=== PATIENT | female | born 1955 | race American Indian/Alaskan Native ===

== ENCOUNTER 2016-12-30 20:28 | Inpatient (IN) | payer MEDICARE ==
[2016-12-30 21:06] LABS: Urine Drugs of Abuse Note Disclamer
[2016-12-30 21:20] LABS: Bacteria,Urine 1+ /HPF (Negative); Bilirubin,Urine NEG (Negative); Blood,Urine NEG (Negative); Ketones,Urine TR mg/dL (Negative); Leukocyte Esterase,Urine NEG (Negative); Nitrite,Urine NEG (Negative); WBC,Urine < 1.0 /HPF (0.0-6.0)
--- NOTE | 2016-12-30 21:26 | Cat Scan Report ---
FINAL REPORT PROCEDURE: CT head without contrast. TECHNIQUE: Computerized tomography of the head was performed without contrast material. HISTORY: Altered mental status. COMPARISON: No prior studies are available for comparison. FINDINGS: There is mild cerebral atrophy. There is some diminished attenuation within the periventricular deep white matter of both frontal lobes. This likely represents chronic microvascular ischemic change. The bone matter and white matter otherwise appear normal. There are no mass lesions. There is no intracranial hemorrhage. There are no signs of acute infarction. The calvarium appears intact. The mastoid air cells and visualized paranasal sinuses are clear. There are subcutaneous contusions in the right frontal scalp and the right posterior scalp. IMPRESSION: Normal study of the brain for age. Probable head trauma with scalp contusions evident.
--- NOTE | 2016-12-30 21:28 | Emergency Department Report ---
ED General Adult HPI - General Chief complaint: Altered Mental Status Stated complaint: ALTERED MENTAL Time Seen by Provider: 12/30/16 21:23 Source: family, EMS (ems notes not available at time of chart dictation), RN notes reviewed Mode of arrival: Stretcher Limitations: Altered Mental Status, Physical Limitation - History of Present Illness Initial comments: This is a 61-year-old female. She is previously unknown to me. She is brought to the hospital by EMS for altered mental status. As per verbal report from family/friends, patient is typically alert, oriented, converses, and able to complete her activities of daily living. The patient was found down at home, for uncertain duration of time, via uncertain mechanism. The patient is altered , and cannot offer any additional information. -: unknown Consistency: constant Improves with: none Worsens with: none Associated Symptoms: confusion - Related Data Home Medications Medication Instructions Recorded Confirmed Last Taken Warfarin Sodium [Coumadin] 7.5 mg PO DAILY 04/27/14 04/27/14 Unknown Previous Rx's Medication Instructions Recorded Last Taken Type Gabapentin [Neurontin] 600 mg PO Q8H #90 tablet 04/27/14 Unknown Rx HYDROcodone/APAP 5-325 [[place] 1 each PO Q6HR PRN #20 tablet 04/27/14 Unknown Rx 5-325 mg TAB] Hydrochlorothiazide [HCTZ] 25 mg PO QDAY #30 tablet 04/27/14 Unknown Rx Losartan [Cozaar] 50 mg PO QDAY #30 tablet 04/27/14 Unknown Rx Rosuvastatin Calcium [Crestor] 40 mg PO QHS #30 tablet 04/27/14 Unknown Rx Warfarin [Coumadin] 5 mg PO QDAY #30 tablet 04/27/14 Unknown Rx glyBURIDE [Diabeta] 5 mg PO DAILY #30 tablet 04/27/14 Unknown Rx Allergies Allergy/AdvReac Type Severity Reaction Status Date / Time No Known Allergies Allergy Unverified 04/27/14 08:15 ED Review of Systems ROS: Stated complaint: ALTERED MENTAL Other details as noted in HPI Comment: Unobtainable due to pts medical conditions ED Past Medical Hx - Past Medical History Hx Diabetes: Yes Hx Headaches / Migraines: Yes Additional medical history: high cholestrol - Surgical History Additional Surgical History: hysterectomy, left toe amputations - Social History Smoking Status: Never Smoker Substance Use Type: None - Medications Home Medications: Home Medications Medication Instructions Recorded Confirmed Last Taken Type Gabapentin [Neurontin] 600 mg PO Q8H #90 tablet 04/27/14 Unknown Rx HYDROcodone/APAP 5-325 [[place] 1 each PO Q6HR PRN #20 tablet 04/27/14 Unknown Rx 5-325 mg TAB] Hydrochlorothiazide [HCTZ] 25 mg PO QDAY #30 tablet 04/27/14 Unknown Rx Losartan [Cozaar] 50 mg PO QDAY #30 tablet 04/27/14 Unknown Rx Rosuvastatin Calcium [Crestor] 40 mg PO QHS #30 tablet 04/27/14 Unknown Rx Warfarin Sodium [Coumadin] 7.5 mg PO DAILY 04/27/14 04/27/14 Unknown History Warfarin [Coumadin] 5 mg PO QDAY #30 tablet 04/27/14 Unknown Rx glyBURIDE [Diabeta] 5 mg PO DAILY #30 tablet 04/27/14 Unknown Rx ED Physical Exam - General Limitations: Altered Mental Status, Physical Limitation General appearance: in no apparent distress - Head Head exam: Present: normocephalic, other (superficial scalp contusions noted. No lacerations are noted) - Eye Eye exam: Present: normal appearance, PERRL - ENT ENT exam: Present: mucous membranes dry - Neck Neck exam: Present: normal inspection, full ROM. Absent: tenderness, meningismus - Respiratory Respiratory exam: Present: normal lung sounds bilaterally. Absent: respiratory distress, wheezes, rales, rhonchi, stridor, chest wall tenderness, accessory muscle use, decreased breath sounds, prolonged expiratory - Cardiovascular Cardiovascular Exam: Present: normal rhythm, tachycardia, normal heart sounds. Absent: systolic murmur, diastolic murmur, rubs, gallop - GI/Abdominal GI/Abdominal exam: Present: soft, normal bowel sounds. Absent: distended, tenderness, guarding, rebound, rigid, pulsatile mass - Rectal Rectal exam: Present: normal inspection - External exam: Present: normal external exam - Extremities Exam Extremities exam: Present: normal inspection, normal capillary refill, other ( nonspecific myoclonic jerks and shaking are noted) - Back Exam Back exam: Present: normal inspection - Neurological Exam Neurological exam: Present: altered, other (patient is awake, and protecting her airway. She does not speak. She does not follow commands.) - Psychiatric Psychiatric exam: Present: other (patient is nonverbal) - Skin Skin exam: Present: warm, dry, intact, normal color. Absent: rash ED Course Vital Signs 12/30/16 12/30/16 12/30/16 20:28 20:30 20:48 Temperature 95.0 F L Pulse Rate 105 H Respiratory 26 H 26 H 28 H Rate Blood Pressure 255/135 255/135 Blood Pressure 255/135 [Left] O2 Sat by Pulse 86 97 Oximetry 12/30/16 12/30/16 12/30/16 21:06 21:12 21:15 Temperature Pulse Rate 103 H 98 H Respiratory 25 H 26 H Rate Blood Pressure 221/118 Blood Pressure 248/137 [Left] O2 Sat by Pulse 99 97 Oximetry 12/30/16 12/30/16 12/30/16 21:30 21:42 21:45 Temperature Pulse Rate 101 H 103 H 106 H Respiratory 24 25 H Rate Blood Pressure 245/119 245/119 194/88 Blood Pressure [Left] O2 Sat by Pulse 100 100 Oximetry 12/30/16 12/30/16 12/30/16 22:00 22:15 22:30 Temperature Pulse Rate 106 H 107 H 107 H Respiratory 31 H 33 H 32 H Rate Blood Pressure 218/99 219/97 227/101 Blood Pressure [Left] O2 Sat by Pulse 99 100 100 Oximetry 12/30/16 12/30/16 12/30/16 22:45 23:00 23:15 Temperature Pulse Rate 116 H 118 H 113 H Respiratory 30 H 33 H 33 H Rate Blood Pressure 193/82 205/93 173/77 Blood Pressure [Left] O2 Sat by Pulse 100 100 99 Oximetry 12/30/16 12/30/16 12/30/16 23:16 23:30 23:45 Temperature Pulse Rate 113 H 110 H 110 H Respiratory 36 H 36 H 40 H Rate Blood Pressure 173/77 170/73 158/70 Blood Pressure [Left] O2 Sat by Pulse 99 100 100 Oximetry 12/30/16 12/30/16 12/31/16 23:47 23:57 00:00 Temperature 98.5 F Pulse Rate 110 H 106 H Respiratory 39 H 37 H Rate Blood Pressure 158/70 165/67 Blood Pressure [Left] O2 Sat by Pulse 99 100 Oximetry 12/31/16 00:15 Temperature Pulse Rate 108 H Respiratory 36 H Rate Blood Pressure 166/69 Blood Pressure [Left] O2 Sat by Pulse 100 Oximetry - Reevaluation(s) Reevaluation #1: 12/31/16 00:36 Vital signs improved. Elevated troponin appreciated, this is most likely secondary to renal insufficiency. I will defer to the inpatient team to further manage and evaluate this. ED Medical Decision Making - Lab Data Result diagrams: 12/30/16 21:29 12/30/16 21:29 Vital Signs 12/30/16 12/30/16 12/30/16 20:28 20:30 20:48 Temperature 95.0 F L Pulse Rate 105 H Respiratory 26 H 26 H 28 H Rate Blood Pressure 255/135 255/135 Blood Pressure 255/135 [Left] O2 Sat by Pulse 86 97 Oximetry 12/30/16 12/30/16 12/30/16 21:06 21:12 21:15 Temperature Pulse Rate 103 H 98 H Respiratory 25 H 26 H Rate Blood Pressure 221/118 Blood Pressure 248/137 [Left] O2 Sat by Pulse 99 97 Oximetry 12/30/16 12/30/16 12/30/16 21:30 21:42 21:45 Temperature Pulse Rate 101 H 103 H 106 H Respiratory 24 25 H Rate Blood Pressure 245/119 245/119 194/88 Blood Pressure [Left] O2 Sat by Pulse 100 100 Oximetry 12/30/16 22:00 Temperature Pulse Rate 106 H Respiratory 31 H Rate Blood Pressure 218/99 Blood Pressure [Left] O2 Sat by Pulse 99 Oximetry Lab Results 12/30/16 12/30/16 12/30/16 Range/Units 20:47 20:47 21:29 WBC 10.5 (4.5-11.0) K/mm3 RBC 4.36 (3.65-5.03) M/mm3 Hgb 12.8 (10.1-14.3) gm/dl Hct 38.7 (30.3-42.9) % MCV 89 (79-97) fl MCH 30 (28-32) pg MCHC 33 (30-34) % RDW 15.8 H (13.2-15.2) % Plt Count 306 (140-440) K/mm3 Lymph % (Auto) 15.5 (13.4-35.0) % Hardy % (Auto) 2.6 (0.0-7.3) % Eos % (Auto) 0.0 (0.0-4.3) % Baso % (Auto) 0.3 (0.0-1.8) % Lymph # 1.6 (1.2-5.4) K/mm3 Hardy # 0.3 (0.0-0.8) K/mm3 Eos # 0.0 (0.0-0.4) K/mm3 Baso # 0.0 (0.0-0.1) K/mm3 Seg Neutrophils % 81.6 H (40.0-70.0) % Seg Neutrophils # 8.5 H (1.8-7.7) K/mm3 Sodium (137-145) mmol/L Potassium (3.6-5.0) mmol/L Chloride (98-107) mmol/L Carbon Dioxide (22-30) mmol/L Anion Gap mmol/L BUN (7-17) mg/dL Creatinine (0.7-1.2) mg/dL Estimated GFR ml/min BUN/Creatinine Ratio % Glucose (65-100) mg/dL Calcium (8.4-10.2) mg/dL Magnesium (1.7-2.3) mg/dL Total Bilirubin (0.1-1.2) mg/dL AST (5-40) units/L ALT (7-56) units/L Alkaline Phosphatase (35-129) units/L Total Creatine Kinase (30-135) units/L Total Protein (6.3-8.2) g/dL Albumin (3.9-5) g/dL Albumin/Globulin Ratio % TSH (0.270-4.200) mlU/mL Urine Color Yellow (Yellow) Urine Turbidity Clear (Clear) Urine pH 5.0 (5.0-7.0) Ur Specific [place] 1.023 (1.003-1.030) Urine Protein 100 mg/dl (Negative) mg/dL Urine Glucose (UA) Neg (Negative) mg/dL Urine Ketones Tr (Negative) mg/dL Urine Blood Neg (Negative) Urine Nitrite Neg (Negative) Urine Bilirubin Neg (Negative) Urine Urobilinogen 2.0 (<2.0) mg/dL Ur Leukocyte Esterase Neg (Negative) Urine WBC (Auto) < 1.0 (0.0-6.0) /HPF Urine RBC (Auto) 1.0 (0.0-6.0) /HPF U Epithel Cells (Auto) 1.0 (0-13.0) /HPF Urine Bacteria (Auto) 1+ (Negative) /HPF Salicylates (2.8-20.0) mg/dL Urine Opiates Screen Presumptive negative Urine Methadone Screen Presumptive negative Acetaminophen (10.0-30.0) ug/mL Ur Barbiturates Screen Presumptive negative Ur Phencyclidine Scrn Presumptive negative Ur Amphetamines Screen Presumptive negative U Benzodiazepines Scrn Presumptive negative Urine Cocaine Screen Presumptive negative U Marijuana (THC) Screen Presumptive positive Drugs of Abuse Note Disclamer Plasma/Serum Alcohol (0-0.07) gm% 12/30/16 12/30/16 12/30/16 Range/Units 21:29 21:29 21:29 WBC (4.5-11.0) K/mm3 RBC (3.65-5.03) M/mm3 Hgb (10.1-14.3) gm/dl Hct (30.3-42.9) % MCV (79-97) fl MCH (28-32) pg MCHC (30-34) % RDW (13.2-15.2) % Plt Count (140-440) K/mm3 Lymph % (Auto) (13.4-35.0) % Hardy % (Auto) (0.0-7.3) % Eos % (Auto) (0.0-4.3) % Baso % (Auto) (0.0-1.8) % Lymph # (1.2-5.4) K/mm3 Hardy # (0.0-0.8) K/mm3 Eos # (0.0-0.4) K/mm3 Baso # (0.0-0.1) K/mm3 Seg Neutrophils % (40.0-70.0) % Seg Neutrophils # (1.8-7.7) K/mm3 Sodium 143 (137-145) mmol/L Potassium 6.9 H* (3.6-5.0) mmol/L Chloride 101.8 (98-107) mmol/L Carbon Dioxide 14 L (22-30) mmol/L Anion Gap 34 mmol/L BUN 73 H (7-17) mg/dL Creatinine 3.6 H (0.7-1.2) mg/dL Estimated GFR 16 ml/min BUN/Creatinine Ratio 20.27 % Glucose 152 H (65-100) mg/dL Calcium 10.1 (8.4-10.2) mg/dL Magnesium 2.70 H (1.7-2.3) mg/dL Total Bilirubin 0.40 (0.1-1.2) mg/dL AST 19 (5-40) units/L ALT 7 (7-56) units/L Alkaline Phosphatase 109 (35-129) units/L Total Creatine Kinase 854 H (30-135) units/L Total Protein 8.1 (6.3-8.2) g/dL Albumin 4.1 (3.9-5) g/dL Albumin/Globulin Ratio 1.0 % TSH 1.320 (0.270-4.200) mlU/mL Urine Color (Yellow) Urine Turbidity (Clear) Urine pH (5.0-7.0) Ur Specific [place] (1.003-1.030) Urine Protein (Negative) mg/dL Urine Glucose (UA) (Negative) mg/dL Urine Ketones (Negative) mg/dL Urine Blood (Negative) Urine Nitrite (Negative) Urine Bilirubin (Negative) Urine Urobilinogen (<2.0) mg/dL Ur Leukocyte Esterase (Negative) Urine WBC (Auto) (0.0-6.0) /HPF Urine RBC (Auto) (0.0-6.0) /HPF U Epithel Cells (Auto) (0-13.0) /HPF Urine Bacteria (Auto) (Negative) /HPF Salicylates < 0.3 L (2.8-20.0) mg/dL Urine Opiates Screen Urine Methadone Screen Acetaminophen (10.0-30.0) ug/mL Ur Barbiturates Screen Ur Phencyclidine Scrn Ur Amphetamines Screen U Benzodiazepines Scrn Urine Cocaine Screen U Marijuana (THC) Screen Drugs of Abuse Note Plasma/Serum Alcohol (0-0.07) gm% 12/30/16 12/30/16 Range/Units 21:29 21:29 WBC (4.5-11.0) K/mm3 RBC (3.65-5.03) M/mm3 Hgb (10.1-14.3) gm/dl Hct (30.3-42.9) % MCV (79-97) fl MCH (28-32) pg MCHC (30-34) % RDW (13.2-15.2) % Plt Count (140-440) K/mm3 Lymph % (Auto) (13.4-35.0) % Hardy % (Auto) (0.0-7.3) % Eos % (Auto) (0.0-4.3) % Baso % (Auto) (0.0-1.8) % Lymph # (1.2-5.4) K/mm3 Hardy # (0.0-0.8) K/mm3 Eos # (0.0-0.4) K/mm3 Baso # (0.0-0.1) K/mm3 Seg Neutrophils % (40.0-70.0) % Seg Neutrophils # (1.8-7.7) K/mm3 Sodium (137-145) mmol/L Potassium (3.6-5.0) mmol/L Chloride (98-107) mmol/L Carbon Dioxide (22-30) mmol/L Anion Gap mmol/L BUN (7-17) mg/dL Creatinine (0.7-1.2) mg/dL Estimated GFR ml/min BUN/Creatinine Ratio % Glucose (65-100) mg/dL Calcium (8.4-10.2) mg/dL Magnesium (1.7-2.3) mg/dL Total Bilirubin (0.1-1.2) mg/dL AST (5-40) units/L ALT (7-56) units/L Alkaline Phosphatase (35-129) units/L Total Creatine Kinase (30-135) units/L Total Protein (6.3-8.2) g/dL Albumin (3.9-5) g/dL Albumin/Globulin Ratio % TSH (0.270-4.200) mlU/mL Urine Color (Yellow) Urine Turbidity (Clear) Urine pH (5.0-7.0) Ur Specific [place] (1.003-1.030) Urine Protein (Negative) mg/dL Urine Glucose (UA) (Negative) mg/dL Urine Ketones (Negative) mg/dL Urine Blood (Negative) Urine Nitrite (Negative) Urine Bilirubin (Negative) Urine Urobilinogen (<2.0) mg/dL Ur Leukocyte Esterase (Negative) Urine WBC (Auto) (0.0-6.0) /HPF Urine RBC (Auto) (0.0-6.0) /HPF U Epithel Cells (Auto) (0-13.0) /HPF Urine Bacteria (Auto) (Negative) /HPF Salicylates (2.8-20.0) mg/dL Urine Opiates Screen Urine Methadone Screen Acetaminophen < 15.0 (10.0-30.0) ug/mL Ur Barbiturates Screen Ur Phencyclidine Scrn Ur Amphetamines Screen U Benzodiazepines Scrn Urine Cocaine Screen U Marijuana (THC) Screen Drugs of Abuse Note Plasma/Serum Alcohol < 0.01 (0-0.07) gm% - EKG Data -: EKG Interpreted by Me - EKG Data 12/30/16 22:46 Sinus tachycardia, 104 bpm, normal axis, QTC 476 ms, abnormal EKG, not morphologically consistent with STEMI - Radiology Data Radiology results: report reviewed, image reviewed X-ray the chest is negative. Noncontrast CT scan of the brain is negative. Noncontrast CT scan of the cervical spine is negative. - Medical Decision Making Differential diagnosis: Environmental hypothermia, pneumonia, urinary tract infection, bacteremia, dehydration, acute coronary syndrome, arrhythmia, structural cardiac disease, dehydration, renal insufficiency, hyperkalemia, electrolyte derangement, hypertensive encephalopathy Assessment and plan: 61-year-old female with altered mental status, awake, eyes open spontaneously, does not speak, does not follow commands, with multiple derangement, including hypothermia, refractory hypertension, hyperkalemia, and renal insufficiency. Patient will be treated empirically with broad-spectrum antibiotics, urine cultures, blood cultures, lactic acid has been drawn. I appreciate that the patient meets systemic inflammatory response syndrome criteria, however given her hypertension, and renal insufficiency, the patient will receive judicious hydration rather than the typical 30 mL/kg of IV fluid bolus. Her hyperkalemia was treated medically with the potassium cocktail, and the EKG , physical exam findings, and case are presented to both nephrology on-call, and critical care correctional program officer, doctors Anju and Saravanan, respectively. Nephrology is okay with medical management at this time, based on the patient's EKG findings, and chest x-ray, they do not believe she requires emergent dialysis at this time. Critical care physician on-call authorizes placement to the intensive care unit. Patient will be started on a nicardipine drip. Case is presented to the Hospital physician, Dr. Ragland, she accepts the patient to her service. Critical Care Time: Yes Critical care time in (mins) excluding proc time.: 45 Critical care attestation.: If time is entered above; I have spent that time in minutes in the direct care of this critically ill patient, excluding procedure time. Critical Care Time: Critical care time includes multiple bedside reevaluation's, interpretation of laboratory studies, radiology studies, time spent managing critically ill patient with hypertensive encephalopathy, hyperkalemia, and renal insufficiency , requiring multiple medical interventions, consultation with critical care medicine, nephrology, hospital medicine. This does not include procedure time. ED Disposition Clinical Impression: Hyperkalemia, ARF (acute renal failure), Hypertensive encephalopathy Disposition: 09 OP ADMIT IP TO THIS HOSP Is pt being admited?: Yes Condition: Fair Referrals: PRIMARY CARE, [Primary Care Provider] - 3-5 Days
[2016-12-30] MEDS ORDERED: APRESOLINE IV ONE (21:36)
[2016-12-30] MEDS ORDERED: NACL 0.9% 500 ML 500 ML IV ONE (21:37)
--- NOTE | 2016-12-30 21:48 | Cat Scan Report ---
FINAL REPORT PROCEDURE: CT cervical spine without contrast. TECHNIQUE: Computerized tomography of the cervical spine was performed from the skull base to T1 without contrast material. HISTORY: Altered mental status, possible neck injury. COMPARISON: No prior studies are available for comparison. FINDINGS: The cervical vertebrae have normal height and satisfactory alignment. There are no fractures. There is no subluxation. There is mild disc space narrowing at C5-6. There are small vertebral body osteophytes at this level. The spinal canal is widely patent. There is osteoarthritis involving several of the facet joints. The neural foramina appear adequately patent. IMPRESSION: No evidence of acute cervical spine injury.
[2016-12-30 21:57] LABS: Basophils % (Auto) 0.3 % (0.0-1.8); Hematocrit 38.7 % (30.3-42.9); Hemoglobin 12.8 gm/dl (10.1-14.3); Mean Corpuscular HGB Conc 33 % (30-34); Mean Corpuscular Hemoglobin 30 pg (28-32); Mean Corpuscular Volume 89 fl (79-97); Platelet Count 306 K/mm3 (140-440); Red Blood Count 4.36 M/mm3 (3.65-5.03); Red Cell Distribution Width 15.8 % (13.2-15.2); White Blood Count 10.5 K/mm3 (4.5-11.0)
[2016-12-30 22:21] LABS: Albumin 4.1 g/dL (3.9-5); BUN/Creatinine Ratio 20.27; Bilirubin,Total 0.4 mg/dL (0.1-1.2); Calcium 10.1 mg/dL (8.4-10.2); Chloride 101.8 mmol/L (98-107); Magnesium 2.7 mg/dL (1.7-2.3); Total Protein 8.1 g/dL (6.3-8.2)
[2016-12-30] MEDS ORDERED: ROCEPHIN/NS 1 GM/50 ML 1 GM/50 ML BAG IV ONE (22:25)
[2016-12-30 22:26] LABS: Potassium 6.9 mmol/L (3.6-5.0)
[2016-12-30] MEDS ORDERED: D50W (25GM) Syringe IV ONE (22:26)
[2016-12-30] MEDS ORDERED: SODIUM BICARBONATE IV ONE ×2 (22:26)
[2016-12-30] MEDS ORDERED: NACL 0.9% 1000 ML 1,000 ML IV ONE (22:26)
[2016-12-30] MEDS ORDERED: KIONEX PR ONE (22:26)
[2016-12-30] MEDS ORDERED: CALCIUM GLUCONATE 1,000 MG in NACL 0.9% 100 ML IV ONE (22:26)
[2016-12-30] MEDS ORDERED: LASIX 100 MG in NACL 0.9% 50 ML IV ONE (22:47)
[2016-12-30] MEDS: CARDENE 50 MG in NACL 0.9% 250ML 230 ML IV SCH (23:04)
--- NOTE | 2016-12-30 23:56 | History and Physical Report ---
History of Present Illness Date of examination: 12/30/16 History of present illness: History per sisters at bedside. This is a 61-year-old woman with a history of hypertension, diabetes, chronic kidney disease was brought to the emergency room because she was found unresponsive at home. It's unclear how long the patient had been on the floor, patient's blood pressure has been very elevated upon admission, she was started on a Cardene drip. She status post cocktail for hyperkalemia. Review of system is unobtainable PAST MEDICAL HISTORY:hypertension, diabetes, chronic kidney disease PAST SURGICAL HISTORY: Bypass on legs, left foot amputation FAMILY HISTORY: Hypertension SOCIAL HISTORY: Smoke marijuana, cigarettes, unknown alcohol Medications and Allergies Allergies Allergy/AdvReac Type Severity Reaction Status Date / Time No Known Allergies Allergy Unverified 04/27/14 08:15 Home Medications Medication Instructions Recorded Confirmed Last Taken Type Metoprolol Xl [Metoprolol 50 mg PO QDAY 12/31/16 12/31/16 Unknown History SUCCINATE ER TAB] amLODIPine [Norvasc] 10 mg PO DAILY 12/31/16 12/31/16 Unknown History AtorvaSTATin 40 mg PO QPM 01/01/17 01/01/17 Unknown History Active Meds: Active Medications Nicardipine HCl 50 mg/ Sodium (Chloride) 250 mls @ 25 mls/hr IV TITR RAGHAV; 5 MG/ HR PRN Reason: Protocol Last Admin: 12/30/16 23:04 Dose: 5 mg/hr, 25 mls/hr Exam - Physical Exam Narrative exam: Gen. appearance: Patient lying in bed, no apparent distress HEENT: Normocephalic, atraumatic, pupils equally round and reactive to light, extraocular movement intact, and no sclericterus,. No JVD or thyromegaly or nodule,neck supple, no carotid bruit ,mucous membranes moist, no exudate or erythema Heart: S1, S2, regular rate and rhythm Lungs: Clear to auscultation bilaterally anteriorly, breathing comfortable Abdomen: Positive bowel sounds, soft, nondistended, no organomegaly Extremity: No edema, cyanosis, clubbing Skin: No rash, nodules, warm, dry Neuro: Lethargic, non verbal, not following commands - Constitutional Vitals: Temp Pulse Resp BP Pulse Ox 95.0 F L 110 H 40 H 158/70 100 12/30/16 20:48 12/30/16 23:45 12/30/16 23:45 12/30/16 23:45 12/30/16 23:45 Results - Labs CBC & Chem 7: 01/03/17 03:44 01/03/17 03:44 Labs: Abnormal lab results 12/30/16 12/30/16 12/30/16 Range/Units 21:29 21:29 21:29 RDW 15.8 H (13.2-15.2) % Seg Neutrophils % 81.6 H (40.0-70.0) % Seg Neutrophils # 8.5 H (1.8-7.7) K/mm3 Potassium 6.9 H* (3.6-5.0) mmol/L Carbon Dioxide 14 L (22-30) mmol/L BUN 73 H (7-17) mg/dL Creatinine 3.6 H (0.7-1.2) mg/dL Glucose 152 H (65-100) mg/dL Magnesium 2.70 H (1.7-2.3) mg/dL Total Creatine Kinase 854 H (30-135) units/L Salicylates < 0.3 L (2.8-20.0) mg/dL - Imaging and Cardiology EKG: image reviewed Chest x-ray: image reviewed CT Scan - head: report reviewed Assessment and Plan CT cervical spine reviewed Assessment Acute encephalopathy, probably hypertensive versus stroke Acute on chronic renal failure Hypertension malignant Hyperkalemia Elevated troponin Rhabdomyolysis Diabetes type 2 Plan Admit to medicine Continue Cardene drip, IV fluids, do neurochecks Follow potassium and treat as needed Check cardiac enzymes, echo Consult renal, critical care Check fingersticks initiate insulin sliding scale Start DVT prophylaxis If mental status does not improve, consider MRI of the head
[2016-12-31] MEDS ORDERED: ZOFRAN IV PRN (00:24)
[2016-12-31] MEDS ORDERED: TYLENOL PO PRN (00:24)
[2016-12-31] MEDS ORDERED: NACL 0.9% 1000 ML 1,000 ML IV SCH (01:00)
[2016-12-31 02:08] LABS: Creatine Kinase MB 10.5 ng/mL (0.0-4.0)
[2016-12-31 05:12] LABS: BUN/Creatinine Ratio 19.25; Calcium 8.8 mg/dL (8.4-10.2); Chloride 106.1 mmol/L (98-107); Potassium 5.6 mmol/L (3.6-5.0)
--- NOTE | 2016-12-31 07:03 | Admit Criteria Form ---
Admission Criteria Documentation: RENAL FAILURE, ACUTE Clinical Indications for Admission to Inpatient Care ( Place 'X' for any and all applicable criteria): Admission is indicated for ALL (I and II) of the following[A](1)(2)(3)(4)(8)(9)( 10)(11)(12): [ ]I. Acute renal failure as indicated by 1 or more of the following: a) A 3-fold rise in serum creatinine from baseline b) Serum creatinine > 4 mg/dL (354 mol/L) with an acute rise > 0.5 mg/dL (44.2 mol/L) c) Reduction of > 75% in estimated glomerular filtration rate from baseline d) Estimated glomerular filtration rate < 35 mL/min/1.73m2(0.59 mL/sec/1.73m2 ) in a child up to 18 years of age e) Anuria indicated by ALL the following: i) Adequate volume status ii) Cessation of urine output indicated by 1 or more of the followin) Urine output < 0.3 mL/kg/hr for 24 hours) 2) Anuria (urine output < 0.1 mL/kg/hr) for 12hours [X] II. Renal failure cannot be managed in an outpatient or observational care setting as indicating by 1 or more of the following: [X] a) Altered mental status that is severe or persistent [ ] b) Cardiac arrhythmias of immediate concern [ ] c) Hemodynamic instability [ ] d) Significant respiratory findings (eg, pulmonary edema) that are severe (eg, Hypoxemia) or persist despite observation care treatment (eg, Tachypnea) [X] e) Clinically significant electrolyte abnormality that requires inpatient care (eg, hyperkalemia with severe ECG findings)[B] [ ] f) Clinically significant metabolic abnormality (eg, acidosis) that is severe or persistent [ ] g) Acute treatment of renal failure (eg, renal replacement therapy) not feasible or appropriate in observational care setting [ ] h) Clinical situation too unstable or uncertain (eg, inadequate urine output, ongoing decline in renal function, etiology unclear) [ ] i) Necessary support and caregiver ability to comply with outpatient treatment cannot be arranged in observation care timeframe (eg, within 24 hours) [ ] j) Other significant finding or clinical condition judged not to be within scope of observation care [X]III. General contraindications and/or Inappropriate clinical situations for Observational Care in patients with acute renal failure, when ANY ONE of the following is required: [ ] a) Prediction of prolongation of LOS based on ANY ONE of the following may be considered as a contraindication for observational care2, 3, 4, 5, 6, 7, 8, 9, 10, 11 i) Age > 65 yrs. ii) Patient arriving by ambulance iii) Patient with high acuity iv) Patient requiring vital sign monitoring v) Patient on IV medication [X] b) Systolic blood pressures = [id number] [ ] c) Patient with altered mental status including delirium and other alteration of consciousness3 [ ] d) Patient whose discharge disposition will be to a assisted home or rehabilitation home should not be managed in Emergency Department Observation Unit. CMS rule requires 3 days hospital stay before such placement3,13 [ ] e) Patient with failure to thrive due to broad array of etiologies3,16,17 [ ] f) Inability to ambulate3,14 Extended stay beyond goal length of stay may be needed for [ ]a) Continuing uremic complications(25) [ ]b) Care for comorbidities(26)(27)(28)(29) [ ]c) acute renal failure [ ]d) New need for dialysis (eg, not previously arranged and prepared)(21)( 30) The original [facility] content created by [facility] has been revised. The portions of the content which have been revised are identified through the use of italic text or in bold, and [facility] has neither reviewed nor approved the modified material. All other unmodified content is copyright [facility] [employer]. Please see references footnoted in the original [facility] edition 2017 Admission Criteria Met: Yes
--- NOTE | 2016-12-31 07:16 | Consultation ---
History of Present Illness - Reason for Consult Consult date: 12/31/16 acute renal failure, chronic renal failure, hyperkalemia, metabolic acidosis - History of Present Illness The patient is a 61-year-old AAF with history significant for Hypertension, Type 2 diabetes, Hyperlipidemia and CKD stage 3 who was brought to the emergency room because she was found unresponsive at home. Unable to obtain any history from patient at this time. Information obtained from her sister at the bedside. It is unclear how long the patient had been on the floor. Her blood pressure was very high in the ER and she was started on a Cardene drip. Her potassium was 6.9 on arrival, decreased to 6 today with creatinine of 4.6. Patient did receive treatment for hyperkalemia. Per sister patient is non- compliant with meds and appts. Past History Past Medical History: diabetes, hypertension, hyperlipidemia, renal failure Medications and Allergies Allergies Allergy/AdvReac Type Severity Reaction Status Date / Time No Known Allergies Allergy Unverified 04/27/14 08:15 Home Medications Medication Instructions Recorded Confirmed Last Taken Type Metoprolol Xl [Metoprolol 50 mg PO QDAY 12/31/16 12/31/16 Unknown History SUCCINATE ER TAB] amLODIPine [Norvasc] 10 mg PO DAILY 12/31/16 12/31/16 Unknown History Active Meds: Active Medications Acetaminophen (Tylenol) 650 mg PO Q4H PRN PRN Reason: Pain MILD(1-3)/Fever >100.5/CELIS Enoxaparin Sodium (Lovenox) 30 mg SUB-Q QDAY RAGHAV Nicardipine HCl 50 mg/ Sodium (Chloride) 250 mls @ 25 mls/hr IV TITR RAGHAV; 5 MG/ HR PRN Reason: Protocol Last Titration: 12/31/16 01:19 Dose: 6 mg/hr, 30 mls/hr Sodium Chloride (Nacl 0.9% 1000 Ml) 1,000 mls @ 125 mls/hr IV DIRECT RAGHAV Ondansetron HCl (Zofran) 4 mg IV Q4H PRN PRN Reason: N/V unrelieved by Reglan Review of Systems ROS unobtainable: due to mental status Exam - Vital Signs Vital signs: Vital Signs Resp 26 H 12/30/16 20:28 - General Appearance General appearance: well-developed, well-nourished, appears stated age, other ( no responding) EENT: ATNC, PERRL Neck: Present: neck supple, trachea midline Respiratory: Clear to Ascultation Heart: regular, S1S2, no murmurs Gastrointestinal: Present: normoactive bowel sounds. Absent: tenderness, distended Integumentary: no rash Neurologic: obtunded, other (preferential gaze to right side) Musculoskeletal: Present: other (no edema) Results - Lab Results 12/30/16 21:29 01/01/17 06:35 Most recent lab results Calcium 8.8 mg/dL (8.4-10.2) 12/31/16 01:31 Magnesium 2.70 mg/dL (1.7-2.3) H 12/30/16 21:29 - Image Kidney/bladder ultrasound: pending Assessment and Plan - Patient Problems (1) Hyperkalemia Current Visit: Yes Status: Acute Plan to address problem: Hyperkalemia in the setting of Acute kidney injury. Due to persistent hyperkalemia and metabolic acidosis patient require hemodialysis. Discussed with her sister at the bedside regarding the treatment options. Agreed to proceed with hemodialysis. Risks and benefits explained. Vascular consulted. Hemodialysis orders placed. (2) ARF (acute renal failure) Current Visit: Yes Status: Acute Qualifiers: Acute renal failure type: A Plan to address problem: Acute kidney injury superimposed on CKD stage 3 in the setting of uncontrolled HTN. Hemodialysis today. Renal prognosis is guarded. (3) Metabolic acidosis Current Visit: Yes Status: Acute Plan to address problem: On Bicarbonate drip. (4) Hypertensive encephalopathy Current Visit: Yes Status: Acute Plan to address problem: On Cardene drip.
[2016-12-31] MEDS ORDERED: CALCIUM GLUCONATE 1,000 MG in NACL 0.9% 100 ML IV ONE (07:30)
[2016-12-31] MEDS ORDERED: D50W (25GM) Syringe IV ONE ×2 (07:30→08:26)
[2016-12-31 07:40] LABS: Creatine Kinase MB 10.8 ng/mL (0.0-4.0)
[2016-12-31 07:58] LABS: BUN/Creatinine Ratio 17.6; Chloride 107.5 mmol/L (98-107)
--- NOTE | 2016-12-31 08:35 | Progress Note ---
Assessment and Plan Assessment and plan: 61 yo AAF with multiple chronic conditions (hypertension, diabetes, hyperlipidemia, peripheral vascular disease status post bypass) noncompliant, not taking her medications for months, found down by family and brought to ER unresponsive with blood pressure 255/135 1. Malignant hypertension/hypertensive emergency CT head showing chronic ischemic microvascular changes, with no acute infarct or hemorrhage Started on Cardene drip; this morning BP better controlled with systolic in 160s Unable to switched to by mouth antihypertensives as she remains unresponsive 2. Acute toxic metabolic encephalopathy Likely due to combination of hypertensive encephalopathy/renal failure with uremia/acidosis/electrolytes abnormalities/ drug use Obtain brain MRI to exclude stroke and better assess Treatment underlying conditions 3. Acute renal failure likely superimposed on chronic kidney disease BUN 77, creatinine 4 with marked hyperkalemia and metabolic acidosis Give bicarbonate Obtain renal ultrasound Nephrology consulted 4. Hyperkalemia On admission K+ 6.9; received Kayexalate, insulin/D50 This morning, K+ still elevated at 5.6; give additional Kayexalate, insulin/D50 , bicarbonate Monitor closely 5. Rhabdomyolysis Give IV fluids, but with caution given malignant hypertension Monitor CPK and renal function 6. Elevated troponin Most likely secondary to hypertensive emergency/renal failure Continue to trend cardiac enzymes Obtain echocardiogram 7. Hyperlipidemia - mixed Toprol Crestor 355, LDL 251, TG 298 Will hold statin for now given rhabdomyolysis 8. Peripheral vascular disease Status post bypass Discontinued anticoagulant therapy on her own months ago 9. Drug abuse UDS positive for marijuana If recovers, will need counseling 10. DVT prophylaxis As CT head negative for hemorrhage, will change Lovenox to heparin subcutaneous due to renal failure CC 40 min History Interval history: BP better controlled now on Cardene drip with SBP in 160s, but remains unresponsive Hospitalist Physical - Constitutional Vitals: Temp Pulse Resp BP Pulse Ox 98.5 F 109 H 30 H 164/67 100 12/30/16 23:57 12/31/16 07:30 12/31/16 07:30 12/31/16 07:30 12/31/16 07:30 General appearance: Present: mild distress - Neck Neck: Absent: enlarged thyroid, masses or JVD, carotid bruits - Respiratory Respiratory effort: normal Respiratory: bilateral: CTA (coarse breath sounds), negative: rhonchi, wheezing - Cardiovascular Rhythm: other (tachycardic) Heart Sounds: Present: S1 & S2. Absent: systolic murmur - Extremities Extremities: no ischemia - Abdominal General gastrointestinal: soft, non-distended, normal bowel sounds, no hepatomegaly - Psychiatric Psychiatric: other (unresponsive) Results - Labs CBC & Chem 7: 12/30/16 21:12/31/16 06:58 Labs: Laboratory Last Values WBC 10.5 K/mm3 (4.5-11.0) 12/30/16 21: RBC 4.36 M/mm3 (3.65-5.03) 12/30/16 21: Hgb 12.8 gm/dl (10.1-14.3) 12/30/16 21: Hct 38.7 % (30.3-42.9) 12/30/16 21: MCV 89 fl (79-97) 12/30/16 21: MCH 30 pg (28-32) 12/30/16: MCHC 33 % (30-34) 12/30/16: RDW 15.8 % (13.2-15.2) H 12/30/16 21: Plt Count 306 K/mm3 (140-440) 12/30/16 21: Lymph % (Auto) 15.5 % (13.4-35.0) 12/30/16 21: Stephenson % (Auto) 2.6 % (0.0-7.3) 12/30/16 21: Eos % (Auto) 0.0 % (0.0-4.3) 12/30/16: Baso % (Auto) 0.3 % (0.0-1.8) 12/30/16 21: Lymph # 1.6 K/mm3 (1.2-5.4) 12/30/16 21: Stephenson # 0.3 K/mm3 (0.0-0.8) 12/30/16 21: Eos # 0.0 K/mm3 (0.0-0.4) 12/30/16 21: Baso # 0.0 K/mm3 (0.0-0.1) 12/30/16 21: Seg Neutrophils % 81.6 % (40.0-70.0) H 12/30/16 21: Seg Neutrophils # 8.5 K/mm3 (1.8-7.7) H 12/30/16 21:29 Sodium 147 mmol/L (137-145) H 12/31/16 06:58 Potassium 6.0 mmol/L (3.6-5.0) H 12/31/16 06:58 Chloride 107.5 mmol/L (98-107) H 12/31/16 06:58 Carbon Dioxide 12 mmol/L (22-30) L 12/31/16 06:58 Anion Gap 34 mmol/L 12/31/16 06:58 BUN 81 mg/dL (7-17) H 12/31/16 06:58 Creatinine 4.6 mg/dL (0.7-1.2) H 12/31/16 06:58 Estimated GFR 12 ml/min 12/31/16 06:58 BUN/Creatinine Ratio 17.60 % 12/31/16 06:58 Glucose 183 mg/dL (65-100) H 12/31/16 06:58 Lactic Acid 2.40 mmol/L (0.7-2.0) H* 12/30/16 23:34 Calcium 9.0 mg/dL (8.4-10.2) 12/31/16 06:58 Magnesium 2.70 mg/dL (1.7-2.3) H 12/30/16 21:29 Total Bilirubin 0.40 mg/dL (0.1-1.2) 12/30/16 21:29 AST 19 units/L (5-40) 12/30/16 21:29 ALT 7 units/L (7-56) 12/30/16 21:29 Alkaline Phosphatase 109 units/L (35-129) 12/30/16 21:29 Total Creatine Kinase 711 units/L (30-135) H 12/31/16 03:42 CK-MB (CK-2) 10.8 ng/mL (0.0-4.0) H 12/31/16 06:58 CK-MB (CK-2) Rel Index 1.5 (0-4) 12/31/16 01:31 Troponin T 0.179 ng/mL (0.00-0.029) H* D 12/31/16 06:58 Total Protein 8.1 g/dL (6.3-8.2) 12/30/16 21:29 Albumin 4.1 g/dL (3.9-5) 12/30/16 21:29 Albumin/Globulin Ratio 1.0 % 12/30/16 21:29 Triglycerides 298 mg/dL (2-149) H 12/30/16 23:34 Cholesterol 355 mg/dL (50-199) H 12/30/16 23:34 LDL Cholesterol Direct 251 mg/dL (50-130) H 12/30/16 23:34 HDL Cholesterol 45 mg/dL (40-59) 12/30/16 23:34 Cholesterol/HDL Ratio 7.88 % 12/30/16 23:34 TSH 1.320 mlU/mL (0.270-4.200) 12/30/16 21:29 PTH Intact 124.4 pg/mL (15-65) H 12/31/16 03:42 Urine Color Yellow (Yellow) 12/30/16 20:47 Urine Turbidity Clear (Clear) 12/30/16 20:47 Urine pH 5.0 (5.0-7.0) 12/30/16 20:47 Ur Specific [place] 1.023 (1.003-1.030) 12/30/16 20:47 Urine Protein 100 mg/dl mg/dL (Negative) 12/30/16 20:47 Urine Glucose (UA) Neg mg/dL (Negative) 12/30/16 20:47 Urine Ketones Tr mg/dL (Negative) 12/30/16 20:47 Urine Blood Neg (Negative) 12/30/16 20:47 Urine Nitrite Neg (Negative) 12/30/16 20:47 Urine Bilirubin Neg (Negative) 12/30/16 20:47 Urine Urobilinogen 2.0 mg/dL (<2.0) 12/30/16 20:47 Ur Leukocyte Esterase Neg (Negative) 12/30/16 20:47 Urine WBC (Auto) < 1.0 /HPF (0.0-6.0) 12/30/16 20:47 Urine RBC (Auto) 1.0 /HPF (0.0-6.0) 12/30/16 20:47 U Epithel Cells (Auto) 1.0 /HPF (0-13.0) 12/30/16 20:47 Urine Bacteria (Auto) 1+ /HPF (Negative) 12/30/16 20:47 Salicylates < 0.3 mg/dL (2.8-20.0) L 12/30/16 21:29 Urine Opiates Screen Presumptive negative 12/30/16 20:47 Urine Methadone Screen Presumptive negative 12/30/16 20:47 Acetaminophen < 15.0 ug/mL (10.0-30.0) 12/30/16 21:29 Ur Barbiturates Screen Presumptive negative 12/30/16 20:47 Ur Phencyclidine Scrn Presumptive negative 12/30/16 20:47 Ur Amphetamines Screen Presumptive negative 12/30/16 20:47 U Benzodiazepines Scrn Presumptive negative 12/30/16 20:47 Urine Cocaine Screen Presumptive negative 12/30/16 20:47 U Marijuana (THC) Screen Presumptive positive 12/30/16 20:47 Drugs of Abuse Note Disclamer 12/30/16 20:47 Plasma/Serum Alcohol < 0.01 gm% (0-0.07) 12/30/16 21:29
[2016-12-31] MEDS ORDERED: KIONEX PR ONE (09:00)
[2016-12-31] MEDS: ATIVAN IV PRN (09:02)
[2016-12-31] MEDS ORDERED: ATIVAN ONE (09:04)
--- NOTE | 2016-12-31 09:18 | XRay Report ---
AP CHEST: HISTORY: Altered mental status AP view of the chest demonstrates a normal mediastinal and cardiac contour with clear lungs and normal bony and soft tissue structures. IMPRESSION: Unremarkable AP chest.
[2016-12-31] MEDS: PROVENTIL IH STA ×2 (09:52→10:24)
[2016-12-31] MEDS ORDERED: KIONEX PO ONE ×2 (10:00→21:00)
[2016-12-31] MEDS ORDERED: LOVENOX SUB-Q SCH (10:00)
[2016-12-31] MEDS ORDERED: KIONEX ONE (10:23)
[2016-12-31] MEDS ORDERED: NACL 0.9% 100 ML IV PRN ×2 (10:30→17:56)
[2016-12-31] MEDS: SODIUM BICARBONATE 150 MEQ in D5W 1,000 ML IV SCH (10:45)
[2016-12-31] MEDS ORDERED: SUBLIMAZE IV ONE (10:45)
[2016-12-31] MEDS ORDERED: ATIVAN IV ONE (10:45)
[2016-12-31] MEDS ORDERED: ZEMURON IV ONE ×2 (10:45→11:20)
[2016-12-31] MEDS ORDERED: SUBLIMAZE ONE (10:51)
[2016-12-31] MEDS ORDERED: NACL 0.9% 1000 ML 1,000 ML ONE (10:56)
[2016-12-31] MEDS ORDERED: D5/0.45NS 1,000 ML IV SCH (11:00)
[2016-12-31] MEDS: HEPARIN SUB-Q SCH ×2 (11:09→23:15)
--- NOTE | 2016-12-31 11:17 | XRay Report ---
AP CHEST: HISTORY: Endotracheal tube placement. The endotracheal tube terminates 6.2 cm superior to the maria eugenia. AP view of the chest demonstrates a normal mediastinal and cardiac contour with clear lungs and normal bony and soft tissue structures. IMPRESSION: Unremarkable AP chest.
--- NOTE | 2016-12-31 11:41 | Event Note ---
Date: 12/31/16 Urgent dialysis recommended by nephrology. Will place vascath at bedside as patient is intubated. consent obtained from sister.
--- NOTE | 2016-12-31 11:53 | Consultation ---
History of Present Illness Consult date: 12/31/16 Reason for consult: other (hypertensive encephalopathy, metabolic acidosid with need for mechanical ventilation) History of present illness: The patient is a 61-year-old AAF with history significant for Hypertension, Type 2 diabetes, Hyperlipidemia and CKD stage 3 who was brought to the emergency room because she was found unresponsive at home. Unable to obtain any history from patient at this time. Information obtained from her sister at the bedside. It is unclear how long the patient had been on the floor. Her blood pressure was very high in the ER and she was started on a Cardene drip. Her potassium was 6.9 on arrival, decreased to 6 today with creatinine of 4.6. Patient did receive treatment for hyperkalemia. Per sister patient is non- compliant with meds and appointments.The sister does state that the patient has had multiple TIAs. PAST MEDICAL HISTORY:hypertension, diabetes, chronic kidney disease PAST SURGICAL HISTORY: Bypass on legs, left foot amputation FAMILY HISTORY: Hypertension SOCIAL HISTORY: Smoke marijuana, cigarettes, unknown alcohol Medications and Allergies Allergies Allergy/AdvReac Type Severity Reaction Status Date / Time No Known Allergies Allergy Unverified 04/27/14 08:15 Home Medications Medication Instructions Recorded Confirmed Last Taken Type Metoprolol Xl [Metoprolol 50 mg PO QDAY 12/31/16 12/31/16 Unknown History SUCCINATE ER TAB] amLODIPine [Norvasc] 10 mg PO DAILY 12/31/16 12/31/16 Unknown History AtorvaSTATin 40 mg PO QPM 01/01/17 01/01/17 Unknown History Active Meds: Active Medications Acetaminophen (Tylenol) 650 mg PO Q4H PRN PRN Reason: Pain MILD(1-3)/Fever >100.5/CELIS Heparin Sodium (Porcine) (Heparin) 5,000 unit SUB-Q Q12HR RAGHAV Last Admin: 12/31/16 11:09 Dose: 5,000 unit Nicardipine HCl 50 mg/ Sodium (Chloride) 250 mls @ 25 mls/hr IV TITR RAGHAV; 5 MG/ HR PRN Reason: Protocol Last Titration: 12/31/16 01:19 Dose: 6 mg/hr, 30 mls/hr Sodium Bicarbonate 150 meq/ (Dextrose) 1,150 mls @ 75 mls/hr IV DIRECT RAGHAV Last Admin: 12/31/16 10:45 Dose: 75 mls/hr Dextrose/Sodium Chloride (D5/0.45ns) 1,000 mls @ 125 mls/hr IV DIRECT RAGHAV Sodium Chloride (Nacl 0.9%) 100 mls @ 999 mls/hr IV SANTI PRN PRN Reason: Hypotension Lorazepam (Ativan) 1 mg IV PRN PRN PRN Reason: Seizures Last Admin: 12/31/16 09:02 Dose: 1 mg Ondansetron HCl (Zofran) 4 mg IV Q4H PRN PRN Reason: N/V unrelieved by Reglan Review of Systems ROS unobtainable: due to mental status Physical Examination Vital signs: Vital Signs Resp 26 H 12/30/16 20:28 General appearance: other (obtunded,unresponisve) Eyes: non-icteric Neck: supple, no lymphadenopathy, no JVD Effort: very labored Ascultation: Bilateral: diminished breath sounds, rhonchi Cardiovascular: regular rate and rhythm Gastrointestinal: normoactive bowel sounds, soft, non-tender, non-distended Integumentary: normal Extremities: no cyanosis, other (foot amputation) unable to assess Results - Laboratory Findings CBC and BMP: 01/02/17 04:01 01/02/17 04:01 Abnormal lab findings: Abnormal Labs 12/31/16 12/31/16 12/31/16 01:31 01:31 03:42 Sodium 146 H Potassium 5.6 H Chloride Carbon Dioxide 14 L BUN 77 H Creatinine 4.0 H Glucose 107 H POC Glucose Total Creatine Kinase 678 H 711 H CK-MB (CK-2) 10.5 H Troponin T 0.136 H* D PTH Intact 12/31/16 12/31/16 12/31/16 03:42 06:58 06:58 Sodium 147 H Potassium 6.0 H Chloride 107.5 H Carbon Dioxide 12 L BUN 81 H Creatinine 4.6 H Glucose 183 H POC Glucose Total Creatine Kinase 787 H CK-MB (CK-2) 10.8 H Troponin T 0.179 H* D PTH Intact 124.4 H 12/31/16 09:34 Sodium Potassium Chloride Carbon Dioxide BUN Creatinine Glucose POC Glucose 294 H Total Creatine Kinase CK-MB (CK-2) Troponin T PTH Intact Assessment and Plan 61 yo AAF with multiple chronic conditions (hypertension, diabetes, hyperlipidemia, peripheral vascular disease status post bypass) noncompliant, not taking her medications for months, found down by family and brought to ER unresponsive with blood pressure 255/135. At the time of my evaluation, patient was obtunded, tachynpneic and so I intubated her in the ER. Her sister was present and I explained the indication for the incubation, she verbalized understanding. 1. Malignant hypertension/hypertensive emergency CT head showing chronic ischemic microvascular changes, with no acute infarct or hemorrhage Started on Cardene drip; this morning BP better controlled with systolic in 160s Unable to switched to by mouth antihypertensives as she remains unresponsive Secondary stroke prophylaxis Place OGT/NGT for nutritional support and administration of medications 2. Acute toxic metabolic encephalopathy Likely due to combination of hypertensive encephalopathy/renal failure with uremia/acidosis/electrolytes abnormalities/ drug use Obtain brain MRI to exclude stroke and better assess Treatment underlying conditions 3. Acute renal failure likely superimposed on chronic kidney disease BUN 77, creatinine 4 with marked hyperkalemia and metabolic acidosis Adjust ventilator settings for better acid-base while awaiting renal recommendations. Will need hemodialysis 4. Hyperkalemia On admission K+ 6.9; received Kayexalate, insulin/D50 This morning, K+ still elevated at 5.6; additional Kayexalate has been ordered insulin/D50, bicarbonate Monitor closely 5. Rhabdomyolysis Give IV fluids, but with caution given malignant hypertension Monitor CPK and renal function 6. Elevated troponin Most likely secondary to hypertensive emergency/renal failure Continue to trend cardiac enzymes Obtain echocardiogram 7. Hyperlipidemia - mixed 8. Peripheral vascular disease Status post bypass Not on any anticoagulation or anti-platelet therapy 9. Drug abuse UDS positive for marijuana If recovers, will need counseling 10. DVT prophylaxis Critical care time in (mins) excluding proc time.: 60 Critical care attestation.: If time is entered above; I have spent that time in minutes in the direct care of this critically ill patient, excluding procedure time.
--- NOTE | 2016-12-31 11:56 | Procedure Note ---
Date of procedure: 12/31/16 (Discussed meed for mechanical ventilatory support with patient's sister) Pre-op diagnosis: Encephalopathy, respiratory distress, seizures Post-op diagnosis: same Procedure: Endotracheal intubation, Rapid sequence intubation. Lorazepam, fentanyl, Rocuronium Mac 3, SIzze 7.5 ETT Direct laryngoscopy, one attempt. No complications Surgeon: CLAUDINE EATON Estimated blood loss: none Condition: critical Disposition: ICU (Get CXR post intubation for tube placement/validation.)
[2016-12-31] MEDS ORDERED: FLUSH HEPARIN IV ONE (12:16)
--- NOTE | 2016-12-31 13:21 | Post Operative Note ---
Pre-op diagnosis: ARF Post-op diagnosis: same Findings: 30cm Trialysis catheter placement via right CFV Procedure: Rt CFV vascath placement Anesthesia: local Surgeon: MATT MARTINEZ Estimated blood loss: none Pathology: none Condition: critical Disposition: ICU
[2016-12-31 14:12] LABS: ISTAT Base Excess -8; ISTAT PH 7.344 (7.35-7.45); ISTAT PO2 340 (80-105); ISTAT SO2 100; ISTAT TCO2 19
[2016-12-31 16:10] LABS: Alanine Aminotransferase 8 units/L (7-56); Albumin 3.6 g/dL (3.9-5); Albumin/Globulin Ratio 1.4 %; Alkaline Phosphatase 80 units/L (35-129); Total Protein 6.1 g/dL (6.3-8.2)
[2016-12-31 16:25] LABS: Bilirubin,Direct < 0.2 mg/dL (0-0.2); Bilirubin,Indirect 0.1 mg/dL
[2016-12-31] MEDS ORDERED: NACL 0.9% 1000 ML 2,000 ML ONE (17:57)
[2016-12-31] MEDS ORDERED: HEPARIN ONE (17:57)
[2016-12-31] MEDS: HEPARIN IV PRN (18:20)
[2016-12-31 18:28] LABS: ISTAT Base Excess 5; ISTAT HCO3 25.7; ISTAT PCO2 23.2 (35-45); ISTAT PH 7.651 (7.35-7.45); ISTAT PO2 64 (80-105); ISTAT SO2 96; ISTAT TCO2 26
[2016-12-31] MEDS: CARDENE 50 MG in NACL 0.9% 250ML 230 ML IV SCH (19:35)
--- NOTE | 2016-12-31 22:06 | XRay Report ---
FINAL REPORT PROCEDURE: Abdomen. TECHNIQUE: Portable AP supine view. HISTORY: Confirm orogastric tube placement. COMPARISON: No prior studies are available for comparison. FINDINGS: The bowel gas pattern is normal. There is an orogastric tube that terminates near the 1st portion of the duodenum. There is a double-lumen catheter in the right side of the pelvis. This probably represents a femoral venous catheter. The tip of the catheter is approximately in the inferior vena cava. The soft tissues are unremarkable. The regional skeleton appears intact. IMPRESSION: Orogastric tube placement terminating near duodenum.
[2017-01-01] MEDS: SODIUM BICARBONATE 150 MEQ in D5W 1,000 ML IV SCH (02:59)
[2017-01-01 05:47] LABS: Anion Gap TNR mmol/L; Calcium TNR mg/dL (8.4-10.2); Carbon Dioxide TNR mmol/L (22-30); Glucose TNR mg/dL (65-100)
[2017-01-01 05:49] LABS: BUN/Creatinine Ratio TNR; Blood Urea Nitrogen TNR mg/dL (7-17); Chloride TNR mmol/L (98-107); Creatine Kinase TNR units/L (30-135); Potassium TNR mmol/L (3.6-5.0); Sodium TNR mmol/L (137-145)
[2017-01-01] MEDS: CARDENE 50 MG in NACL 0.9% 250ML 230 ML IV SCH ×2 (06:16→22:15)
[2017-01-01 07:23] LABS: Calcium 7.6 mg/dL (8.4-10.2); Chloride 96.6 mmol/L (98-107); Potassium 4.2 mmol/L (3.6-5.0)
--- NOTE | 2017-01-01 09:12 | Progress Note ---
Assessment and Plan - Patient Problems (1) Hyperkalemia Current Visit: Yes Status: Acute Plan to address problem: Hyperkalemia in the setting of Acute kidney injury. Improved with hemodialysis. (2) ARF (acute renal failure) Current Visit: Yes Status: Acute Qualifiers: Acute renal failure type: A Plan to address problem: Acute kidney injury superimposed on CKD stage 3 in the setting of uncontrolled HTN. S/p hemodialysis yesterday. Renal prognosis is guarded. D/w sister at the bedside. (3) Metabolic acidosis Current Visit: Yes Status: Acute Plan to address problem: On Bicarbonate drip. (4) Hypertensive encephalopathy Current Visit: Yes Status: Acute Plan to address problem: On Cardene drip. Start on Amlodipine. (5) Respiratory failure Current Visit: Yes Status: Acute Qualifiers: Chronicity: C Respiratory failure complication: R Plan to address problem: On Vent. Subjective Date of service: 01/01/17 Interval history: Patient is on the vent. Objective - Vital Signs Vital signs: Vital Signs - 12hr 12/31/16 12/31/16 12/31/16 21:20 21:30 21:40 Temperature Pulse Rate 104 H 101 H 101 H Pulse Rate [ Left Radial] Pulse Rate [ Right Radial] Respiratory 21 21 21 Rate Blood Pressure 128/74 141/72 141/72 O2 Sat by Pulse 100 100 100 Oximetry 12/31/16 12/31/16 12/31/16 21:50 22:00 22:10 Temperature Pulse Rate 102 H 99 H 97 H Pulse Rate [ Left Radial] Pulse Rate [ Right Radial] Respiratory 21 21 21 Rate Blood Pressure 131/78 135/71 135/71 O2 Sat by Pulse 100 100 100 Oximetry 12/31/16 12/31/16 12/31/16 22:20 22:30 22:40 Temperature Pulse Rate 95 H 100 H 100 H Pulse Rate [ Left Radial] Pulse Rate [ Right Radial] Respiratory 24 21 20 Rate Blood Pressure 127/73 116/71 116/71 O2 Sat by Pulse 100 100 100 Oximetry 12/31/16 12/31/16 12/31/16 22:50 23:00 23:10 Temperature Pulse Rate 97 H 95 H 97 H Pulse Rate [ Left Radial] Pulse Rate [ Right Radial] Respiratory 20 21 22 Rate Blood Pressure 125/74 122/67 122/67 O2 Sat by Pulse 100 100 100 Oximetry 12/31/16 12/31/16 12/31/16 23:15 23:20 23:30 Temperature 99.9 F H Pulse Rate 96 H 93 H Pulse Rate [ Left Radial] Pulse Rate [ Right Radial] Respiratory 20 20 Rate Blood Pressure 124/68 129/69 O2 Sat by Pulse 100 100 Oximetry 12/31/16 12/31/16 12/31/16 23:40 23:50 23:53 Temperature Pulse Rate 97 H 96 H Pulse Rate [ Left Radial] Pulse Rate [ 95 H Right Radial] Respiratory 21 21 Rate Blood Pressure 129/69 136/70 O2 Sat by Pulse 100 100 Oximetry 01/01/17 01/01/17 01/01/17 00:00 00:06 00:10 Temperature Pulse Rate 93 H 95 H 94 H Pulse Rate [ Left Radial] Pulse Rate [ Right Radial] Respiratory 20 20 20 Rate Blood Pressure 133/70 133/70 133/70 O2 Sat by Pulse 100 100 100 Oximetry 01/01/17 01/01/17 01/01/17 00:20 00:30 00:40 Temperature Pulse Rate 93 H 93 H 93 H Pulse Rate [ Left Radial] Pulse Rate [ Right Radial] Respiratory 20 19 19 Rate Blood Pressure 135/70 132/68 132/68 O2 Sat by Pulse 100 100 100 Oximetry 01/01/17 01/01/17 01/01/17 00:50 01:00 01:10 Temperature Pulse Rate 94 H 95 H 95 H Pulse Rate [ Left Radial] Pulse Rate [ Right Radial] Respiratory 18 18 19 Rate Blood Pressure 137/79 139/74 139/74 O2 Sat by Pulse 100 100 100 Oximetry 01/01/17 01/01/17 01/01/17 01:20 01:30 01:40 Temperature Pulse Rate 96 H 94 H 91 H Pulse Rate [ Left Radial] Pulse Rate [ Right Radial] Respiratory 18 18 18 Rate Blood Pressure 139/74 137/70 137/70 O2 Sat by Pulse 100 100 100 Oximetry 01/01/17 01/01/17 01/01/17 01:50 02:00 02:10 Temperature Pulse Rate 89 94 H 93 H Pulse Rate [ Left Radial] Pulse Rate [ Right Radial] Respiratory 18 19 18 Rate Blood Pressure 137/70 145/72 145/72 O2 Sat by Pulse 100 100 100 Oximetry 01/01/17 01/01/17 01/01/17 02:20 02:30 02:40 Temperature Pulse Rate 97 H 91 H 92 H Pulse Rate [ Left Radial] Pulse Rate [ Right Radial] Respiratory 14 18 17 Rate Blood Pressure 135/70 137/69 137/69 O2 Sat by Pulse 100 100 100 Oximetry 01/01/17 01/01/17 01/01/17 02:50 03:00 03:03 Temperature 99.7 F H Pulse Rate 92 H 93 H Pulse Rate [ Left Radial] Pulse Rate [ Right Radial] Respiratory 19 18 Rate Blood Pressure 140/75 144/72 O2 Sat by Pulse 100 100 Oximetry 01/01/17 01/01/17 01/01/17 03:10 03:20 03:30 Temperature Pulse Rate 92 H 95 H 96 H Pulse Rate [ Left Radial] Pulse Rate [ Right Radial] Respiratory 17 17 Rate Blood Pressure 144/72 146/74 141/76 O2 Sat by Pulse 100 100 100 Oximetry 01/01/17 01/01/17 01/01/17 03:40 03:50 04:00 Temperature Pulse Rate 91 H 95 H 97 H Pulse Rate [ 94 H Left Radial] Pulse Rate [ 94 H Right Radial] Respiratory 17 17 13 Rate Blood Pressure 141/76 151/81 147/77 O2 Sat by Pulse 100 100 100 Oximetry 01/01/17 01/01/17 01/01/17 04:10 04:20 04:30 Temperature Pulse Rate 95 H 95 H 91 H Pulse Rate [ Left Radial] Pulse Rate [ Right Radial] Respiratory 19 19 18 Rate Blood Pressure 147/77 147/77 150/73 O2 Sat by Pulse 100 100 100 Oximetry 01/01/17 01/01/17 01/01/17 04:40 04:50 05:00 Temperature Pulse Rate 92 H 90 92 H Pulse Rate [ Left Radial] Pulse Rate [ Right Radial] Respiratory 19 18 19 Rate Blood Pressure 150/73 150/75 158/78 O2 Sat by Pulse 100 100 100 Oximetry 01/01/17 01/01/17 01/01/17 05:10 05:20 05:30 Temperature Pulse Rate 92 H 95 H 100 H Pulse Rate [ Left Radial] Pulse Rate [ Right Radial] Respiratory 18 17 23 Rate Blood Pressure 158/78 156/78 169/79 O2 Sat by Pulse 100 100 100 Oximetry 01/01/17 01/01/17 01/01/17 05:40 05:50 06:00 Temperature Pulse Rate 95 H 91 H 92 H Pulse Rate [ Left Radial] Pulse Rate [ Right Radial] Respiratory 18 18 19 Rate Blood Pressure 169/79 153/76 152/76 O2 Sat by Pulse 100 100 100 Oximetry 01/01/17 01/01/17 01/01/17 06:10 06:20 06:30 Temperature Pulse Rate 93 H 94 H 93 H Pulse Rate [ Left Radial] Pulse Rate [ Right Radial] Respiratory 17 18 18 Rate Blood Pressure 152/76 158/74 154/77 O2 Sat by Pulse 100 100 100 Oximetry 01/01/17 01/01/17 01/01/17 06:40 06:50 07:00 Temperature Pulse Rate 96 H 94 H 89 Pulse Rate [ Left Radial] Pulse Rate [ Right Radial] Respiratory 13 18 17 Rate Blood Pressure 154/77 158/77 145/70 O2 Sat by Pulse 100 100 100 Oximetry 01/01/17 08:30 Temperature Pulse Rate 97 H Pulse Rate [ Left Radial] Pulse Rate [ Right Radial] Respiratory Rate Blood Pressure 158/76 O2 Sat by Pulse 100 Oximetry - General Appearance General appearance: well-developed, well-nourished, appears stated age, intubated (FiO2 40%), other (right groin dialysis catheter) EENT: ATNC, PERRL Neck: supple Respiratory: Present: Clear to Ascultation Cardiology: regular, S1S2, no murmurs Gastrointestinal: normoactive bowel sounds, no tenderness Integumentary: no rash Neurologic: obtunded Musculoskeletal: other (no edema) - Lab 12/30/16 21:29 01/01/17 06:35 Most recent lab results Calcium 7.6 mg/dL (8.4-10.2) L D 01/01/17 06:35 Magnesium 2.70 mg/dL (1.7-2.3) H 12/30/16 21:29
--- NOTE | 2017-01-01 09:14 | Progress Note ---
Assessment and Plan Assessment and plan: 61 yo AAF with multiple chronic conditions (hypertension, diabetes, hyperlipidemia, peripheral vascular disease status post bypass) noncompliant, not taking her medications for months, found down by family and brought to ER unresponsive with blood pressure 255/135 1. Malignant hypertension/hypertensive emergency CT head showing chronic ischemic microvascular changes, with no acute infarct or hemorrhage Remains on Cardene drip 2. Acute toxic metabolic encephalopathy Likely due to combination of hypertensive encephalopathy/renal failure with uremia/acidosis/electrolytes abnormalities/ drug use Brain MRI to exclude stroke and better assess ordered Treatment underlying conditions 3. Acute renal failure likely superimposed on chronic kidney disease BUN 77, creatinine 4 with marked hyperkalemia and metabolic acidosis on admission Nephrology consulted and acute HD initiated 4. Hyperkalemia On admission K+ 6.9; received Kayexalate, insulin/D50, bicarbonate Now HD started Continue to closely monitor 5. Rhabdomyolysis Give IV fluids, but with caution given malignant hypertension Monitor CPK and renal function 6. Elevated troponin Most likely secondary to hypertensive emergency/renal failure Continue to trend cardiac enzymes Echocardiogram ordered 7. Hyperlipidemia - mixed Total cholesterol 355, LDL 251, TG 298 Will hold statin for now given rhabdomyolysis 8. Peripheral vascular disease Status post bypass Discontinued anticoagulant therapy on her own months ago 9. Drug abuse UDS positive for marijuana If recovers, will need counseling 10. DVT prophylaxis As CT head negative for hemorrhage, Lovenox changed to heparin subcutaneous due to renal failure 11. Poor prognosis. Discussed with nieces at [facility] 40 min History Interval history: s/p intubation and vasc cath placement remains unresponsive Hospitalist Physical - Constitutional Vitals: Temp Pulse Resp BP Pulse Ox 99.7 F H 97 H 17 158/76 100 01/01/17 03:03 01/01/17 08:30 01/01/17 07:00 01/01/17 08:30 01/01/17 08:30 General appearance: Present: mild distress - Neck Neck: Absent: enlarged thyroid, masses or JVD, carotid bruits - Respiratory Respiratory effort: other (intubated) Respiratory: bilateral: diminished, negative: rhonchi, wheezing - Cardiovascular Rhythm: other (tachycardic) Heart Sounds: Present: S1 & S2. Absent: systolic murmur - Extremities Extremities: no ischemia - Abdominal General gastrointestinal: soft, non-tender, normal bowel sounds, other (NGT in place) - Psychiatric Psychiatric: other (unresponsive) - Neurologic Neurologic: other (cough/gag reflexes present) Results - Labs CBC & Chem 7: 12/30/16 21:29 01/01/17 06:35 Labs: Laboratory Last Values WBC 10.5 K/mm3 (4.5-11.0) 12/30/16 21: RBC 4.36 M/mm3 (3.65-5.03) 12/30/16 21: Hgb 12.8 gm/dl (10.1-14.3) 12/30/16 21: Hct 38.7 % (30.3-42.9) 12/30/16 21: MCV 89 fl (79-97) 12/30/16 21: MCH 30 pg (28-32) 12/30/16 21: MCHC 33 % (30-34) 12/30/16 21: RDW 15.8 % (13.2-15.2) H 12/30/16 21: Plt Count 306 K/mm3 (140-440) 12/30/16 21: Lymph % (Auto) 15.5 % (13.4-35.0) 12/30/16 21: [place] % (Auto) 2.6 % (0.0-7.3) 12/30/16 21: Eos % (Auto) 0.0 % (0.0-4.3) 12/30/16 21: Baso % (Auto) 0.3 % (0.0-1.8) 12/30/16 21: Lymph # 1.6 K/mm3 (1.2-5.4) 12/30/16 21: [place] # 0.3 K/mm3 (0.0-0.8) 12/30/16 21: Eos # 0.0 K/mm3 (0.0-0.4) 12/30/16 21: Baso # 0.0 K/mm3 (0.0-0.1) 12/30/16 21: Seg Neutrophils % 81.6 % (40.0-70.0) H 12/30/16 21: Seg Neutrophils # 8.5 K/mm3 (1.8-7.7) H 12/30/16 21: POC ABG pH 7.651 (7.35-7.45) H 12/31/16 18:23 POC ABG pCO2 23.2 (35-45) L 12/31/16 18:23 POC ABG pO2 64 (80-105) L 12/31/16 18:23 POC ABG HCO3 25.7 12/31/16 18:23 POC ABG Total CO2 26 12/31/16 18:23 POC ABG O2 Sat 96 12/31/16 18:23 POC ABG Base Excess 5 12/31/16 18:23 FiO2 40 % 12/31/16 18:23 Sodium 142 mmol/L (137-145) 01/01/17 06:35 Potassium 4.2 mmol/L (3.6-5.0) D 01/01/17 06:35 Chloride 96.6 mmol/L (98-107) L 01/01/17 06:35 Carbon Dioxide 30 mmol/L (22-30) D 01/01/17 06:35 Anion Gap 20 mmol/L 01/01/17 06:35 BUN 34 mg/dL (7-17) H 01/01/17 06:35 Creatinine 3.4 mg/dL (0.7-1.2) H 01/01/17 06:35 Estimated GFR 17 ml/min 01/01/17 06:35 BUN/Creatinine Ratio 10.00 % 01/01/17 06:35 Glucose 142 mg/dL (65-100) H 01/01/17 06:35 POC Glucose 168 (70-105) H 01/01/17 05:40 Lactic Acid 1.30 mmol/L (0.7-2.0) 01/01/17 06:35 Calcium 7.6 mg/dL (8.4-10.2) L D 01/01/17 06:35 Magnesium 2.70 mg/dL (1.7-2.3) H 12/30/16 21:29 Total Bilirubin 0.30 mg/dL (0.1-1.2) 12/31/16 15:40 Direct Bilirubin < 0.2 mg/dL (0-0.2) 12/31/16 15:40 Indirect Bilirubin 0.1 mg/dL 12/31/16 15:40 AST 17 units/L (5-40) 12/31/16 15:40 ALT 8 units/L (7-56) 12/31/16 15:40 Alkaline Phosphatase 80 units/L (35-129) 12/31/16 15:40 Total Creatine Kinase TNR 01/01/17 04:09 CK-MB (CK-2) 10.8 ng/mL (0.0-4.0) H 12/31/16 06:58 CK-MB (CK-2) Rel Index 1.3 (0-4) 12/31/16 06:58 Troponin T 0.179 ng/mL (0.00-0.029) H* D 12/31/16 06:58 Total Protein 6.1 g/dL (6.3-8.2) L D 12/31/16 15:40 Albumin 3.6 g/dL (3.9-5) L 12/31/16 15:40 Albumin/Globulin Ratio 1.4 % 12/31/16 15:40 Triglycerides 298 mg/dL (2-149) H 12/30/16 23:34 Cholesterol 355 mg/dL (50-199) H 12/30/16 23:34 LDL Cholesterol Direct 251 mg/dL (50-130) H 12/30/16 23:34 HDL Cholesterol 45 mg/dL (40-59) 12/30/16 23:34 Cholesterol/HDL Ratio 7.88 % 12/30/16 23:34 TSH 1.320 mlU/mL (0.270-4.200) 12/30/16 21:29 PTH Intact 124.4 pg/mL (15-65) H 12/31/16 03:42 Urine Color Yellow (Yellow) 12/30/16 20:47 Urine Turbidity Clear (Clear) 12/30/16 20:47 Urine pH 5.0 (5.0-7.0) 12/30/16 20:47 Ur Specific [place] 1.023 (1.003-1.030) 12/30/16 20:47 Urine Protein 100 mg/dl mg/dL (Negative) 12/30/16 20:47 Urine Glucose (UA) Neg mg/dL (Negative) 12/30/16 20:47 Urine Ketones Tr mg/dL (Negative) 12/30/16 20:47 Urine Blood Neg (Negative) 12/30/16 20:47 Urine Nitrite Neg (Negative) 12/30/16 20:47 Urine Bilirubin Neg (Negative) 12/30/16 20:47 Urine Urobilinogen 2.0 mg/dL (<2.0) 12/30/16 20:47 Ur Leukocyte Esterase Neg (Negative) 12/30/16 20:47 Urine WBC (Auto) < 1.0 /HPF (0.0-6.0) 12/30/16 20:47 Urine RBC (Auto) 1.0 /HPF (0.0-6.0) 12/30/16 20:47 U Epithel Cells (Auto) 1.0 /HPF (0-13.0) 12/30/16 20:47 Urine Bacteria (Auto) 1+ /HPF (Negative) 12/30/16 20:47 Salicylates < 0.3 mg/dL (2.8-20.0) L 12/30/16 21:29 Urine Opiates Screen Presumptive negative 12/30/16 20:47 Urine Methadone Screen Presumptive negative 12/30/16 20:47 Acetaminophen < 15.0 ug/mL (10.0-30.0) 12/30/16 21:29 Ur Barbiturates Screen Presumptive negative 12/30/16 20:47 Ur Phencyclidine Scrn Presumptive negative 12/30/16 20:47 Ur Amphetamines Screen Presumptive negative 12/30/16 20:47 U Benzodiazepines Scrn Presumptive negative 12/30/16 20:47 Urine Cocaine Screen Presumptive negative 12/30/16 20:47 U Marijuana (THC) Screen Presumptive positive 12/30/16 20:47 Drugs of Abuse Note Disclamer 12/30/16 20:47 Plasma/Serum Alcohol < 0.01 gm% (0-0.07) 12/30/16 21:29
[2017-01-01] MEDS: PEPCID IV SCH (10:41)
[2017-01-01] MEDS: HEPARIN SUB-Q SCH ×2 (10:41→22:11)
[2017-01-01] MEDS ORDERED: SODIUM BICARBONATE FEEDTUBE PRN (12:44)
[2017-01-01] MEDS ORDERED: SIMPLE SYRUP FEEDTUBE PRN ×2 (12:44)
[2017-01-01] MEDS ORDERED: PANCREAZE DR 10,500 UNIT FEEDTUBE PRN (12:44)
[2017-01-01] MEDS: NOVOLOG SUB-Q SCH ×2 (13:00→18:43)
[2017-01-01 13:03] LABS: ISTAT Base Excess 9; ISTAT HCO3 31.6; ISTAT PCO2 37.3 (35-45); ISTAT PH 7.536 (7.35-7.45); ISTAT PO2 149 (80-105); ISTAT SO2 100; ISTAT TCO2 33
--- NOTE | 2017-01-01 13:44 | Progress Note ---
Assessment and Plan 61 yo AAF with multiple chronic conditions (hypertension, diabetes, hyperlipidemia, peripheral vascular disease status post bypass) noncompliant, not taking her medications for months, found down by family and brought to ER unresponsive with blood pressure 255/135. At the time of my initial evaluation in the ED, patient was obtunded, tachynpneic and so I intubated her. 1. Acute hypoxic respiratory failure on mechanical ventilatory support - Has alkalosis on ABG, which can precipitate arrhythmias and seizures. Adjust minute ventilation for better gas-exchange. VAP bundle addressed HOB>40 Aspiration precautions OGT in place- initiate enteric feeding Accucheck with glycemic control, blood glucose goal<180mg/dl Muir catheter in this critically ill patient with acute on chronic renal failure VTE prophylaxis Stress ulcer prophylaxis Start daily spontaneous breathing trials in the morning 2. Malignant hypertension/hypertensive emergency CT head showing chronic ischemic microvascular changes, with no acute infarct or hemorrhage Started on Cardene drip; this morning BP better controlled with systolic in 140s Oral antihypertensives via OGT MRI result pending Secondary stroke prophylaxis 3. Acute toxic metabolic encephalopathy Likely due to combination of hypertensive encephalopathy/renal failure with uremia/acidosis/electrolytes abnormalities/ drug use Brain MRI result pending 4. Acute renal failure likely superimposed on chronic kidney disease Had HD renal following 5. Hyperkalemia Monitor closely 6. Rhabdomyolysis Give IV fluids, but with caution given malignant hypertension Monitor CPK and renal function trends 7. Elevated troponin- type NSTEMI Most likely secondary to hypertensive emergency/renal failure Echocardiogram pending 8. Hyperlipidemia - mixed 9. Peripheral vascular disease Status post bypass Not on any anticoagulation or anti-platelet therapy 10. Drug abuse UDS positive for marijuana If recovers, will need counseling Subjective Date of service: 01/01/17 Interval history: Patient seen and examined. Remains intubated, No ventilator- patient dys-synchrony noted. MRI brain pending Blood pressure control better on Nicardipine infusion-permissive hypertension No acute overnight events reported. Vitals,labs, medication, chart reviewed. Discussed on multi-disciplinary rounds Objective - Exam Narrative Exam: Gen. appearance: Patient lying in bed,s/pETT to vent HEENT: Normocephalic, atraumatic, pupils equally round and reactive to light, no sclericterus,. No JVD or thyromegaly or nodule,neck supple, no carotid bruit , Heart: S1, S2, regular rate and rhythm, no murmurs Lungs: Clear to auscultation bilaterally anteriorly, breathing comfortable Abdomen: Positive bowel sounds, soft, non-distended, no organomegaly Extremity: No edema, cyanosis, clubbing Skin: No rash, nodules, warm, dry Neuro: Intubated Vital Signs - 12hr 01/01/17 01/01/17 01/01/17 01:50 02:00 02:10 Temperature Pulse Rate 89 94 H 93 H Pulse Rate [ Left Radial] Pulse Rate [ Right Radial] Respiratory 18 19 18 Rate Blood Pressure 137/70 145/72 145/72 O2 Sat by Pulse 100 100 100 Oximetry 01/01/17 01/01/17 01/01/17 02:20 02:30 02:40 Temperature Pulse Rate 97 H 91 H 92 H Pulse Rate [ Left Radial] Pulse Rate [ Right Radial] Respiratory 14 18 17 Rate Blood Pressure 135/70 137/69 137/69 O2 Sat by Pulse 100 100 100 Oximetry 01/01/17 01/01/17 01/01/17 02:50 03:00 03:03 Temperature 99.7 F H Pulse Rate 92 H 93 H Pulse Rate [ Left Radial] Pulse Rate [ Right Radial] Respiratory 19 18 Rate Blood Pressure 140/75 144/72 O2 Sat by Pulse 100 100 Oximetry 01/01/17 01/01/17 01/01/17 03:10 03:20 03:30 Temperature Pulse Rate 92 H 95 H 96 H Pulse Rate [ Left Radial] Pulse Rate [ Right Radial] Respiratory 17 17 Rate Blood Pressure 144/72 146/74 141/76 O2 Sat by Pulse 100 100 100 Oximetry 01/01/17 01/01/17 01/01/17 03:40 03:50 04:00 Temperature Pulse Rate 91 H 95 H 97 H Pulse Rate [ 94 H Left Radial] Pulse Rate [ 94 H Right Radial] Respiratory 17 17 13 Rate Blood Pressure 141/76 151/81 147/77 O2 Sat by Pulse 100 100 100 Oximetry 01/01/17 01/01/17 01/01/17 04:10 04:20 04:30 Temperature Pulse Rate 95 H 95 H 91 H Pulse Rate [ Left Radial] Pulse Rate [ Right Radial] Respiratory 19 19 18 Rate Blood Pressure 147/77 147/77 150/73 O2 Sat by Pulse 100 100 100 Oximetry 01/01/17 01/01/17 01/01/17 04:40 04:50 05:00 Temperature Pulse Rate 92 H 90 92 H Pulse Rate [ Left Radial] Pulse Rate [ Right Radial] Respiratory 19 18 19 Rate Blood Pressure 150/73 150/75 158/78 O2 Sat by Pulse 100 100 100 Oximetry 01/01/17 01/01/17 01/01/17 05:10 05:20 05:30 Temperature Pulse Rate 92 H 95 H 100 H Pulse Rate [ Left Radial] Pulse Rate [ Right Radial] Respiratory 18 17 23 Rate Blood Pressure 158/78 156/78 169/79 O2 Sat by Pulse 100 100 100 Oximetry 01/01/17 01/01/17 01/01/17 05:40 05:50 06:00 Temperature Pulse Rate 95 H 91 H 92 H Pulse Rate [ Left Radial] Pulse Rate [ Right Radial] Respiratory 18 18 19 Rate Blood Pressure 169/79 153/76 152/76 O2 Sat by Pulse 100 100 100 Oximetry 01/01/17 01/01/17 01/01/17 06:10 06:20 06:30 Temperature Pulse Rate 93 H 94 H 93 H Pulse Rate [ Left Radial] Pulse Rate [ Right Radial] Respiratory 17 18 18 Rate Blood Pressure 152/76 158/74 154/77 O2 Sat by Pulse 100 100 100 Oximetry 01/01/17 01/01/17 01/01/17 06:40 06:50 07:00 Temperature Pulse Rate 96 H 94 H 89 Pulse Rate [ Left Radial] Pulse Rate [ Right Radial] Respiratory 13 18 17 Rate Blood Pressure 154/77 158/77 145/70 O2 Sat by Pulse 100 100 100 Oximetry 01/01/17 01/01/17 01/01/17 07:15 07:30 07:45 Temperature Pulse Rate 94 H 97 H 95 H Pulse Rate [ Left Radial] Pulse Rate [ Right Radial] Respiratory 17 14 18 Rate Blood Pressure 160/77 151/73 159/78 O2 Sat by Pulse 100 100 100 Oximetry 01/01/17 01/01/17 01/01/17 08:00 08:15 08:30 Temperature 98 F Pulse Rate 94 H 99 H 97 H Pulse Rate [ Left Radial] Pulse Rate [ Right Radial] Respiratory 17 18 18 Rate Blood Pressure 155/75 158/84 158/76 O2 Sat by Pulse 100 100 100 Oximetry 01/01/17 01/01/17 01/01/17 08:45 09:00 09:15 Temperature Pulse Rate 96 H 97 H 97 H Pulse Rate [ Left Radial] Pulse Rate [ Right Radial] Respiratory 19 18 19 Rate Blood Pressure 160/76 155/73 154/67 O2 Sat by Pulse 100 100 100 Oximetry 01/01/17 01/01/17 01/01/17 09:30 09:45 10:00 Temperature Pulse Rate 97 H 98 H 97 H Pulse Rate [ Left Radial] Pulse Rate [ Right Radial] Respiratory 15 21 19 Rate Blood Pressure 155/70 148/66 152/69 O2 Sat by Pulse 100 99 97 Oximetry 01/01/17 01/01/17 01/01/17 10:15 10:30 10:45 Temperature Pulse Rate 99 H 103 H 100 H Pulse Rate [ Left Radial] Pulse Rate [ Right Radial] Respiratory 20 21 20 Rate Blood Pressure 152/67 149/69 156/68 O2 Sat by Pulse 97 96 100 Oximetry 01/01/17 01/01/17 01/01/17 10:51 11:00 11:15 Temperature Pulse Rate 97 H 103 H 102 H Pulse Rate [ Left Radial] Pulse Rate [ Right Radial] Respiratory 171 H 18 18 Rate Blood Pressure 156/68 168/75 167/73 O2 Sat by Pulse 100 98 100 Oximetry 01/01/17 01/01/17 01/01/17 11:30 11:45 12:00 Temperature 99.3 F Pulse Rate 99 H 104 H 100 H Pulse Rate [ Left Radial] Pulse Rate [ Right Radial] Respiratory 18 24 16 Rate Blood Pressure 160/80 166/71 162/71 O2 Sat by Pulse 100 100 100 Oximetry 01/01/17 01/01/17 01/01/17 12:06 12:16 12:28 Temperature Pulse Rate 106 H 105 H 106 H Pulse Rate [ Left Radial] Pulse Rate [ Right Radial] Respiratory 14 18 20 Rate Blood Pressure 162/71 162/71 159/69 O2 Sat by Pulse 100 100 100 Oximetry CBC and BMP: 01/02/17 04:01 01/02/17 04:01 ABG, PT/INR, D-dimer: ABG POC ABG pH 7.536 (7.35-7.45) H 01/01/17 12:24 POC ABG pCO2 37.3 (35-45) 01/01/17 12:24 POC ABG pO2 149 (80-105) H 01/01/17 12:24 POC ABG HCO3 31.6 01/01/17 12:24 POC ABG Total CO2 33 01/01/17 12:24 POC ABG O2 Sat 100 01/01/17 12:24 Abnormal lab findings: Abnormal Labs 12/31/16 12/31/16 12/31/16 01:31 01:31 03:42 POC ABG pH POC ABG pCO2 POC ABG pO2 Sodium 146 H Potassium 5.6 H Chloride Carbon Dioxide 14 L BUN 77 H Creatinine 4.0 H Glucose 107 H POC Glucose Calcium Total Creatine Kinase 678 H 711 H CK-MB (CK-2) 10.5 H Troponin T 0.136 H* D Total Protein Albumin PTH Intact 12/31/16 12/31/16 12/31/16 03:42 06:58 06:58 POC ABG pH POC ABG pCO2 POC ABG pO2 Sodium 147 H Potassium 6.0 H Chloride 107.5 H Carbon Dioxide 12 L BUN 81 H Creatinine 4.6 H Glucose 183 H POC Glucose Calcium Total Creatine Kinase 787 H CK-MB (CK-2) 10.8 H Troponin T 0.179 H* D Total Protein Albumin PTH Intact 124.4 H 12/31/16 12/31/16 12/31/16 09:34 13:47 15:40 POC ABG pH 7.344 L POC ABG pCO2 33.0 L POC ABG pO2 340 H Sodium Potassium Chloride Carbon Dioxide BUN Creatinine Glucose POC Glucose 294 H Calcium Total Creatine Kinase CK-MB (CK-2) Troponin T Total Protein 6.1 L D Albumin 3.6 L PTH Intact 12/31/16 12/31/16 12/31/16 16:49 18:05 18:23 POC ABG pH 7.651 H POC ABG pCO2 23.2 L POC ABG pO2 64 L Sodium Potassium Chloride Carbon Dioxide BUN Creatinine Glucose POC Glucose 287 H 259 H Calcium Total Creatine Kinase CK-MB (CK-2) Troponin T Total Protein Albumin PTH Intact 12/31/16 01/01/17 01/01/17 23:52 05:40 06:35 POC ABG pH POC ABG pCO2 POC ABG pO2 Sodium Potassium Chloride 96.6 L Carbon Dioxide BUN 34 H Creatinine 3.4 H Glucose 142 H POC Glucose 182 H 168 H Calcium 7.6 L D Total Creatine Kinase CK-MB (CK-2) Troponin T Total Protein Albumin PTH Intact 01/01/17 12:24 POC ABG pH 7.536 H POC ABG pCO2 POC ABG pO2 149 H Sodium Potassium Chloride Carbon Dioxide BUN Creatinine Glucose POC Glucose Calcium Total Creatine Kinase CK-MB (CK-2) Troponin T Total Protein Albumin PTH Intact Chest x-ray: image reviewed ED Critical Care Note - Critical Care Note Total Time (mins): 31 Critical care time in (mins) excluding proc time.: 31 Critical care attestation.: If time is entered above; I have spent that time in minutes in the direct care of this critically ill patient, excluding procedure time.
--- NOTE | 2017-01-01 15:44 | Magnetic Resonance Report ---
MRI scan of brain: History: Unresponsive. Technique: Multiplanar, multisequence images were obtained without contrast injection. Findings: Multiple areas of restricted diffusion in basal ganglia and in the cerebral cortex bilaterally being more pronounced on the left side. Focal areas of restricted diffusion also noted at the right and left cerebellum and brainstem. This corresponds to areas of hyperintensity on T2 weighted images and flair imaging. No evidence of hemorrhage. No extra-axial fluid collection. Impression: Findings of multiple acute ischemic areas secondary to probably multiple emboli. No evidence of hemorrhage.
[2017-01-02 04:38] LABS: Basophils % (Auto) 0.6 % (0.0-1.8); Hematocrit 25.4 % (30.3-42.9); Hemoglobin 8.4 gm/dl (10.1-14.3); Mean Corpuscular HGB Conc 33 % (30-34); Mean Corpuscular Hemoglobin 29 pg (28-32); Mean Corpuscular Volume 88 fl (79-97); Platelet Count 179 K/mm3 (140-440); Red Blood Count 2.88 M/mm3 (3.65-5.03); Red Cell Distribution Width 15.9 % (13.2-15.2)
[2017-01-02 04:39] LABS: ISTAT Base Excess 7; ISTAT HCO3 29.5; ISTAT PCO2 33.7 (35-45); ISTAT PH 7.551 (7.35-7.45); ISTAT PO2 99 (80-105); ISTAT SO2 99; ISTAT TCO2 31
[2017-01-02 04:56] LABS: Albumin 3.1 g/dL (3.9-5); BUN/Creatinine Ratio 8.62; Bilirubin,Total 0.5 mg/dL (0.1-1.2); Calcium 7.7 mg/dL (8.4-10.2); Chloride 93.3 mmol/L (98-107); Magnesium 1.9 mg/dL (1.7-2.3); Potassium 3.8 mmol/L (3.6-5.0); Total Protein 6.1 g/dL (6.3-8.2)
[2017-01-02] MEDS: NOVOLOG SUB-Q SCH ×4 (05:08→18:04)
--- NOTE | 2017-01-02 10:09 | Ultrasound Report ---
ULTRASOUND RENAL BILATERAL HISTORY: Acute renal failure. TECHNIQUE: transabdominal ultrasound with color Doppler interrogation. FINDINGS: The right kidney measures 9.5 x 3.8 x 4.7cm. Right renal cortex: 1.0cm. The left kidney measures 12.3 x 5.2 x 4.1cm. Left renal cortex: 1.2cm. The renal parenchymal echotexture is slightly increased consistent with nonspecific renal parenchymal disease. There are 2 cysts at the superior pole of the left kidney measuring 2.5 cm and 1.5 cm. There are scattered echogenic foci in both kidneys consistent with nonobstructing renal calyceal stones. There is no evidence for mass or hydronephrosis. The bladder is empty. IMPRESSION: Slightly echogenic kidneys consistent with nonspecific renal parenchymal disease. No obstructive uropathy. Left renal cysts. Bilateral punctate renal stones are suspected.
[2017-01-02] MEDS: HEPARIN SUB-Q SCH ×2 (12:07→21:35)
[2017-01-02] MEDS: ASPIRIN PO SCH (13:01)
[2017-01-02] MEDS: PEPCID IV SCH (13:01)
[2017-01-02] MEDS: HEPARIN IV PRN (13:04)
--- NOTE | 2017-01-02 13:26 | Progress Note ---
Assessment and Plan SIVA superimposed on CKD3 - Received HD x 1 & then f/u Renal fxn. Continue IVF & f/u BUN/Cr. Would resume HD if no further improved fxn HTN - Resume po meds & wean to d/c cardine drip Lytes - F/u labs & adjust electrolytes as necessary Resp Failure - Vent Mx per pulm Subjective Date of service: 01/02/17 Objective - Vital Signs Vital signs: Vital Signs - 12hr 01/02/17 01/02/17 01/02/17 01:30 01:46 02:00 Temperature Pulse Rate 99 H 100 H 99 H Pulse Rate [ Left Radial] Pulse Rate [ Right Radial] Respiratory 18 18 18 Rate Blood Pressure 170/69 170/69 170/69 O2 Sat by Pulse 99 99 99 Oximetry 01/02/17 01/02/17 01/02/17 02:16 02:30 02:46 Temperature Pulse Rate 106 H 106 H 104 H Pulse Rate [ Left Radial] Pulse Rate [ Right Radial] Respiratory 21 17 18 Rate Blood Pressure 170/69 170/69 170/69 O2 Sat by Pulse 99 99 100 Oximetry 01/02/17 01/02/17 01/02/17 03:00 03:11 03:16 Temperature Pulse Rate 101 H 99 H 106 H Pulse Rate [ Left Radial] Pulse Rate [ Right Radial] Respiratory 17 21 Rate Blood Pressure 170/69 170/69 170/69 O2 Sat by Pulse 99 99 99 Oximetry 01/02/17 01/02/17 01/02/17 03:30 03:46 04:00 Temperature 99.7 F H Pulse Rate 109 H 101 H 103 H Pulse Rate [ 86 Left Radial] Pulse Rate [ 86 Right Radial] Respiratory 19 21 22 Rate Blood Pressure 170/69 170/69 157/65 O2 Sat by Pulse 100 99 96 Oximetry 01/02/17 01/02/17 01/02/17 04:16 04:30 04:46 Temperature Pulse Rate 103 H 107 H 99 H Pulse Rate [ Left Radial] Pulse Rate [ Right Radial] Respiratory 22 25 H 19 Rate Blood Pressure 157/65 157/65 157/65 O2 Sat by Pulse 99 99 99 Oximetry 01/02/17 01/02/17 01/02/17 05:00 05:16 05:30 Temperature Pulse Rate 97 H 100 H 99 H Pulse Rate [ Left Radial] Pulse Rate [ Right Radial] Respiratory 17 20 21 Rate Blood Pressure 157/65 157/65 157/65 O2 Sat by Pulse 99 97 98 Oximetry 01/02/17 01/02/17 01/02/17 05:46 06:00 06:16 Temperature Pulse Rate 101 H 101 H 98 H Pulse Rate [ Left Radial] Pulse Rate [ Right Radial] Respiratory 19 20 20 Rate Blood Pressure 157/65 157/65 157/65 O2 Sat by Pulse 98 98 98 Oximetry 01/02/17 01/02/17 01/02/17 06:30 06:45 07:01 Temperature Pulse Rate 98 H 105 H 97 H Pulse Rate [ Left Radial] Pulse Rate [ Right Radial] Respiratory 20 14 19 Rate Blood Pressure 157/65 157/65 O2 Sat by Pulse 97 99 98 Oximetry 01/02/17 01/02/17 01/02/17 07:15 07:31 07:45 Temperature Pulse Rate 98 H 104 H 97 H Pulse Rate [ Left Radial] Pulse Rate [ Right Radial] Respiratory 22 27 H 20 Rate Blood Pressure 157/65 157/65 157/65 O2 Sat by Pulse 99 98 98 Oximetry 01/02/17 01/02/17 01/02/17 07:48 08:00 08:15 Temperature 99.3 F Pulse Rate 103 H 103 H Pulse Rate [ Left Radial] Pulse Rate [ Right Radial] Respiratory 21 23 Rate Blood Pressure 155/65 155/65 O2 Sat by Pulse 97 99 Oximetry 01/02/17 01/02/17 01/02/17 08:17 08:31 08:45 Temperature Pulse Rate 97 H 104 H 101 H Pulse Rate [ Left Radial] Pulse Rate [ Right Radial] Respiratory 20 22 24 Rate Blood Pressure 155/65 155/65 155/65 O2 Sat by Pulse 100 100 98 Oximetry 01/02/17 01/02/17 01/02/17 09:01 09:15 09:31 Temperature Pulse Rate 103 H 104 H 100 H Pulse Rate [ Left Radial] Pulse Rate [ Right Radial] Respiratory 14 21 13 Rate Blood Pressure 155/65 155/65 154/63 O2 Sat by Pulse 98 98 98 Oximetry 01/02/17 01/02/17 01/02/17 09:45 10:00 10:01 Temperature Pulse Rate 101 H 96 H 100 H Pulse Rate [ Left Radial] Pulse Rate [ Right Radial] Respiratory 23 21 Rate Blood Pressure 154/63 154/63 O2 Sat by Pulse 98 98 Oximetry 01/02/17 01/02/17 01/02/17 10:15 10:31 10:45 Temperature Pulse Rate 99 H 101 H 101 H Pulse Rate [ Left Radial] Pulse Rate [ Right Radial] Respiratory 22 20 21 Rate Blood Pressure 154/63 154/63 154/63 O2 Sat by Pulse 98 95 96 Oximetry 01/02/17 01/02/17 01/02/17 11:01 12:00 12:07 Temperature 99.8 F H Pulse Rate 100 H 103 H Pulse Rate [ Left Radial] Pulse Rate [ Right Radial] Respiratory 21 25 H Rate Blood Pressure 154/63 162/71 O2 Sat by Pulse 96 95 Oximetry - General Appearance General appearance: sedated on ventilator EENT: other (Orogastric tube in place) Neck: no JVD Respiratory: Present: Other (Good air entry per vent) Cardiology: regular, S1S2 Gastrointestinal: other (Soft) - Lab 01/02/17 04:01 01/02/17 04:01 Most recent lab results Calcium 7.7 mg/dL (8.4-10.2) L 01/02/17 04:01 Magnesium 1.90 mg/dL (1.7-2.3) 01/02/17 04:01
--- NOTE | 2017-01-02 14:43 | Progress Note ---
Assessment and Plan 61 yo AAF with multiple chronic conditions (hypertension, diabetes, hyperlipidemia, peripheral vascular disease status post bypass) noncompliant, not taking her medications for months, found down by family and brought to ER unresponsive with blood pressure 255/135. At the time of my initial evaluation in the ED, patient was obtunded, tachynpneic and so I intubated her. 1. Acute hypoxic respiratory failure on mechanical ventilatory support Lung protective strategies Adjust minute ventilation for better gas-exchange. VAP bundle addressed HOB>40, Aspiration precautions OGT in place- continue enteric feeding Accucheck with glycemic control, blood glucose goal<180mg/dl Muir catheter in this critically ill patient with acute on chronic renal failure VTE prophylaxis Stress ulcer prophylaxis Daily spontaneous breathing trials in the morning 2. Malignant hypertension/hypertensive emergency CT head showing chronic ischemic microvascular changes, with no acute infarct or hemorrhage Oral antihypertensives via OGT MRI result reviewed Secondary stroke prophylaxis 3. Acute toxic metabolic encephalopathy Likely due to combination of hypertensive encephalopathy/renal failure with uremia/acidosis/electrolytes abnormalities/ drug use 4. Acute renal failure likely superimposed on chronic kidney disease Had HD renal following 5. Hyperkalemia Monitor closely 6. Rhabdomyolysis Give IV fluids, but with caution given malignant hypertension Monitor CPK and renal function trends 7. Elevated troponin- type NSTEMI Most likely secondary to hypertensive emergency/renal failure Echocardiogram pending 8. Hyperlipidemia - mixed 9. Peripheral vascular disease Status post bypass Not on any anticoagulation or anti-platelet therapy 10. Drug abuse UDS positive for marijuana If recovers, will need counseling - Patient Problems (1) Respiratory failure Current Visit: Yes Status: Acute Qualifiers: Chronicity: C Respiratory failure complication: R (2) Hypertensive encephalopathy Current Visit: Yes Status: Acute (3) ARF (acute renal failure) Current Visit: Yes Status: Acute Qualifiers: Acute renal failure type: A (4) Seizures Current Visit: Yes Status: Acute Subjective Date of service: 01/02/17 Interval history: Patient seen and examined. Remains intubated, tolerating PSV tirals. MRI shows evidence of ischemic areas suggestive of embolic strokes No hemorrhage, no mass. On cardene infusion- amlodipine initiated Vitals, labs, medications, chart reviewed. Discussed with the sisters at the bedside that ther isn't an area of big stroke but rather small areas. Also explained that the need for hemodialysis will be assessed on a daily basis , and she will not receive HD today. Objective - Exam Narrative Exam: Gen. appearance: Patient lying in bed,s/pETT to vent HEENT: Normocephalic, atraumatic, pupils equally round and reactive to light, no sclera icterus,. No JVD or thyromegaly or nodule,neck supple, no carotid bruit , Heart: S1, S2, regular rate and rhythm, no murmurs Lungs: Clear to auscultation bilaterally anteriorly, breathing comfortable Abdomen: Positive bowel sounds, soft, non-distended, no organomegaly Extremity: No edema, cyanosis, clubbing Skin: No rash, nodules, warm, dry Neuro: Intubated, unresponsive Vital Signs - 12hr 01/02/17 01/02/17 01/02/17 02:46 03:00 03:11 Temperature Pulse Rate 104 H 101 H 99 H Pulse Rate [ Left Radial] Pulse Rate [ Right Radial] Respiratory 18 17 Rate Blood Pressure 170/69 170/69 170/69 O2 Sat by Pulse 100 99 99 Oximetry 01/02/17 01/02/17 01/02/17 03:16 03:30 03:46 Temperature Pulse Rate 106 H 109 H 101 H Pulse Rate [ Left Radial] Pulse Rate [ Right Radial] Respiratory 21 19 21 Rate Blood Pressure 170/69 170/69 170/69 O2 Sat by Pulse 99 100 99 Oximetry 01/02/17 01/02/17 01/02/17 04:00 04:16 04:30 Temperature 99.7 F H Pulse Rate 103 H 103 H 107 H Pulse Rate [ 86 Left Radial] Pulse Rate [ 86 Right Radial] Respiratory 22 22 25 H Rate Blood Pressure 157/65 157/65 157/65 O2 Sat by Pulse 96 99 99 Oximetry 01/02/17 01/02/17 01/02/17 04:46 05:00 05:16 Temperature Pulse Rate 99 H 97 H 100 H Pulse Rate [ Left Radial] Pulse Rate [ Right Radial] Respiratory 19 17 20 Rate Blood Pressure 157/65 157/65 157/65 O2 Sat by Pulse 99 99 97 Oximetry 01/02/17 01/02/17 01/02/17 05:30 05:46 06:00 Temperature Pulse Rate 99 H 101 H 101 H Pulse Rate [ Left Radial] Pulse Rate [ Right Radial] Respiratory 21 19 20 Rate Blood Pressure 157/65 157/65 157/65 O2 Sat by Pulse 98 98 98 Oximetry 01/02/17 01/02/17 01/02/17 06:16 06:30 06:45 Temperature Pulse Rate 98 H 98 H 105 H Pulse Rate [ Left Radial] Pulse Rate [ Right Radial] Respiratory 20 20 14 Rate Blood Pressure 157/65 157/65 O2 Sat by Pulse 98 97 99 Oximetry 01/02/17 01/02/17 01/02/17 07:01 07:15 07:31 Temperature Pulse Rate 97 H 98 H 104 H Pulse Rate [ Left Radial] Pulse Rate [ Right Radial] Respiratory 19 22 27 H Rate Blood Pressure 157/65 157/65 157/65 O2 Sat by Pulse 98 99 98 Oximetry 01/02/17 01/02/17 01/02/17 07:45 07:48 08:00 Temperature 99.3 F Pulse Rate 97 H 103 H Pulse Rate [ Left Radial] Pulse Rate [ Right Radial] Respiratory 20 21 Rate Blood Pressure 157/65 155/65 O2 Sat by Pulse 98 97 Oximetry 01/02/17 01/02/17 01/02/17 08:15 08:17 08:31 Temperature Pulse Rate 103 H 97 H 104 H Pulse Rate [ Left Radial] Pulse Rate [ Right Radial] Respiratory 23 20 22 Rate Blood Pressure 155/65 155/65 155/65 O2 Sat by Pulse 99 100 100 Oximetry 01/02/17 01/02/17 01/02/17 08:45 09:01 09:15 Temperature Pulse Rate 101 H 103 H 104 H Pulse Rate [ Left Radial] Pulse Rate [ Right Radial] Respiratory 24 14 21 Rate Blood Pressure 155/65 155/65 155/65 O2 Sat by Pulse 98 98 98 Oximetry 01/02/17 01/02/17 01/02/17 09:31 09:45 10:00 Temperature Pulse Rate 100 H 101 H 96 H Pulse Rate [ Left Radial] Pulse Rate [ Right Radial] Respiratory 13 23 Rate Blood Pressure 154/63 154/63 O2 Sat by Pulse 98 98 Oximetry 01/02/17 01/02/17 01/02/17 10:01 10:15 10:31 Temperature Pulse Rate 100 H 99 H 101 H Pulse Rate [ Left Radial] Pulse Rate [ Right Radial] Respiratory 21 22 20 Rate Blood Pressure 154/63 154/63 154/63 O2 Sat by Pulse 98 98 95 Oximetry 01/02/17 01/02/17 01/02/17 10:45 11:01 11:15 Temperature Pulse Rate 101 H 100 H 99 H Pulse Rate [ Left Radial] Pulse Rate [ Right Radial] Respiratory 21 21 21 Rate Blood Pressure 154/63 154/63 154/63 O2 Sat by Pulse 96 96 97 Oximetry 01/02/17 01/02/17 01/02/17 11:31 11:45 12:00 Temperature 99.8 F H Pulse Rate 101 H 105 H 105 H Pulse Rate [ Left Radial] Pulse Rate [ Right Radial] Respiratory 22 18 26 H Rate Blood Pressure 154/63 154/63 162/71 O2 Sat by Pulse 95 96 92 Oximetry 01/02/17 01/02/17 01/02/17 12:07 12:15 12:31 Temperature Pulse Rate 103 H 105 H 103 H Pulse Rate [ Left Radial] Pulse Rate [ Right Radial] Respiratory 25 H 19 25 H Rate Blood Pressure 162/71 162/71 162/71 O2 Sat by Pulse 95 94 95 Oximetry 01/02/17 01/02/17 01/02/17 12:45 13:01 13:15 Temperature Pulse Rate 106 H 102 H 102 H Pulse Rate [ Left Radial] Pulse Rate [ Right Radial] Respiratory 26 H 24 23 Rate Blood Pressure 162/71 162/71 162/71 O2 Sat by Pulse 95 96 94 Oximetry 01/02/17 01/02/17 13:31 13:45 Temperature Pulse Rate 104 H 104 H Pulse Rate [ Left Radial] Pulse Rate [ Right Radial] Respiratory 24 18 Rate Blood Pressure 162/71 162/71 O2 Sat by Pulse 96 95 Oximetry Constitutional: no acute distress Eyes: non-icteric ENT: oropharynx moist Neck: supple, no lymphadenopathy, no JVD Effort: normal Ascultation: Bilateral: clear, diminished breath sounds (anteriorly) Cardiovascular: regular rate and rhythm Gastrointestinal: normoactive bowel sounds, soft, non-tender, non-distended Integumentary: normal Extremities: no cyanosis, no edema, pink and warm, pulses normal Neurologic: other (unresponsive) CBC and BMP: 01/03/17 03:44 01/03/17 03:44 ABG, PT/INR, D-dimer: ABG POC ABG pH 7.551 (7.35-7.45) H 01/02/17 03:35 POC ABG pCO2 33.7 (35-45) L 01/02/17 03:35 POC ABG pO2 99 (80-105) 01/02/17 03:35 POC ABG HCO3 29.5 01/02/17 03:35 POC ABG Total CO2 31 01/02/17 03:35 POC ABG O2 Sat 99 01/02/17 03:35 Abnormal lab findings: Abnormal Labs 12/31/16 12/31/16 12/31/16 01:31 01:31 03:42 WBC RBC Hgb Hct RDW Seg Neutrophils % Seg Neutrophils # POC ABG pH POC ABG pCO2 POC ABG pO2 Sodium 146 H Potassium 5.6 H Chloride Carbon Dioxide 14 L BUN 77 H Creatinine 4.0 H Glucose 107 H POC Glucose Calcium Total Creatine Kinase 678 H 711 H CK-MB (CK-2) 10.5 H Troponin T 0.136 H* D Total Protein Albumin PTH Intact 12/31/16 12/31/16 12/31/16 03:42 06:58 06:58 WBC RBC Hgb Hct RDW Seg Neutrophils % Seg Neutrophils # POC ABG pH POC ABG pCO2 POC ABG pO2 Sodium 147 H Potassium 6.0 H Chloride 107.5 H Carbon Dioxide 12 L BUN 81 H Creatinine 4.6 H Glucose 183 H POC Glucose Calcium Total Creatine Kinase 787 H CK-MB (CK-2) 10.8 H Troponin T 0.179 H* D Total Protein Albumin PTH Intact 124.4 H 12/31/16 12/31/16 12/31/16 09:34 13:47 15:40 WBC RBC Hgb Hct RDW Seg Neutrophils % Seg Neutrophils # POC ABG pH 7.344 L POC ABG pCO2 33.0 L POC ABG pO2 340 H Sodium Potassium Chloride Carbon Dioxide BUN Creatinine Glucose POC Glucose 294 H Calcium Total Creatine Kinase CK-MB (CK-2) Troponin T Total Protein 6.1 L D Albumin 3.6 L PTH Intact 12/31/16 12/31/16 12/31/16 16:49 18:05 18:23 WBC RBC Hgb Hct RDW Seg Neutrophils % Seg Neutrophils # POC ABG pH 7.651 H POC ABG pCO2 23.2 L POC ABG pO2 64 L Sodium Potassium Chloride Carbon Dioxide BUN Creatinine Glucose POC Glucose 287 H 259 H Calcium Total Creatine Kinase CK-MB (CK-2) Troponin T Total Protein Albumin PTH Intact 12/31/16 01/01/1717 23:52 05:40 06:35 WBC RBC Hgb Hct RDW Seg Neutrophils % Seg Neutrophils # POC ABG pH POC ABG pCO2 POC ABG pO2 Sodium Potassium Chloride 96.6 L Carbon Dioxide BUN 34 H Creatinine 3.4 H Glucose 142 H POC Glucose 182 H 168 H Calcium 7.6 L D Total Creatine Kinase CK-MB (CK-2) Troponin T Total Protein Albumin PTH Intact 01/01/17 01/01/17 01/01/17 11:54 12:24 17:10 WBC RBC Hgb Hct RDW Seg Neutrophils % Seg Neutrophils # POC ABG pH 7.536 H POC ABG pCO2 POC ABG pO2 149 H Sodium Potassium Chloride Carbon Dioxide BUN Creatinine Glucose POC Glucose 166 H 160 H Calcium Total Creatine Kinase CK-MB (CK-2) Troponin T Total Protein Albumin PTH Intact 01/01/17 01/02/17 01/02/17 23:31 03:35 04:01 WBC 12.0 H RBC 2.88 L Hgb 8.4 L D Hct 25.4 L D RDW 15.9 H Seg Neutrophils % 75.3 H Seg Neutrophils # 9.0 H POC ABG pH 7.551 H POC ABG pCO2 33.7 L POC ABG pO2 Sodium Potassium Chloride Carbon Dioxide BUN Creatinine Glucose POC Glucose 232 H Calcium Total Creatine Kinase CK-MB (CK-2) Troponin T Total Protein Albumin PTH Intact 01/02/17 01/02/17 01/02/17 04:01 05:09 12:28 WBC RBC Hgb Hct RDW Seg Neutrophils % Seg Neutrophils # POC ABG pH POC ABG pCO2 POC ABG pO2 Sodium Potassium Chloride 93.3 L Carbon Dioxide BUN 44 H Creatinine 5.1 H Glucose 208 H POC Glucose 343 H 197 H Calcium 7.7 L Total Creatine Kinase CK-MB (CK-2) Troponin T Total Protein 6.1 L Albumin 3.1 L PTH Intact
[2017-01-02] MEDS: NORMODYNE PO SCH ×2 (15:04→21:36)
[2017-01-02] MEDS: NORVASC PO SCH (15:04)
[2017-01-02] MEDS: NACL 0.45% 1000 ML 1,000 ML IV SCH ×2 (15:05→21:37)
--- NOTE | 2017-01-02 18:56 | Progress Note ---
Assessment and Plan Assessment and plan: 61 yo AAF with multiple chronic conditions (hypertension, diabetes, hyperlipidemia, peripheral vascular disease status post bypass) noncompliant, not taking her medications for months, found down by family and brought to ER unresponsive with blood pressure 255/135 1. Malignant hypertension/hypertensive emergency CT head showing chronic ischemic microvascular changes, with no acute infarct or hemorrhage Still on Cardene drip, trying to wean off; started on po amlodipine 2. CVA Brain MRI showing multiple acute ischemic areas Started on antiplatelet and statin therapy Cardiology consulted for JOSE to rule out embolic source; monitor rhythm on telemetry 3. Acute toxic metabolic encephalopathy Likely due to combination of hypertensive encephalopathy/multiple brain infarction areas/ renal failure with uremia/acidosis/electrolytes abnormalities / drug use Treat underlying conditions 4. Acute renal failure likely superimposed on chronic kidney disease BUN 77, creatinine 4 with marked hyperkalemia and metabolic acidosis on admission Nephrology consulted and acute HD initiated Assessing HD need daily 5. Hyperkalemia On admission K+ 6.9; received Kayexalate, insulin/D50, bicarbonate Now on HD Continue to closely monitor 6. Rhabdomyolysis Continue IV fluids Trend CPK and monitor renal function 7. Elevated troponin Most likely secondary to hypertensive emergency/renal failure Echocardiogram ordered 8. Hyperlipidemia - mixed Total cholesterol 355, LDL 251, TG 298 Will hold statin for now given rhabdomyolysis 9. Peripheral vascular disease Status post bypass Discontinued anticoagulant therapy on her own months ago 10. Drug abuse UDS positive for marijuana If recovers, will need counseling 11. DVT prophylaxis As CT head negative for hemorrhage, Lovenox changed to heparin subcutaneous due to renal failure 12. Poor prognosis. Discussed with family CC 35 min History Interval history: Opens eyes, but not purposeful, remains unresponsive Trying to wean Cardene drip PSV trials Hospitalist Physical - Constitutional Vitals: Temp Pulse Resp BP Pulse Ox 98.9 F 85 19 138/67 97 01/02/17 16:14 01/02/17 18:01 01/02/17 18:01 01/02/17 18:01 01/02/17 18:01 General appearance: Present: mild distress - Neck Neck: Absent: enlarged thyroid, masses or JVD, carotid bruits - Respiratory Respiratory effort: other (intubated) Respiratory: bilateral: diminished, negative: rhonchi, wheezing - Cardiovascular Rhythm: other (tachycardiac) Heart Sounds: Present: S1 & S2. Absent: systolic murmur - Extremities Extremities: no ischemia - Abdominal General gastrointestinal: soft, non-tender, normal bowel sounds, other (NG tube) - Psychiatric Psychiatric: other (unresponsive on no sedation) Results - Labs CBC & Chem 7: 01/02/17 04:01 01/02/17 04:01 Labs: Laboratory Last Values WBC 12.0 K/mm3 (4.5-11.0) H 01/02/17 04:01 RBC 2.88 M/mm3 (3.65-5.03) L 01/02/17 04:01 Hgb 8.4 gm/dl (10.1-14.3) L D 01/02/17 04:01 Hct 25.4 % (30.3-42.9) L D 01/02/17 04:01 MCV 88 fl (79-97) 01/02/17 04:01 MCH 29 pg (28-32) 01/02/17 04:01 MCHC 33 % (30-34) 01/02/17 04:01 RDW 15.9 % (13.2-15.2) H 01/02/17 04:01 Plt Count 179 K/mm3 (140-440) 01/02/17 04:01 Lymph % (Auto) 17.9 % (13.4-35.0) 01/02/17 04:01 [place] % (Auto) 6.2 % (0.0-7.3) 01/02/17 04:01 Eos % (Auto) 0.0 % (0.0-4.3) 01/02/17 04:01 Baso % (Auto) 0.6 % (0.0-1.8) 01/02/17 04:01 Lymph # 2.1 K/mm3 (1.2-5.4) 01/02/17 04:01 [place] # 0.7 K/mm3 (0.0-0.8) 01/02/17 04:01 Eos # 0.0 K/mm3 (0.0-0.4) 01/02/17 04:01 Baso # 0.1 K/mm3 (0.0-0.1) 01/02/17 04:01 Seg Neutrophils % 75.3 % (40.0-70.0) H 01/02/17 04:01 Seg Neutrophils # 9.0 K/mm3 (1.8-7.7) H 01/02/17 04:01 POC ABG pH 7.551 (7.35-7.45) H 01/02/17 03:35 POC ABG pCO2 33.7 (35-45) L 01/02/17 03:35 POC ABG pO2 99 (80-105) 01/02/17 03:35 POC ABG HCO3 29.5 01/02/17 03:35 POC ABG Total CO2 31 01/02/17 03:35 POC ABG O2 Sat 99 01/02/17 03:35 POC ABG Base Excess 7 01/02/17 03:35 FiO2 30 % 01/02/17 03:35 Sodium 139 mmol/L (137-145) 01/02/17 04:01 Potassium 3.8 mmol/L (3.6-5.0) 01/02/17 04:01 Chloride 93.3 mmol/L (98-107) L 01/02/17 04:01 Carbon Dioxide 25 mmol/L (22-30) 01/02/17 04:01 Anion Gap 25 mmol/L 01/02/17 04:01 BUN 44 mg/dL (7-17) H 01/02/17 04:01 Creatinine 5.1 mg/dL (0.7-1.2) H 01/02/17 04:01 Estimated GFR 10 ml/min 01/02/17 04:01 BUN/Creatinine Ratio 8.62 % 01/02/17 04:01 Glucose 208 mg/dL (65-100) H 01/02/17 04:01 POC Glucose 53 (70-105) L 01/02/17 17:52 Lactic Acid 1.30 mmol/L (0.7-2.0) 01/01/17 06:35 Calcium 7.7 mg/dL (8.4-10.2) L 01/02/17 04:01 Magnesium 1.90 mg/dL (1.7-2.3) 01/02/17 04:01 Total Bilirubin 0.50 mg/dL (0.1-1.2) 01/02/17 04:01 Direct Bilirubin < 0.2 mg/dL (0-0.2) 12/31/16 15:40 Indirect Bilirubin 0.1 mg/dL 12/31/16 15:40 AST 31 units/L (5-40) 01/02/17 04:01 ALT 12 units/L (7-56) 01/02/17 04:01 Alkaline Phosphatase 71 units/L (35-129) 01/02/17 04:01 Total Creatine Kinase TNR 01/01/17 04:09 CK-MB (CK-2) 10.8 ng/mL (0.0-4.0) H 12/31/16 06:58 CK-MB (CK-2) Rel Index 1.3 (0-4) 12/31/16 06:58 Troponin T 0.179 ng/mL (0.00-0.029) H* D 12/31/16 06:58 Total Protein 6.1 g/dL (6.3-8.2) L 01/02/17 04:01 Albumin 3.1 g/dL (3.9-5) L 01/02/17 04:01 Albumin/Globulin Ratio 1.0 % 01/02/17 04:01 Triglycerides 298 mg/dL (2-149) H 12/30/16 23:34 Cholesterol 355 mg/dL (50-199) H 12/30/16 23:34 LDL Cholesterol Direct 251 mg/dL (50-130) H 12/30/16 23:34 HDL Cholesterol 45 mg/dL (40-59) 12/30/16 23:34 Cholesterol/HDL Ratio 7.88 % 12/30/16 23:34 TSH 1.320 mlU/mL (0.270-4.200) 12/30/16 21:29 PTH Intact 124.4 pg/mL (15-65) H 12/31/16 03:42 Urine Color Yellow (Yellow) 12/30/16 20:47 Urine Turbidity Clear (Clear) 12/30/16 20:47 Urine pH 5.0 (5.0-7.0) 12/30/16 20:47 Ur Specific [place] 1.023 (1.003-1.030) 12/30/16 20:47 Urine Protein 100 mg/dl mg/dL (Negative) 12/30/16 20:47 Urine Glucose (UA) Neg mg/dL (Negative) 12/30/16 20:47 Urine Ketones Tr mg/dL (Negative) 12/30/16 20:47 Urine Blood Neg (Negative) 12/30/16 20:47 Urine Nitrite Neg (Negative) 12/30/16 20:47 Urine Bilirubin Neg (Negative) 12/30/16 20:47 Urine Urobilinogen 2.0 mg/dL (<2.0) 12/30/16 20:47 Ur Leukocyte Esterase Neg (Negative) 12/30/16 20:47 Urine WBC (Auto) < 1.0 /HPF (0.0-6.0) 12/30/16 20:47 Urine RBC (Auto) 1.0 /HPF (0.0-6.0) 12/30/16 20:47 U Epithel Cells (Auto) 1.0 /HPF (0-13.0) 12/30/16 20:47 Urine Bacteria (Auto) 1+ /HPF (Negative) 12/30/16 20:47 Salicylates < 0.3 mg/dL (2.8-20.0) L 12/30/16 21:29 Urine Opiates Screen Presumptive negative 12/30/16 20:47 Urine Methadone Screen Presumptive negative 12/30/16 20:47 Acetaminophen < 15.0 ug/mL (10.0-30.0) 12/30/16 21:29 Ur Barbiturates Screen Presumptive negative 12/30/16 20:47 Ur Phencyclidine Scrn Presumptive negative 12/30/16 20:47 Ur Amphetamines Screen Presumptive negative 12/30/16 20:47 U Benzodiazepines Scrn Presumptive negative 12/30/16 20:47 Urine Cocaine Screen Presumptive negative 12/30/16 20:47 U Marijuana (THC) Screen Presumptive positive 12/30/16 20:47 Drugs of Abuse Note Disclamer 12/30/16 20:47 Plasma/Serum Alcohol < 0.01 gm% (0-0.07) 12/30/16 21:29
[2017-01-03] MEDS: NOVOLOG SUB-Q SCH ×4 (00:40→17:38)
[2017-01-03 04:12] LABS: Basophils % (Auto) 0.8 % (0.0-1.8); Eosinophils % (Auto) 0.1 % (0.0-4.3); Hematocrit 22.5 % (30.3-42.9); Hemoglobin 7.6 gm/dl (10.1-14.3); Mean Corpuscular HGB Conc 34 % (30-34); Mean Corpuscular Hemoglobin 30 pg (28-32); Mean Corpuscular Volume 89 fl (79-97); Platelet Count 141 K/mm3 (140-440); Red Blood Count 2.52 M/mm3 (3.65-5.03); Red Cell Distribution Width 15.4 % (13.2-15.2); White Blood Count 10.9 K/mm3 (4.5-11.0)
[2017-01-03 04:30] LABS: BUN/Creatinine Ratio 9.35; Calcium 7.4 mg/dL (8.4-10.2); Magnesium 1.8 mg/dL (1.7-2.3); Phosphorous 5.9 mg/dL (2.5-4.5)
[2017-01-03 04:31] LABS: Chloride 92.2 mmol/L (98-107); Potassium 3.9 mmol/L (3.6-5.0)
[2017-01-03] MEDS: NACL 0.45% 1000 ML 1,000 ML IV SCH (06:12)
--- NOTE | 2017-01-03 09:31 | Progress Note ---
Assessment and Plan Assessment and plan: 61 yo AAF with multiple chronic conditions (hypertension, diabetes, hyperlipidemia, peripheral vascular disease status post bypass) noncompliant, not taking her medications for months, found down by family and brought to ER unresponsive with blood pressure 255/135 1. Malignant hypertension/hypertensive emergency CT head showing chronic ischemic microvascular changes, with no acute infarct or hemorrhage Wened off of Cardene drip; now on amlodipine and labetalol 2. CVA Brain MRI showing multiple acute ischemic areas Started on antiplatelet and statin therapy Cardiology consulted for JOSE to rule out embolic source; monitor rhythm 3. Acute toxic metabolic encephalopathy Likely due to combination of hypertensive encephalopathy/multiple brain infarction areas/ renal failure with uremia/acidosis/electrolytes abnormalities / drug use Treat underlying conditions 4. Acute renal failure likely superimposed on chronic kidney disease Significantly elevated BUN/Cr with marked hyperkalemia and metabolic acidosis on admission Nephrology consulted and acute HD initiated Assessing HD need daily 5. Hyperkalemia On admission K+ 6.9; received Kayexalate, insulin/D50, bicarbonate Now on HD Continue to closely monitor 6. Rhabdomyolysis Continue IV fluids Trend CPK and monitor renal function 7. Elevated troponin Most likely secondary to hypertensive emergency/renal failure Echocardiogram ordered 8. Hyperlipidemia - mixed Total cholesterol 355, LDL 251, TG 298 Will hold statin for now given rhabdomyolysis 9. Peripheral vascular disease Status post bypass Discontinued anticoagulant therapy on her own months ago 10. Drug abuse UDS positive for marijuana If recovers, will need counseling 11. DVT prophylaxis As CT head negative for hemorrhage, Lovenox changed to heparin subcutaneous due to renal failure 12. Poor prognosis CC 35 min History Interval history: weaned off cardene; no acute events overnight; still unresponsive Hospitalist Physical - Constitutional Vitals: Temp Pulse Resp BP Pulse Ox 99.0 F 86 25 H 144/60 86 01/03/17 07:27 01/03/17 08:18 01/03/17 08:18 01/03/17 08:18 01/03/17 08:18 General appearance: Present: no acute distress, other (unrespponsive) - EENT Eyes: Present: PERRL - Neck Neck: Absent: enlarged thyroid, masses or JVD, carotid bruits - Respiratory Respiratory effort: other (intubated) Respiratory: bilateral: diminished, negative: rhonchi, wheezing - Cardiovascular Rhythm: other (tachycardic) Heart Sounds: Present: S1 & S2. Absent: systolic murmur - Extremities Extremities: no ischemia - Abdominal General gastrointestinal: soft, non-distended, normal bowel sounds, other (NGT) Results - Labs CBC & Chem 7: 01/03/17 03:44 01/03/17 03:44 Labs: Laboratory Last Values WBC 10.9 K/mm3 (4.5-11.0) 01/03/17 03:44 RBC 2.52 M/mm3 (3.65-5.03) L 01/03/17 03:44 Hgb 7.6 gm/dl (10.1-14.3) L 01/03/17 03:44 Hct 22.5 % (30.3-42.9) L 01/03/17 03:44 MCV 89 fl (79-97) 01/03/17 03:44 MCH 30 pg (28-32) 01/03/17 03:44 MCHC 34 % (30-34) 01/03/17 03:44 RDW 15.4 % (13.2-15.2) H 01/03/17 03:44 Plt Count 141 K/mm3 (140-440) 01/03/17 03:44 Lymph % (Auto) 22.7 % (13.4-35.0) 01/03/17 03:44 [place] % (Auto) 5.9 % (0.0-7.3) 01/03/17 03:44 Eos % (Auto) 0.1 % (0.0-4.3) 01/03/17 03:44 Baso % (Auto) 0.8 % (0.0-1.8) 01/03/17 03:44 Lymph # 2.5 K/mm3 (1.2-5.4) 01/03/17 03:44 [place] # 0.6 K/mm3 (0.0-0.8) 01/03/17 03:44 Eos # 0.0 K/mm3 (0.0-0.4) 01/03/17 03:44 Baso # 0.1 K/mm3 (0.0-0.1) 01/03/17 03:44 Seg Neutrophils % 70.5 % (40.0-70.0) H 01/03/17 03:44 Seg Neutrophils # 7.6 K/mm3 (1.8-7.7) 01/03/17 03:44 POC ABG pH 7.551 (7.35-7.45) H 01/02/17 03:35 POC ABG pCO2 33.7 (35-45) L 01/02/17 03:35 POC ABG pO2 99 (80-105) 01/02/17 03:35 POC ABG HCO3 29.5 01/02/17 03:35 POC ABG Total CO2 31 01/02/17 03:35 POC ABG O2 Sat 99 01/02/17 03:35 POC ABG Base Excess 7 01/02/17 03:35 FiO2 30 % 01/02/17 03:35 Sodium 137 mmol/L (137-145) 01/03/17 03:44 Potassium 3.9 mmol/L (3.6-5.0) 01/03/17 03:44 Chloride 92.2 mmol/L (98-107) L 01/03/17 03:44 Carbon Dioxide 26 mmol/L (22-30) 01/03/17 03:44 Anion Gap 23 mmol/L 01/03/17 03:44 BUN 58 mg/dL (7-17) H 01/03/17 03:44 Creatinine 6.2 mg/dL (0.7-1.2) H 01/03/17 03:44 Estimated GFR 8 ml/min 01/03/17 03:44 BUN/Creatinine Ratio 9.35 % 01/03/17 03:44 Glucose 147 mg/dL (65-100) H 01/03/17 03:44 POC Glucose 190 (70-105) H 01/03/17 05:41 Lactic Acid 1.30 mmol/L (0.7-2.0) 01/01/17 06:35 Calcium 7.4 mg/dL (8.4-10.2) L 01/03/17 03:44 Phosphorus 5.90 mg/dL (2.5-4.5) H 01/03/17 03:44 Magnesium 1.80 mg/dL (1.7-2.3) 01/03/17 03:44 Total Bilirubin 0.50 mg/dL (0.1-1.2) 01/02/17 04:01 Direct Bilirubin < 0.2 mg/dL (0-0.2) 12/31/16 15:40 Indirect Bilirubin 0.1 mg/dL 12/31/16 15:40 AST 31 units/L (5-40) 01/02/17 04:01 ALT 12 units/L (7-56) 01/02/17 04:01 Alkaline Phosphatase 71 units/L (35-129) 01/02/17 04:01 Total Creatine Kinase TNR 01/01/17 04:09 CK-MB (CK-2) 10.8 ng/mL (0.0-4.0) H 12/31/16 06:58 CK-MB (CK-2) Rel Index 1.3 (0-4) 12/31/16 06:58 Troponin T 0.179 ng/mL (0.00-0.029) H* D 12/31/16 06:58 Total Protein 6.1 g/dL (6.3-8.2) L 01/02/17 04:01 Albumin 3.1 g/dL (3.9-5) L 01/02/17 04:01 Albumin/Globulin Ratio 1.0 % 01/02/17 04:01 Triglycerides 298 mg/dL (2-149) H 12/30/16 23:34 Cholesterol 355 mg/dL (50-199) H 12/30/16 23:34 LDL Cholesterol Direct 251 mg/dL (50-130) H 12/30/16 23:34 HDL Cholesterol 45 mg/dL (40-59) 12/30/16 23:34 Cholesterol/HDL Ratio 7.88 % 12/30/16 23:34 TSH 1.320 mlU/mL (0.270-4.200) 12/30/16 21:29 PTH Intact 124.4 pg/mL (15-65) H 12/31/16 03:42 Urine Color Yellow (Yellow) 12/30/16 20:47 Urine Turbidity Clear (Clear) 12/30/16 20:47 Urine pH 5.0 (5.0-7.0) 12/30/16 20:47 Ur Specific [place] 1.023 (1.003-1.030) 12/30/16 20:47 Urine Protein 100 mg/dl mg/dL (Negative) 12/30/16 20:47 Urine Glucose (UA) Neg mg/dL (Negative) 12/30/16 20:47 Urine Ketones Tr mg/dL (Negative) 12/30/16 20:47 Urine Blood Neg (Negative) 12/30/16 20:47 Urine Nitrite Neg (Negative) 12/30/16 20:47 Urine Bilirubin Neg (Negative) 12/30/16 20:47 Urine Urobilinogen 2.0 mg/dL (<2.0) 12/30/16 20:47 Ur Leukocyte Esterase Neg (Negative) 12/30/16 20:47 Urine WBC (Auto) < 1.0 /HPF (0.0-6.0) 12/30/16 20:47 Urine RBC (Auto) 1.0 /HPF (0.0-6.0) 12/30/16 20:47 U Epithel Cells (Auto) 1.0 /HPF (0-13.0) 12/30/16 20:47 Urine Bacteria (Auto) 1+ /HPF (Negative) 12/30/16 20:47 Salicylates < 0.3 mg/dL (2.8-20.0) L 12/30/16 21:29 Urine Opiates Screen Presumptive negative 12/30/16 20:47 Urine Methadone Screen Presumptive negative 12/30/16 20:47 Acetaminophen < 15.0 ug/mL (10.0-30.0) 12/30/16 21:29 Ur Barbiturates Screen Presumptive negative 12/30/16 20:47 Ur Phencyclidine Scrn Presumptive negative 12/30/16 20:47 Ur Amphetamines Screen Presumptive negative 12/30/16 20:47 U Benzodiazepines Scrn Presumptive negative 12/30/16 20:47 Urine Cocaine Screen Presumptive negative 12/30/16 20:47 U Marijuana (THC) Screen Presumptive positive 12/30/16 20:47 Drugs of Abuse Note Disclamer 12/30/16 20:47 Plasma/Serum Alcohol < 0.01 gm% (0-0.07) 12/30/16 21:29
--- NOTE | 2017-01-03 09:48 | Progress Note ---
Assessment and Plan 61 yo AAF with multiple chronic conditions (hypertension, diabetes, hyperlipidemia, peripheral vascular disease status post bypass) noncompliant, not taking her medications for months, found down by family and brought to ER unresponsive with blood pressure 255/135. At the time of my initial evaluation in the ED, patient was obtunded, tachynpneic and so I intubated her. 1. Acute hypoxic respiratory failure on mechanical ventilatory support Lung protective strategies Adjust minute ventilation for better gas-exchange( has respiratory alkalosis). VAP bundle addressed HOB>40, Aspiration precautions OGT in place- continue enteric feeding Accucheck with glycemic control, blood glucose goal<180mg/dl Muir catheter in this critically ill patient with acute on chronic renal failure VTE prophylaxis Stress ulcer prophylaxis Daily spontaneous breathing trials in the morning 2. Malignant hypertension/hypertensive emergency CT head showing chronic ischemic microvascular changes, with no acute infarct or hemorrhage Oral antihypertensives via OGT MRI result reviewed Secondary stroke prophylaxis 3. Acute toxic metabolic encephalopathy Likely due to combination of hypertensive encephalopathy/renal failure with uremia/acidosis/electrolytes abnormalities/ drug use 4. Acute renal failure likely superimposed on chronic kidney disease Had HD renal following 5. Hyperkalemia Monitor closely 6. Rhabdomyolysis Give IV fluids, but with caution given malignant hypertension Monitor CPK and renal function trends 7. Elevated troponin- type NSTEMI Most likely secondary to hypertensive emergency/renal failure Echocardiogram pending 8. Hyperlipidemia - mixed 9. Peripheral vascular disease Status post bypass Not on any anticoagulation or anti-platelet therapy 10. Drug abuse UDS positive for marijuana If recovers, will need counseling - Patient Problems (1) Respiratory failure Current Visit: Yes Status: Acute Qualifiers: Chronicity: C Respiratory failure complication: R (2) Hypertensive encephalopathy Current Visit: Yes Status: Acute (3) ARF (acute renal failure) Current Visit: Yes Status: Acute Qualifiers: Acute renal failure type: A (4) Seizures Current Visit: Yes Status: Acute Subjective Date of service: 01/03/17 Interval history: Patient seen and examined. Remains intubated, tolerating PSV tirals. MRI shows evidence of ischemic areas suggestive of embolic strokes No hemorrhage, no mass. Amlodipine down tube with adequate blood pressure control Vitals, labs, medications, chart reviewed. No acute overnight events Objective - Exam Narrative Exam: Gen. appearance: Patient lying in bed,s/pETT to vent HEENT: Normocephalic, atraumatic, pupils equally round and reactive to light, no sclera icterus,. No JVD or thyromegaly or nodule,neck supple, no carotid bruit , Heart: S1, S2, regular rate and rhythm, no murmurs Lungs: Clear to auscultation bilaterally anteriorly, breathing comfortable Abdomen: Positive bowel sounds, soft, non-distended, no organomegaly Extremity: No edema, cyanosis, clubbing Skin: No rash, nodules, warm, dry Neuro: Intubated, unresponsive Vital Signs - 12hr 01/02/17 01/02/17 01/02/17 21:54 22:01 22:15 Temperature Pulse Rate 82 81 79 Pulse Rate [ Left Radial] Pulse Rate [ Right Radial] Respiratory 22 20 Rate Blood Pressure 146/73 146/73 O2 Sat by Pulse 99 Oximetry 01/02/17 01/02/17 01/02/17 22:31 22:45 23:01 Temperature Pulse Rate 78 78 79 Pulse Rate [ Left Radial] Pulse Rate [ Right Radial] Respiratory 19 17 20 Rate Blood Pressure 146/73 146/73 146/73 O2 Sat by Pulse 99 100 100 Oximetry 01/02/17 01/02/17 01/02/17 23:05 23:15 23:24 Temperature Pulse Rate 79 78 80 Pulse Rate [ Left Radial] Pulse Rate [ Right Radial] Respiratory 18 17 Rate Blood Pressure 146/73 146/73 146/73 O2 Sat by Pulse 99 100 99 Oximetry 01/02/17 01/02/17 01/03/17 23:31 23:45 00:00 Temperature 99.0 F Pulse Rate 79 79 80 Pulse Rate [ 84 Left Radial] Pulse Rate [ 84 Right Radial] Respiratory 20 15 13 Rate Blood Pressure 146/73 146/73 131/69 O2 Sat by Pulse 99 100 100 Oximetry 01/03/17 01/03/17 01/03/17 00:15 00:31 00:45 Temperature Pulse Rate 81 79 79 Pulse Rate [ Left Radial] Pulse Rate [ Right Radial] Respiratory 18 20 19 Rate Blood Pressure 131/69 131/69 131/69 O2 Sat by Pulse 99 100 99 Oximetry 01/03/17 01/03/17 01/03/17 01:00 01:15 01:30 Temperature Pulse Rate 79 83 83 Pulse Rate [ Left Radial] Pulse Rate [ Right Radial] Respiratory 16 16 19 Rate Blood Pressure 131/69 131/69 131/69 O2 Sat by Pulse 98 97 96 Oximetry 01/03/17 01/03/17 01/03/17 01:45 02:01 02:15 Temperature Pulse Rate 80 76 79 Pulse Rate [ Left Radial] Pulse Rate [ Right Radial] Respiratory 18 21 15 Rate Blood Pressure 131/69 131/69 131/69 O2 Sat by Pulse 98 98 98 Oximetry 01/03/17 01/03/17 01/03/17 02:31 02:45 03:01 Temperature Pulse Rate 78 78 82 Pulse Rate [ Left Radial] Pulse Rate [ Right Radial] Respiratory 16 25 H 13 Rate Blood Pressure 131/69 131/69 131/69 O2 Sat by Pulse 98 98 97 Oximetry 01/03/17 01/03/17 01/03/17 03:15 03:31 03:46 Temperature Pulse Rate 76 79 78 Pulse Rate [ 86 Left Radial] Pulse Rate [ 86 Right Radial] Respiratory 20 14 15 Rate Blood Pressure 131/69 131/69 131/69 O2 Sat by Pulse 98 97 97 Oximetry 01/03/17 01/03/17 01/03/17 04:00 04:14 04:16 Temperature 98.9 F Pulse Rate 80 82 81 Pulse Rate [ Left Radial] Pulse Rate [ Right Radial] Respiratory 24 14 Rate Blood Pressure 132/64 132/64 132/64 O2 Sat by Pulse 96 96 96 Oximetry 01/03/17 01/03/17 01/03/17 04:30 04:46 05:00 Temperature Pulse Rate 78 81 78 Pulse Rate [ Left Radial] Pulse Rate [ Right Radial] Respiratory 21 24 19 Rate Blood Pressure 132/64 132/64 132/64 O2 Sat by Pulse 96 96 95 Oximetry 01/03/17 01/03/17 01/03/17 05:16 05:30 05:46 Temperature Pulse Rate 82 77 77 Pulse Rate [ Left Radial] Pulse Rate [ Right Radial] Respiratory 21 20 20 Rate Blood Pressure 132/64 132/64 132/64 O2 Sat by Pulse 97 96 96 Oximetry 01/03/17 01/03/17 01/03/17 06:00 06:16 06:30 Temperature Pulse Rate 80 84 85 Pulse Rate [ Left Radial] Pulse Rate [ Right Radial] Respiratory 19 22 21 Rate Blood Pressure 132/64 132/64 132/64 O2 Sat by Pulse 95 95 95 Oximetry 01/03/17 01/03/1717 06:46 07:00 07:16 Temperature Pulse Rate 82 86 85 Pulse Rate [ Left Radial] Pulse Rate [ Right Radial] Respiratory 22 15 24 Rate Blood Pressure 132/64 132/64 132/64 O2 Sat by Pulse 95 97 99 Oximetry 01/03/17 01/03/17 01/03/17 07:27 07:30 07:46 Temperature 99.0 F Pulse Rate 81 80 Pulse Rate [ Left Radial] Pulse Rate [ Right Radial] Respiratory 14 19 Rate Blood Pressure 132/64 132/64 O2 Sat by Pulse 97 94 Oximetry 01/03/17 01/03/17 08:00 08:18 Temperature Pulse Rate 85 86 Pulse Rate [ Left Radial] Pulse Rate [ Right Radial] Respiratory 13 25 H Rate Blood Pressure 144/60 144/60 O2 Sat by Pulse 93 86 Oximetry Constitutional: other (obtunded,unresponisve) Eyes: non-icteric Neck: supple, no lymphadenopathy, no JVD Effort: very labored Ascultation: Bilateral: diminished breath sounds, rhonchi Cardiovascular: regular rate and rhythm Gastrointestinal: normoactive bowel sounds, soft, non-tender, non-distended Integumentary: normal Extremities: no cyanosis, other (foot amputation) Neurologic: unable to assess CBC and BMP: 01/03/17 03:44 01/03/17 03:44 ABG, PT/INR, D-dimer: ABG POC ABG pH 7.551 (7.35-7.45) H 01/02/17 03:35 POC ABG pCO2 33.7 (35-45) L 01/02/17 03:35 POC ABG pO2 99 (80-105) 01/02/17 03:35 POC ABG HCO3 29.5 01/02/17 03:35 POC ABG Total CO2 31 01/02/17 03:35 POC ABG O2 Sat 99 01/02/17 03:35 Abnormal lab findings: Abnormal Labs 12/31/16 12/31/16 12/31/16 01:31 01:31 03:42 WBC RBC Hgb Hct RDW Seg Neutrophils % Seg Neutrophils # POC ABG pH POC ABG pCO2 POC ABG pO2 Sodium 146 H Potassium 5.6 H Chloride Carbon Dioxide 14 L BUN 77 H Creatinine 4.0 H Glucose 107 H POC Glucose Calcium Phosphorus Total Creatine Kinase 678 H 711 H CK-MB (CK-2) 10.5 H Troponin T 0.136 H* D Total Protein Albumin PTH Intact 12/31/16 12/31/16 12/31/16 03:42 06:58 06:58 WBC RBC Hgb Hct RDW Seg Neutrophils % Seg Neutrophils # POC ABG pH POC ABG pCO2 POC ABG pO2 Sodium 147 H Potassium 6.0 H Chloride 107.5 H Carbon Dioxide 12 L BUN 81 H Creatinine 4.6 H Glucose 183 H POC Glucose Calcium Phosphorus Total Creatine Kinase 787 H CK-MB (CK-2) 10.8 H Troponin T 0.179 H* D Total Protein Albumin PTH Intact 124.4 H 12/31/16 12/31/16 12/31/16 09:34 13:47 15:40 WBC RBC Hgb Hct RDW Seg Neutrophils % Seg Neutrophils # POC ABG pH 7.344 L POC ABG pCO2 33.0 L POC ABG pO2 340 H Sodium Potassium Chloride Carbon Dioxide BUN Creatinine Glucose POC Glucose 294 H Calcium Phosphorus Total Creatine Kinase CK-MB (CK-2) Troponin T Total Protein 6.1 L D Albumin 3.6 L PTH Intact 12/31/16 12/31/16 12/31/16 16:49 18:05 18:23 WBC RBC Hgb Hct RDW Seg Neutrophils % Seg Neutrophils # POC ABG pH 7.651 H POC ABG pCO2 23.2 L POC ABG pO2 64 L Sodium Potassium Chloride Carbon Dioxide BUN Creatinine Glucose POC Glucose 287 H 259 H Calcium Phosphorus Total Creatine Kinase CK-MB (CK-2) Troponin T Total Protein Albumin PTH Intact 12/31/16 01/01/17 01/01/17 23:52 05:40 06:35 WBC RBC Hgb Hct RDW Seg Neutrophils % Seg Neutrophils # POC ABG pH POC ABG pCO2 POC ABG pO2 Sodium Potassium Chloride 96.6 L Carbon Dioxide BUN 34 H Creatinine 3.4 H Glucose 142 H POC Glucose 182 H 168 H Calcium 7.6 L D Phosphorus Total Creatine Kinase CK-MB (CK-2) Troponin T Total Protein Albumin PTH Intact 01/01/17 01/01/17 01/01/17 11:54 12:24 17:10 WBC RBC Hgb Hct RDW Seg Neutrophils % Seg Neutrophils # POC ABG pH 7.536 H POC ABG pCO2 POC ABG pO2 149 H Sodium Potassium Chloride Carbon Dioxide BUN Creatinine Glucose POC Glucose 166 H 160 H Calcium Phosphorus Total Creatine Kinase CK-MB (CK-2) Troponin T Total Protein Albumin PTH Intact 01/01/17 01/02/17 01/02/17 23:31 03:35 04:01 WBC 12.0 H RBC 2.88 L Hgb 8.4 L D Hct 25.4 L D RDW 15.9 H Seg Neutrophils % 75.3 H Seg Neutrophils # 9.0 H POC ABG pH 7.551 H POC ABG pCO2 33.7 L POC ABG pO2 Sodium Potassium Chloride Carbon Dioxide BUN Creatinine Glucose POC Glucose 232 H Calcium Phosphorus Total Creatine Kinase CK-MB (CK-2) Troponin T Total Protein Albumin PTH Intact 01/02/17 01/02/17 01/02/17 04:01 05:09 12:28 WBC RBC Hgb Hct RDW Seg Neutrophils % Seg Neutrophils # POC ABG pH POC ABG pCO2 POC ABG pO2 Sodium Potassium Chloride 93.3 L Carbon Dioxide BUN 44 H Creatinine 5.1 H Glucose 208 H POC Glucose 343 H 197 H Calcium 7.7 L Phosphorus Total Creatine Kinase CK-MB (CK-2) Troponin T Total Protein 6.1 L Albumin 3.1 L PTH Intact 01/02/17 01/02/17 01/02/17 12:40 17:52 18:40 WBC RBC Hgb Hct RDW Seg Neutrophils % Seg Neutrophils # POC ABG pH POC ABG pCO2 POC ABG pO2 Sodium Potassium Chloride Carbon Dioxide BUN Creatinine Glucose POC Glucose 296 H 53 L 172 H Calcium Phosphorus Total Creatine Kinase CK-MB (CK-2) Troponin T Total Protein Albumin PTH Intact 01/02/17 01/03/17 01/03/17 23:57 03:44 03:44 WBC RBC 2.52 L Hgb 7.6 L Hct 22.5 L RDW 15.4 H Seg Neutrophils % 70.5 H Seg Neutrophils # POC ABG pH POC ABG pCO2 POC ABG pO2 Sodium Potassium Chloride 92.2 L Carbon Dioxide BUN 58 H Creatinine 6.2 H Glucose 147 H POC Glucose 248 H Calcium 7.4 L Phosphorus 5.90 H Total Creatine Kinase CK-MB (CK-2) Troponin T Total Protein Albumin PTH Intact 01/03/17 05:41 WBC RBC Hgb Hct RDW Seg Neutrophils % Seg Neutrophils # POC ABG pH POC ABG pCO2 POC ABG pO2 Sodium Potassium Chloride Carbon Dioxide BUN Creatinine Glucose POC Glucose 190 H Calcium Phosphorus Total Creatine Kinase CK-MB (CK-2) Troponin T Total Protein Albumin PTH Intact
[2017-01-03] MEDS ORDERED: PROCRIT SUB-Q ONE (10:00)
--- NOTE | 2017-01-03 11:17 | Progress Note ---
Assessment and Plan SIVA superimposed on CKD3 - Worsening BUN/Cr on IVF. HD in am. D/c IVF HTN - Improved control, Continue meds as present Lytes - F/u labs & adjust electrolytes as necessary Resp Failure - Vent Mx per pulm Subjective Date of service: 01/03/17 Objective - Vital Signs Vital signs: Vital Signs - 12hr 01/02/17 01/02/17 01/02/17 23:15 23:24 23:31 Temperature Pulse Rate 78 80 79 Pulse Rate [ Left Radial] Pulse Rate [ Right Radial] Respiratory 17 20 Rate Blood Pressure 146/73 146/73 146/73 O2 Sat by Pulse 100 99 99 Oximetry 01/02/17 01/03/17 01/03/17 23:45 00:00 00:15 Temperature 99.0 F Pulse Rate 79 80 81 Pulse Rate [ 84 Left Radial] Pulse Rate [ 84 Right Radial] Respiratory 15 13 18 Rate Blood Pressure 146/73 131/69 131/69 O2 Sat by Pulse 100 100 99 Oximetry 01/03/17 01/03/17 01/03/17 00:31 00:45 01:00 Temperature Pulse Rate 79 79 79 Pulse Rate [ Left Radial] Pulse Rate [ Right Radial] Respiratory 20 19 16 Rate Blood Pressure 131/69 131/69 131/69 O2 Sat by Pulse 100 99 98 Oximetry 01/03/17 01/03/17 01/03/17 01:15 01:30 01:45 Temperature Pulse Rate 83 83 80 Pulse Rate [ Left Radial] Pulse Rate [ Right Radial] Respiratory 16 19 18 Rate Blood Pressure 131/69 131/69 131/69 O2 Sat by Pulse 97 96 98 Oximetry 01/03/17 01/03/17 01/03/17 02:01 02:15 02:31 Temperature Pulse Rate 76 79 78 Pulse Rate [ Left Radial] Pulse Rate [ Right Radial] Respiratory 21 15 16 Rate Blood Pressure 131/69 131/69 131/69 O2 Sat by Pulse 98 98 98 Oximetry 01/03/17 01/03/17 01/03/17 02:45 03:01 03:15 Temperature Pulse Rate 78 82 76 Pulse Rate [ Left Radial] Pulse Rate [ Right Radial] Respiratory 25 H 13 20 Rate Blood Pressure 131/69 131/69 131/69 O2 Sat by Pulse 98 97 98 Oximetry 01/03/17 01/03/17 01/03/17 03:31 03:46 04:00 Temperature 98.9 F Pulse Rate 79 78 80 Pulse Rate [ 86 Left Radial] Pulse Rate [ 86 Right Radial] Respiratory 14 15 24 Rate Blood Pressure 131/69 131/69 132/64 O2 Sat by Pulse 97 97 96 Oximetry 01/03/17 01/03/17 01/03/17 04:14 04:16 04:30 Temperature Pulse Rate 82 81 78 Pulse Rate [ Left Radial] Pulse Rate [ Right Radial] Respiratory 14 21 Rate Blood Pressure 132/64 132/64 132/64 O2 Sat by Pulse 96 96 96 Oximetry 01/03/17 01/03/17 01/03/17 04:46 05:00 05:16 Temperature Pulse Rate 81 78 82 Pulse Rate [ Left Radial] Pulse Rate [ Right Radial] Respiratory 24 19 21 Rate Blood Pressure 132/64 132/64 132/64 O2 Sat by Pulse 96 95 97 Oximetry 01/03/17 01/03/17 01/03/17 05:30 05:46 06:00 Temperature Pulse Rate 77 77 80 Pulse Rate [ Left Radial] Pulse Rate [ Right Radial] Respiratory 20 20 19 Rate Blood Pressure 132/64 132/64 132/64 O2 Sat by Pulse 96 96 95 Oximetry 01/03/17 01/03/17 01/03/17 06:16 06:30 06:46 Temperature Pulse Rate 84 85 82 Pulse Rate [ Left Radial] Pulse Rate [ Right Radial] Respiratory 22 21 22 Rate Blood Pressure 132/64 132/64 132/64 O2 Sat by Pulse 95 95 95 Oximetry 01/03/17 01/03/17 01/03/17 07:00 07:16 07:27 Temperature 99.0 F Pulse Rate 86 85 Pulse Rate [ Left Radial] Pulse Rate [ Right Radial] Respiratory 15 24 Rate Blood Pressure 132/64 132/64 O2 Sat by Pulse 97 99 Oximetry 01/03/17 01/03/17 01/03/17 07:30 07:46 08:00 Temperature Pulse Rate 81 80 85 Pulse Rate [ Left Radial] Pulse Rate [ Right Radial] Respiratory 14 19 13 Rate Blood Pressure 132/64 132/64 144/60 O2 Sat by Pulse 97 94 93 Oximetry 01/03/17 01/03/17 01/03/17 08:16 08:18 08:30 Temperature Pulse Rate 84 86 84 Pulse Rate [ Left Radial] Pulse Rate [ Right Radial] Respiratory 13 25 H 24 Rate Blood Pressure 144/60 144/60 144/60 O2 Sat by Pulse 96 86 96 Oximetry 01/03/17 01/03/17 01/03/17 08:46 09:00 09:16 Temperature Pulse Rate 85 85 88 Pulse Rate [ Left Radial] Pulse Rate [ Right Radial] Respiratory 24 24 26 H Rate Blood Pressure 144/60 144/60 144/60 O2 Sat by Pulse 93 92 91 Oximetry 01/03/17 01/03/17 01/03/17 09:30 09:46 10:00 Temperature Pulse Rate 89 91 H 94 H Pulse Rate [ Left Radial] Pulse Rate [ Right Radial] Respiratory 27 H 29 H 32 H Rate Blood Pressure 144/60 144/60 144/60 O2 Sat by Pulse 89 89 89 Oximetry 01/03/17 01/03/17 01/03/17 10:16 10:30 10:46 Temperature Pulse Rate 87 94 H 90 Pulse Rate [ Left Radial] Pulse Rate [ Right Radial] Respiratory 26 H 30 H 30 H Rate Blood Pressure 144/60 144/60 144/60 O2 Sat by Pulse 82 L 100 100 Oximetry - General Appearance General appearance: sedated on ventilator, other Neck: no JVD Respiratory: Present: Other (Good air entry per vent via ETT) Cardiology: regular, S1S2 Gastrointestinal: normal - Lab 01/03/17 03:44 01/03/17 03:44 Most recent lab results Calcium 7.4 mg/dL (8.4-10.2) L 01/03/17 03:44 Phosphorus 5.90 mg/dL (2.5-4.5) H 01/03/17 03:44 Magnesium 1.80 mg/dL (1.7-2.3) 01/03/17 03:44
[2017-01-03] MEDS ORDERED: NACL 0.9% 100 ML IV PRN (11:20)
[2017-01-03] MEDS ORDERED: HEPARIN 10,000 UNITS/10 ML IV PRN (11:20)
[2017-01-03] MEDS: NORMODYNE PO SCH ×2 (11:24→22:03)
[2017-01-03] MEDS: NORVASC PO SCH (11:25)
[2017-01-03] MEDS: PEPCID IV SCH (11:25)
[2017-01-03] MEDS: HEPARIN SUB-Q SCH ×2 (11:26→22:01)
[2017-01-03] MEDS: ASPIRIN PO SCH (11:26)
[2017-01-03 21:38] LABS: ISTAT Base Excess 8; ISTAT HCO3 29.9; ISTAT PH 7.551 (7.35-7.45); ISTAT PO2 74 (80-105); ISTAT SO2 97; ISTAT TCO2 31
[2017-01-04] MEDS: NOVOLOG SUB-Q SCH ×5 (00:04→23:40)
[2017-01-04 05:41] LABS: Basophils % (Auto) 0.1 % (0.0-1.8); Eosinophils % (Auto) 0.2 % (0.0-4.3); Hematocrit 22.5 % (30.3-42.9); Hemoglobin 7.2 gm/dl (10.1-14.3); Mean Corpuscular HGB Conc 32 % (30-34); Mean Corpuscular Hemoglobin 29 pg (28-32); Mean Corpuscular Volume 91 fl (79-97); Platelet Count 142 K/mm3 (140-440); Red Blood Count 2.48 M/mm3 (3.65-5.03); Red Cell Distribution Width 15.5 % (13.2-15.2); White Blood Count 12.7 K/mm3 (4.5-11.0)
[2017-01-04 06:06] LABS: Albumin 2.7 g/dL (3.9-5); Albumin/Globulin Ratio 0.9 %; BUN/Creatinine Ratio 11.09; Bilirubin,Total 0.4 mg/dL (0.1-1.2); Calcium 7.8 mg/dL (8.4-10.2); Chloride 91.2 mmol/L (98-107); Magnesium 1.9 mg/dL (1.7-2.3); Phosphorous 6.5 mg/dL (2.5-4.5); Potassium 3.7 mmol/L (3.6-5.0); Total Protein 5.6 g/dL (6.3-8.2)
--- NOTE | 2017-01-04 09:21 | Progress Note ---
Assessment and Plan - Patient Problems (1) ARF (acute renal failure) Current Visit: Yes Status: Acute Qualifiers: Acute renal failure type: A Plan to address problem: Acute kidney injury superimposed on CKD stage 3 in the setting of uncontrolled HTN. S/p hemodialysis on 12/31/16. No improvement in the kidney so far. 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 Urine output may be improving. Renal prognosis is guarded. D/w sister at the bedside. (2) Hyperkalemia Current Visit: Yes Status: Acute Plan to address problem: Hyperkalemia in the setting of Acute kidney injury. Improved with hemodialysis. (3) Metabolic acidosis Current Visit: Yes Status: Acute Plan to address problem: Improved, s/p bicarbonate drip. (4) Hypertensive encephalopathy Current Visit: Yes Status: Acute (5) Respiratory failure Current Visit: Yes Status: Acute Qualifiers: Chronicity: C Respiratory failure complication: R Plan to address problem: On Vent. Subjective Date of service: 01/04/17 Interval history: Patient remain on the vent. Objective - Vital Signs Vital signs: Vital Signs - 12hr 01/03/17 01/03/17 01/03/17 21:30 21:41 21:46 Temperature Pulse Rate 86 90 85 Respiratory 21 26 H Rate Blood Pressure 163/75 163/75 163/75 O2 Sat by Pulse 96 95 93 Oximetry 01/03/17 01/03/17 01/03/17 22:00 22:03 22:16 Temperature Pulse Rate 85 87 84 Respiratory 26 H 25 H Rate Blood Pressure 163/75 163/75 163/75 O2 Sat by Pulse 91 91 Oximetry 01/03/17 01/03/17 01/03/17 22:28 22:30 22:46 Temperature Pulse Rate 80 81 78 Respiratory 25 H 24 24 Rate Blood Pressure 163/75 163/75 163/75 O2 Sat by Pulse 92 92 93 Oximetry 01/03/17 01/03/17 01/03/17 23:00 23:16 23:30 Temperature Pulse Rate 79 81 83 Respiratory 24 30 H 28 H Rate Blood Pressure 146/67 146/67 146/67 O2 Sat by Pulse 94 94 89 Oximetry 01/03/17 01/04/17 01/04/17 23:46 00:00 00:10 Temperature 98.1 F Pulse Rate 76 79 80 Respiratory 22 27 H Rate Blood Pressure 146/67 150/74 150/74 O2 Sat by Pulse 95 94 94 Oximetry 01/04/17 01/04/17 01/04/17 00:16 00:30 00:46 Temperature Pulse Rate 80 81 80 Respiratory 26 H 26 H 24 Rate Blood Pressure 150/74 150/74 150/74 O2 Sat by Pulse 93 95 94 Oximetry 01/04/17 01/04/17 01/04/17 01:00 01:16 01:30 Temperature Pulse Rate 82 80 79 Respiratory 25 H 21 23 Rate Blood Pressure 135/84 135/84 135/84 O2 Sat by Pulse 96 94 96 Oximetry 01/04/17 01/04/17 01/04/17 01:46 02:00 02:16 Temperature Pulse Rate 80 80 79 Respiratory 23 24 24 Rate Blood Pressure 135/84 151/72 151/72 O2 Sat by Pulse 96 94 94 Oximetry 01/04/17 01/04/17 01/04/17 02:31 02:45 02:55 Temperature 98.1 F Pulse Rate 80 79 Respiratory 23 24 23 Rate Blood Pressure 151/72 151/72 O2 Sat by Pulse 95 95 95 Oximetry 01/04/17 01/04/17 01/04/17 03:00 03:15 03:31 Temperature Pulse Rate 80 81 80 Respiratory 21 24 26 H Rate Blood Pressure 153/74 151/72 151/72 O2 Sat by Pulse 96 97 95 Oximetry 01/04/17 01/04/17 01/04/17 03:34 03:45 04:00 Temperature 98.5 F Pulse Rate 80 81 78 Respiratory 25 H 21 Rate Blood Pressure 153/74 153/74 156/74 O2 Sat by Pulse 98 97 96 Oximetry 01/04/17 01/04/17 01/04/17 04:15 04:31 04:45 Temperature Pulse Rate 82 83 82 Respiratory 26 H 24 26 H Rate Blood Pressure 156/74 156/74 156/74 O2 Sat by Pulse 96 97 95 Oximetry 01/04/17 01/04/17 01/04/17 05:00 05:15 05:31 Temperature Pulse Rate 83 82 84 Respiratory 23 25 H 25 H Rate Blood Pressure 161/76 161/76 161/76 O2 Sat by Pulse 96 96 96 Oximetry 01/04/17 01/04/17 01/04/17 05:45 06:00 06:15 Temperature Pulse Rate 84 86 81 Respiratory 26 H 22 24 Rate Blood Pressure 161/76 161/83 161/83 O2 Sat by Pulse 95 97 96 Oximetry 01/04/17 01/04/17 01/04/17 06:31 06:45 07:00 Temperature Pulse Rate 83 81 80 Respiratory 25 H 16 25 H Rate Blood Pressure 161/83 161/83 152/73 O2 Sat by Pulse 95 94 95 Oximetry 01/04/17 01/04/17 01/04/17 07:15 07:31 07:43 Temperature Pulse Rate 84 85 81 Respiratory 26 H 23 Rate Blood Pressure 152/73 152/73 152/73 O2 Sat by Pulse 96 95 98 Oximetry 01/04/17 01/04/17 01/04/17 07:45 07:49 08:00 Temperature 99.5 F Pulse Rate 82 81 83 Respiratory 27 H 28 H 27 H Rate Blood Pressure 152/73 152/73 162/78 O2 Sat by Pulse 98 96 97 Oximetry 01/04/17 01/04/17 01/04/17 08:15 08:31 08:35 Temperature Pulse Rate 83 83 Respiratory 24 28 H Rate Blood Pressure 162/78 162/78 O2 Sat by Pulse 97 96 96 Oximetry 01/04/17 08:45 Temperature Pulse Rate 83 Respiratory 25 H Rate Blood Pressure 162/78 O2 Sat by Pulse 96 Oximetry - General Appearance General appearance: well-developed, appears stated age, intubated EENT: ATNC, PERRL Neck: supple Respiratory: Present: Other (coarse breath sounds) Cardiology: regular, S1S2, no murmurs Gastrointestinal: normoactive bowel sounds Integumentary: no rash Neurologic: obtunded Musculoskeletal: other (no edema, right groin dialysis catheter) - Lab 01/04/17 04:45 01/04/17 04:45 Most recent lab results Calcium 7.8 mg/dL (8.4-10.2) L 01/04/17 04:45 Phosphorus 6.50 mg/dL (2.5-4.5) H 01/04/17 04:45 Magnesium 1.90 mg/dL (1.7-2.3) 01/04/17 04:45
[2017-01-04] MEDS: NORMODYNE PO SCH ×2 (10:00→22:24)
[2017-01-04] MEDS: NORVASC PO SCH (10:00)
[2017-01-04] MEDS: PEPCID PO SCH (10:02)
[2017-01-04] MEDS: ASPIRIN PO SCH (10:02)
[2017-01-04] MEDS: HEPARIN SUB-Q SCH ×2 (10:03→22:13)
--- NOTE | 2017-01-04 10:07 | Progress Note ---
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 - continue supportive care - get neurology evaluation - continue secondary prevention with anti-lipid, anti-platelet, BP control therapies (3) ARF (acute renal failure) Current Visit: Yes Status: Acute Qualifiers: Acute renal failure type: A Plan to address problem: - seen by nephrology - making urine - watchful waiting to see if needs FREIGHT RATE SPECIALIST - will defer (4) Hyperkalemia Current Visit: Yes Status: Acute Plan to address problem: - corrected (5) Hypertensive encephalopathy Current Visit: Yes Status: Acute Plan to address problem: - better BP control - will target pseudo-normal / permissive HTN in short course - prn IV meds for SBP > 170mmHg (6) Seizures Current Visit: Yes Status: Acute Plan to address problem: - per sister no prior history - will begin empiric keppra (7) Anemia Current Visit: Yes Status: Acute Qualifiers: Anemia type: A Iron deficiency anemia type: I Vitamin B12 deficiency anemia type: V Folate deficiency anemia type: F Bone marrow failure anemia type: B Hemolytic anemia type: H Other causes of anemia: O Chronic kidney disease stage: C Plan to address problem: - likely dilutional element - still suspect ABLA component - sent stool guaiac - get GI consultation - trend H&H (8) Healthcare maintenance Current Visit: Yes Status: Acute Plan to address problem: - on GI prophylaxis - on VTE prophylaxis - cather in place re: SIVA and for CCM issues acutely - glycemic control (9) NSTEMI (non-ST elevated myocardial infarction) Current Visit: Yes Status: Acute Plan to address problem: - will get cardiology evaluation - also need to consider JOSE re: embolic strokes (10) Discharge planning issues Current Visit: Yes Status: Acute Plan to address problem: - care plan discussed at length with sister and i explained that if no significant improvement in mental status she will need a tracheostomy - may need LTAC evaluation eventually ...she is critically ill on life sustaining interventions including MVS and at risk for further deterioration including ...35' CCT Subjective Date of service: 01/04/17 Principal diagnosis: Acute CVA; Acute Respiratory Failure Interval history: Seen and examined at bedside; 24 hour events reviewed; nursing and respiratory care staff consulted; no adverse overnight events reported to me; remains on MVS ; AMS is persistent; sister in room; tolerating tube feeds; no high grade fevers Objective Vital Signs - 12hr 01/03/17 01/03/17 01/03/17 22:16 22:28 22:30 Temperature Pulse Rate 84 80 81 Respiratory 25 H 25 H 24 Rate Blood Pressure 163/75 163/75 163/75 O2 Sat by Pulse 91 92 92 Oximetry 01/03/17 01/03/17 01/03/17 22:46 23:00 23:16 Temperature Pulse Rate 78 79 81 Respiratory 24 24 30 H Rate Blood Pressure 163/75 146/67 146/67 O2 Sat by Pulse 93 94 94 Oximetry 01/03/17 01/03/17 01/04/17 23:30 23:46 00:00 Temperature 98.1 F Pulse Rate 83 76 79 Respiratory 28 H 22 27 H Rate Blood Pressure 146/67 146/67 150/74 O2 Sat by Pulse 89 95 94 Oximetry 01/04/17 01/04/17 01/04/17 00:10 00:16 00:30 Temperature Pulse Rate 80 80 81 Respiratory 26 H 26 H Rate Blood Pressure 150/74 150/74 150/74 O2 Sat by Pulse 94 93 95 Oximetry 01/04/17 01/04/17 01/04/17 00:46 01:00 01:16 Temperature Pulse Rate 80 82 80 Respiratory 24 25 H 21 Rate Blood Pressure 150/74 135/84 135/84 O2 Sat by Pulse 94 96 94 Oximetry 01/04/17 01/04/17 01/04/17 01:30 01:46 02:00 Temperature Pulse Rate 79 80 80 Respiratory 23 23 24 Rate Blood Pressure 135/84 135/84 151/72 O2 Sat by Pulse 96 96 94 Oximetry 01/04/17 01/04/17 01/04/17 02:16 02:31 02:45 Temperature Pulse Rate 79 80 79 Respiratory 24 23 24 Rate Blood Pressure 151/72 151/72 O2 Sat by Pulse 94 95 95 Oximetry 01/04/17 01/04/17 01/04/17 02:55 03:00 03:15 Temperature 98.1 F Pulse Rate 80 81 Respiratory 23 21 24 Rate Blood Pressure 151/72 153/74 151/72 O2 Sat by Pulse 95 96 97 Oximetry 01/04/17 01/04/17 01/04/17 03:31 03:34 03:45 Temperature Pulse Rate 80 80 81 Respiratory 26 H 25 H Rate Blood Pressure 151/72 153/74 153/74 O2 Sat by Pulse 95 98 97 Oximetry 01/04/17 01/04/17 01/04/17 04:00 04:15 04:31 Temperature 98.5 F Pulse Rate 78 82 83 Respiratory 21 26 H 24 Rate Blood Pressure 156/74 156/74 156/74 O2 Sat by Pulse 96 96 97 Oximetry 01/04/17 01/04/17 01/04/17 04:45 05:00 05:15 Temperature Pulse Rate 82 83 82 Respiratory 26 H 23 25 H Rate Blood Pressure 156/74 161/76 161/76 O2 Sat by Pulse 95 96 96 Oximetry 01/04/17 01/04/17 01/04/17 05:31 05:45 06:00 Temperature Pulse Rate 84 84 86 Respiratory 25 H 26 H 22 Rate Blood Pressure 161/76 161/76 161/83 O2 Sat by Pulse 96 95 97 Oximetry 01/04/17 01/04/17 01/04/17 06:15 06:31 06:45 Temperature Pulse Rate 81 83 81 Respiratory 24 25 H 16 Rate Blood Pressure 161/83 161/83 161/83 O2 Sat by Pulse 96 95 94 Oximetry 01/04/17 01/04/17 01/04/17 07:00 07:15 07:31 Temperature Pulse Rate 80 84 85 Respiratory 25 H 26 H 23 Rate Blood Pressure 152/73 152/73 152/73 O2 Sat by Pulse 95 96 95 Oximetry 01/04/17 01/04/17 01/04/17 07:43 07:45 07:49 Temperature Pulse Rate 81 82 81 Respiratory 27 H 28 H Rate Blood Pressure 152/73 152/73 152/73 O2 Sat by Pulse 98 98 96 Oximetry 01/04/17 01/04/17 01/04/17 08:00 08:15 08:31 Temperature 99.5 F Pulse Rate 83 83 83 Respiratory 27 H 24 28 H Rate Blood Pressure 162/78 162/78 162/78 O2 Sat by Pulse 97 97 96 Oximetry 01/04/17 01/04/17 01/04/17 08:35 08:45 09:52 Temperature Pulse Rate 83 80 Respiratory 25 H 26 H Rate Blood Pressure 162/78 165/80 O2 Sat by Pulse 96 96 98 Oximetry 01/04/17 10:00 Temperature Pulse Rate 83 Respiratory Rate Blood Pressure 165/80 O2 Sat by Pulse Oximetry Constitutional: other (obtunded,unresponisve; posturing) Eyes: non-icteric ENT: oropharynx moist Neck: supple, no lymphadenopathy, no JVD Effort: mildly labored Ascultation: Bilateral: clear, diminished breath sounds Cardiovascular: regular rate and rhythm Gastrointestinal: normoactive bowel sounds, soft, non-tender, non-distended Integumentary: normal Extremities: no cyanosis, other (trans-metatarsal amputation) Neurologic: unable to assess Psychiatric: other (unable to access) CBC and BMP: 01/04/17 04:45 01/04/17 04:45 ABG, PT/INR, D-dimer: ABG POC ABG pH 7.551 (7.35-7.45) H 01/03/17 21:38 POC ABG pCO2 34.0 (35-45) L 01/03/17 21:38 POC ABG pO2 74 (80-105) L 01/03/17 21:38 POC ABG HCO3 29.9 01/03/17 21:38 POC ABG Total CO2 31 01/03/17 21:38 POC ABG O2 Sat 97 01/03/17 21:38 Abnormal lab findings: Abnormal Labs 12/31/16 12/31/16 12/31/16 01:31 01:31 03:42 WBC RBC Hgb Hct RDW Seg Neutrophils % Seg Neutrophils # POC ABG pH POC ABG pCO2 POC ABG pO2 Sodium 146 H Potassium 5.6 H Chloride Carbon Dioxide 14 L BUN 77 H Creatinine 4.0 H Glucose 107 H POC Glucose Calcium Phosphorus Total Creatine Kinase 678 H 711 H CK-MB (CK-2) 10.5 H Troponin T 0.136 H* D Total Protein Albumin PTH Intact 12/31/16 12/31/16 12/31/16 03:42 06:58 06:58 WBC RBC Hgb Hct RDW Seg Neutrophils % Seg Neutrophils # POC ABG pH POC ABG pCO2 POC ABG pO2 Sodium 147 H Potassium 6.0 H Chloride 107.5 H Carbon Dioxide 12 L BUN 81 H Creatinine 4.6 H Glucose 183 H POC Glucose Calcium Phosphorus Total Creatine Kinase 787 H CK-MB (CK-2) 10.8 H Troponin T 0.179 H* D Total Protein Albumin PTH Intact 124.4 H 12/31/16 12/31/16 12/31/16 09:34 13:47 15:40 WBC RBC Hgb Hct RDW Seg Neutrophils % Seg Neutrophils # POC ABG pH 7.344 L POC ABG pCO2 33.0 L POC ABG pO2 340 H Sodium Potassium Chloride Carbon Dioxide BUN Creatinine Glucose POC Glucose 294 H Calcium Phosphorus Total Creatine Kinase CK-MB (CK-2) Troponin T Total Protein 6.1 L D Albumin 3.6 L PTH Intact 12/31/16 12/31/16 12/31/16 16:49 18:05 18:23 WBC RBC Hgb Hct RDW Seg Neutrophils % Seg Neutrophils # POC ABG pH 7.651 H POC ABG pCO2 23.2 L POC ABG pO2 64 L Sodium Potassium Chloride Carbon Dioxide BUN Creatinine Glucose POC Glucose 287 H 259 H Calcium Phosphorus Total Creatine Kinase CK-MB (CK-2) Troponin T Total Protein Albumin PTH Intact 12/31/16 01/01/17 01/01/17 23:52 05:40 06:35 WBC RBC Hgb Hct RDW Seg Neutrophils % Seg Neutrophils # POC ABG pH POC ABG pCO2 POC ABG pO2 Sodium Potassium Chloride 96.6 L Carbon Dioxide BUN 34 H Creatinine 3.4 H Glucose 142 H POC Glucose 182 H 168 H Calcium 7.6 L D Phosphorus Total Creatine Kinase CK-MB (CK-2) Troponin T Total Protein Albumin PTH Intact 01/01/17 01/01/17 01/01/17 11:54 12:24 17:10 WBC RBC Hgb Hct RDW Seg Neutrophils % Seg Neutrophils # POC ABG pH 7.536 H POC ABG pCO2 POC ABG pO2 149 H Sodium Potassium Chloride Carbon Dioxide BUN Creatinine Glucose POC Glucose 166 H 160 H Calcium Phosphorus Total Creatine Kinase CK-MB (CK-2) Troponin T Total Protein Albumin PTH Intact 01/01/17 01/02/17 01/02/17 23:31 03:35 04:01 WBC 12.0 H RBC 2.88 L Hgb 8.4 L D Hct 25.4 L D RDW 15.9 H Seg Neutrophils % 75.3 H Seg Neutrophils # 9.0 H POC ABG pH 7.551 H POC ABG pCO2 33.7 L POC ABG pO2 Sodium Potassium Chloride Carbon Dioxide BUN Creatinine Glucose POC Glucose 232 H Calcium Phosphorus Total Creatine Kinase CK-MB (CK-2) Troponin T Total Protein Albumin PTH Intact 01/02/17 01/02/17 01/02/17 04:01 05:09 12:28 WBC RBC Hgb Hct RDW Seg Neutrophils % Seg Neutrophils # POC ABG pH POC ABG pCO2 POC ABG pO2 Sodium Potassium Chloride 93.3 L Carbon Dioxide BUN 44 H Creatinine 5.1 H Glucose 208 H POC Glucose 343 H 197 H Calcium 7.7 L Phosphorus Total Creatine Kinase CK-MB (CK-2) Troponin T Total Protein 6.1 L Albumin 3.1 L PTH Intact 01/02/17 01/02/17 01/02/17 12:40 17:52 18:40 WBC RBC Hgb Hct RDW Seg Neutrophils % Seg Neutrophils # POC ABG pH POC ABG pCO2 POC ABG pO2 Sodium Potassium Chloride Carbon Dioxide BUN Creatinine Glucose POC Glucose 296 H 53 L 172 H Calcium Phosphorus Total Creatine Kinase CK-MB (CK-2) Troponin T Total Protein Albumin PTH Intact 01/02/17 01/03/17 01/03/17 23:57 03:44 03:44 WBC RBC 2.52 L Hgb 7.6 L Hct 22.5 L RDW 15.4 H Seg Neutrophils % 70.5 H Seg Neutrophils # POC ABG pH POC ABG pCO2 POC ABG pO2 Sodium Potassium Chloride 92.2 L Carbon Dioxide BUN 58 H Creatinine 6.2 H Glucose 147 H POC Glucose 248 H Calcium 7.4 L Phosphorus 5.90 H Total Creatine Kinase CK-MB (CK-2) Troponin T Total Protein Albumin PTH Intact 01/03/17 01/03/17 01/03/17 05:41 11:51 17:33 WBC RBC Hgb Hct RDW Seg Neutrophils % Seg Neutrophils # POC ABG pH POC ABG pCO2 POC ABG pO2 Sodium Potassium Chloride Carbon Dioxide BUN Creatinine Glucose POC Glucose 190 H 258 H 197 H Calcium Phosphorus Total Creatine Kinase CK-MB (CK-2) Troponin T Total Protein Albumin PTH Intact 01/03/17 01/03/17 01/04/17 21:38 23:50 04:45 WBC 12.7 H RBC 2.48 L Hgb 7.2 L Hct 22.5 L RDW 15.5 H Seg Neutrophils % 74.0 H Seg Neutrophils # 9.4 H POC ABG pH 7.551 H POC ABG pCO2 34.0 L POC ABG pO2 74 L Sodium Potassium Chloride Carbon Dioxide BUN Creatinine Glucose POC Glucose 189 H Calcium Phosphorus Total Creatine Kinase CK-MB (CK-2) Troponin T Total Protein Albumin PTH Intact 01/04/17 01/04/17 04:45 05:59 WBC RBC Hgb Hct RDW Seg Neutrophils % Seg Neutrophils # POC ABG pH POC ABG pCO2 POC ABG pO2 Sodium 136 L Potassium Chloride 91.2 L Carbon Dioxide BUN 71 H Creatinine 6.4 H Glucose 167 H POC Glucose 203 H Calcium 7.8 L Phosphorus 6.50 H Total Creatine Kinase 547 H CK-MB (CK-2) Troponin T Total Protein 5.6 L Albumin 2.7 L PTH Intact Chest x-ray: image reviewed
[2017-01-04 10:12] LABS: ISTAT Base Excess 6; ISTAT HCO3 28.7; ISTAT PCO2 32.9 (35-45); ISTAT PO2 64 (80-105); ISTAT SO2 95; ISTAT TCO2 30
[2017-01-04] MEDS ORDERED: NACL 0.9 (PRIMING MACHINE ONLY DIALYSIS) MC ONE (10:33)
--- NOTE | 2017-01-04 15:55 | Gastroenterology Consultation ---
<DEMETRIS STONER - Last Filed: 01/04/17 16:17> History of Present Illness - Reason for Consult Consult date: 01/04/17 anemia Requesting physician: MERLYN TERRAZAS - History of Present Illness Patient is a 61 y/o female who was brought to the hospital by EMS with AMS, unresponsiveness, and elevated BP of 255/135 with unknown duration of time being down. PMH significant for HTN, DM, hyperlipidemia, PVD s/p bypass, and medication non-compliance. Currently the pt in intubated on the vent in ICU, nonverbal, and unable to give history. No family at bedside. Information received via chart review. GI was consulted for anemia. No active signs of bleeding such as hematemesis, melena, or hematochezia noted per nursing. No hx of liver disease. Last or previous EGD/colonoscopy unknown. Past History Past Medical History: diabetes, hypertension, hyperlipidemia, renal failure Past Surgical History: Other (left toes amputated, bypass on leg) Social history: smoking (marijuana and cigarettes) Family history: hypertension Medications and Allergies Allergies Allergy/AdvReac Type Severity Reaction Status Date / Time No Known Allergies Allergy Unverified 04/27/14 08:15 Home Medications Medication Instructions Recorded Confirmed Last Taken Type Metoprolol Xl [Metoprolol 50 mg PO QDAY 12/31/16 12/31/16 Unknown History SUCCINATE ER TAB] amLODIPine [Norvasc] 10 mg PO DAILY 12/31/16 12/31/16 Unknown History AtorvaSTATin 40 mg PO QPM 01/01/17 01/01/17 Unknown History Active Meds: Active Medications Acetaminophen (Tylenol) 650 mg PO Q4H PRN PRN Reason: Pain MILD(1-3)/Fever >100.5/CELIS Amlodipine Besylate (Norvasc) 10 mg PO QDAY [facility] Last Admin: 01/04/17 10:00 Dose: 10 mg Lipase/Protease/Amylase (Pancreaze Dr 10,500 Unit) 1 each FEEDTUBE PRN PRN PRN Reason: For Clogged Feeding Tube Aspirin (Aspirin) 325 mg PO QDAY [facility] Last Admin: 01/04/17 10:02 Dose: Not Given Atorvastatin Calcium (Lipitor) 40 mg PO QHS [facility] Last Admin: 01/03/17 22:02 Dose: 40 mg Epoetin Sha (Procrit) 10,000 unit IV SANTI PRN PRN Reason: hemodialysis Famotidine (Pepcid) 20 mg PO DAILY [facility] Last Admin: 01/04/17 10:02 Dose: 20 mg Heparin Sodium (Porcine) (Heparin) 5,000 unit SUB-Q Q12HR [facility] Last Admin: 01/04/17 10:03 Dose: Not Given Heparin Sodium (Porcine) (Heparin) 5,000 unit IV SANTI PRN PRN Reason: hemodialysis Last Admin: 12/31/16 18:20 Dose: 5,000 unit Heparin Sodium (Porcine) (Heparin 10,000 Units/10 Ml) 2,000 unit IV SANTI PRN PRN Reason: hemodialysis Sodium Chloride (Nacl 0.9%) 100 mls @ 999 mls/hr IV SANTI PRN PRN Reason: Hypotension Sodium Chloride (Nacl 0.9%) 100 mls @ 999 mls/hr IV SANTI PRN PRN Reason: Hypotension Sodium Chloride (Nacl 0.9%) 100 mls @ 999 mls/hr IV SANTI PRN PRN Reason: Hypotension Insulin Aspart (Novolog) 0 units SUB-Q Q6HR [facility] PRN Reason: Protocol Last Admin: 01/04/17 13:30 Dose: 3 units Labetalol HCl (Normodyne) 300 mg PO BID [facility] Last Admin: 01/04/17 10:00 Dose: 300 mg Levetiracetam (Keppra) 500 mg PO BID [facility] Lorazepam (Ativan) 1 mg IV PRN PRN PRN Reason: Seizures Last Admin: 12/31/16 09:02 Dose: 1 mg Ondansetron HCl (Zofran) 4 mg IV Q4H PRN PRN Reason: N/V unrelieved by Reglan Simple Syrup (Simple Syrup) 15 ml FEEDTUBE PRN PRN PRN Reason: Hypoglycemia Last Admin: 01/02/17 18:04 Dose: 15 ml Simple Syrup (Simple Syrup) 30 ml FEEDTUBE PRN PRN PRN Reason: Hypoglycemia Sodium Bicarbonate (Sodium Bicarbonate) 325 mg FEEDTUBE PRN PRN PRN Reason: For Clogged Feeding Tube Review of Systems - Review of Systems ROS unobtainable: due to endotracheal tube, due to mental status Exam - Constitutional Vital Signs: Temp Pulse Resp BP Pulse Ox 98.3 F 75 26 H 145/71 96 01/04/17 11:54 01/04/17 13:39 01/04/17 13:39 01/04/17 13:39 01/04/17 13:39 General appearance: no acute distress, other (intubated on vent, nonverbal, unable to follow commands) - Respiratory Respiratory: bilateral: diminished - Cardiovascular Rhythm: regular Heart Sounds: Present: S1 & S2 - Gastrointestinal General gastrointestinal: Present: soft, non-distended, normal bowel sounds, other (OG tube with feedings) - Integumentary Integumentary: Present: warm, dry - Neurologic Neurological: other (unresponsive) - Psychiatric Psychiatric: other (unresponsive) - Labs CBC & Chem 7: 01/04/17 04:45 01/04/17 04:45 Lab Results: Laboratory Results - last 24 hr 01/03/17 01/03/17 01/03/17 17:33 21:38 23:50 WBC RBC Hgb Hct MCV MCH MCHC RDW Plt Count Lymph % (Auto) [place] % (Auto) Eos % (Auto) Baso % (Auto) Lymph # [place] # Eos # Baso # Seg Neutrophils % Seg Neutrophils # POC ABG pH 7.551 H POC ABG pCO2 34.0 L POC ABG pO2 74 L POC ABG HCO3 29.9 POC ABG Total CO2 31 POC ABG O2 Sat 97 POC ABG Base Excess 8 FiO2 30 Sodium Potassium Chloride Carbon Dioxide Anion Gap BUN Creatinine Estimated GFR BUN/Creatinine Ratio Glucose POC Glucose 197 H 189 H Calcium Phosphorus Magnesium Total Bilirubin AST ALT Alkaline Phosphatase Total Creatine Kinase Total Protein Albumin Albumin/Globulin Ratio 01/04/17 01/04/17 01/04/17 04:45 04:45 05:59 WBC 12.7 H RBC 2.48 L Hgb 7.2 L Hct 22.5 L MCV 91 MCH 29 MCHC 32 RDW 15.5 H Plt Count 142 Lymph % (Auto) 20.1 [place] % (Auto) 5.6 Eos % (Auto) 0.2 Baso % (Auto) 0.1 Lymph # 2.5 [place] # 0.7 Eos # 0.0 Baso # 0.0 Seg Neutrophils % 74.0 H Seg Neutrophils # 9.4 H POC ABG pH POC ABG pCO2 POC ABG pO2 POC ABG HCO3 POC ABG Total CO2 POC ABG O2 Sat POC ABG Base Excess FiO2 Sodium 136 L Potassium 3.7 Chloride 91.2 L Carbon Dioxide 25 Anion Gap 24 BUN 71 H Creatinine 6.4 H Estimated GFR 8 BUN/Creatinine Ratio 11.09 Glucose 167 H POC Glucose 203 H Calcium 7.8 L Phosphorus 6.50 H Magnesium 1.90 Total Bilirubin 0.40 AST 25 ALT 16 Alkaline Phosphatase 75 Total Creatine Kinase 547 H Total Protein 5.6 L Albumin 2.7 L Albumin/Globulin Ratio 0.9 01/04/17 09:53 WBC RBC Hgb Hct MCV MCH MCHC RDW Plt Count Lymph % (Auto) [place] % (Auto) Eos % (Auto) Baso % (Auto) Lymph # [place] # Eos # Baso # Seg Neutrophils % Seg Neutrophils # POC ABG pH 7.550 H POC ABG pCO2 32.9 L POC ABG pO2 64 L POC ABG HCO3 28.7 POC ABG Total CO2 30 POC ABG O2 Sat 95 POC ABG Base Excess 6 FiO2 35 Sodium Potassium Chloride Carbon Dioxide Anion Gap BUN Creatinine Estimated GFR BUN/Creatinine Ratio Glucose POC Glucose Calcium Phosphorus Magnesium Total Bilirubin AST ALT Alkaline Phosphatase Total Creatine Kinase Total Protein Albumin Albumin/Globulin Ratio Assessment and Plan 1. anemia 2.encephalopathy- (due to combination of hypertensive encephalopathy/multiple brain infarction areas/ renal failure with uremia/acidosis/electrolytes abnormalities/ drug use 3.CVA-MRI revealed multiple acute ischemic areas 3.acute renal failure- on HD 4.poor prognosis -HGB 7.2 -continue to monitor H&H and transfuse as needed -no active signs of bleeding per nursing -etiology of anemia is most likely due to chronic disease (CKD) -MCV is WNL-will order iron studies -okay to proceed with anticoagulation if needed-monitor for bleeding -no plans for an endoscopic evaluation at this time unless overt bleeding develops -will follow <TORI BUSTAMANTE - Last Filed: 01/04/17 23:35> Medications and Allergies Active Meds: Active Medications Acetaminophen (Tylenol) 650 mg PO Q4H PRN PRN Reason: Pain MILD(1-3)/Fever >100.5/CELIS Amlodipine Besylate (Norvasc) 10 mg PO QDAY [facility] Last Admin: 01/04/17 10:00 Dose: 10 mg Lipase/Protease/Amylase (Pancreaze Dr 10,500 Unit) 1 each FEEDTUBE PRN PRN PRN Reason: For Clogged Feeding Tube Aspirin (Aspirin) 325 mg PO QDAY [facility] Last Admin: 01/04/17 10:02 Dose: Not Given Atorvastatin Calcium (Lipitor) 40 mg PO QHS [facility] Last Admin: 01/04/17 22:25 Dose: 40 mg Epoetin Sha (Procrit) 10,000 unit IV SANTI PRN PRN Reason: hemodialysis Famotidine (Pepcid) 20 mg PO DAILY [facility] Last Admin: 01/04/17 10:02 Dose: 20 mg Heparin Sodium (Porcine) (Heparin) 5,000 unit SUB-Q Q12HR [facility] Last Admin: 01/04/17 22:13 Dose: Not Given Heparin Sodium (Porcine) (Heparin) 5,000 unit IV SANTI PRN PRN Reason: hemodialysis Last Admin: 12/31/16 18:20 Dose: 5,000 unit Heparin Sodium (Porcine) (Heparin 10,000 Units/10 Ml) 2,000 unit IV SANTI PRN PRN Reason: hemodialysis Sodium Chloride (Nacl 0.9%) 100 mls @ 999 mls/hr IV SANTI PRN PRN Reason: Hypotension Sodium Chloride (Nacl 0.9%) 100 mls @ 999 mls/hr IV SANTI PRN PRN Reason: Hypotension Sodium Chloride (Nacl 0.9%) 100 mls @ 999 mls/hr IV SANTI PRN PRN Reason: Hypotension Insulin Aspart (Novolog) 0 units SUB-Q Q6HR [facility] PRN Reason: Protocol Last Admin: 01/04/17 18:15 Dose: 3 units Labetalol HCl (Normodyne) 300 mg PO BID [facility] Last Admin: 01/04/17 22:24 Dose: 300 mg Levetiracetam (Keppra) 500 mg PO BID [facility] Last Admin: 01/04/17 22:25 Dose: 500 mg Lorazepam (Ativan) 1 mg IV PRN PRN PRN Reason: Seizures Last Admin: 12/31/16 09:02 Dose: 1 mg Ondansetron HCl (Zofran) 4 mg IV Q4H PRN PRN Reason: N/V unrelieved by Reglan Simple Syrup (Simple Syrup) 15 ml FEEDTUBE PRN PRN PRN Reason: Hypoglycemia Last Admin: 01/02/17 18:04 Dose: 15 ml Simple Syrup (Simple Syrup) 30 ml FEEDTUBE PRN PRN PRN Reason: Hypoglycemia Sodium Bicarbonate (Sodium Bicarbonate) 325 mg FEEDTUBE PRN PRN PRN Reason: For Clogged Feeding Tube Exam - Constitutional Vital Signs: Temp Pulse Resp BP Pulse Ox 99.4 F 79 27 H 162/75 95 01/04/17 23:25 01/04/17 22:24 01/04/17 22:00 01/04/17 22:24 01/04/17 22:00 - Labs CBC & Chem 7: 01/04/17 04:45 01/04/17 04:45 Lab Results: Laboratory Results - last 24 hr 01/03/17 01/04/17 01/04/17 23:50 04:45 04:45 WBC 12.7 H RBC 2.48 L Hgb 7.2 L Hct 22.5 L MCV 91 MCH 29 MCHC 32 RDW 15.5 H Plt Count 142 Lymph % (Auto) 20.1 [place] % (Auto) 5.6 Eos % (Auto) 0.2 Baso % (Auto) 0.1 Lymph # 2.5 [place] # 0.7 Eos # 0.0 Baso # 0.0 Seg Neutrophils % 74.0 H Seg Neutrophils # 9.4 H POC ABG pH POC ABG pCO2 POC ABG pO2 POC ABG HCO3 POC ABG Total CO2 POC ABG O2 Sat POC ABG Base Excess FiO2 Sodium 136 L Potassium 3.7 Chloride 91.2 L Carbon Dioxide 25 Anion Gap 24 BUN 71 H Creatinine 6.4 H Estimated GFR 8 BUN/Creatinine Ratio 11.09 Glucose 167 H POC Glucose 189 H Calcium 7.8 L Phosphorus 6.50 H Magnesium 1.90 Total Bilirubin 0.40 AST 25 ALT 16 Alkaline Phosphatase 75 Total Creatine Kinase 547 H Total Protein 5.6 L Albumin 2.7 L Albumin/Globulin Ratio 0.9 01/04/17 01/04/17 05:59 09:53 WBC RBC Hgb Hct MCV MCH MCHC RDW Plt Count Lymph % (Auto) [place] % (Auto) Eos % (Auto) Baso % (Auto) Lymph # [place] # Eos # Baso # Seg Neutrophils % Seg Neutrophils # POC ABG pH 7.550 H POC ABG pCO2 32.9 L POC ABG pO2 64 L POC ABG HCO3 28.7 POC ABG Total CO2 30 POC ABG O2 Sat 95 POC ABG Base Excess 6 FiO2 35 Sodium Potassium Chloride Carbon Dioxide Anion Gap BUN Creatinine Estimated GFR BUN/Creatinine Ratio Glucose POC Glucose 203 H Calcium Phosphorus Magnesium Total Bilirubin AST ALT Alkaline Phosphatase Total Creatine Kinase Total Protein Albumin Albumin/Globulin Ratio Assessment and Plan Patient seen and examined, agree with note by Demetris Stoner. Pt with worsening anemia, no signs of overt gi bleeding at present time. Hold off on endoscopy unless signs of bleeding. Will need anemia work-up (colon/egd) once medically stable.
[2017-01-04] MEDS: KEPPRA PO SCH ×2 (18:18→22:25)
--- NOTE | 2017-01-04 19:11 | Progress Note ---
Assessment and Plan Assessment and plan: 61 yo AAF with multiple chronic conditions (hypertension, diabetes, hyperlipidemia, peripheral vascular disease status post bypass) noncompliant, not taking her medications for months, found down by family and brought to ER unresponsive with blood pressure 255/135 1. Malignant hypertension/hypertensive emergency CT head showing chronic ischemic microvascular changes, with no acute infarct or hemorrhage Weaned off of Cardene drip; now on amlodipine and labetalol Monitor BP and adjust regimen 2. CVA Brain MRI showing multiple acute ischemic areas Started on antiplatelet and statin therapy Cardiology consulted for JOSE to rule out embolic source; monitor rhythm 3. Acute toxic metabolic encephalopathy Likely due to combination of hypertensive encephalopathy/multiple brain infarction areas/ renal failure with uremia/acidosis/electrolytes abnormalities / drug use Treat underlying conditions 4. Acute renal failure likely superimposed on chronic kidney disease Significantly elevated BUN/Cr with marked hyperkalemia and metabolic acidosis on admission Nephrology consulted and acute HD initiated Assessing HD need daily 5. Hyperkalemia On admission K+ 6.9; received Kayexalate, insulin/D50, bicarbonate Now on HD Continue to closely monitor 6. Rhabdomyolysis Continue IV fluids CPK trending down 7. Elevated troponin Most likely secondary to hypertensive emergency/renal failure Echocardiogram ordered 8. Hyperlipidemia - mixed Total cholesterol 355, LDL 251, TG 298 Will hold statin for now given rhabdomyolysis 9. Peripheral vascular disease Status post bypass Discontinued anticoagulant therapy on her own months ago 10. Drug abuse UDS positive for marijuana If recovers, will need counseling 11. DVT prophylaxis As CT head negative for hemorrhage, Lovenox changed to heparin subcutaneous due to renal failure 12. Poor prognosis CC 35 min History Interval history: has some spontaneous movements, but remains unresponsive Hospitalist Physical - Constitutional Vitals: Temp Pulse Resp BP Pulse Ox 99 F 79 26 H 166/74 95 01/04/17 16:00 01/04/17 19:05 01/04/17 18:15 01/04/17 19:05 01/04/17 19:05 General appearance: Present: no acute distress, other (unrespponsive on no sedation) - Neck Neck: Absent: enlarged thyroid, masses or JVD, carotid bruits - Respiratory Respiratory effort: other (intubated) Respiratory: bilateral: diminished, negative: rhonchi, wheezing - Cardiovascular Rhythm: regular Heart Sounds: Present: S1 & S2. Absent: systolic murmur - Extremities Extremities: no ischemia - Abdominal General gastrointestinal: soft, non-distended, hypoactive bowel sounds, other ( NGT) Results - Labs CBC & Chem 7: 01/05/17 04:40 01/05/17 04:40 Labs: Laboratory Last Values WBC 12.7 K/mm3 (4.5-11.0) H 01/04/17 04:45 RBC 2.48 M/mm3 (3.65-5.03) L 01/04/17 04:45 Hgb 7.2 gm/dl (10.1-14.3) L 01/04/17 04:45 Hct 22.5 % (30.3-42.9) L 01/04/17 04:45 MCV 91 fl (79-97) 01/04/17 04:45 MCH 29 pg (28-32) 01/04/17 04:45 MCHC 32 % (30-34) 01/04/17 04:45 RDW 15.5 % (13.2-15.2) H 01/04/17 04:45 Plt Count 142 K/mm3 (140-440) 01/04/17 04:45 Lymph % (Auto) 20.1 % (13.4-35.0) 01/04/17 04:45 [place] % (Auto) 5.6 % (0.0-7.3) 01/04/17 04:45 Eos % (Auto) 0.2 % (0.0-4.3) 01/04/17 04:45 Baso % (Auto) 0.1 % (0.0-1.8) 01/04/17 04:45 Lymph # 2.5 K/mm3 (1.2-5.4) 01/04/17 04:45 [place] # 0.7 K/mm3 (0.0-0.8) 01/04/17 04:45 Eos # 0.0 K/mm3 (0.0-0.4) 01/04/17 04:45 Baso # 0.0 K/mm3 (0.0-0.1) 01/04/17 04:45 Seg Neutrophils % 74.0 % (40.0-70.0) H 01/04/17 04:45 Seg Neutrophils # 9.4 K/mm3 (1.8-7.7) H 01/04/17 04:45 POC ABG pH 7.550 (7.35-7.45) H 01/04/17 09:53 POC ABG pCO2 32.9 (35-45) L 01/04/17 09:53 POC ABG pO2 64 (80-105) L 01/04/17 09:53 POC ABG HCO3 28.7 01/04/17 09:53 POC ABG Total CO2 30 01/04/17 09:53 POC ABG O2 Sat 95 01/04/17 09:53 POC ABG Base Excess 6 01/04/17 09:53 FiO2 35 % 01/04/17 09:53 Sodium 136 mmol/L (137-145) L 01/04/17 04:45 Potassium 3.7 mmol/L (3.6-5.0) 01/04/17 04:45 Chloride 91.2 mmol/L (98-107) L 01/04/17 04:45 Carbon Dioxide 25 mmol/L (22-30) 01/04/17 04:45 Anion Gap 24 mmol/L 01/04/17 04:45 BUN 71 mg/dL (7-17) H 01/04/17 04:45 Creatinine 6.4 mg/dL (0.7-1.2) H 01/04/17 04:45 Estimated GFR 8 ml/min 01/04/17 04:45 BUN/Creatinine Ratio 11.09 % 01/04/17 04:45 Glucose 167 mg/dL (65-100) H 01/04/17 04:45 POC Glucose 203 (70-105) H 01/04/17 05:59 Lactic Acid 1.30 mmol/L (0.7-2.0) 01/01/17 06:35 Calcium 7.8 mg/dL (8.4-10.2) L 01/04/17 04:45 Phosphorus 6.50 mg/dL (2.5-4.5) H 01/04/17 04:45 Magnesium 1.90 mg/dL (1.7-2.3) 01/04/17 04:45 Total Bilirubin 0.40 mg/dL (0.1-1.2) 01/04/17 04:45 Direct Bilirubin < 0.2 mg/dL (0-0.2) 12/31/16 15:40 Indirect Bilirubin 0.1 mg/dL 12/31/16 15:40 AST 25 units/L (5-40) 01/04/17 04:45 ALT 16 units/L (7-56) 01/04/17 04:45 Alkaline Phosphatase 75 units/L (35-129) 01/04/17 04:45 Total Creatine Kinase 547 units/L (30-135) H 01/04/17 04:45 CK-MB (CK-2) 10.8 ng/mL (0.0-4.0) H 12/31/16 06:58 CK-MB (CK-2) Rel Index 1.3 (0-4) 12/31/16 06:58 Troponin T 0.179 ng/mL (0.00-0.029) H* D 12/31/16 06:58 Total Protein 5.6 g/dL (6.3-8.2) L 01/04/17 04:45 Albumin 2.7 g/dL (3.9-5) L 01/04/17 04:45 Albumin/Globulin Ratio 0.9 % 01/04/17 04:45 Triglycerides 298 mg/dL (2-149) H 12/30/16 23:34 Cholesterol 355 mg/dL (50-199) H 12/30/16 23:34 LDL Cholesterol Direct 251 mg/dL (50-130) H 12/30/16 23:34 HDL Cholesterol 45 mg/dL (40-59) 12/30/16 23:34 Cholesterol/HDL Ratio 7.88 % 12/30/16 23:34 TSH 1.320 mlU/mL (0.270-4.200) 12/30/16 21:29 PTH Intact 124.4 pg/mL (15-65) H 12/31/16 03:42 Urine Color Yellow (Yellow) 12/30/16 20:47 Urine Turbidity Clear (Clear) 12/30/16 20:47 Urine pH 5.0 (5.0-7.0) 12/30/16 20:47 Ur Specific Bimble 1.023 (1.003-1.030) 12/30/16 20:47 Urine Protein 100 mg/dl mg/dL (Negative) 12/30/16 20:47 Urine Glucose (UA) Neg mg/dL (Negative) 12/30/16 20:47 Urine Ketones Tr mg/dL (Negative) 12/30/16 20:47 Urine Blood Neg (Negative) 12/30/16 20:47 Urine Nitrite Neg (Negative) 12/30/16 20:47 Urine Bilirubin Neg (Negative) 12/30/16 20:47 Urine Urobilinogen 2.0 mg/dL (<2.0) 12/30/16 20:47 Ur Leukocyte Esterase Neg (Negative) 12/30/16 20:47 Urine WBC (Auto) < 1.0 /HPF (0.0-6.0) 12/30/16 20:47 Urine RBC (Auto) 1.0 /HPF (0.0-6.0) 12/30/16 20:47 U Epithel Cells (Auto) 1.0 /HPF (0-13.0) 12/30/16 20:47 Urine Bacteria (Auto) 1+ /HPF (Negative) 12/30/16 20:47 Salicylates < 0.3 mg/dL (2.8-20.0) L 12/30/16 21:29 Urine Opiates Screen Presumptive negative 12/30/16 20:47 Urine Methadone Screen Presumptive negative 12/30/16 20:47 Acetaminophen < 15.0 ug/mL (10.0-30.0) 12/30/16 21:29 Ur Barbiturates Screen Presumptive negative 12/30/16 20:47 Ur Phencyclidine Scrn Presumptive negative 12/30/16 20:47 Ur Amphetamines Screen Presumptive negative 12/30/16 20:47 U Benzodiazepines Scrn Presumptive negative 12/30/16 20:47 Urine Cocaine Screen Presumptive negative 12/30/16 20:47 U Marijuana (THC) Screen Presumptive positive 12/30/16 20:47 Drugs of Abuse Note Disclamer 12/30/16 20:47 Plasma/Serum Alcohol < 0.01 gm% (0-0.07) 12/30/16 21:29
[2017-01-05 05:15] LABS: Basophils % (Auto) 0.3 % (0.0-1.8); Eosinophils % (Auto) 0.8 % (0.0-4.3); Hematocrit 21.6 % (30.3-42.9); Hemoglobin 7.1 gm/dl (10.1-14.3); Mean Corpuscular HGB Conc 33 % (30-34); Mean Corpuscular Hemoglobin 29 pg (28-32); Mean Corpuscular Volume 90 fl (79-97); Platelet Count 138 K/mm3 (140-440); Red Blood Count 2.41 M/mm3 (3.65-5.03); Red Cell Distribution Width 15.7 % (13.2-15.2); White Blood Count 11.3 K/mm3 (4.5-11.0)
[2017-01-05] MEDS: NOVOLOG SUB-Q SCH ×3 (05:31→18:03)
[2017-01-05 05:34] LABS: BUN/Creatinine Ratio 12.61; Calcium 7.8 mg/dL (8.4-10.2); Chloride 88.7 mmol/L (98-107); Potassium 3.5 mmol/L (3.6-5.0)
--- NOTE | 2017-01-05 08:01 | Progress Note ---
Assessment and Plan - Patient Problems (1) ARF (acute renal failure) Current Visit: Yes Status: Acute Qualifiers: Acute renal failure type: A Plan to address problem: Acute kidney injury superimposed on CKD stage 3 in the setting of uncontrolled HTN. S/p hemodialysis on 12/31/16. No improvement in the kidney so far. UOP remains low. Resume hemodialysis, orders placed. Renal prognosis is guarded. (2) Hyperkalemia Current Visit: Yes Status: Acute Plan to address problem: Hyperkalemia in the setting of Acute kidney injury. Improved with hemodialysis. (3) Metabolic acidosis Current Visit: Yes Status: Acute Plan to address problem: Improved, s/p bicarbonate drip. (4) Hypertensive encephalopathy Current Visit: Yes Status: Acute Plan to address problem: Was on Cardene drip. BP is better. (5) Respiratory failure Current Visit: Yes Status: Acute Qualifiers: Chronicity: C Respiratory failure complication: R Plan to address problem: On Vent. (6) Anemia Current Visit: Yes Status: Acute Qualifiers: Anemia type: A Iron deficiency anemia type: I Vitamin B12 deficiency anemia type: V Folate deficiency anemia type: F Bone marrow failure anemia type: B Hemolytic anemia type: H Other causes of anemia: O Chronic kidney disease stage: C Plan to address problem: IV Iron and Epogen ordered. Subjective Date of service: 01/05/17 Principal diagnosis: Acute CVA; Acute Respiratory Failure Interval history: Patient remain on the vent. Objective - Vital Signs Vital signs: Vital Signs - 12hr 01/04/17 01/04/17 01/04/17 20:15 20:31 20:45 Temperature Pulse Rate 77 78 78 Respiratory 25 H 25 H 23 Rate Blood Pressure 161/71 161/71 161/71 O2 Sat by Pulse 95 95 95 Oximetry 01/04/17 01/04/17 01/04/17 21:00 21:15 21:31 Temperature Pulse Rate 79 79 83 Respiratory 26 H 25 H 29 H Rate Blood Pressure 162/72 162/72 162/72 O2 Sat by Pulse 94 94 94 Oximetry 01/04/17 01/04/17 01/04/17 21:45 21:58 22:00 Temperature Pulse Rate 80 78 81 Respiratory 27 H 25 H 27 H Rate Blood Pressure 162/72 162/72 162/75 O2 Sat by Pulse 95 95 94 Oximetry 01/04/17 01/04/1717 22:01 22:15 22:24 Temperature Pulse Rate 79 77 79 Respiratory 27 H 24 Rate Blood Pressure 162/75 162/72 162/75 O2 Sat by Pulse 95 94 Oximetry 01/04/17 01/04/17 01/04/17 22:31 22:45 23:00 Temperature Pulse Rate 78 78 76 Respiratory 26 H 23 27 H Rate Blood Pressure 162/72 162/75 154/71 O2 Sat by Pulse 96 95 95 Oximetry 01/04/17 01/04/17 01/04/17 23:15 23:25 23:31 Temperature 99.4 F Pulse Rate 73 72 Respiratory 22 23 Rate Blood Pressure 154/71 154/71 O2 Sat by Pulse 96 96 Oximetry 01/04/17 01/04/17 01/05/17 23:40 23:45 00:00 Temperature Pulse Rate 73 73 74 Respiratory 26 H 24 Rate Blood Pressure 154/71 154/71 148/67 O2 Sat by Pulse 96 95 96 Oximetry 01/05/17 01/05/17 01/05/17 00:15 00:31 00:45 Temperature Pulse Rate 75 76 73 Respiratory 22 27 H 22 Rate Blood Pressure 148/67 148/67 148/67 O2 Sat by Pulse 95 95 95 Oximetry 01/05/17 01/05/17 01/05/17 01:00 01:15 01:30 Temperature Pulse Rate 74 72 72 Respiratory 25 H 22 24 Rate Blood Pressure 152/68 152/68 152/68 O2 Sat by Pulse 96 96 97 Oximetry 01/05/17 01/05/17 01/05/17 01:45 02:01 02:15 Temperature Pulse Rate 74 75 74 Respiratory 24 21 23 Rate Blood Pressure 152/68 164/78 164/78 O2 Sat by Pulse 96 94 94 Oximetry 01/05/17 01/05/17 01/05/17 02:31 02:45 03:00 Temperature Pulse Rate 72 71 70 Respiratory 23 23 19 Rate Blood Pressure 164/78 164/78 158/71 O2 Sat by Pulse 96 97 97 Oximetry 01/05/17 01/05/17 01/05/17 03:05 03:15 03:28 Temperature 99.1 F Pulse Rate 71 72 Respiratory 24 Rate Blood Pressure 158/71 O2 Sat by Pulse 95 95 Oximetry 01/05/17 01/05/17 01/05/17 03:31 03:45 04:00 Temperature Pulse Rate 73 74 71 Respiratory 21 22 18 Rate Blood Pressure 158/71 158/71 O2 Sat by Pulse 95 96 100 Oximetry 01/05/17 01/05/17 01/05/17 04:01 04:15 04:30 Temperature Pulse Rate 72 71 73 Respiratory 24 22 Rate Blood Pressure 164/78 158/71 164/78 O2 Sat by Pulse 94 95 95 Oximetry 01/05/17 01/05/17 01/05/17 04:31 04:45 05:01 Temperature Pulse Rate 72 72 71 Respiratory 23 23 19 Rate Blood Pressure 158/71 158/71 166/79 O2 Sat by Pulse 94 96 94 Oximetry 01/05/17 01/05/17 01/05/17 05:15 05:30 05:31 Temperature Pulse Rate 72 72 71 Respiratory 22 21 19 Rate Blood Pressure 166/79 166/79 O2 Sat by Pulse 94 95 96 Oximetry 01/05/17 01/05/17 01/05/17 05:45 06:00 06:15 Temperature Pulse Rate 72 75 73 Respiratory 21 22 22 Rate Blood Pressure 166/79 172/82 172/82 O2 Sat by Pulse 94 95 94 Oximetry 01/05/17 01/05/17 01/05/17 06:31 06:45 07:00 Temperature Pulse Rate 71 71 75 Respiratory 21 21 14 Rate Blood Pressure 172/82 172/82 179/83 O2 Sat by Pulse 96 96 96 Oximetry 01/05/17 01/05/17 07:15 07:25 Temperature Pulse Rate 75 75 Respiratory 22 Rate Blood Pressure 179/83 179/83 O2 Sat by Pulse 97 97 Oximetry - General Appearance General appearance: well-developed, well-nourished, appears stated age, intubated EENT: ATNC, PERRL Neck: supple Respiratory: Present: Other (coarse breath sounds) Cardiology: regular, S1S2, no murmurs Gastrointestinal: normoactive bowel sounds, no tenderness, no distended Integumentary: no rash Neurologic: obtunded Musculoskeletal: other (no edema) - Lab 01/05/17 04:40 01/05/17 04:40 Most recent lab results Calcium 7.8 mg/dL (8.4-10.2) L 01/05/17 04:40 Phosphorus 6.50 mg/dL (2.5-4.5) H 01/04/17 04:45 Magnesium 1.90 mg/dL (1.7-2.3) 01/04/17 04:45
[2017-01-05 09:51] LABS: ISTAT Base Excess 6; ISTAT HCO3 28.9; ISTAT PCO2 34.4 (35-45); ISTAT PH 7.531 (7.35-7.45); ISTAT PO2 57 (80-105); ISTAT SO2 92; ISTAT TCO2 30
--- NOTE | 2017-01-05 09:56 | Progress Note ---
Assessment and Plan Assessment and plan: 61 yo AAF with multiple chronic conditions (hypertension, diabetes, hyperlipidemia, peripheral vascular disease status post bypass) noncompliant, not taking her medications for months, found down by family and brought to ER unresponsive with blood pressure 255/135 1. Malignant hypertension/hypertensive emergency CT head showing chronic ischemic microvascular changes, with no acute infarct or hemorrhage Weaned off of Cardene drip; now on amlodipine and labetalol BP still elevated, will add low dose hydralazine 2. CVA Brain MRI showing multiple acute ischemic areas Started on antiplatelet and statin therapy Cardiology consulted for JOSE to rule out embolic source; monitor rhythm 3. Acute toxic metabolic encephalopathy Likely due to combination of hypertensive encephalopathy/multiple brain infarction areas/ renal failure with uremia/acidosis/electrolytes abnormalities / drug use Treat underlying conditions 4. Acute respiratory failure On mechanical ventilation Unable to be extubated due to mental status Pulmonary following 5. Acute renal failure likely superimposed on chronic kidney disease Significantly elevated BUN/Cr with marked hyperkalemia and metabolic acidosis on admission Nephrology consulted and acute HD initiated Assessing HD need daily 6. Hyperkalemia On admission K+ 6.9; received Kayexalate, insulin/D50, bicarbonate Now on HD Continue to closely monitor 7. Rhabdomyolysis Continue IV fluids CPK trending down 8. Elevated troponin Most likely secondary to hypertensive emergency/renal failure Echocardiogram ordered 9. Anemia Likely multifactorial Iron deficient, so started on supplementation 10. Hyperlipidemia - mixed Total cholesterol 355, LDL 251, TG 298 Starting atorvastatin as CPK trending down and given brain MRI findings 11. Peripheral vascular disease Status post bypass Discontinued anticoagulant therapy on her own months ago 12. Drug abuse UDS positive for marijuana If recovers, will need counseling 13. DVT prophylaxis As CT head negative for hemorrhage, Lovenox changed to heparin subcutaneous due to renal failure 14. Poor prognosis CC 35 min History Interval history: still unresponsive; no acute events Hospitalist Physical - Constitutional Vitals: Temp Pulse Resp BP Pulse Ox 98.2 F 75 20 176/87 98 01/05/17 08:00 01/05/17 09:00 01/05/17 09:00 01/05/17 09:00 01/05/17 09:00 General appearance: Present: no acute distress, other (unrespponsive on no sedation) - Neck Neck: Absent: enlarged thyroid, masses or JVD, carotid bruits - Respiratory Respiratory effort: other (intubated) Respiratory: bilateral: diminished, negative: rhonchi, wheezing - Cardiovascular Rhythm: regular Heart Sounds: Present: S1 & S2. Absent: systolic murmur - Extremities Extremities: no ischemia - Abdominal General gastrointestinal: soft, non-distended, normal bowel sounds, other (NGT) Results - Labs CBC & Chem 7: 01/05/17 04:40 01/05/17 04:40 Labs: Laboratory Last Values WBC 11.3 K/mm3 (4.5-11.0) H 01/05/17 04:40 RBC 2.41 M/mm3 (3.65-5.03) L 01/05/17 04:40 Hgb 7.1 gm/dl (10.1-14.3) L 01/05/17 04:40 Hct 21.6 % (30.3-42.9) L 01/05/17 04:40 MCV 90 fl (79-97) 01/05/17 04:40 MCH 29 pg (28-32) 01/05/17 04:40 MCHC 33 % (30-34) 01/05/17 04:40 RDW 15.7 % (13.2-15.2) H 01/05/17 04:40 Plt Count 138 K/mm3 (140-440) L 01/05/17 04:40 Lymph % (Auto) 20.0 % (13.4-35.0) 01/05/17 04:40 [place] % (Auto) 7.7 % (0.0-7.3) H 01/05/17 04:40 Eos % (Auto) 0.8 % (0.0-4.3) 01/05/17 04:40 Baso % (Auto) 0.3 % (0.0-1.8) 01/05/17 04:40 Lymph # 2.3 K/mm3 (1.2-5.4) 01/05/17 04:40 [place] # 0.9 K/mm3 (0.0-0.8) H 01/05/17 04:40 Eos # 0.1 K/mm3 (0.0-0.4) 01/05/17 04:40 Baso # 0.0 K/mm3 (0.0-0.1) 01/05/17 04:40 Seg Neutrophils % 71.2 % (40.0-70.0) H 01/05/17 04:40 Seg Neutrophils # 8.0 K/mm3 (1.8-7.7) H 01/05/17 04:40 POC ABG pH 7.550 (7.35-7.45) H 01/04/17 09:53 POC ABG pCO2 32.9 (35-45) L 01/04/17 09:53 POC ABG pO2 64 (80-105) L 01/04/17 09:53 POC ABG HCO3 28.7 01/04/17 09:53 POC ABG Total CO2 30 01/04/17 09:53 POC ABG O2 Sat 95 01/04/17 09:53 POC ABG Base Excess 6 01/04/17 09:53 FiO2 35 % 01/04/17 09:53 Sodium 133 mmol/L (137-145) L 01/05/17 04:40 Potassium 3.5 mmol/L (3.6-5.0) L 01/05/17 04:40 Chloride 88.7 mmol/L (98-107) L 01/05/17 04:40 Carbon Dioxide 27 mmol/L (22-30) 01/05/17 04:40 Anion Gap 21 mmol/L 01/05/17 04:40 BUN 82 mg/dL (7-17) H 01/05/17 04:40 Creatinine 6.5 mg/dL (0.7-1.2) H 01/05/17 04:40 Estimated GFR 8 ml/min 01/05/17 04:40 BUN/Creatinine Ratio 12.61 % 01/05/17 04:40 Glucose 137 mg/dL (65-100) H 01/05/17 04:40 POC Glucose 175 (70-105) H 01/05/17 05:24 Lactic Acid 1.30 mmol/L (0.7-2.0) 01/01/17 06:35 Calcium 7.8 mg/dL (8.4-10.2) L 01/05/17 04:40 Phosphorus 6.50 mg/dL (2.5-4.5) H 01/04/17 04:45 Magnesium 1.90 mg/dL (1.7-2.3) 01/04/17 04:45 Iron 22 ug/dL (37-170) L 01/05/17 04:40 TIBC 183 mcg/dL (250-450) L 01/05/17 04:40 Ferritin 283.6 ng/mL (13.0-400.0) 01/05/17 04:40 Total Bilirubin 0.40 mg/dL (0.1-1.2) 01/04/17 04:45 Direct Bilirubin < 0.2 mg/dL (0-0.2) 12/31/16 15:40 Indirect Bilirubin 0.1 mg/dL 12/31/16 15:40 AST 25 units/L (5-40) 01/04/17 04:45 ALT 16 units/L (7-56) 01/04/17 04:45 Alkaline Phosphatase 75 units/L (35-129) 01/04/17 04:45 Total Creatine Kinase 312 units/L (30-135) H 01/05/17 04:40 CK-MB (CK-2) 10.8 ng/mL (0.0-4.0) H 12/31/16 06:58 CK-MB (CK-2) Rel Index 1.3 (0-4) 12/31/16 06:58 Troponin T 0.179 ng/mL (0.00-0.029) H* D 12/31/16 06:58 Total Protein 5.6 g/dL (6.3-8.2) L 01/04/17 04:45 Albumin 2.7 g/dL (3.9-5) L 01/04/17 04:45 Albumin/Globulin Ratio 0.9 % 01/04/17 04:45 Triglycerides 298 mg/dL (2-149) H 12/30/16 23:34 Cholesterol 355 mg/dL (50-199) H 12/30/16 23:34 LDL Cholesterol Direct 251 mg/dL (50-130) H 12/30/16 23:34 HDL Cholesterol 45 mg/dL (40-59) 12/30/16 23:34 Cholesterol/HDL Ratio 7.88 % 12/30/16 23:34 TSH 1.320 mlU/mL (0.270-4.200) 12/30/16 21:29 PTH Intact 124.4 pg/mL (15-65) H 12/31/16 03:42 Urine Color Yellow (Yellow) 12/30/16 20:47 Urine Turbidity Clear (Clear) 12/30/16 20:47 Urine pH 5.0 (5.0-7.0) 12/30/16 20:47 Ur Specific [place] 1.023 (1.003-1.030) 12/30/16 20:47 Urine Protein 100 mg/dl mg/dL (Negative) 12/30/16 20:47 Urine Glucose (UA) Neg mg/dL (Negative) 12/30/16 20:47 Urine Ketones Tr mg/dL (Negative) 12/30/16 20:47 Urine Blood Neg (Negative) 12/30/16 20:47 Urine Nitrite Neg (Negative) 12/30/16 20:47 Urine Bilirubin Neg (Negative) 12/30/16 20:47 Urine Urobilinogen 2.0 mg/dL (<2.0) 12/30/16 20:47 Ur Leukocyte Esterase Neg (Negative) 12/30/16 20:47 Urine WBC (Auto) < 1.0 /HPF (0.0-6.0) 12/30/16 20:47 Urine RBC (Auto) 1.0 /HPF (0.0-6.0) 12/30/16 20:47 U Epithel Cells (Auto) 1.0 /HPF (0-13.0) 12/30/16 20:47 Urine Bacteria (Auto) 1+ /HPF (Negative) 12/30/16 20:47 Salicylates < 0.3 mg/dL (2.8-20.0) L 12/30/16 21:29 Urine Opiates Screen Presumptive negative 12/30/16 20:47 Urine Methadone Screen Presumptive negative 12/30/16 20:47 Acetaminophen < 15.0 ug/mL (10.0-30.0) 12/30/16 21:29 Ur Barbiturates Screen Presumptive negative 12/30/16 20:47 Ur Phencyclidine Scrn Presumptive negative 12/30/16 20:47 Ur Amphetamines Screen Presumptive negative 12/30/16 20:47 U Benzodiazepines Scrn Presumptive negative 12/30/16 20:47 Urine Cocaine Screen Presumptive negative 12/30/16 20:47 U Marijuana (THC) Screen Presumptive positive 12/30/16 20:47 Drugs of Abuse Note Disclamer 12/30/16 20:47 Plasma/Serum Alcohol < 0.01 gm% (0-0.07) 12/30/16 21:29
[2017-01-05] MEDS ORDERED: NULECIT 125 MG in NACL 0.9% 100 ML IV ONE (10:00)
--- NOTE | 2017-01-05 10:14 | History and Physical Report ---
History of Present Illness Date of examination: 01/05/17 Date of admission: 12/30/16 23:56 Chief complaint: NEUROLOGY CONSULT BRIEF NOTE (See full dictated work up) Hx reviewed in extensive detail. CT and MR images reviewed with Dr Omari Gonzales ( radiol) Positive findings on neuro exam: Comatose, follows zero commands, chewing motions on endotrach tube constant Decerebrates with both arms to pinch of either arm moderate flexion response with pinch of each leg and only of that leg, at which point forehead furrows (mild grimace, symmetric) no spontaneous movement, no jerking eyes dysconjugate with occasional roving EOM, lacks full EOM on [place] Maneuver, no nystagmus Pupils 3 mm bilat, round, minimally reactive to bright light stimulus. DTRs absent CT scans show small vessel ischemic disease and scattered lacunes c/w her hx of HTN MRI of 01/01 shows multiple large and small acute infarcts by DWI mostly in the left MCA, posterior division distribution, but also throughout the right cerebral hemisphere and in the cerebellum, sparing the brain stem. No mechanical cause for herniation seen at that time. No sign of PRES. Impression: 1. Coma of multifactorial mechanism. 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 Multiple acute cerebral infarcts seen on MR of 01/01 (not the cause of coma) , in multiple arterial distributions, suggestive of a proximal source, eg the heart. These are of multiple sizes, some large involving the left MCA. 3. Rhabodomyolysis secondary to being "found down" with CKs more than twice the upper limits of normal. 4. Multiple other diagnoses as well documented. Recc: 1. We await results of JOSE 2. Repeat her head MRI (seeking a cause of her decerebration - are there now MORE infarcts) and do MRA of head and neck (to image carotids). Patient is a known large vessel arteriopath (s/p bypass to legs and s/p left toe amps) 3. Get blood cultures x 2 for "occult SBE" (with no sig increase in WBC or fever) in immunocompromised patient as cause of embolic shower to brain. 4. Get EEG to exclude ongoing occult Sz. 5. Go from there. Please order the above if you agree. Am new here. Odalys Porras MD Past History Past Medical History: diabetes, hypertension, hyperlipidemia, renal failure Past Surgical History: Other (left toes amputated, bypass on leg) Social history: smoking (marijuana and cigarettes) Family history: hypertension Medications and Allergies Allergies Allergy/AdvReac Type Severity Reaction Status Date / Time No Known Allergies Allergy Unverified 04/27/14 08:15 Home Medications Medication Instructions Recorded Confirmed Last Taken Type Metoprolol Xl [Metoprolol 50 mg PO QDAY 12/31/16 12/31/16 Unknown History SUCCINATE ER TAB] amLODIPine [Norvasc] 10 mg PO DAILY 12/31/16 12/31/16 Unknown History AtorvaSTATin 40 mg PO QPM 01/01/17 01/01/17 Unknown History Active Meds: Active Medications Acetaminophen (Tylenol) 650 mg PO Q4H PRN PRN Reason: Pain MILD(1-3)/Fever >100.5/CELIS Amlodipine Besylate (Norvasc) 10 mg PO QDAY [facility] Last Admin: 01/04/17 10:00 Dose: 10 mg Lipase/Protease/Amylase (Pancreaze Dr 10,500 Unit) 1 each FEEDTUBE PRN PRN PRN Reason: For Clogged Feeding Tube Aspirin (Aspirin) 325 mg PO QDAY [facility] Last Admin: 01/04/17 10:02 Dose: Not Given Atorvastatin Calcium (Lipitor) 40 mg PO QHS [facility] Last Admin: 01/04/17 22:25 Dose: 40 mg Epoetin Sha (Procrit) 10,000 unit IV SANTI PRN PRN Reason: hemodialysis Epoetin Sha (Epogen) 20,000 unit SUB-Q ONCE ONE Stop: 01/05/17 09:01 Famotidine (Pepcid) 20 mg PO DAILY [facility] Last Admin: 01/04/17 10:02 Dose: 20 mg Heparin Sodium (Porcine) (Heparin) 5,000 unit SUB-Q Q12HR [facility] Last Admin: 01/04/17 22:13 Dose: Not Given Heparin Sodium (Porcine) (Heparin) 5,000 unit IV SANTI PRN PRN Reason: hemodialysis Last Admin: 12/31/16 18:20 Dose: 5,000 unit Heparin Sodium (Porcine) (Heparin 10,000 Units/10 Ml) 2,000 unit IV SANTI PRN PRN Reason: hemodialysis Sodium Chloride (Nacl 0.9%) 100 mls @ 999 mls/hr IV SANTI PRN PRN Reason: Hypotension Sodium Chloride (Nacl 0.9%) 100 mls @ 999 mls/hr IV SANTI PRN PRN Reason: Hypotension Sodium Chloride (Nacl 0.9%) 100 mls @ 999 mls/hr IV SANTI PRN PRN Reason: Hypotension Ferric Sodium Gluconate Complex 125 mg/ Sodium Chloride 110 mls @ 100 mls/hr IV ONCE ONE Stop: 01/05/17 09:33 Insulin Aspart (Novolog) 0 units SUB-Q Q6HR RAGHAV PRN Reason: Protocol Last Admin: 01/05/17 05:31 Dose: Not Given Labetalol HCl (Normodyne) 300 mg PO BID [facility] Last Admin: 01/04/17 22:24 Dose: 300 mg Levetiracetam (Keppra) 500 mg PO BID [facility] Last Admin: 01/04/17 22:25 Dose: 500 mg Lorazepam (Ativan) 1 mg IV PRN PRN PRN Reason: Seizures Last Admin: 12/31/16 09:02 Dose: 1 mg Ondansetron HCl (Zofran) 4 mg IV Q4H PRN PRN Reason: N/V unrelieved by Reglan Simple Syrup (Simple Syrup) 15 ml FEEDTUBE PRN PRN PRN Reason: Hypoglycemia Last Admin: 01/02/17 18:04 Dose: 15 ml Simple Syrup (Simple Syrup) 30 ml FEEDTUBE PRN PRN PRN Reason: Hypoglycemia Sodium Bicarbonate (Sodium Bicarbonate) 325 mg FEEDTUBE PRN PRN PRN Reason: For Clogged Feeding Tube Physical Examination - Vital Signs Vital Signs: Vital Signs Resp 26 H 12/30/16 20:28 Results - Laboratory Findings CBC and BMP: 01/05/17 04:40 01/05/17 04:40 Abnormal Lab Findings: Abnormal Labs 12/31/16 12/31/16 12/31/16 01:31 01:31 03:42 WBC RBC Hgb Hct RDW Plt Count [place] % (Auto) [place] # Seg Neutrophils % Seg Neutrophils # POC ABG pH POC ABG pCO2 POC ABG pO2 Sodium 146 H Potassium 5.6 H Chloride Carbon Dioxide 14 L BUN 77 H Creatinine 4.0 H Glucose 107 H POC Glucose Calcium Phosphorus Iron TIBC Total Creatine Kinase 678 H 711 H CK-MB (CK-2) 10.5 H Troponin T 0.136 H* D Total Protein Albumin PTH Intact 12/31/16 12/31/16 12/31/16 03:42 06:58 06:58 WBC RBC Hgb Hct RDW Plt Count [place] % (Auto) [place] # Seg Neutrophils % Seg Neutrophils # POC ABG pH POC ABG pCO2 POC ABG pO2 Sodium 147 H Potassium 6.0 H Chloride 107.5 H Carbon Dioxide 12 L BUN 81 H Creatinine 4.6 H Glucose 183 H POC Glucose Calcium Phosphorus Iron TIBC Total Creatine Kinase 787 H CK-MB (CK-2) 10.8 H Troponin T 0.179 H* D Total Protein Albumin PTH Intact 124.4 H 12/31/16 12/31/16 12/31/16 09:34 13:47 15:40 WBC RBC Hgb Hct RDW Plt Count [place] % (Auto) [place] # Seg Neutrophils % Seg Neutrophils # POC ABG pH 7.344 L POC ABG pCO2 33.0 L POC ABG pO2 340 H Sodium Potassium Chloride Carbon Dioxide BUN Creatinine Glucose POC Glucose 294 H Calcium Phosphorus Iron TIBC Total Creatine Kinase CK-MB (CK-2) Troponin T Total Protein 6.1 L D Albumin 3.6 L PTH Intact 12/31/16 12/31/16 12/31/16 16:49 18:05 18:23 WBC RBC Hgb Hct RDW Plt Count [place] % (Auto) [place] # Seg Neutrophils % Seg Neutrophils # POC ABG pH 7.651 H POC ABG pCO2 23.2 L POC ABG pO2 64 L Sodium Potassium Chloride Carbon Dioxide BUN Creatinine Glucose POC Glucose 287 H 259 H Calcium Phosphorus Iron TIBC Total Creatine Kinase CK-MB (CK-2) Troponin T Total Protein Albumin PTH Intact 12/31/16 01/01/17 01/01/17 23:52 05:40 06:35 WBC RBC Hgb Hct RDW Plt Count [place] % (Auto) [place] # Seg Neutrophils % Seg Neutrophils # POC ABG pH POC ABG pCO2 POC ABG pO2 Sodium Potassium Chloride 96.6 L Carbon Dioxide BUN 34 H Creatinine 3.4 H Glucose 142 H POC Glucose 182 H 168 H Calcium 7.6 L D Phosphorus Iron TIBC Total Creatine Kinase CK-MB (CK-2) Troponin T Total Protein Albumin PTH Intact 01/01/17 01/01/1717 11:54 12:24 17:10 WBC RBC Hgb Hct RDW Plt Count [place] % (Auto) [place] # Seg Neutrophils % Seg Neutrophils # POC ABG pH 7.536 H POC ABG pCO2 POC ABG pO2 149 H Sodium Potassium Chloride Carbon Dioxide BUN Creatinine Glucose POC Glucose 166 H 160 H Calcium Phosphorus Iron TIBC Total Creatine Kinase CK-MB (CK-2) Troponin T Total Protein Albumin PTH Intact 01/01/17 01/02/17 01/02/17 23:31 03:35 04:01 WBC 12.0 H RBC 2.88 L Hgb 8.4 L D Hct 25.4 L D RDW 15.9 H Plt Count [place] % (Auto) [place] # Seg Neutrophils % 75.3 H Seg Neutrophils # 9.0 H POC ABG pH 7.551 H POC ABG pCO2 33.7 L POC ABG pO2 Sodium Potassium Chloride Carbon Dioxide BUN Creatinine Glucose POC Glucose 232 H Calcium Phosphorus Iron TIBC Total Creatine Kinase CK-MB (CK-2) Troponin T Total Protein Albumin PTH Intact 01/02/17 01/02/17 01/02/17 04:01 05:09 12:28 WBC RBC Hgb Hct RDW Plt Count [place] % (Auto) [place] # Seg Neutrophils % Seg Neutrophils # POC ABG pH POC ABG pCO2 POC ABG pO2 Sodium Potassium Chloride 93.3 L Carbon Dioxide BUN 44 H Creatinine 5.1 H Glucose 208 H POC Glucose 343 H 197 H Calcium 7.7 L Phosphorus Iron TIBC Total Creatine Kinase CK-MB (CK-2) Troponin T Total Protein 6.1 L Albumin 3.1 L PTH Intact 01/02/17 01/02/17 01/02/17 12:40 17:52 18:40 WBC RBC Hgb Hct RDW Plt Count [place] % (Auto) [place] # Seg Neutrophils % Seg Neutrophils # POC ABG pH POC ABG pCO2 POC ABG pO2 Sodium Potassium Chloride Carbon Dioxide BUN Creatinine Glucose POC Glucose 296 H 53 L 172 H Calcium Phosphorus Iron TIBC Total Creatine Kinase CK-MB (CK-2) Troponin T Total Protein Albumin PTH Intact 01/02/17 01/03/17 01/03/17 23:57 03:44 03:44 WBC RBC 2.52 L Hgb 7.6 L Hct 22.5 L RDW 15.4 H Plt Count [place] % (Auto) [place] # Seg Neutrophils % 70.5 H Seg Neutrophils # POC ABG pH POC ABG pCO2 POC ABG pO2 Sodium Potassium Chloride 92.2 L Carbon Dioxide BUN 58 H Creatinine 6.2 H Glucose 147 H POC Glucose 248 H Calcium 7.4 L Phosphorus 5.90 H Iron TIBC Total Creatine Kinase CK-MB (CK-2) Troponin T Total Protein Albumin PTH Intact 01/03/17 01/03/17 01/03/17 05:41 11:51 17:33 WBC RBC Hgb Hct RDW Plt Count [place] % (Auto) [place] # Seg Neutrophils % Seg Neutrophils # POC ABG pH POC ABG pCO2 POC ABG pO2 Sodium Potassium Chloride Carbon Dioxide BUN Creatinine Glucose POC Glucose 190 H 258 H 197 H Calcium Phosphorus Iron TIBC Total Creatine Kinase CK-MB (CK-2) Troponin T Total Protein Albumin PTH Intact 01/03/17 01/03/17 01/04/17 21:38 23:50 04:45 WBC 12.7 H RBC 2.48 L Hgb 7.2 L Hct 22.5 L RDW 15.5 H Plt Count [place] % (Auto) [place] # Seg Neutrophils % 74.0 H Seg Neutrophils # 9.4 H POC ABG pH 7.551 H POC ABG pCO2 34.0 L POC ABG pO2 74 L Sodium Potassium Chloride Carbon Dioxide BUN Creatinine Glucose POC Glucose 189 H Calcium Phosphorus Iron TIBC Total Creatine Kinase CK-MB (CK-2) Troponin T Total Protein Albumin PTH Intact 01/04/17 01/04/17 01/04/17 04:45 05:59 09:53 WBC RBC Hgb Hct RDW Plt Count [place] % (Auto) [place] # Seg Neutrophils % Seg Neutrophils # POC ABG pH 7.550 H POC ABG pCO2 32.9 L POC ABG pO2 64 L Sodium 136 L Potassium Chloride 91.2 L Carbon Dioxide BUN 71 H Creatinine 6.4 H Glucose 167 H POC Glucose 203 H Calcium 7.8 L Phosphorus 6.50 H Iron TIBC Total Creatine Kinase 547 H CK-MB (CK-2) Troponin T Total Protein 5.6 L Albumin 2.7 L PTH Intact 01/04/17 01/05/17 01/05/17 23:41 04:40 04:40 WBC 11.3 H RBC 2.41 L Hgb 7.1 L Hct 21.6 L RDW 15.7 H Plt Count 138 L [place] % (Auto) 7.7 H [place] # 0.9 H Seg Neutrophils % 71.2 H Seg Neutrophils # 8.0 H POC ABG pH POC ABG pCO2 POC ABG pO2 Sodium 133 L Potassium 3.5 L Chloride 88.7 L Carbon Dioxide BUN 82 H Creatinine 6.5 H Glucose 137 H POC Glucose 231 H Calcium 7.8 L Phosphorus Iron 22 L TIBC 183 L Total Creatine Kinase 312 H CK-MB (CK-2) Troponin T Total Protein Albumin PTH Intact 01/05/17 05:24 WBC RBC Hgb Hct RDW Plt Count [place] % (Auto) [place] # Seg Neutrophils % Seg Neutrophils # POC ABG pH POC ABG pCO2 POC ABG pO2 Sodium Potassium Chloride Carbon Dioxide BUN Creatinine Glucose POC Glucose 175 H Calcium Phosphorus Iron TIBC Total Creatine Kinase CK-MB (CK-2) Troponin T Total Protein Albumin PTH Intact
[2017-01-05] MEDS: NORMODYNE PO SCH ×2 (10:23→22:29)
[2017-01-05] MEDS: KEPPRA PO SCH ×2 (10:23→22:29)
[2017-01-05] MEDS: NORVASC PO SCH (10:24)
[2017-01-05] MEDS: PEPCID PO SCH (10:24)
[2017-01-05] MEDS: HEPARIN SUB-Q SCH ×2 (10:31→22:29)
[2017-01-05] MEDS: ASPIRIN PO SCH (10:31)
--- NOTE | 2017-01-05 11:06 | Consultation ---
History of Present Illness Consult date: 01/05/17 Consult reason: other (JOSE) History of present illness: This is a 61yr old woman who is admitted with acute CVA, Hypertensive urgency, Renal failure requiring renal replacement and suspected seizures. Brain MRI reports multiple acute ischemic areas. An echocardiogram this admission reports a normal left ventricular systolic function, ejection fraction 55-60%. Cardiac consultation was requested for rule out cardioembolic source with a JOSE. Patient is currently intubated on mechanical ventilation. Sister at bedside reports the patient has a history of Hypertension, Diabetes mellitus, PVD, Hyperlipidemia, chronic Renal insufficiency, tobacco abuse, non-compliant with her medications and outpatient follow ups. Past History Past Medical History: diabetes, hypertension, hyperlipidemia, renal failure Past Surgical History: Other (left toes amputated, bypass on leg) Social history: smoking (marijuana and cigarettes) Family history: hypertension Medications and Allergies Allergies Allergy/AdvReac Type Severity Reaction Status Date / Time No Known Allergies Allergy Unverified 04/27/14 08:15 Home Medications Medication Instructions Recorded Confirmed Last Taken Type Metoprolol Xl [Metoprolol 50 mg PO QDAY 12/31/16 12/31/16 Unknown History SUCCINATE ER TAB] amLODIPine [Norvasc] 10 mg PO DAILY 12/31/16 12/31/16 Unknown History AtorvaSTATin 40 mg PO QPM 01/01/17 01/01/17 Unknown History Active Meds: Active Medications Acetaminophen (Tylenol) 650 mg PO Q4H PRN PRN Reason: Pain MILD(1-3)/Fever >100.5/CELIS Amlodipine Besylate (Norvasc) 10 mg PO QDAY [facility] Last Admin: 01/05/17 10:24 Dose: 10 mg Lipase/Protease/Amylase (Pancreaze Dr 10,500 Unit) 1 each FEEDTUBE PRN PRN PRN Reason: For Clogged Feeding Tube Aspirin (Aspirin) 325 mg PO QDAY [facility] Last Admin: 01/05/17 10:31 Dose: Not Given Atorvastatin Calcium (Lipitor) 40 mg PO QHS [facility] Last Admin: 01/04/17 22:25 Dose: 40 mg Epoetin Sha (Procrit) 10,000 unit IV SANTI PRN PRN Reason: hemodialysis Famotidine (Pepcid) 20 mg PO DAILY [facility] Last Admin: 01/05/17 10:24 Dose: 20 mg Heparin Sodium (Porcine) (Heparin) 5,000 unit SUB-Q Q12HR [facility] Last Admin: 01/05/17 10:31 Dose: Not Given Heparin Sodium (Porcine) (Heparin) 5,000 unit IV SANTI PRN PRN Reason: hemodialysis Last Admin: 12/31/16 18:20 Dose: 5,000 unit Heparin Sodium (Porcine) (Heparin 10,000 Units/10 Ml) 2,000 unit IV SANTI PRN PRN Reason: hemodialysis Sodium Chloride (Nacl 0.9%) 100 mls @ 999 mls/hr IV SANTI PRN PRN Reason: Hypotension Sodium Chloride (Nacl 0.9%) 100 mls @ 999 mls/hr IV SANTI PRN PRN Reason: Hypotension Sodium Chloride (Nacl 0.9%) 100 mls @ 999 mls/hr IV SANTI PRN PRN Reason: Hypotension Ferric Sodium Gluconate Complex 125 mg/ Sodium Chloride 110 mls @ 100 mls/hr IV ONCE ONE Stop: 01/05/17 11:05 Last Admin: 01/05/17 10:30 Dose: 100 mls/hr Insulin Aspart (Novolog) 0 units SUB-Q Q6HR RAGHAV PRN Reason: Protocol Last Admin: 01/05/17 05:31 Dose: Not Given Labetalol HCl (Normodyne) 300 mg PO BID [facility] Last Admin: 01/05/17 10:23 Dose: 300 mg Levetiracetam (Keppra) 500 mg PO BID [facility] Last Admin: 01/05/17 10:23 Dose: 500 mg Lorazepam (Ativan) 1 mg IV PRN PRN PRN Reason: Seizures Last Admin: 12/31/16 09:02 Dose: 1 mg Ondansetron HCl (Zofran) 4 mg IV Q4H PRN PRN Reason: N/V unrelieved by Reglan Simple Syrup (Simple Syrup) 15 ml FEEDTUBE PRN PRN PRN Reason: Hypoglycemia Last Admin: 01/02/17 18:04 Dose: 15 ml Simple Syrup (Simple Syrup) 30 ml FEEDTUBE PRN PRN PRN Reason: Hypoglycemia Sodium Bicarbonate (Sodium Bicarbonate) 325 mg FEEDTUBE PRN PRN PRN Reason: For Clogged Feeding Tube Physical Examination Vital Signs Resp 26 H 12/30/16 20:28 General appearance: other (intubated on the vent) Cardiac: Positive: Reg Rate and Rhythm Results 01/05/17 04:40 01/05/17 04:40 CBC 01/05/17 Range/Units 04:40 WBC 11.3 H (4.5-11.0) K/mm3 RBC 2.41 L (3.65-5.03) M/mm3 Hgb 7.1 L (10.1-14.3) gm/dl Hct 21.6 L (30.3-42.9) % Plt Count 138 L (140-440) K/mm3 Lymph # 2.3 (1.2-5.4) K/mm3 [place] # 0.9 H (0.0-0.8) K/mm3 Eos # 0.1 (0.0-0.4) K/mm3 Baso # 0.0 (0.0-0.1) K/mm3 Comprehensive Metabolic Panel 01/05/17 Range/Units 04:40 Sodium 133 L (137-145) mmol/L Potassium 3.5 L (3.6-5.0) mmol/L Chloride 88.7 L (98-107) mmol/L Carbon Dioxide 27 (22-30) mmol/L BUN 82 H (7-17) mg/dL Creatinine 6.5 H (0.7-1.2) mg/dL Glucose 137 H (65-100) mg/dL Calcium 7.8 L (8.4-10.2) mg/dL Assessment and Plan Acute respiratory failure intubated on the vent Acute ischemic CVA Acute drop in HCT Hypertension Diabetes mellitus PVD Hyperlipidemia Chronic Renal insufficiency requiring renal replacement
--- NOTE | 2017-01-05 12:43 | Progress Note ---
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 - continue supportive care - get neurology evaluation - continue secondary prevention with anti-lipid, anti-platelet, BP control therapies - for repeat MRI (3) ARF (acute renal failure) Current Visit: Yes Status: Acute Qualifiers: Acute renal failure type: A Plan to address problem: - seen by nephrology - making urine - started on dialysis - prescription per nephrology but still giving her a chance for renal recovery - will defer to president & founder (4) Hyperkalemia Current Visit: Yes Status: Acute Plan to address problem: - corrected - continue to trend and address (5) Hypertensive encephalopathy Current Visit: Yes Status: Acute Plan to address problem: - better BP control - will target pseudo-normal / permissive HTN in short course - prn IV meds for SBP > 170mmHg (6) Seizures Current Visit: Yes Status: Acute Plan to address problem: - per sister no prior history - will continue empiric keppra (7) Anemia Current Visit: Yes Status: Acute Qualifiers: Anemia type: A Iron deficiency anemia type: I Vitamin B12 deficiency anemia type: V Folate deficiency anemia type: F Bone marrow failure anemia type: B Hemolytic anemia type: H Other causes of anemia: O Chronic kidney disease stage: C Plan to address problem: - likely dilutional element - still suspect ABLA component - sent stool guaiac (pending) - get GI consultation - trend H&H (8) Healthcare maintenance Current Visit: Yes Status: Acute Plan to address problem: - on GI prophylaxis - on VTE prophylaxis - cather in place re: SIVA and for CCM issues acutely - glycemic control (9) NSTEMI (non-ST elevated myocardial infarction) Current Visit: Yes Status: Acute Plan to address problem: - will get cardiology evaluation - also need to consider JOSE re: embolic strokes (10) Discharge planning issues Current Visit: Yes Status: Acute Plan to address problem: - care plan discussed at length with sister and i explained that if no significant improvement in mental status she will need a tracheostomy - may need LTAC evaluation eventually ...she is critically ill on life sustaining interventions including MVS and at risk for further deterioration including ...30' CCT Subjective Date of service: 01/05/17 Principal diagnosis: Acute CVA; Acute Respiratory Failure Interval history: Seen and examined at bedside; 24 hour events reviewed; nursing and respiratory care staff consulted; no adverse overnight events reported to me; remains on MVS ; opens eyes to tactile stimuli; not purposeful and some decerebrate posturing to sternal rub; cardiology evaluation ongoing; no gross GI bleeding reported Objective Vital Signs - 12hr 01/05/17 01/05/17 01/05/17 00:45 01:00 01:15 Temperature Pulse Rate 73 74 72 Respiratory 22 25 H 22 Rate Blood Pressure 148/67 152/68 152/68 O2 Sat by Pulse 95 96 96 Oximetry 01/05/17 01/05/17 01/05/17 01:30 01:45 02:01 Temperature Pulse Rate 72 74 75 Respiratory 24 24 21 Rate Blood Pressure 152/68 152/68 164/78 O2 Sat by Pulse 97 96 94 Oximetry 01/05/17 01/05/17 01/05/17 02:15 02:31 02:45 Temperature Pulse Rate 74 72 71 Respiratory 23 23 23 Rate Blood Pressure 164/78 164/78 164/78 O2 Sat by Pulse 94 96 97 Oximetry 01/05/17 01/05/17 01/05/17 03:00 03:05 03:15 Temperature Pulse Rate 70 71 72 Respiratory 19 24 Rate Blood Pressure 158/71 158/71 O2 Sat by Pulse 97 95 95 Oximetry 01/05/17 01/05/17 01/05/17 03:28 03:31 03:45 Temperature 99.1 F Pulse Rate 73 74 Respiratory 21 22 Rate Blood Pressure 158/71 158/71 O2 Sat by Pulse 95 96 Oximetry 01/05/17 01/05/17 01/05/17 04:00 04:01 04:15 Temperature Pulse Rate 71 72 71 Respiratory 18 24 22 Rate Blood Pressure 164/78 158/71 O2 Sat by Pulse 100 94 95 Oximetry 01/05/17 01/05/17 01/05/17 04:30 04:31 04:45 Temperature Pulse Rate 73 72 72 Respiratory 23 23 Rate Blood Pressure 164/78 158/71 158/71 O2 Sat by Pulse 95 94 96 Oximetry 01/05/17 01/05/17 01/05/17 05:01 05:15 05:30 Temperature Pulse Rate 71 72 72 Respiratory 19 22 21 Rate Blood Pressure 166/79 166/79 O2 Sat by Pulse 94 94 95 Oximetry 01/05/17 01/05/17 01/05/17 05:31 05:45 06:00 Temperature Pulse Rate 71 72 75 Respiratory 19 21 22 Rate Blood Pressure 166/79 166/79 172/82 O2 Sat by Pulse 96 94 95 Oximetry 01/05/17 01/05/17 01/05/17 06:15 06:31 06:45 Temperature Pulse Rate 73 71 71 Respiratory 22 21 21 Rate Blood Pressure 172/82 172/82 172/82 O2 Sat by Pulse 94 96 96 Oximetry 01/05/17 01/05/17 01/05/17 07:00 07:15 07:20 Temperature Pulse Rate 75 75 Respiratory 14 22 20 Rate Blood Pressure 179/83 179/83 O2 Sat by Pulse 96 97 96 Oximetry 01/05/17 01/05/17 01/05/17 07:25 07:31 07:45 Temperature Pulse Rate 75 71 72 Respiratory 20 21 22 Rate Blood Pressure 179/83 179/83 179/83 O2 Sat by Pulse 97 97 97 Oximetry 01/05/17 01/05/17 01/05/17 08:00 08:15 08:31 Temperature 98.2 F Pulse Rate 75 76 76 Respiratory 23 20 22 Rate Blood Pressure 178/84 178/84 178/84 O2 Sat by Pulse 97 98 98 Oximetry 01/05/17 01/05/17 01/05/17 08:45 09:00 09:15 Temperature Pulse Rate 77 75 72 Respiratory 15 20 22 Rate Blood Pressure 178/84 176/87 176/87 O2 Sat by Pulse 97 98 96 Oximetry 01/05/17 01/05/17 01/05/17 09:31 09:45 10:00 Temperature Pulse Rate 72 74 73 Respiratory 23 21 22 Rate Blood Pressure 176/87 176/87 169/78 O2 Sat by Pulse 97 97 98 Oximetry 01/05/17 01/05/17 01/05/17 10:15 10:24 10:31 Temperature Pulse Rate 74 72 72 Respiratory 21 23 Rate Blood Pressure 169/78 169/78 169/78 O2 Sat by Pulse 97 98 Oximetry 01/05/17 01/05/17 01/05/17 10:45 11:00 11:05 Temperature Pulse Rate 71 70 68 Respiratory 20 22 Rate Blood Pressure 169/78 155/71 O2 Sat by Pulse 97 97 Oximetry 01/05/17 11:57 Temperature Pulse Rate 69 Respiratory 20 Rate Blood Pressure 155/71 O2 Sat by Pulse 97 Oximetry Constitutional: other (obtunded,unresponisve; posturing) Eyes: non-icteric ENT: oropharynx moist Neck: supple, no lymphadenopathy, no JVD Effort: mildly labored Ascultation: Bilateral: diminished breath sounds, rhonchi (scant) Cardiovascular: regular rate and rhythm Gastrointestinal: normoactive bowel sounds, soft, non-tender, non-distended Integumentary: normal Extremities: no cyanosis, no edema, pulses normal, no ischemia or petechiae, other (trans-metatarsal amputation) Neurologic: unable to assess Psychiatric: other (unable to access) CBC and BMP: 01/08/17 05:30 01/08/17 05:30 ABG, PT/INR, D-dimer: ABG POC ABG pH 7.531 (7.35-7.45) H 01/05/17 09:34 POC ABG pCO2 34.4 (35-45) L 01/05/17 09:34 POC ABG pO2 57 (80-105) L 01/05/17 09:34 POC ABG HCO3 28.9 01/05/17 09:34 POC ABG Total CO2 30 01/05/17 09:34 POC ABG O2 Sat 92 01/05/17 09:34 Abnormal lab findings: Abnormal Labs 12/31/16 12/31/16 12/31/16 01:31 01:31 03:42 WBC RBC Hgb Hct RDW Plt Count Drew % (Auto) Drew # Seg Neutrophils % Seg Neutrophils # POC ABG pH POC ABG pCO2 POC ABG pO2 Sodium 146 H Potassium 5.6 H Chloride Carbon Dioxide 14 L BUN 77 H Creatinine 4.0 H Glucose 107 H POC Glucose Calcium Phosphorus Iron TIBC Total Creatine Kinase 678 H 711 H CK-MB (CK-2) 10.5 H Troponin T 0.136 H* D Total Protein Albumin PTH Intact 08/12/31/16 12/31/16 03:42 06:58 06:58 WBC RBC Hgb Hct RDW Plt Count Drew % (Auto) Drew # Seg Neutrophils % Seg Neutrophils # POC ABG pH POC ABG pCO2 POC ABG pO2 Sodium 147 H Potassium 6.0 H Chloride 107.5 H Carbon Dioxide 12 L BUN 81 H Creatinine 4.6 H Glucose 183 H POC Glucose Calcium Phosphorus Iron TIBC Total Creatine Kinase 787 H CK-MB (CK-2) 10.8 H Troponin T 0.179 H* D Total Protein Albumin PTH Intact 124.4 H 12/31/16 12/31/16 12/31/16 09:34 13:47 15:40 WBC RBC Hgb Hct RDW Plt Count Drew % (Auto) Drew # Seg Neutrophils % Seg Neutrophils # POC ABG pH 7.344 L POC ABG pCO2 33.0 L POC ABG pO2 340 H Sodium Potassium Chloride Carbon Dioxide BUN Creatinine Glucose POC Glucose 294 H Calcium Phosphorus Iron TIBC Total Creatine Kinase CK-MB (CK-2) Troponin T Total Protein 6.1 L D Albumin 3.6 L PTH Intact 12/31/16 12/31/16 12/31/16 16:49 18:05 18:23 WBC RBC Hgb Hct RDW Plt Count Drew % (Auto) Drew # Seg Neutrophils % Seg Neutrophils # POC ABG pH 7.651 H POC ABG pCO2 23.2 L POC ABG pO2 64 L Sodium Potassium Chloride Carbon Dioxide BUN Creatinine Glucose POC Glucose 287 H 259 H Calcium Phosphorus Iron TIBC Total Creatine Kinase CK-MB (CK-2) Troponin T Total Protein Albumin PTH Intact 12/31/16 01/01/17 01/01/17 23:52 05:40 06:35 WBC RBC Hgb Hct RDW Plt Count Drew % (Auto) Drew # Seg Neutrophils % Seg Neutrophils # POC ABG pH POC ABG pCO2 POC ABG pO2 Sodium Potassium Chloride 96.6 L Carbon Dioxide BUN 34 H Creatinine 3.4 H Glucose 142 H POC Glucose 182 H 168 H Calcium 7.6 L D Phosphorus Iron TIBC Total Creatine Kinase CK-MB (CK-2) Troponin T Total Protein Albumin PTH Intact 01/01/17 01/01/17 01/01/17 11:54 12:24 17:10 WBC RBC Hgb Hct RDW Plt Count Drew % (Auto) Drew # Seg Neutrophils % Seg Neutrophils # POC ABG pH 7.536 H POC ABG pCO2 POC ABG pO2 149 H Sodium Potassium Chloride Carbon Dioxide BUN Creatinine Glucose POC Glucose 166 H 160 H Calcium Phosphorus Iron TIBC Total Creatine Kinase CK-MB (CK-2) Troponin T Total Protein Albumin PTH Intact 01/01/17 01/02/17 01/02/17 23:31 03:35 04:01 WBC 12.0 H RBC 2.88 L Hgb 8.4 L D Hct 25.4 L D RDW 15.9 H Plt Count Drew % (Auto) Drew # Seg Neutrophils % 75.3 H Seg Neutrophils # 9.0 H POC ABG pH 7.551 H POC ABG pCO2 33.7 L POC ABG pO2 Sodium Potassium Chloride Carbon Dioxide BUN Creatinine Glucose POC Glucose 232 H Calcium Phosphorus Iron TIBC Total Creatine Kinase CK-MB (CK-2) Troponin T Total Protein Albumin PTH Intact 01/02/17 01/02/17 01/02/17 04:01 05:09 12:28 WBC RBC Hgb Hct RDW Plt Count Drew % (Auto) Drew # Seg Neutrophils % Seg Neutrophils # POC ABG pH POC ABG pCO2 POC ABG pO2 Sodium Potassium Chloride 93.3 L Carbon Dioxide BUN 44 H Creatinine 5.1 H Glucose 208 H POC Glucose 343 H 197 H Calcium 7.7 L Phosphorus Iron TIBC Total Creatine Kinase CK-MB (CK-2) Troponin T Total Protein 6.1 L Albumin 3.1 L PTH Intact 01/02/17 01/02/17 01/02/17 12:40 17:52 18:40 WBC RBC Hgb Hct RDW Plt Count Drew % (Auto) Drew # Seg Neutrophils % Seg Neutrophils # POC ABG pH POC ABG pCO2 POC ABG pO2 Sodium Potassium Chloride Carbon Dioxide BUN Creatinine Glucose POC Glucose 296 H 53 L 172 H Calcium Phosphorus Iron TIBC Total Creatine Kinase CK-MB (CK-2) Troponin T Total Protein Albumin PTH Intact 01/02/17 01/03/17 01/03/17 23:57 03:44 03:44 WBC RBC 2.52 L Hgb 7.6 L Hct 22.5 L RDW 15.4 H Plt Count Drew % (Auto) Drew # Seg Neutrophils % 70.5 H Seg Neutrophils # POC ABG pH POC ABG pCO2 POC ABG pO2 Sodium Potassium Chloride 92.2 L Carbon Dioxide BUN 58 H Creatinine 6.2 H Glucose 147 H POC Glucose 248 H Calcium 7.4 L Phosphorus 5.90 H Iron TIBC Total Creatine Kinase CK-MB (CK-2) Troponin T Total Protein Albumin PTH Intact 01/03/17 01/03/17 01/03/17 05:41 11:51 17:33 WBC RBC Hgb Hct RDW Plt Count Drew % (Auto) Drew # Seg Neutrophils % Seg Neutrophils # POC ABG pH POC ABG pCO2 POC ABG pO2 Sodium Potassium Chloride Carbon Dioxide BUN Creatinine Glucose POC Glucose 190 H 258 H 197 H Calcium Phosphorus Iron TIBC Total Creatine Kinase CK-MB (CK-2) Troponin T Total Protein Albumin PTH Intact 01/03/17 01/03/17 01/04/17 21:38 23:50 04:45 WBC 12.7 H RBC 2.48 L Hgb 7.2 L Hct 22.5 L RDW 15.5 H Plt Count Drew % (Auto) Drew # Seg Neutrophils % 74.0 H Seg Neutrophils # 9.4 H POC ABG pH 7.551 H POC ABG pCO2 34.0 L POC ABG pO2 74 L Sodium Potassium Chloride Carbon Dioxide BUN Creatinine Glucose POC Glucose 189 H Calcium Phosphorus Iron TIBC Total Creatine Kinase CK-MB (CK-2) Troponin T Total Protein Albumin PTH Intact 01/04/17 01/04/17 01/04/17 04:45 05:59 09:53 WBC RBC Hgb Hct RDW Plt Count Drew % (Auto) Drew # Seg Neutrophils % Seg Neutrophils # POC ABG pH 7.550 H POC ABG pCO2 32.9 L POC ABG pO2 64 L Sodium 136 L Potassium Chloride 91.2 L Carbon Dioxide BUN 71 H Creatinine 6.4 H Glucose 167 H POC Glucose 203 H Calcium 7.8 L Phosphorus 6.50 H Iron TIBC Total Creatine Kinase 547 H CK-MB (CK-2) Troponin T Total Protein 5.6 L Albumin 2.7 L PTH Intact 01/04/17 01/05/17 01/05/17 23:41 04:40 04:40 WBC 11.3 H RBC 2.41 L Hgb 7.1 L Hct 21.6 L RDW 15.7 H Plt Count 138 L Drew % (Auto) 7.7 H Drew # 0.9 H Seg Neutrophils % 71.2 H Seg Neutrophils # 8.0 H POC ABG pH POC ABG pCO2 POC ABG pO2 Sodium 133 L Potassium 3.5 L Chloride 88.7 L Carbon Dioxide BUN 82 H Creatinine 6.5 H Glucose 137 H POC Glucose 231 H Calcium 7.8 L Phosphorus Iron 22 L TIBC 183 L Total Creatine Kinase 312 H CK-MB (CK-2) Troponin T Total Protein Albumin PTH Intact 01/05/17 01/05/17 05:24 09:34 WBC RBC Hgb Hct RDW Plt Count Drew % (Auto) Drew # Seg Neutrophils % Seg Neutrophils # POC ABG pH 7.531 H POC ABG pCO2 34.4 L POC ABG pO2 57 L Sodium Potassium Chloride Carbon Dioxide BUN Creatinine Glucose POC Glucose 175 H Calcium Phosphorus Iron TIBC Total Creatine Kinase CK-MB (CK-2) Troponin T Total Protein Albumin PTH Intact Chest x-ray: image reviewed
[2017-01-05] MEDS ORDERED: NACL 0.9% 100 ML IV PRN (17:57)
[2017-01-05] MEDS: PROCRIT IV PRN (19:51)
[2017-01-05] MEDS: HEPARIN IV PRN (21:22)
[2017-01-05] MEDS: APRESOLINE IV PRN (22:28)
--- NOTE | 2017-01-05 23:19 | Gastroenterology Progress Note ---
Assessment and Plan Anemia - pt with worsening anemia, no signs of overt bleeding. likely multi- factorial. will need further GI work-up once medically stable (sooner if concern for bleeding). Will stop following daily, please call back as needed or when stable for procedures. Subjective Date of service: 01/05/17 Principal diagnosis: Acute CVA; Acute Respiratory Failure Interval history: pt remains intubated/sedated. No reported signs of GI bleeding. Objective - Exam Narrative Exam: Gen: intubated/sedated CV: RRR Abd: soft, nd, +bs Lungs: CTAB, non labored - Constitutional Vitals: Temp Pulse Resp BP Pulse Ox 99.7 F H 77 25 H 149/61 96 01/05/17 23:06 01/05/17 23:01 01/05/17 21:13 01/05/17 23:01 01/05/17 23:01 - Labs CBC & Chem 7: 01/05/17 04:40 01/05/17 04:40 Labs: Laboratory Results - last 24 hr 01/04/17 01/05/17 01/05/17 23:41 04:40 04:40 WBC 11.3 H RBC 2.41 L Hgb 7.1 L Hct 21.6 L MCV 90 MCH 29 MCHC 33 RDW 15.7 H Plt Count 138 L Lymph % (Auto) 20.0 [place] % (Auto) 7.7 H Eos % (Auto) 0.8 Baso % (Auto) 0.3 Lymph # 2.3 [place] # 0.9 H Eos # 0.1 Baso # 0.0 Seg Neutrophils % 71.2 H Seg Neutrophils # 8.0 H POC ABG pH POC ABG pCO2 POC ABG pO2 POC ABG HCO3 POC ABG Total CO2 POC ABG O2 Sat POC ABG Base Excess FiO2 Sodium 133 L Potassium 3.5 L Chloride 88.7 L Carbon Dioxide 27 Anion Gap 21 BUN 82 H Creatinine 6.5 H Estimated GFR 8 BUN/Creatinine Ratio 12.61 Glucose 137 H POC Glucose 231 H Calcium 7.8 L Iron 22 L TIBC 183 L Ferritin Total Creatine Kinase 312 H 01/05/17 01/05/17 01/05/17 04:40 05:24 09:34 WBC RBC Hgb Hct MCV MCH MCHC RDW Plt Count Lymph % (Auto) [place] % (Auto) Eos % (Auto) Baso % (Auto) Lymph # [place] # Eos # Baso # Seg Neutrophils % Seg Neutrophils # POC ABG pH 7.531 H POC ABG pCO2 34.4 L POC ABG pO2 57 L POC ABG HCO3 28.9 POC ABG Total CO2 30 POC ABG O2 Sat 92 POC ABG Base Excess 6 FiO2 35 Sodium Potassium Chloride Carbon Dioxide Anion Gap BUN Creatinine Estimated GFR BUN/Creatinine Ratio Glucose POC Glucose 175 H Calcium Iron TIBC Ferritin 283.6 Total Creatine Kinase 01/05/17 01/05/17 11:12 17:33 WBC RBC Hgb Hct MCV MCH MCHC RDW Plt Count Lymph % (Auto) [place] % (Auto) Eos % (Auto) Baso % (Auto) Lymph # [place] # Eos # Baso # Seg Neutrophils % Seg Neutrophils # POC ABG pH POC ABG pCO2 POC ABG pO2 POC ABG HCO3 POC ABG Total CO2 POC ABG O2 Sat POC ABG Base Excess FiO2 Sodium Potassium Chloride Carbon Dioxide Anion Gap BUN Creatinine Estimated GFR BUN/Creatinine Ratio Glucose POC Glucose 188 H 222 H Calcium Iron TIBC Ferritin Total Creatine Kinase
[2017-01-06] MEDS: NOVOLOG SUB-Q SCH ×4 (00:06→18:16)
--- NOTE | 2017-01-06 00:43 | Consultation ---
NEUROLOGIC CONSULTATION I am asked to see this 61-year-old woman presently in coma for neurologic evaluation. She was admitted on 12/30/2016. REFERRING PHYSICIAN: Dr. Zoë Pedro. The extensive chart is reviewed in detail. HISTORY OF PRESENT ILLNESS: The patient has a multiplicity of problems including diabetes mellitus type 2, uncontrolled hypertension, chronic kidney disease stage 3, migraine headache, intractable, hypertension, and a longstanding history of noncompliance with medications, taking an appointment keeping. She also has peripheral vascular disease and is status post bypass graft surgery to the legs and status post left toe amputations. In this setting, she was \\"found down\\" by family members and brought to the ED on December 30, comatose. She was found to be massively hypertensive with a blood pressure of 248/137 to be hyperkalemic with potassium of 6.9, and in significant renal failure with a creatinine of 3.6, BUN of 73, hypermagnesemia with a magnesium of 2.7 and a toxic screen positive for tetrahydrocannabinol. She was found to be in respiratory failure as well and was admitted to the Intensive Care Unit. She was initially treated with a Cardene drip for days in an effort to control her blood pressure and ultimately placed on hemodialysis, which continues at this time for control of her metabolic acidosis and hyperkalemia. She also has a diagnosis of rhabdomyolysis (from being found down) with CKs more than twice the normal level. Past CT scans, which I reviewed with Dr. Omari Szymanski in the Radiology Department revealed small vessel ischemic disease and scattered lacunar infarcts consistent with longstanding history of uncontrolled hypertension. This appeared somewhat worse on the CT scan on the day of admission. However, on 01/01/2017, an MRI scan of the brain revealed multiple acute infarcts in both cerebral hemispheres and in the cerebellar hemispheres on both sides of different sizes, some large and particularly in the left parietal MCA distribution (the posterior branch of the MCA). The patient has remained comatose throughout. Neurologic consultation is requested now to assist with her central nervous system problems. A JOSE was ordered and the results are pending at this time. REVIEW OF SYSTEMS: Not possible at this time. SOCIAL HISTORY AND FAMILY HISTORY: Not rereviewed at this time. MEDICATIONS AND ALLERGIES: See chart. PHYSICAL EXAMINATION: GENERAL: She appears an overweight woman lying in bed on a respirator with constant chewing motions on the endotracheal tube. VITAL SIGNS: Are as recorded. NECK: Supple. LUNGS: There are no carotid bruits. HEART: Without murmurs, rubs or gallops. ABDOMEN: Reveals normal bowel sounds. EXTREMITIES: Revealed no bruising or ecchymoses. The toes of the left foot are surgically absent. NEUROLOGIC: She is comatose, follows 0 commands with constant chewing motions on the endotracheal tube as described. She decerebrates with both arms to pinch of either arm and has a moderate flexion response with pinch to either leg and only of that leg, at which point her forehead furrows with a mild symmetric grimace. There is no spontaneous movement of the extremities and no jerking. The eyes are disconjugate with occasional roving extraocular movements. She lacks full extraocular movement on Doll's head maneuver. There is no nystagmus. The pupils are 3 mm bilaterally brown minimally reactive to bright light stimulus. MOTOR: Described as above. SENSORY EXAMINATION: See responses to noxious stimulus as described above. CEREBELLAR EXAMINATION: No cooperation. EXTREMITIES: Tendon reflexes uniformly absent. Both feet demonstrate flexion withdrawal on plantar stimulation. LABORATORY DATA: The CT scans and MRI of the brain of 01/01/2017, are described as above. IMPRESSION: 1. Coma of multifactorial mechanism. Factors include her: (A) rampant hypertension, initially 248/137 , difficult to control with IV meds, now improved; (B) acute kidney disease, superimposed on chronic kidney disease, initial Creat 3.6, BUN 73; (C) other metabolic abnormalities including her hyperkalemia and hypermagnesemia, etc. 2. Multiple acute cerebral infarcts seen on the MR of 01/01/2017 (not the cause of her coma) in multiple arterial distributions (anterior and posterior, R and L ) suggestive of a proximal source of emboli such as the heart. These are in multiple sizes, some large involving the left MCA distribution posterior division in particular. 3. Rhabdomyolysis secondary to being \\"found down\\" with CK's are more than twice the upper limits of normal. 4. Multiple other diagnoses as summarized above and well documented in the chart. RECOMMENDATION 1. We await the results of the JOSE. 2. Repeat her MRI of brain (seeking a cause of her decerebration-there are now MORE infarcts vs edema with early herniation) and do MRA of the head and neck ( to image the carotid). The patient has a known large vessel arteriopathy (status post bypass to her legs and status post left toe amputations). 3. Get blood cultures x 2 for "occult" SBE(with no significant increase in WBC or fever) in an immunocompromised patient as a cause of an embolic shower to the brain. 4. Get an EEG to exclude ongoing occult seizures as contributing to the overall clinical picture. 5. Go from there. Please order the above if you agree, as I am new here. This consultation is appreciated. JOB# [id number] OLGA/MIRNA LIZARRAGA
[2017-01-06 03:47] LABS: ISTAT Base Excess 7; ISTAT PCO2 31.9 (35-45); ISTAT PH 7.566 (7.35-7.45); ISTAT PO2 60 (80-105); ISTAT SO2 94; ISTAT TCO2 30
[2017-01-06 06:38] LABS: Basophils % (Auto) 0.3 % (0.0-1.8); Eosinophils % (Auto) 0.4 % (0.0-4.3); Hematocrit 20.7 % (30.3-42.9); Hemoglobin 6.9 gm/dl (10.1-14.3); Mean Corpuscular HGB Conc 33 % (30-34); Mean Corpuscular Hemoglobin 30 pg (28-32); Mean Corpuscular Volume 91 fl (79-97); Platelet Count 144 K/mm3 (140-440); Red Blood Count 2.28 M/mm3 (3.65-5.03); Red Cell Distribution Width 15.6 % (13.2-15.2); White Blood Count 11.2 K/mm3 (4.5-11.0)
[2017-01-06 06:55] LABS: BUN/Creatinine Ratio 11.11; Calcium 8.5 mg/dL (8.4-10.2)
[2017-01-06 06:56] LABS: Chloride 93.7 mmol/L (98-107); Potassium 3.7 mmol/L (3.6-5.0)
--- NOTE | 2017-01-06 08:10 | Progress Note ---
Assessment and Plan - Patient Problems (1) ARF (acute renal failure) Current Visit: Yes Status: Acute Qualifiers: Acute renal failure type: A Plan to address problem: Acute kidney injury superimposed on CKD stage 3 in the setting of uncontrolled HTN. S/p hemodialysis on 12/31 and 01/05. No improvement in the kidney so far. Monitor for [employer] needs. Renal prognosis is guarded. (2) Hyperkalemia Current Visit: Yes Status: Acute Plan to address problem: Hyperkalemia in the setting of Acute kidney injury. Improved with hemodialysis. (3) Metabolic acidosis Current Visit: Yes Status: Acute Plan to address problem: Improved. (4) Hypertensive encephalopathy Current Visit: Yes Status: Acute Plan to address problem: Was on Cardene drip. BP is better. (5) Respiratory failure Current Visit: Yes Status: Acute Qualifiers: Chronicity: C Respiratory failure complication: R Plan to address problem: On Vent. (6) Anemia Current Visit: Yes Status: Acute Qualifiers: Anemia type: A Iron deficiency anemia type: I Vitamin B12 deficiency anemia type: V Folate deficiency anemia type: F Bone marrow failure anemia type: B Hemolytic anemia type: H Other causes of anemia: O Chronic kidney disease stage: C Plan to address problem: s/p IV Iron and Epogen yesterday. Hb remains low. Subjective Date of service: 01/06/17 Principal diagnosis: Acute CVA; Acute Respiratory Failure Interval history: Patient remain on the vent. Objective - Vital Signs Vital signs: Vital Signs - 12hr 01/05/17 01/05/17 01/05/17 20:15 20:30 20:45 Temperature Pulse Rate 76 84 76 Respiratory 23 Rate Blood Pressure 171/73 175/94 175/73 O2 Sat by Pulse 97 Oximetry O2 Sat by Pulse Oximetry [ Anterior Bilateral Throughout] 01/05/17 01/05/17 01/05/17 21:00 21:13 21:21 Temperature 98.2 F Pulse Rate 77 79 77 Respiratory 25 H 25 H 25 H Rate Blood Pressure 177/77 182/76 182/76 O2 Sat by Pulse 97 96 Oximetry O2 Sat by Pulse 97 Oximetry [ Anterior Bilateral Throughout] 01/05/17 01/05/17 01/05/17 22:00 22:28 22:29 Temperature Pulse Rate 83 82 83 Respiratory 24 Rate Blood Pressure 192/78 184/74 183/74 O2 Sat by Pulse 96 Oximetry O2 Sat by Pulse Oximetry [ Anterior Bilateral Throughout] 01/05/17 01/05/17 01/05/17 23:00 23:01 23:06 Temperature 99.7 F H Pulse Rate 75 77 Respiratory 26 H Rate Blood Pressure 149/61 149/61 O2 Sat by Pulse 96 96 Oximetry O2 Sat by Pulse Oximetry [ Anterior Bilateral Throughout] 01/06/17 01/06/17 01/06/17 00:00 01:00 02:00 Temperature Pulse Rate 76 74 73 Respiratory 33 H 28 H 26 H Rate Blood Pressure 139/62 139/60 140/58 O2 Sat by Pulse 99 97 97 Oximetry O2 Sat by Pulse Oximetry [ Anterior Bilateral Throughout] 01/06/17 01/06/17 01/06/17 03:00 03:10 04:00 Temperature 98.2 F Pulse Rate 76 76 Respiratory 27 H 26 H Rate Blood Pressure 145/59 155/65 O2 Sat by Pulse 97 100 Oximetry O2 Sat by Pulse Oximetry [ Anterior Bilateral Throughout] 01/06/17 01/06/17 01/06/17 05:00 06:00 07:00 Temperature Pulse Rate 74 72 77 Respiratory 24 22 24 Rate Blood Pressure 155/61 151/66 152/62 O2 Sat by Pulse 99 100 100 Oximetry O2 Sat by Pulse Oximetry [ Anterior Bilateral Throughout] - General Appearance General appearance: well-developed, appears stated age, intubated (FiO2 45%) EENT: ATNC, PERRL Neck: supple Respiratory: Present: Other (coarse breath sounds) Cardiology: regular, S1S2, no murmurs Gastrointestinal: normoactive bowel sounds, no tenderness Integumentary: no rash Neurologic: obtunded Musculoskeletal: other (no edema, right groin hemodialysis catheter) - Lab 01/06/17 05:20 01/06/17 05:20 Most recent lab results Calcium 8.5 mg/dL (8.4-10.2) 01/06/17 05:20 Phosphorus 6.50 mg/dL (2.5-4.5) H 01/04/17 04:45 Magnesium 1.90 mg/dL (1.7-2.3) 01/04/17 04:45
[2017-01-06] MEDS: HEPARIN SUB-Q SCH ×2 (09:25→22:37)
[2017-01-06] MEDS: ASPIRIN PO SCH (09:25)
[2017-01-06] MEDS: NORMODYNE PO SCH ×2 (09:25→22:38)
[2017-01-06] MEDS: KEPPRA PO SCH ×2 (09:26→22:38)
[2017-01-06] MEDS: PEPCID PO SCH (09:26)
[2017-01-06] MEDS: NORVASC PO SCH (09:26)
[2017-01-06] MEDS ORDERED: SUBLIMAZE IV ONE (10:00)
[2017-01-06] MEDS ORDERED: VERSED IV ONE (10:00)
--- NOTE | 2017-01-06 10:42 | Progress Note ---
Assessment and Plan Acute respiratory failure intubated on the vent Acute ischemic CVA Extensive plaque noted in the transverse and descending thoracic aorta, some plaques are mobile Normal LVEF Acute drop in HCT Hypertension Diabetes mellitus PVD Hyperlipidemia Chronic Renal insufficiency requiring renal replacement Recommendations: Full anticoagulation is recommended for the extensive plaque buildup noted in the transverse and descending thoracic aorta Work-up for anemia and neurology input is required prior to initiation of full anticoagulation Subjective Date of service: 01/06/17 Principal diagnosis: Acute CVA; Acute Respiratory Failure Interval history: Patient is HD stable. A JOSE was performed today without complications Objective Vital Signs Temp Pulse Resp BP Pulse Ox Pulse Ox 01/06/17 09:26 77 161/66 01/06/17 09:25 77 161/66 01/06/17 08:58 76 26 H 152/70 100 01/06/17 08:00 98.8 F 01/06/17 07:00 77 24 152/62 100 01/06/17 06:00 72 22 151/66 100 01/06/17 05:00 74 24 155/61 99 01/06/17 04:00 76 26 H 155/65 100 01/06/17 03:10 98.2 F 01/06/17 03:00 76 27 H 145/59 97 01/06/17 02:00 73 26 H 140/58 97 01/06/17 01:00 74 28 H 139/60 97 01/06/17 00:00 76 33 H 139/62 99 01/05/17 23:06 99.7 F H 01/05/17 23:01 77 149/61 96 01/05/17 23:00 75 26 H 149/61 96 01/05/17 22:29 83 183/74 01/05/17 22:28 82 184/74 01/05/17 22:00 83 24 192/78 96 01/05/17 21:21 77 25 H 182/76 96 01/05/17 21:13 98.2 F 79 25 H 182/76 97 01/05/17 21:00 77 25 H 177/77 97 01/05/17 20:45 76 175/73 01/05/17 20:30 84 23 175/94 97 01/05/17 20:15 76 171/73 01/05/17 20:00 74 25 H 167/72 97 01/05/17 19:45 98.1 F 74 163/70 08/29/17 19:30 74 23 164/64 97 01/05/17 19:15 75 166/71 01/05/17 19:13 76 23 163/70 96 01/05/17 19:00 77 25 H 163/70 97 01/05/17 18:45 71 164/71 01/05/17 18:30 73 24 164/71 97 01/05/17 18:15 71 22 162/71 97 01/05/17 18:00 73 23 155/71 96 01/05/17 17:45 98.2 F 72 21 163/71 97 97 01/05/17 17:31 72 23 156/72 97 01/05/17 17:15 73 22 156/72 94 01/05/17 17:00 72 24 156/72 94 01/05/17 16:45 71 22 157/73 94 01/05/17 16:40 22 94 01/05/17 16:31 71 22 157/73 95 01/05/17 16:15 72 22 157/73 95 01/05/17 16:04 69 22 141/65 95 01/05/17 16:00 98.1 F 72 24 157/73 95 01/05/17 15:45 70 22 153/74 95 01/05/17 15:31 70 24 153/74 95 01/05/17 15:15 71 24 153/74 95 01/05/17 15:00 73 21 153/74 96 01/05/17 14:45 71 23 147/70 95 01/05/17 14:31 69 22 141/65 95 01/05/17 14:15 71 25 H 141/65 96 01/05/17 14:00 70 24 147/70 95 01/05/17 13:46 69 23 141/65 95 01/05/17 13:31 70 22 141/65 95 01/05/17 13:15 70 25 H 141/65 95 01/05/17 13:00 69 25 H 141/65 95 01/05/17 12:45 70 24 139/66 95 01/05/17 12:31 69 24 139/66 95 01/05/17 12:15 68 22 139/66 97 01/05/17 12:10 22 97 01/05/17 12:00 98.4 F 69 22 139/66 96 01/05/17 11:57 69 20 155/71 97 01/05/17 11:45 69 23 155/71 97 01/05/17 11:31 67 22 155/71 97 01/05/17 11:15 68 22 155/71 97 01/05/17 11:05 68 01/05/17 11:00 70 22 155/71 97 01/05/17 10:45 71 20 169/78 97 - Physical Examination Neck: Positive: neck supple, trachea midline Cardiac: Positive: Reg Rate and Rhythm Lungs: Positive: Ventilated Respirations - Labs and Meds CBC 01/06/17 Range/Units 05:20 WBC 11.2 H (4.5-11.0) K/mm3 RBC 2.28 L (3.65-5.03) M/mm3 Hgb 6.9 L (10.1-14.3) gm/dl Hct 20.7 L (30.3-42.9) % Plt Count 144 (140-440) K/mm3 Lymph # 1.5 (1.2-5.4) K/mm3 [place] # 0.9 H (0.0-0.8) K/mm3 Eos # 0.0 (0.0-0.4) K/mm3 Baso # 0.0 (0.0-0.1) K/mm3 Comprehensive Metabolic Panel 01/06/17 Range/Units 05:20 Sodium 137 (137-145) mmol/L Potassium 3.7 (3.6-5.0) mmol/L Chloride 93.7 L (98-107) mmol/L Carbon Dioxide 27 (22-30) mmol/L BUN 40 H (7-17) mg/dL Creatinine 3.6 H (0.7-1.2) mg/dL Glucose 191 H (65-100) mg/dL Calcium 8.5 (8.4-10.2) mg/dL - Imaging and Cardiology EKG: image reviewed
[2017-01-06] MEDS: LEVEMIR SUB-Q SCH (12:52)
--- NOTE | 2017-01-06 13:57 | Progress Note ---
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 - continue supportive care - get neurology evaluation - continue secondary prevention with anti-lipid, anti-platelet, BP control therapies - for repeat MRI (3) ARF (acute renal failure) Current Visit: Yes Status: Acute Qualifiers: Acute renal failure type: A Plan to address problem: - seen by nephrology - making urine - started on dialysis - prescription per nephrology but still giving her a chance for renal recovery - will defer to corrections nurse (4) Hyperkalemia Current Visit: Yes Status: Acute Plan to address problem: - corrected - continue to trend and address (5) Hypertensive encephalopathy Current Visit: Yes Status: Acute Plan to address problem: - better BP control - will target pseudo-normal / permissive HTN in short course - prn IV meds for SBP > 170mmHg (6) Seizures Current Visit: Yes Status: Acute Plan to address problem: - per sister no prior history - will continue empiric keppra (7) Anemia Current Visit: Yes Status: Acute Qualifiers: Anemia type: A Iron deficiency anemia type: I Vitamin B12 deficiency anemia type: V Folate deficiency anemia type: F Bone marrow failure anemia type: B Hemolytic anemia type: H Other causes of anemia: O Chronic kidney disease stage: C Plan to address problem: - likely dilutional element - still suspect ABLA component - sent stool guaiac (pending) - get GI consultation - trend H&H (8) Healthcare maintenance Current Visit: Yes Status: Acute Plan to address problem: - on GI prophylaxis - on VTE prophylaxis - cather in place re: SIVA and for CCM issues acutely - glycemic control (9) NSTEMI (non-ST elevated myocardial infarction) Current Visit: Yes Status: Acute Plan to address problem: - will get cardiology evaluation - also need to consider JOSE re: embolic strokes (10) Discharge planning issues Current Visit: Yes Status: Acute Plan to address problem: - care plan discussed at length with sister and i explained that if no significant improvement in mental status she will need a tracheostomy - may need LTAC evaluation eventually ...she is critically ill on life sustaining interventions including MVS and at risk for further deterioration including ...30' CCT Subjective Date of service: 01/06/17 Principal diagnosis: Acute CVA; Acute Respiratory Failure Interval history: Seen and examined at bedside; 24 hour events reviewed; nursing and respiratory care staff consulted; no adverse overnight events reported to me; resting peacefully; tolerating PSV trials but AMS is persistent; no emesis or overt aspiration Objective Vital Signs - 12hr 01/06/17 01/06/17 01/06/17 02:00 03:00 03:10 Temperature 98.2 F Pulse Rate 73 76 Pulse Rate [ Right Dorsalis Pedis] Respiratory 26 H 27 H Rate Blood Pressure 140/58 145/59 O2 Sat by Pulse 97 97 Oximetry 01/06/17 01/06/17 01/06/17 04:00 05:00 06:00 Temperature Pulse Rate 76 74 72 Pulse Rate [ Right Dorsalis Pedis] Respiratory 26 H 24 22 Rate Blood Pressure 155/65 155/61 151/66 O2 Sat by Pulse 100 99 100 Oximetry 01/06/17 01/06/17 01/06/17 07:00 08:00 08:58 Temperature 98.8 F Pulse Rate 77 73 76 Pulse Rate [ 70 Right Dorsalis Pedis] Respiratory 24 22 26 H Rate Blood Pressure 152/62 154/60 152/70 O2 Sat by Pulse 100 99 100 Oximetry 01/06/17 01/06/17 01/06/17 09:00 09:25 09:26 Temperature Pulse Rate 81 77 77 Pulse Rate [ Right Dorsalis Pedis] Respiratory 31 H Rate Blood Pressure 152/70 161/66 161/66 O2 Sat by Pulse 99 Oximetry 01/06/17 01/06/17 01/06/17 10:00 11:00 12:00 Temperature Pulse Rate 70 68 70 Pulse Rate [ Right Dorsalis Pedis] Respiratory 24 24 23 Rate Blood Pressure 144/62 134/60 142/66 O2 Sat by Pulse 100 100 100 Oximetry 01/06/17 12:55 Temperature Pulse Rate 66 Pulse Rate [ Right Dorsalis Pedis] Respiratory 20 Rate Blood Pressure 140/64 O2 Sat by Pulse 100 Oximetry Constitutional: other (obtunded,unresponisve; posturing) Eyes: non-icteric ENT: oropharynx moist Neck: supple, no lymphadenopathy, no JVD Effort: mildly labored Ascultation: Bilateral: diminished breath sounds, rhonchi Cardiovascular: regular rate and rhythm Gastrointestinal: normoactive bowel sounds, soft, non-tender, non-distended Integumentary: normal Extremities: no cyanosis, no edema, other (trans-metatarsal amputation) Neurologic: unable to assess Psychiatric: other (unable to access) CBC and BMP: 01/09/17 04:00 01/09/17 04:00 ABG, PT/INR, D-dimer: ABG POC ABG pH 7.566 (7.35-7.45) H 01/06/17 03:15 POC ABG pCO2 31.9 (35-45) L 01/06/17 03:15 POC ABG pO2 60 (80-105) L 01/06/17 03:15 POC ABG HCO3 29.0 01/06/17 03:15 POC ABG Total CO2 30 01/06/17 03:15 POC ABG O2 Sat 94 01/06/17 03:15 Abnormal lab findings: Abnormal Labs 12/31/16 12/31/16 12/31/16 01:31 01:31 03:42 WBC RBC Hgb Hct RDW Plt Count [place] % (Auto) [place] # Seg Neutrophils % Seg Neutrophils # POC ABG pH POC ABG pCO2 POC ABG pO2 Sodium 146 H Potassium 5.6 H Chloride Carbon Dioxide 14 L BUN 77 H Creatinine 4.0 H Glucose 107 H POC Glucose Calcium Phosphorus Iron TIBC Total Creatine Kinase 678 H 711 H CK-MB (CK-2) 10.5 H Troponin T 0.136 H* D Total Protein Albumin PTH Intact 12/31/16 12/31/16 12/31/16 03:42 06:58 06:58 WBC RBC Hgb Hct RDW Plt Count [place] % (Auto) [place] # Seg Neutrophils % Seg Neutrophils # POC ABG pH POC ABG pCO2 POC ABG pO2 Sodium 147 H Potassium 6.0 H Chloride 107.5 H Carbon Dioxide 12 L BUN 81 H Creatinine 4.6 H Glucose 183 H POC Glucose Calcium Phosphorus Iron TIBC Total Creatine Kinase 787 H CK-MB (CK-2) 10.8 H Troponin T 0.179 H* D Total Protein Albumin PTH Intact 124.4 H 12/31/16 12/31/16 12/31/16 09:34 13:47 15:40 WBC RBC Hgb Hct RDW Plt Count [place] % (Auto) [place] # Seg Neutrophils % Seg Neutrophils # POC ABG pH 7.344 L POC ABG pCO2 33.0 L POC ABG pO2 340 H Sodium Potassium Chloride Carbon Dioxide BUN Creatinine Glucose POC Glucose 294 H Calcium Phosphorus Iron TIBC Total Creatine Kinase CK-MB (CK-2) Troponin T Total Protein 6.1 L D Albumin 3.6 L PTH Intact 12/31/16 12/31/16 12/31/16 16:49 18:05 18:23 WBC RBC Hgb Hct RDW Plt Count [place] % (Auto) [place] # Seg Neutrophils % Seg Neutrophils # POC ABG pH 7.651 H POC ABG pCO2 23.2 L POC ABG pO2 64 L Sodium Potassium Chloride Carbon Dioxide BUN Creatinine Glucose POC Glucose 287 H 259 H Calcium Phosphorus Iron TIBC Total Creatine Kinase CK-MB (CK-2) Troponin T Total Protein Albumin PTH Intact 12/31/16 01/01/17 01/01/17 23:52 05:40 06:35 WBC RBC Hgb Hct RDW Plt Count [place] % (Auto) [place] # Seg Neutrophils % Seg Neutrophils # POC ABG pH POC ABG pCO2 POC ABG pO2 Sodium Potassium Chloride 96.6 L Carbon Dioxide BUN 34 H Creatinine 3.4 H Glucose 142 H POC Glucose 182 H 168 H Calcium 7.6 L D Phosphorus Iron TIBC Total Creatine Kinase CK-MB (CK-2) Troponin T Total Protein Albumin PTH Intact 01/01/17 01/01/17 01/01/17 11:54 12:24 17:10 WBC RBC Hgb Hct RDW Plt Count [place] % (Auto) [place] # Seg Neutrophils % Seg Neutrophils # POC ABG pH 7.536 H POC ABG pCO2 POC ABG pO2 149 H Sodium Potassium Chloride Carbon Dioxide BUN Creatinine Glucose POC Glucose 166 H 160 H Calcium Phosphorus Iron TIBC Total Creatine Kinase CK-MB (CK-2) Troponin T Total Protein Albumin PTH Intact 01/01/17 01/02/17 01/02/17 23:31 03:35 04:01 WBC 12.0 H RBC 2.88 L Hgb 8.4 L D Hct 25.4 L D RDW 15.9 H Plt Count [place] % (Auto) [place] # Seg Neutrophils % 75.3 H Seg Neutrophils # 9.0 H POC ABG pH 7.551 H POC ABG pCO2 33.7 L POC ABG pO2 Sodium Potassium Chloride Carbon Dioxide BUN Creatinine Glucose POC Glucose 232 H Calcium Phosphorus Iron TIBC Total Creatine Kinase CK-MB (CK-2) Troponin T Total Protein Albumin PTH Intact 01/02/17 01/02/17 01/02/17 04:01 05:09 12:28 WBC RBC Hgb Hct RDW Plt Count [place] % (Auto) [place] # Seg Neutrophils % Seg Neutrophils # POC ABG pH POC ABG pCO2 POC ABG pO2 Sodium Potassium Chloride 93.3 L Carbon Dioxide BUN 44 H Creatinine 5.1 H Glucose 208 H POC Glucose 343 H 197 H Calcium 7.7 L Phosphorus Iron TIBC Total Creatine Kinase CK-MB (CK-2) Troponin T Total Protein 6.1 L Albumin 3.1 L PTH Intact 01/02/17 01/02/17 01/02/17 12:40 17:52 18:40 WBC RBC Hgb Hct RDW Plt Count [place] % (Auto) [place] # Seg Neutrophils % Seg Neutrophils # POC ABG pH POC ABG pCO2 POC ABG pO2 Sodium Potassium Chloride Carbon Dioxide BUN Creatinine Glucose POC Glucose 296 H 53 L 172 H Calcium Phosphorus Iron TIBC Total Creatine Kinase CK-MB (CK-2) Troponin T Total Protein Albumin PTH Intact 01/02/17 01/03/17 01/03/17 23:57 03:44 03:44 WBC RBC 2.52 L Hgb 7.6 L Hct 22.5 L RDW 15.4 H Plt Count [place] % (Auto) [place] # Seg Neutrophils % 70.5 H Seg Neutrophils # POC ABG pH POC ABG pCO2 POC ABG pO2 Sodium Potassium Chloride 92.2 L Carbon Dioxide BUN 58 H Creatinine 6.2 H Glucose 147 H POC Glucose 248 H Calcium 7.4 L Phosphorus 5.90 H Iron TIBC Total Creatine Kinase CK-MB (CK-2) Troponin T Total Protein Albumin PTH Intact 01/03/17 01/03/17 01/03/17 05:41 11:51 17:33 WBC RBC Hgb Hct RDW Plt Count [place] % (Auto) [place] # Seg Neutrophils % Seg Neutrophils # POC ABG pH POC ABG pCO2 POC ABG pO2 Sodium Potassium Chloride Carbon Dioxide BUN Creatinine Glucose POC Glucose 190 H 258 H 197 H Calcium Phosphorus Iron TIBC Total Creatine Kinase CK-MB (CK-2) Troponin T Total Protein Albumin PTH Intact 01/03/17 01/03/17 01/04/17 21:38 23:50 04:45 WBC 12.7 H RBC 2.48 L Hgb 7.2 L Hct 22.5 L RDW 15.5 H Plt Count [place] % (Auto) [place] # Seg Neutrophils % 74.0 H Seg Neutrophils # 9.4 H POC ABG pH 7.551 H POC ABG pCO2 34.0 L POC ABG pO2 74 L Sodium Potassium Chloride Carbon Dioxide BUN Creatinine Glucose POC Glucose 189 H Calcium Phosphorus Iron TIBC Total Creatine Kinase CK-MB (CK-2) Troponin T Total Protein Albumin PTH Intact 01/04/17 01/04/17 01/04/17 04:45 05:59 09:53 WBC RBC Hgb Hct RDW Plt Count [place] % (Auto) [place] # Seg Neutrophils % Seg Neutrophils # POC ABG pH 7.550 H POC ABG pCO2 32.9 L POC ABG pO2 64 L Sodium 136 L Potassium Chloride 91.2 L Carbon Dioxide BUN 71 H Creatinine 6.4 H Glucose 167 H POC Glucose 203 H Calcium 7.8 L Phosphorus 6.50 H Iron TIBC Total Creatine Kinase 547 H CK-MB (CK-2) Troponin T Total Protein 5.6 L Albumin 2.7 L PTH Intact 01/04/17 01/04/17 01/04/17 12:15 17:37 23:41 WBC RBC Hgb Hct RDW Plt Count [place] % (Auto) [place] # Seg Neutrophils % Seg Neutrophils # POC ABG pH POC ABG pCO2 POC ABG pO2 Sodium Potassium Chloride Carbon Dioxide BUN Creatinine Glucose POC Glucose 228 H 225 H 231 H Calcium Phosphorus Iron TIBC Total Creatine Kinase CK-MB (CK-2) Troponin T Total Protein Albumin PTH Intact 01/05/17 01/05/17 01/05/17 04:40 04:40 05:24 WBC 11.3 H RBC 2.41 L Hgb 7.1 L Hct 21.6 L RDW 15.7 H Plt Count 138 L [place] % (Auto) 7.7 H [place] # 0.9 H Seg Neutrophils % 71.2 H Seg Neutrophils # 8.0 H POC ABG pH POC ABG pCO2 POC ABG pO2 Sodium 133 L Potassium 3.5 L Chloride 88.7 L Carbon Dioxide BUN 82 H Creatinine 6.5 H Glucose 137 H POC Glucose 175 H Calcium 7.8 L Phosphorus Iron 22 L TIBC 183 L Total Creatine Kinase 312 H CK-MB (CK-2) Troponin T Total Protein Albumin PTH Intact 01/05/17 01/05/17 01/05/17 09:34 11:12 17:33 WBC RBC Hgb Hct RDW Plt Count [place] % (Auto) [place] # Seg Neutrophils % Seg Neutrophils # POC ABG pH 7.531 H POC ABG pCO2 34.4 L POC ABG pO2 57 L Sodium Potassium Chloride Carbon Dioxide BUN Creatinine Glucose POC Glucose 188 H 222 H Calcium Phosphorus Iron TIBC Total Creatine Kinase CK-MB (CK-2) Troponin T Total Protein Albumin PTH Intact 01/05/17 01/06/17 01/06/17 23:24 03:15 05:20 WBC 11.2 H RBC 2.28 L Hgb 6.9 L Hct 20.7 L RDW 15.6 H Plt Count [place] % (Auto) 7.7 H [place] # 0.9 H Seg Neutrophils % 78.2 H Seg Neutrophils # 8.7 H POC ABG pH 7.566 H POC ABG pCO2 31.9 L POC ABG pO2 60 L Sodium Potassium Chloride Carbon Dioxide BUN Creatinine Glucose POC Glucose 223 H Calcium Phosphorus Iron TIBC Total Creatine Kinase CK-MB (CK-2) Troponin T Total Protein Albumin PTH Intact 01/06/17 01/06/17 05:20 05:27 WBC RBC Hgb Hct RDW Plt Count [place] % (Auto) [place] # Seg Neutrophils % Seg Neutrophils # POC ABG pH POC ABG pCO2 POC ABG pO2 Sodium Potassium Chloride 93.7 L Carbon Dioxide BUN 40 H Creatinine 3.6 H Glucose 191 H POC Glucose 244 H Calcium Phosphorus Iron TIBC Total Creatine Kinase CK-MB (CK-2) Troponin T Total Protein Albumin PTH Intact Chest x-ray: image reviewed
[2017-01-06] MEDS ORDERED: NACL 0.9% 500 ML 500 ML IV SCH (18:17)
--- NOTE | 2017-01-06 18:23 | Progress Note ---
Assessment and Plan Assessment and plan: Patient is a 61 yo woman with multiple medical comorbidities including hypertension, diabetes, hyperlipidemia, peripheral vascular disease status post bypass and medical noncompliance and not taking her medications for months, found down by family and brought to ER unresponsive with blood pressure 255/135 1. Malignant hypertension/hypertensive emergency CT head showing chronic ischemic microvascular changes, with no acute infarct or hemorrhage Weaned off of Cardene drip; now on amlodipine and labetalol BP still elevated, will add low dose hydralazine 2. CVA Brain MRI showing multiple acute ischemic areas Started on antiplatelet and statin therapy Cardiology consulted for JOSE to rule out embolic source; monitor rhythm 3. Acute toxic metabolic encephalopathy Likely due to combination of hypertensive encephalopathy/multiple brain infarction areas/ renal failure with uremia/acidosis/electrolytes abnormalities / drug use Treat underlying conditions 4. Acute respiratory failure On mechanical ventilation Unable to be extubated due to mental status Pulmonary following 5. Acute renal failure likely superimposed on chronic kidney disease Significantly elevated BUN/Cr with marked hyperkalemia and metabolic acidosis on admission Nephrology consulted and acute HD initiated Assessing HD need daily 6. Hyperkalemia On admission K+ 6.9; received Kayexalate, insulin/D50, bicarbonate Now on HD Continue to closely monitor 7. Rhabdomyolysis Continue IV fluids CPK trending down 8. Elevated troponin Most likely secondary to hypertensive emergency/renal failure Echocardiogram ordered 9. Anemia Likely multifactorial Iron deficient, so started on supplementation 10. Hyperlipidemia - mixed Total cholesterol 355, LDL 251, TG 298 Starting atorvastatin as CPK trending down and given brain MRI findings 11. Peripheral vascular disease Status post bypass Discontinued anticoagulant therapy on her own months ago 12. Drug abuse UDS positive for marijuana If recovers, will need counseling 13. DVT prophylaxis As CT head negative for hemorrhage, d/c anticoagulation due to worsening anemia 14. Poor prognosis I ordered 2 units of prbc for transfusion, give dulcolax suppository, FOBT stool uncollected. The high probability of a clinically significant, sudden or life threatening deterioration of the [] system(s) required my full and direct attention, intervention and personal management. The aggregate critical care time was [35] minutes. This time is in addition to time spent performing reported procedures but includes the following: [] Data Review and interpretation [] Patient assessment and monitoring of vital signs [] Documentation [] Medication orders and management Hospitalist Physical - Constitutional Vitals: Temp Pulse Resp BP Pulse Ox 98.3 F 71 19 149/64 100 01/06/17 15:54 01/06/17 18:00 01/06/17 18:00 01/06/17 18:00 01/06/17 18:00 General appearance: Present: other (intubated on the vent) Results - Labs CBC & Chem 7: 01/06/17 05:20 01/06/17 05:20 Labs: Laboratory Last Values WBC 11.2 K/mm3 (4.5-11.0) H 01/06/17 05:20 RBC 2.28 M/mm3 (3.65-5.03) L 01/06/17 05:20 Hgb 6.9 gm/dl (10.1-14.3) L 01/06/17 05:20 Hct 20.7 % (30.3-42.9) L 01/06/17 05:20 MCV 91 fl (79-97) 01/06/17 05:20 MCH 30 pg (28-32) 01/06/17 05:20 MCHC 33 % (30-34) 01/06/17 05:20 RDW 15.6 % (13.2-15.2) H 01/06/17 05:20 Plt Count 144 K/mm3 (140-440) 01/06/17 05:20 Lymph % (Auto) 13.4 % (13.4-35.0) 01/06/17 05:20 Becker % (Auto) 7.7 % (0.0-7.3) H 01/06/17 05:20 Eos % (Auto) 0.4 % (0.0-4.3) 01/06/17 05:20 Baso % (Auto) 0.3 % (0.0-1.8) 01/06/17 05:20 Lymph # 1.5 K/mm3 (1.2-5.4) 01/06/17 05:20 Becker # 0.9 K/mm3 (0.0-0.8) H 01/06/17 05:20 Eos # 0.0 K/mm3 (0.0-0.4) 01/06/17 05:20 Baso # 0.0 K/mm3 (0.0-0.1) 01/06/17 05:20 Seg Neutrophils % 78.2 % (40.0-70.0) H 01/06/17 05:20 Seg Neutrophils # 8.7 K/mm3 (1.8-7.7) H 01/06/17 05:20 POC ABG pH 7.566 (7.35-7.45) H 01/06/17 03:15 POC ABG pCO2 31.9 (35-45) L 01/06/17 03:15 POC ABG pO2 60 (80-105) L 01/06/17 03:15 POC ABG HCO3 29.0 01/06/17 03:15 POC ABG Total CO2 30 01/06/17 03:15 POC ABG O2 Sat 94 01/06/17 03:15 POC ABG Base Excess 7 01/06/17 03:15 FiO2 35 % 01/06/17 03:15 Sodium 137 mmol/L (137-145) 01/06/17 05:20 Potassium 3.7 mmol/L (3.6-5.0) 01/06/17 05:20 Chloride 93.7 mmol/L (98-107) L 01/06/17 05:20 Carbon Dioxide 27 mmol/L (22-30) 01/06/17 05:20 Anion Gap 20 mmol/L 01/06/17 05:20 BUN 40 mg/dL (7-17) H 01/06/17 05:20 Creatinine 3.6 mg/dL (0.7-1.2) H 01/06/17 05:20 Estimated GFR 16 ml/min 01/06/17 05:20 BUN/Creatinine Ratio 11.11 % 01/06/17 05:20 Glucose 191 mg/dL (65-100) H 01/06/17 05:20 POC Glucose 167 (70-105) H 01/06/17 17:39 Lactic Acid 1.30 mmol/L (0.7-2.0) 01/01/17 06:35 Calcium 8.5 mg/dL (8.4-10.2) 01/06/17 05:20 Phosphorus 6.50 mg/dL (2.5-4.5) H 01/04/17 04:45 Magnesium 1.90 mg/dL (1.7-2.3) 01/04/17 04:45 Iron 22 ug/dL (37-170) L 01/05/17 04:40 TIBC 183 mcg/dL (250-450) L 01/05/17 04:40 Ferritin 283.6 ng/mL (13.0-400.0) 01/05/17 04:40 Total Bilirubin 0.40 mg/dL (0.1-1.2) 01/04/17 04:45 Direct Bilirubin < 0.2 mg/dL (0-0.2) 12/31/16 15:40 Indirect Bilirubin 0.1 mg/dL 12/31/16 15:40 AST 25 units/L (5-40) 01/04/17 04:45 ALT 16 units/L (7-56) 01/04/17 04:45 Alkaline Phosphatase 75 units/L (35-129) 01/04/17 04:45 Total Creatine Kinase 312 units/L (30-135) H 01/05/17 04:40 CK-MB (CK-2) 10.8 ng/mL (0.0-4.0) H 12/31/16 06:58 CK-MB (CK-2) Rel Index 1.3 (0-4) 12/31/16 06:58 Troponin T 0.179 ng/mL (0.00-0.029) H* D 12/31/16 06:58 Total Protein 5.6 g/dL (6.3-8.2) L 01/04/17 04:45 Albumin 2.7 g/dL (3.9-5) L 01/04/17 04:45 Albumin/Globulin Ratio 0.9 % 01/04/17 04:45 Triglycerides 298 mg/dL (2-149) H 12/30/16 23:34 Cholesterol 355 mg/dL (50-199) H 12/30/16 23:34 LDL Cholesterol Direct 251 mg/dL (50-130) H 12/30/16 23:34 HDL Cholesterol 45 mg/dL (40-59) 12/30/16 23:34 Cholesterol/HDL Ratio 7.88 % 12/30/16 23:34 TSH 1.320 mlU/mL (0.270-4.200) 12/30/16 21:29 PTH Intact 124.4 pg/mL (15-65) H 12/31/16 03:42 Urine Color Yellow (Yellow) 12/30/16 20:47 Urine Turbidity Clear (Clear) 12/30/16 20:47 Urine pH 5.0 (5.0-7.0) 12/30/16 20:47 Ur Specific [place] 1.023 (1.003-1.030) 12/30/16 20:47 Urine Protein 100 mg/dl mg/dL (Negative) 12/30/16 20:47 Urine Glucose (UA) Neg mg/dL (Negative) 12/30/16 20:47 Urine Ketones Tr mg/dL (Negative) 12/30/16 20:47 Urine Blood Neg (Negative) 12/30/16 20:47 Urine Nitrite Neg (Negative) 12/30/16 20:47 Urine Bilirubin Neg (Negative) 12/30/16 20:47 Urine Urobilinogen 2.0 mg/dL (<2.0) 12/30/16 20:47 Ur Leukocyte Esterase Neg (Negative) 12/30/16 20:47 Urine WBC (Auto) < 1.0 /HPF (0.0-6.0) 12/30/16 20:47 Urine RBC (Auto) 1.0 /HPF (0.0-6.0) 12/30/16 20:47 U Epithel Cells (Auto) 1.0 /HPF (0-13.0) 12/30/16 20:47 Urine Bacteria (Auto) 1+ /HPF (Negative) 12/30/16 20:47 Salicylates < 0.3 mg/dL (2.8-20.0) L 12/30/16 21:29 Urine Opiates Screen Presumptive negative 12/30/16 20:47 Urine Methadone Screen Presumptive negative 12/30/16 20:47 Acetaminophen < 15.0 ug/mL (10.0-30.0) 12/30/16 21:29 Ur Barbiturates Screen Presumptive negative 12/30/16 20:47 Ur Phencyclidine Scrn Presumptive negative 12/30/16 20:47 Ur Amphetamines Screen Presumptive negative 12/30/16 20:47 U Benzodiazepines Scrn Presumptive negative 12/30/16 20:47 Urine Cocaine Screen Presumptive negative 12/30/16 20:47 U Marijuana (THC) Screen Presumptive positive 12/30/16 20:47 Drugs of Abuse Note Disclamer 12/30/16 20:47 Plasma/Serum Alcohol < 0.01 gm% (0-0.07) 12/30/16 21:29
[2017-01-06] MEDS ORDERED: DULCOLAX PR ONE (19:00)
[2017-01-06] MEDS ORDERED: NACL 0.9% 250ML 250 ML ONE (22:31)
[2017-01-07] MEDS: NOVOLOG SUB-Q SCH ×5 (01:07→18:23)
[2017-01-07 04:08] LABS: ISTAT Base Excess 7; ISTAT HCO3 29.5; ISTAT PCO2 34.7 (35-45); ISTAT PH 7.538 (7.35-7.45); ISTAT PO2 60 (80-105); ISTAT SO2 94; ISTAT TCO2 31
[2017-01-07 08:38] LABS: Basophils % (Auto) 0.3 % (0.0-1.8); Eosinophils % (Auto) 0.7 % (0.0-4.3); Hematocrit 26.5 % (30.3-42.9); Hemoglobin 8.8 gm/dl (10.1-14.3); Mean Corpuscular HGB Conc 33 % (30-34); Mean Corpuscular Hemoglobin 29 pg (28-32); Mean Corpuscular Volume 89 fl (79-97); Platelet Count 169 K/mm3 (140-440); Red Blood Count 2.98 M/mm3 (3.65-5.03); Red Cell Distribution Width 16.3 % (13.2-15.2); White Blood Count 11.5 K/mm3 (4.5-11.0)
[2017-01-07 09:35] LABS: BUN/Creatinine Ratio 11.7; Calcium 8.4 mg/dL (8.4-10.2); Chloride 93.8 mmol/L (98-107); Potassium 3.7 mmol/L (3.6-5.0)
[2017-01-07] MEDS: ASPIRIN PO SCH (09:35)
[2017-01-07] MEDS: NORMODYNE PO SCH ×2 (09:35→21:10)
[2017-01-07] MEDS: NORVASC PO SCH (09:35)
[2017-01-07] MEDS: LEVEMIR SUB-Q SCH (09:36)
[2017-01-07] MEDS: HEPARIN SUB-Q SCH ×2 (09:36→21:11)
[2017-01-07] MEDS: KEPPRA PO SCH ×2 (09:36→21:10)
[2017-01-07] MEDS: PEPCID PO SCH (09:36)
--- NOTE | 2017-01-07 09:41 | Progress Note ---
Assessment and Plan - Patient Problems (1) ARF (acute renal failure) Current Visit: Yes Status: Acute Plan to address problem: Acute kidney injury superimposed on CKD stage 3 in the setting of uncontrolled HTN. S/p hemodialysis on 12/31 and 01/05. No improvement in the kidney so far. Monitor for BRICK BAKER needs. Renal prognosis is guarded. (2) Hyperkalemia Current Visit: Yes Status: Acute Plan to address problem: Hyperkalemia in the setting of Acute kidney injury. Improved with hemodialysis. (3) Metabolic acidosis Current Visit: Yes Status: Acute Plan to address problem: Improved. (4) Hypertensive encephalopathy Current Visit: Yes Status: Acute Plan to address problem: BP is better. (5) Respiratory failure Current Visit: Yes Status: Acute Plan to address problem: On Vent. (6) Anemia Current Visit: Yes Status: Acute Plan to address problem: s/p IV Iron and Epogen. Hb is better. Subjective Date of service: 01/07/17 Principal diagnosis: Acute CVA; Acute Respiratory Failure Interval history: Patient remain on the vent. Objective - Vital Signs Vital signs: Vital Signs - 12hr 01/06/17 01/06/17 01/06/17 22:00 22:01 22:38 Temperature Pulse Rate 66 79 77 Respiratory 39 H Rate Blood Pressure 195/82 195/82 O2 Sat by Pulse 96 Oximetry 01/06/17 01/06/17 01/06/17 22:50 23:00 23:07 Temperature 98.3 F Pulse Rate 76 77 74 Respiratory 18 34 H Rate Blood Pressure 195/82 177/76 177/76 O2 Sat by Pulse 96 97 96 Oximetry 01/06/17 01/06/17 01/06/17 23:10 23:40 23:41 Temperature 97.7 F 99 F Pulse Rate 73 65 68 Respiratory 12 24 28 H Rate Blood Pressure 177/76 159/74 158/73 O2 Sat by Pulse 96 Oximetry 01/07/17 01/07/17 01/07/17 00:00 00:10 00:40 Temperature 99.0 F 98.9 F 98.9 F Pulse Rate 68 66 65 Respiratory 23 25 H 24 Rate Blood Pressure 159/74 153/68 146/69 O2 Sat by Pulse 98 Oximetry 01/07/17 01/07/17 01/07/17 01:00 02:00 02:40 Temperature 98.8 F Pulse Rate 67 66 65 Respiratory 28 H 24 21 Rate Blood Pressure 146/69 147/67 155/71 O2 Sat by Pulse 98 98 98 Oximetry 01/07/17 01/07/17 01/07/17 02:45 03:00 03:16 Temperature 98.7 F 98.9 F Pulse Rate 65 68 65 Respiratory 21 25 H Rate Blood Pressure 152/68 154/72 158/69 O2 Sat by Pulse 98 98 Oximetry 01/07/17 01/07/17 01/07/17 03:30 03:36 04:00 Temperature 98.4 F 99.4 F 98.2 F Pulse Rate 67 69 Respiratory 19 14 Rate Blood Pressure 144/62 161/75 O2 Sat by Pulse 100 Oximetry 01/07/17 01/07/17 01/07/17 04:30 05:00 06:00 Temperature 98.2 F 98.3 F Pulse Rate 65 68 70 Respiratory 20 18 18 Rate Blood Pressure 161/73 157/77 155/77 O2 Sat by Pulse 98 98 97 Oximetry 01/07/17 01/07/17 01/07/17 07:00 07:58 08:00 Temperature 97.6 F Pulse Rate 67 70 Respiratory 21 25 H Rate Blood Pressure 157/66 162/69 O2 Sat by Pulse 98 97 Oximetry 01/07/17 01/07/17 08:26 09:35 Temperature Pulse Rate 65 67 Respiratory 21 Rate Blood Pressure 163/72 166/71 O2 Sat by Pulse 97 Oximetry - General Appearance General appearance: well-developed, appears stated age, intubated, other (right groin hemodialysis catheter) EENT: ATNC, PERRL Neck: supple Respiratory: Present: Other (coarse breath sounds) Cardiology: regular, S1S2, no murmurs Gastrointestinal: normoactive bowel sounds, no tenderness Integumentary: no rash Neurologic: obtunded Musculoskeletal: other (no edema) - Lab 01/08/17 05:30 01/08/17 05:30 Most recent lab results Calcium 8.4 mg/dL (8.4-10.2) 01/07/17 08:14 Phosphorus 5.00 mg/dL (2.5-4.5) H 01/07/17 08:14 Magnesium 1.90 mg/dL (1.7-2.3) 01/04/17 04:45
--- NOTE | 2017-01-07 10:57 | Progress Note ---
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 - continue supportive care - get neurology evaluation - continue secondary prevention with anti-lipid, anti-platelet, BP control therapies - for repeat MRI in am - unstable artheroma seen on JOSE likely embolic source - reconsider full anticoagulation after repeat MRI re: risk of hemorrhagic conversion (3) ARF (acute renal failure) Current Visit: Yes Status: Acute Qualifiers: Acute renal failure type: A Plan to address problem: - seen by nephrology - making urine - started on dialysis - prescription per nephrology but still giving her a chance for renal recovery - on supportive [employer] - will defer to dinkey operator slate (4) Hyperkalemia Current Visit: Yes Status: Acute Plan to address problem: - corrected - continue to trend and address (5) Hypertensive encephalopathy Current Visit: Yes Status: Acute Plan to address problem: - better BP control - will target pseudo-normal / permissive HTN in short course - prn IV meds for SBP > 170mmHg (6) Seizures Current Visit: Yes Status: Acute Plan to address problem: - per sister no prior history - will continue empiric keppra (7) Anemia Current Visit: Yes Status: Acute Qualifiers: Anemia type: A Iron deficiency anemia type: I Vitamin B12 deficiency anemia type: V Folate deficiency anemia type: F Bone marrow failure anemia type: B Hemolytic anemia type: H Other causes of anemia: O Chronic kidney disease stage: C Plan to address problem: - likely dilutional element - still suspect ABLA component - sent stool guaiac (pending) - get GI consultation - trend H&H (8) Healthcare maintenance Current Visit: Yes Status: Acute Plan to address problem: - on GI prophylaxis - on VTE prophylaxis - cather in place re: SIVA and for CCM issues acutely - glycemic control for target BG < 180mg/dl (9) NSTEMI (non-ST elevated myocardial infarction) Current Visit: Yes Status: Acute Plan to address problem: - will get cardiology evaluation - s/p JOSE with unstable aortic artheroma seen (10) Discharge planning issues Current Visit: Yes Status: Acute Plan to address problem: - care plan discussed at length with sister and i explained that if no significant improvement in mental status she will need a tracheostomy - may need LTAC evaluation eventually ...she remains critically ill on life sustaining interventions including MVS and at risk for further deterioration including ...30' CCT Subjective Date of service: 01/07/17 Principal diagnosis: Acute CVA; Acute Respiratory Failure Interval history: Seen and examined at bedside; 24 hour events reviewed; nursing and respiratory care staff consulted; no adverse overnight events reported to me; resting in bed; for repeat MRI tomorrow; AMS is persistent; posturing to sternal rub; no emesis or overt aspiration and tolerating tube feeds; remains on supportive [employer] Objective Vital Signs - 12hr 01/06/17 01/06/17 01/06/17 23:00 23:07 23:10 Temperature 97.7 F Pulse Rate 77 74 73 Respiratory 34 H 12 Rate Blood Pressure 177/76 177/76 177/76 O2 Sat by Pulse 97 96 Oximetry 01/06/17 01/06/17 01/07/17 23:40 23:41 00:00 Temperature 99 F 99.0 F Pulse Rate 65 68 68 Respiratory 24 28 H 23 Rate Blood Pressure 159/74 158/73 159/74 O2 Sat by Pulse 96 98 Oximetry 01/07/17 01/07/17 01/07/17 00:10 00:40 01:00 Temperature 98.9 F 98.9 F Pulse Rate 66 65 67 Respiratory 25 H 24 28 H Rate Blood Pressure 153/68 146/69 146/69 O2 Sat by Pulse 98 Oximetry 01/07/17 01/07/17 01/07/17 02:00 02:40 02:45 Temperature 98.8 F 98.7 F Pulse Rate 66 65 65 Respiratory 24 21 21 Rate Blood Pressure 147/67 155/71 152/68 O2 Sat by Pulse 98 98 Oximetry 01/07/17 01/07/17 01/07/17 03:00 03:16 03:30 Temperature 98.9 F 98.4 F Pulse Rate 68 65 67 Respiratory 25 H 19 Rate Blood Pressure 154/72 158/69 144/62 O2 Sat by Pulse 98 98 Oximetry 01/07/17 01/07/17 01/07/17 03:36 04:00 04:30 Temperature 99.4 F 98.2 F 98.2 F Pulse Rate 69 65 Respiratory 14 20 Rate Blood Pressure 161/75 161/73 O2 Sat by Pulse 100 98 Oximetry 01/07/17 01/07/17 01/07/17 05:00 06:00 07:00 Temperature 98.3 F Pulse Rate 68 70 67 Respiratory 18 18 21 Rate Blood Pressure 157/77 155/77 157/66 O2 Sat by Pulse 98 97 98 Oximetry 01/07/17 01/07/17 01/07/17 07:58 08:00 08:26 Temperature 97.6 F Pulse Rate 70 65 Respiratory 25 H 21 Rate Blood Pressure 162/69 163/72 O2 Sat by Pulse 97 97 Oximetry 01/07/17 01/07/17 01/07/17 09:00 09:35 10:00 Temperature Pulse Rate 70 67 66 Respiratory 25 H 23 Rate Blood Pressure 160/67 166/71 152/71 O2 Sat by Pulse 97 98 Oximetry Constitutional: no acute distress, other (obtunded,unresponisve; posturing) Eyes: non-icteric ENT: oropharynx moist Neck: supple, no lymphadenopathy, no JVD Effort: mildly labored Ascultation: Bilateral: diminished breath sounds, rhonchi (base) Cardiovascular: regular rate and rhythm Gastrointestinal: normoactive bowel sounds, soft, non-tender, non-distended Integumentary: normal Extremities: no cyanosis, no edema, pulses normal, other (trans-metatarsal amputation) Neurologic: unable to assess Psychiatric: other (unable to access) CBC and BMP: 01/09/17 04:00 01/09/17 04:00 ABG, PT/INR, D-dimer: ABG POC ABG pH 7.538 (7.35-7.45) H 01/07/17 04:05 POC ABG pCO2 34.7 (35-45) L 01/07/17 04:05 POC ABG pO2 60 (80-105) L 01/07/17 04:05 POC ABG HCO3 29.5 01/07/17 04:05 POC ABG Total CO2 31 01/07/17 04:05 POC ABG O2 Sat 94 01/07/17 04:05 Abnormal lab findings: Abnormal Labs 12/31/16 12/31/16 12/31/16 01:31 01:31 03:42 WBC RBC Hgb Hct RDW Plt Count [place] % (Auto) [place] # Seg Neutrophils % Seg Neutrophils # POC ABG pH POC ABG pCO2 POC ABG pO2 Sodium 146 H Potassium 5.6 H Chloride Carbon Dioxide 14 L BUN 77 H Creatinine 4.0 H Glucose 107 H POC Glucose Calcium Phosphorus Iron TIBC Total Creatine Kinase 678 H 711 H CK-MB (CK-2) 10.5 H Troponin T 0.136 H* D Total Protein Albumin PTH Intact Crossmatch 12/31/16 12/31/16 12/31/16 03:42 06:58 06:58 WBC RBC Hgb Hct RDW Plt Count [place] % (Auto) [place] # Seg Neutrophils % Seg Neutrophils # POC ABG pH POC ABG pCO2 POC ABG pO2 Sodium 147 H Potassium 6.0 H Chloride 107.5 H Carbon Dioxide 12 L BUN 81 H Creatinine 4.6 H Glucose 183 H POC Glucose Calcium Phosphorus Iron TIBC Total Creatine Kinase 787 H CK-MB (CK-2) 10.8 H Troponin T 0.179 H* D Total Protein Albumin PTH Intact 124.4 H Crossmatch 12/31/16 12/31/16 12/31/16 09:34 13:47 15:40 WBC RBC Hgb Hct RDW Plt Count [place] % (Auto) [place] # Seg Neutrophils % Seg Neutrophils # POC ABG pH 7.344 L POC ABG pCO2 33.0 L POC ABG pO2 340 H Sodium Potassium Chloride Carbon Dioxide BUN Creatinine Glucose POC Glucose 294 H Calcium Phosphorus Iron TIBC Total Creatine Kinase CK-MB (CK-2) Troponin T Total Protein 6.1 L D Albumin 3.6 L PTH Intact Crossmatch 12/31/16 12/31/16 12/31/16 16:49 18:05 18:23 WBC RBC Hgb Hct RDW Plt Count [place] % (Auto) [place] # Seg Neutrophils % Seg Neutrophils # POC ABG pH 7.651 H POC ABG pCO2 23.2 L POC ABG pO2 64 L Sodium Potassium Chloride Carbon Dioxide BUN Creatinine Glucose POC Glucose 287 H 259 H Calcium Phosphorus Iron TIBC Total Creatine Kinase CK-MB (CK-2) Troponin T Total Protein Albumin PTH Intact Crossmatch 12/31/16 01/01/17 01/01/17 23:52 05:40 06:35 WBC RBC Hgb Hct RDW Plt Count [place] % (Auto) [place] # Seg Neutrophils % Seg Neutrophils # POC ABG pH POC ABG pCO2 POC ABG pO2 Sodium Potassium Chloride 96.6 L Carbon Dioxide BUN 34 H Creatinine 3.4 H Glucose 142 H POC Glucose 182 H 168 H Calcium 7.6 L D Phosphorus Iron TIBC Total Creatine Kinase CK-MB (CK-2) Troponin T Total Protein Albumin PTH Intact Crossmatch 01/01/17 01/01/17 01/01/17 11:54 12:24 17:10 WBC RBC Hgb Hct RDW Plt Count [place] % (Auto) [place] # Seg Neutrophils % Seg Neutrophils # POC ABG pH 7.536 H POC ABG pCO2 POC ABG pO2 149 H Sodium Potassium Chloride Carbon Dioxide BUN Creatinine Glucose POC Glucose 166 H 160 H Calcium Phosphorus Iron TIBC Total Creatine Kinase CK-MB (CK-2) Troponin T Total Protein Albumin PTH Intact Crossmatch 01/01/17 01/02/17 01/02/17 23:31 03:35 04:01 WBC 12.0 H RBC 2.88 L Hgb 8.4 L D Hct 25.4 L D RDW 15.9 H Plt Count [place] % (Auto) [place] # Seg Neutrophils % 75.3 H Seg Neutrophils # 9.0 H POC ABG pH 7.551 H POC ABG pCO2 33.7 L POC ABG pO2 Sodium Potassium Chloride Carbon Dioxide BUN Creatinine Glucose POC Glucose 232 H Calcium Phosphorus Iron TIBC Total Creatine Kinase CK-MB (CK-2) Troponin T Total Protein Albumin PTH Intact Crossmatch 01/02/17 01/02/17 01/02/17 04:01 05:09 12:28 WBC RBC Hgb Hct RDW Plt Count [place] % (Auto) [place] # Seg Neutrophils % Seg Neutrophils # POC ABG pH POC ABG pCO2 POC ABG pO2 Sodium Potassium Chloride 93.3 L Carbon Dioxide BUN 44 H Creatinine 5.1 H Glucose 208 H POC Glucose 343 H 197 H Calcium 7.7 L Phosphorus Iron TIBC Total Creatine Kinase CK-MB (CK-2) Troponin T Total Protein 6.1 L Albumin 3.1 L PTH Intact Crossmatch 01/02/17 01/02/17 01/02/17 12:40 17:52 18:40 WBC RBC Hgb Hct RDW Plt Count [place] % (Auto) [place] # Seg Neutrophils % Seg Neutrophils # POC ABG pH POC ABG pCO2 POC ABG pO2 Sodium Potassium Chloride Carbon Dioxide BUN Creatinine Glucose POC Glucose 296 H 53 L 172 H Calcium Phosphorus Iron TIBC Total Creatine Kinase CK-MB (CK-2) Troponin T Total Protein Albumin PTH Intact Crossmatch 01/02/17 01/03/17 01/03/17 23:57 03:44 03:44 WBC RBC 2.52 L Hgb 7.6 L Hct 22.5 L RDW 15.4 H Plt Count [place] % (Auto) [place] # Seg Neutrophils % 70.5 H Seg Neutrophils # POC ABG pH POC ABG pCO2 POC ABG pO2 Sodium Potassium Chloride 92.2 L Carbon Dioxide BUN 58 H Creatinine 6.2 H Glucose 147 H POC Glucose 248 H Calcium 7.4 L Phosphorus 5.90 H Iron TIBC Total Creatine Kinase CK-MB (CK-2) Troponin T Total Protein Albumin PTH Intact Crossmatch 01/03/17 01/03/17 01/03/17 05:41 11:51 17:33 WBC RBC Hgb Hct RDW Plt Count [place] % (Auto) [place] # Seg Neutrophils % Seg Neutrophils # POC ABG pH POC ABG pCO2 POC ABG pO2 Sodium Potassium Chloride Carbon Dioxide BUN Creatinine Glucose POC Glucose 190 H 258 H 197 H Calcium Phosphorus Iron TIBC Total Creatine Kinase CK-MB (CK-2) Troponin T Total Protein Albumin PTH Intact Crossmatch 01/03/17 01/03/17 01/04/17 21:38 23:50 04:45 WBC 12.7 H RBC 2.48 L Hgb 7.2 L Hct 22.5 L RDW 15.5 H Plt Count [place] % (Auto) [place] # Seg Neutrophils % 74.0 H Seg Neutrophils # 9.4 H POC ABG pH 7.551 H POC ABG pCO2 34.0 L POC ABG pO2 74 L Sodium Potassium Chloride Carbon Dioxide BUN Creatinine Glucose POC Glucose 189 H Calcium Phosphorus Iron TIBC Total Creatine Kinase CK-MB (CK-2) Troponin T Total Protein Albumin PTH Intact Crossmatch 01/04/17 01/04/17 01/04/17 04:45 05:59 09:53 WBC RBC Hgb Hct RDW Plt Count [place] % (Auto) [place] # Seg Neutrophils % Seg Neutrophils # POC ABG pH 7.550 H POC ABG pCO2 32.9 L POC ABG pO2 64 L Sodium 136 L Potassium Chloride 91.2 L Carbon Dioxide BUN 71 H Creatinine 6.4 H Glucose 167 H POC Glucose 203 H Calcium 7.8 L Phosphorus 6.50 H Iron TIBC Total Creatine Kinase 547 H CK-MB (CK-2) Troponin T Total Protein 5.6 L Albumin 2.7 L PTH Intact Crossmatch 01/04/17 01/04/17 01/04/17 12:15 17:37 23:41 WBC RBC Hgb Hct RDW Plt Count [place] % (Auto) [place] # Seg Neutrophils % Seg Neutrophils # POC ABG pH POC ABG pCO2 POC ABG pO2 Sodium Potassium Chloride Carbon Dioxide BUN Creatinine Glucose POC Glucose 228 H 225 H 231 H Calcium Phosphorus Iron TIBC Total Creatine Kinase CK-MB (CK-2) Troponin T Total Protein Albumin PTH Intact Crossmatch 01/05/17 01/05/17 01/05/17 04:40 04:40 05:24 WBC 11.3 H RBC 2.41 L Hgb 7.1 L Hct 21.6 L RDW 15.7 H Plt Count 138 L [place] % (Auto) 7.7 H [place] # 0.9 H Seg Neutrophils % 71.2 H Seg Neutrophils # 8.0 H POC ABG pH POC ABG pCO2 POC ABG pO2 Sodium 133 L Potassium 3.5 L Chloride 88.7 L Carbon Dioxide BUN 82 H Creatinine 6.5 H Glucose 137 H POC Glucose 175 H Calcium 7.8 L Phosphorus Iron 22 L TIBC 183 L Total Creatine Kinase 312 H CK-MB (CK-2) Troponin T Total Protein Albumin PTH Intact Crossmatch 01/05/17 01/05/17 01/05/17 09:34 11:12 17:33 WBC RBC Hgb Hct RDW Plt Count [place] % (Auto) [place] # Seg Neutrophils % Seg Neutrophils # POC ABG pH 7.531 H POC ABG pCO2 34.4 L POC ABG pO2 57 L Sodium Potassium Chloride Carbon Dioxide BUN Creatinine Glucose POC Glucose 188 H 222 H Calcium Phosphorus Iron TIBC Total Creatine Kinase CK-MB (CK-2) Troponin T Total Protein Albumin PTH Intact Crossmatch 01/05/17 01/06/17 01/06/17 23:24 03:15 05:20 WBC 11.2 H RBC 2.28 L Hgb 6.9 L Hct 20.7 L RDW 15.6 H Plt Count [place] % (Auto) 7.7 H [place] # 0.9 H Seg Neutrophils % 78.2 H Seg Neutrophils # 8.7 H POC ABG pH 7.566 H POC ABG pCO2 31.9 L POC ABG pO2 60 L Sodium Potassium Chloride Carbon Dioxide BUN Creatinine Glucose POC Glucose 223 H Calcium Phosphorus Iron TIBC Total Creatine Kinase CK-MB (CK-2) Troponin T Total Protein Albumin PTH Intact Crossmatch 01/06/17 01/06/17 01/06/17 05:20 05:27 11:54 WBC RBC Hgb Hct RDW Plt Count [place] % (Auto) [place] # Seg Neutrophils % Seg Neutrophils # POC ABG pH POC ABG pCO2 POC ABG pO2 Sodium Potassium Chloride 93.7 L Carbon Dioxide BUN 40 H Creatinine 3.6 H Glucose 191 H POC Glucose 244 H 184 H Calcium Phosphorus Iron TIBC Total Creatine Kinase CK-MB (CK-2) Troponin T Total Protein Albumin PTH Intact Crossmatch 01/06/17 01/06/17 01/06/17 17:39 19:00 23:57 WBC RBC Hgb Hct RDW Plt Count [place] % (Auto) [place] # Seg Neutrophils % Seg Neutrophils # POC ABG pH POC ABG pCO2 POC ABG pO2 Sodium Potassium Chloride Carbon Dioxide BUN Creatinine Glucose POC Glucose 167 H 191 H Calcium Phosphorus Iron TIBC Total Creatine Kinase CK-MB (CK-2) Troponin T Total Protein Albumin PTH Intact Crossmatch See Detail 01/07/17 01/07/17 01/07/17 04:05 05:32 08:14 WBC 11.5 H RBC 2.98 L Hgb 8.8 L Hct 26.5 L RDW 16.3 H Plt Count [place] % (Auto) 8.8 H [place] # 1.0 H Seg Neutrophils % 70.4 H Seg Neutrophils # 8.1 H POC ABG pH 7.538 H POC ABG pCO2 34.7 L POC ABG pO2 60 L Sodium Potassium Chloride Carbon Dioxide BUN Creatinine Glucose POC Glucose 139 H Calcium Phosphorus Iron TIBC Total Creatine Kinase CK-MB (CK-2) Troponin T Total Protein Albumin PTH Intact Crossmatch 01/07/17 08:14 WBC RBC Hgb Hct RDW Plt Count [place] % (Auto) [place] # Seg Neutrophils % Seg Neutrophils # POC ABG pH POC ABG pCO2 POC ABG pO2 Sodium Potassium Chloride 93.8 L Carbon Dioxide BUN 55 H Creatinine 4.7 H Glucose 161 H POC Glucose Calcium Phosphorus 5.00 H Iron TIBC Total Creatine Kinase CK-MB (CK-2) Troponin T Total Protein Albumin PTH Intact Crossmatch
--- NOTE | 2017-01-07 12:18 | Progress Note ---
<ANDRE COONEY - Last Filed: 01/07/17 12:15> Assessment and Plan Acute respiratory failure intubated on the vent Acute ischemic CVA Extensive plaque noted in the transverse and descending thoracic aorta, some plaques are mobile Normal LVEF Acute drop in HCT s/p transfusion of PRBCs Hypertension Diabetes mellitus PVD Hyperlipidemia Chronic Renal insufficiency requiring renal replacement Recommendations: Full anticoagulation is recommended for the extensive plaque buildup noted in the transverse and descending thoracic aorta Work-up for anemia and neurology input is required prior to initiation of full anticoagulation Subjective Date of service: 01/07/17 Principal diagnosis: Acute CVA; Acute Respiratory Failure Interval history: Remains intubated on the vent. No family members present. Objective Vital Signs Temp Pulse Resp BP Pulse Ox 01/07/17 11:00 63 21 141/67 97 01/07/17 10:00 66 23 152/71 98 01/07/17 09:35 67 166/71 01/07/17 09:00 70 25 H 160/67 97 01/07/17 08:26 65 21 163/72 97 01/07/17 08:00 70 25 H 162/69 97 01/07/17 07:58 97.6 F 01/07/17 07:00 67 21 157/66 98 01/07/17 06:00 70 18 155/77 97 01/07/17 05:00 98.3 F 68 18 157/77 98 01/07/17 04:30 98.2 F 65 20 161/73 98 01/07/17 04:00 98.2 F 69 14 161/75 100 01/07/17 03:36 99.4 F 01/07/17 03:30 98.4 F 67 19 144/62 01/07/17 03:16 65 158/69 98 01/07/17 03:00 98.9 F 68 25 H 154/72 98 01/07/17 02:45 98.7 F 65 21 152/68 01/07/17 02:40 98.8 F 65 21 155/71 98 01/07/17 02:00 66 24 147/67 98 01/07/17 01:00 67 28 H 146/69 98 01/07/17 00:40 98.9 F 65 24 146/69 01/07/17 00:10 98.9 F 66 25 H 153/68 01/07/17 00:00 99.0 F 68 23 159/74 98 01/06/17 23:41 68 28 H 158/73 96 01/06/17 23:40 99 F 65 24 159/74 01/06/17 23:10 97.7 F 73 12 177/76 01/06/17 23:07 74 177/76 96 01/06/17 23:00 77 34 H 177/76 97 01/06/17 22:50 98.3 F 76 18 195/82 96 01/06/17 22:38 77 195/82 01/06/17 22:01 79 39 H 195/82 96 01/06/17 22:00 66 01/06/17 21:00 72 22 161/74 97 01/06/17 20:00 98.3 F 73 22 154/66 98 01/06/17 19:07 72 20 151/63 99 01/06/17 19:00 70 20 151/63 98 01/06/17 18:00 71 19 149/64 100 01/06/17 17:20 71 153/61 98 01/06/17 17:00 70 16 146/65 100 01/06/17 16:00 71 21 137/64 100 01/06/17 15:54 98.3 F 01/06/17 15:00 68 21 129/59 99 01/06/17 14:00 68 22 130/55 100 01/06/17 13:00 68 24 135/62 100 01/06/17 12:55 66 20 140/64 100 - Physical Examination General: Other (intubated on the vent) Cardiac: Positive: Reg Rate and Rhythm - Labs and Meds CBC 01/07/17 Range/Units 08:14 WBC 11.5 H (4.5-11.0) K/mm3 RBC 2.98 L (3.65-5.03) M/mm3 Hgb 8.8 L (10.1-14.3) gm/dl Hct 26.5 L (30.3-42.9) % Plt Count 169 (140-440) K/mm3 Lymph # 2.3 (1.2-5.4) K/mm3 [place] # 1.0 H (0.0-0.8) K/mm3 Eos # 0.1 (0.0-0.4) K/mm3 Baso # 0.0 (0.0-0.1) K/mm3 Comprehensive Metabolic Panel 01/07/17 Range/Units 08:14 Sodium 138 (137-145) mmol/L Potassium 3.7 (3.6-5.0) mmol/L Chloride 93.8 L (98-107) mmol/L Carbon Dioxide 26 (22-30) mmol/L BUN 55 H (7-17) mg/dL Creatinine 4.7 H (0.7-1.2) mg/dL Glucose 161 H (65-100) mg/dL Calcium 8.4 (8.4-10.2) mg/dL - Imaging and Cardiology EKG: image reviewed <BENJIE ALCANTARA - Last Filed: 01/11/17 15:59> Assessment and Plan Anticoagulation regimen will be determined by Neurology. Objective Vital Signs Temp Pulse Resp BP Pulse Ox Pulse Ox Pulse Ox 01/11/17 14:44 74 159/65 99 01/11/17 14:00 77 27 H 160/63 97 01/11/17 13:30 98.0 F 74 25 H 156/61 97 97 01/11/17 13:20 72 156/64 01/11/17 13:05 72 161/66 01/11/17 13:00 73 24 161/66 98 01/11/17 12:50 69 146/62 01/11/17 12:35 69 151/63 01/11/17 12:20 70 148/62 01/11/17 12:05 69 159/64 01/11/17 12:00 98.0 F 69 21 159/64 98 01/11/17 11:50 71 165/68 01/11/17 11:35 72 169/71 01/11/17 11:23 75 23 169/67 99 01/11/17 11:20 74 169/67 01/11/17 11:14 75 190/77 01/11/17 11:11 73 190/77 01/11/17 11:08 72 190/77 01/11/17 11:05 70 190/77 01/11/17 11:00 73 21 190/77 100 01/11/17 10:50 67 182/74 01/11/17 10:35 64 167/74 01/11/17 10:20 97.5 F L 62 21 161/71 100 100 01/11/17 10:00 66 18 171/75 98 01/11/17 09:58 64 01/11/17 09:28 168/72 100 01/11/17 08:00 97.5 F L 67 22 157/66 98 01/11/17 07:22 67 21 157/66 100 01/11/17 07:00 64 22 157/66 99 01/11/17 06:00 67 23 148/64 100 01/11/17 05:56 65 20 148/68 100 01/11/17 05:00 63 22 148/64 99 01/11/17 04:42 154/69 98 01/11/17 04:00 154/69 97 01/11/17 03:34 98.7 F 01/11/17 03:00 69 15 154/69 95 01/11/17 02:00 69 29 H 152/67 96 01/11/17 01:00 68 22 150/62 97 01/11/17 00:12 68 22 152/67 96 01/11/17 00:00 69 28 H 152/67 95 01/10/17 23:09 99.3 F 01/10/17 23:01 67 152/65 96 01/10/17 23:00 70 23 152/68 96 01/10/17 22:00 69 22 161/72 97 01/10/17 21:18 72 167/65 01/10/17 21:00 71 22 167/65 97 01/10/17 20:00 72 16 160/69 99 01/10/17 19:42 98.8 F 01/10/17 19:08 70 160/70 98 01/10/17 19:00 72 20 160/71 98 01/10/17 18:00 70 22 160/70 97 01/10/17 17:00 71 26 H 169/77 98 01/10/17 16:52 69 156/70 95 01/10/17 16:00 98.5 F 69 21 156/70 95 - Labs and Meds Comprehensive Metabolic Panel 01/11/17 Range/Units 04:13 Sodium 133 L (137-145) mmol/L Potassium 4.0 (3.6-5.0) mmol/L Chloride 91.0 L (98-107) mmol/L Carbon Dioxide 23 (22-30) mmol/L BUN 63 H (7-17) mg/dL Creatinine 5.1 H (0.7-1.2) mg/dL Glucose 147 H (65-100) mg/dL Calcium 8.7 (8.4-10.2) mg/dL
--- NOTE | 2017-01-07 15:31 | Progress Note ---
Assessment and Plan Assessment and plan: Patient is a 61 yo woman with multiple medical comorbidities including hypertension, diabetes, hyperlipidemia, peripheral vascular disease status post bypass, medical noncompliance and not taking her medications for months, found down by family and brought to ER unresponsive with blood pressure 255/135 - Malignant hypertension/hypertensive emergency CT head showing chronic ischemic microvascular changes, with no acute infarct or hemorrhage Weaned off of Cardene drip; now on amlodipine and labetalol BP still elevated, will add low dose hydralazine - CVA Brain MRI showing multiple acute ischemic areas Started on antiplatelet and statin therapy Cardiology consulted for JOSE to rule out embolic source; monitor rhythm - Acute toxic metabolic encephalopathy Likely due to combination of hypertensive encephalopathy/multiple brain infarction areas/ renal failure with uremia/acidosis/electrolytes abnormalities / drug use Treat underlying conditions -Acute respiratory failure On mechanical ventilation Unable to be extubated due to mental status Pulmonary following - Acute renal failure likely superimposed on chronic kidney disease Significantly elevated BUN/Cr with marked hyperkalemia and metabolic acidosis on admission Nephrology consulted and acute HD initiated Assessing HD need daily -Hyperkalemia On admission K+ 6.9; received Kayexalate, insulin/D50, bicarbonate Now on HD Continue to closely monitor -Rhabdomyolysis Continue IV fluids CPK trending down -Elevated troponin Most likely secondary to hypertensive emergency/renal failure Echocardiogram ordered -Anemia Likely multifactorial Iron deficient, so started on supplementation -Hyperlipidemia - mixed Total cholesterol 355, LDL 251, TG 298 Starting atorvastatin as CPK trending down and given brain MRI findings - Peripheral vascular disease Status post bypass Discontinued anticoagulant therapy on her own months ago - Drug abuse UDS positive for marijuana If recovers, will need counseling - DVT prophylaxis As CT head negative for hemorrhage, d/c anticoagulation due to worsening anemia Poor prognosis History Interval history: Patient was seen and examined. Follow-up on current diagnosis/sob. Overnight uneventful. Still intubated but not sedated Hospitalist Physical - Physical exam Narrative exam: GEN: Ill-appearing on a mechanical ventilator HEENT: ET tube in place NECK: supple, no adenopathy, no thyromegaly, no JVD CVS/HEART: RRR, NORMAL S1S2, NO JVD, pulses present bilaterally CHEST/LUNGS: CTA B, Symmetrical chest expansion, good air entry bilaterally GI/Abdomen: soft, good bowel sounds, no guarding or rebound /Bladder: no suprapubic tenderness, no CVA or paraspinal tenderness Neuro: CN 2-12 grossly abn, no new focal deficits - Constitutional Vitals: Temp Pulse Resp BP Pulse Ox 97.8 F 67 21 147/68 97 01/07/17 12:00 01/07/17 15:00 01/07/17 15:00 01/07/17 15:00 01/07/17 15:00 General appearance: Present: other (intubated on the vent) Results - Labs CBC & Chem 7: 01/07/17 08:14 01/07/17 08:14 Labs: Laboratory Last Values WBC 11.5 K/mm3 (4.5-11.0) H 01/07/17 08:14 RBC 2.98 M/mm3 (3.65-5.03) L 01/07/17 08:14 Hgb 8.8 gm/dl (10.1-14.3) L 01/07/17 08:14 Hct 26.5 % (30.3-42.9) L 01/07/17 08:14 MCV 89 fl (79-97) 01/07/17 08:14 MCH 29 pg (28-32) 01/07/17 08:14 MCHC 33 % (30-34) 01/07/17 08:14 RDW 16.3 % (13.2-15.2) H 01/07/17 08:14 Plt Count 169 K/mm3 (140-440) 01/07/17 08:14 Lymph % (Auto) 19.8 % (13.4-35.0) 01/07/17 08:14 [place]rie % (Auto) 8.8 % (0.0-7.3) H 01/07/17 08:14 Eos % (Auto) 0.7 % (0.0-4.3) 01/07/17 08:14 Baso % (Auto) 0.3 % (0.0-1.8) 01/07/17 08:14 Lymph # 2.3 K/mm3 (1.2-5.4) 01/07/17 08:14 [place]rie # 1.0 K/mm3 (0.0-0.8) H 01/07/17 08:14 Eos # 0.1 K/mm3 (0.0-0.4) 01/07/17 08:14 Baso # 0.0 K/mm3 (0.0-0.1) 01/07/17 08:14 Seg Neutrophils % 70.4 % (40.0-70.0) H 01/07/17 08:14 Seg Neutrophils # 8.1 K/mm3 (1.8-7.7) H 01/07/17 08:14 POC ABG pH 7.538 (7.35-7.45) H 01/07/17 04:05 POC ABG pCO2 34.7 (35-45) L 01/07/17 04:05 POC ABG pO2 60 (80-105) L 01/07/17 04:05 POC ABG HCO3 29.5 01/07/17 04:05 POC ABG Total CO2 31 01/07/17 04:05 POC ABG O2 Sat 94 01/07/17 04:05 POC ABG Base Excess 7 01/07/17 04:05 FiO2 35 % 01/07/17 04:05 Sodium 138 mmol/L (137-145) 01/07/17 08:14 Potassium 3.7 mmol/L (3.6-5.0) 01/07/17 08:14 Chloride 93.8 mmol/L (98-107) L 01/07/17 08:14 Carbon Dioxide 26 mmol/L (22-30) 01/07/17 08:14 Anion Gap 22 mmol/L 01/07/17 08:14 BUN 55 mg/dL (7-17) H 01/07/17 08:14 Creatinine 4.7 mg/dL (0.7-1.2) H 01/07/17 08:14 Estimated GFR 11 ml/min 01/07/17 08:14 BUN/Creatinine Ratio 11.70 % 01/07/17 08:14 Glucose 161 mg/dL (65-100) H 01/07/17 08:14 POC Glucose 205 (70-105) H 01/07/17 11:52 Lactic Acid 1.30 mmol/L (0.7-2.0) 01/01/17 06:35 Calcium 8.4 mg/dL (8.4-10.2) 01/07/17 08:14 Phosphorus 5.00 mg/dL (2.5-4.5) H 01/07/17 08:14 Magnesium 1.90 mg/dL (1.7-2.3) 01/04/17 04:45 Iron 22 ug/dL (37-170) L 01/05/17 04:40 TIBC 183 mcg/dL (250-450) L 01/05/17 04:40 Ferritin 283.6 ng/mL (13.0-400.0) 01/05/17 04:40 Total Bilirubin 0.40 mg/dL (0.1-1.2) 01/04/17 04:45 Direct Bilirubin < 0.2 mg/dL (0-0.2) 12/31/16 15:40 Indirect Bilirubin 0.1 mg/dL 12/31/16 15:40 AST 25 units/L (5-40) 01/04/17 04:45 ALT 16 units/L (7-56) 01/04/17 04:45 Alkaline Phosphatase 75 units/L (35-129) 01/04/17 04:45 Total Creatine Kinase 312 units/L (30-135) H 01/05/17 04:40 CK-MB (CK-2) 10.8 ng/mL (0.0-4.0) H 12/31/16 06:58 CK-MB (CK-2) Rel Index 1.3 (0-4) 12/31/16 06:58 Troponin T 0.179 ng/mL (0.00-0.029) H* D 12/31/16 06:58 Total Protein 5.6 g/dL (6.3-8.2) L 01/04/17 04:45 Albumin 2.7 g/dL (3.9-5) L 01/04/17 04:45 Albumin/Globulin Ratio 0.9 % 01/04/17 04:45 Triglycerides 298 mg/dL (2-149) H 12/30/16 23:34 Cholesterol 355 mg/dL (50-199) H 12/30/16 23:34 LDL Cholesterol Direct 251 mg/dL (50-130) H 12/30/16 23:34 HDL Cholesterol 45 mg/dL (40-59) 12/30/16 23:34 Cholesterol/HDL Ratio 7.88 % 12/30/16 23:34 TSH 1.320 mlU/mL (0.270-4.200) 12/30/16 21:29 PTH Intact 124.4 pg/mL (15-65) H 12/31/16 03:42 Urine Color Yellow (Yellow) 12/30/16 20:47 Urine Turbidity Clear (Clear) 12/30/16 20:47 Urine pH 5.0 (5.0-7.0) 12/30/16 20:47 Ur Specific [place] 1.023 (1.003-1.030) 12/30/16 20:47 Urine Protein 100 mg/dl mg/dL (Negative) 12/30/16 20:47 Urine Glucose (UA) Neg mg/dL (Negative) 12/30/16 20:47 Urine Ketones Tr mg/dL (Negative) 12/30/16 20:47 Urine Blood Neg (Negative) 12/30/16 20:47 Urine Nitrite Neg (Negative) 12/30/16 20:47 Urine Bilirubin Neg (Negative) 12/30/16 20:47 Urine Urobilinogen 2.0 mg/dL (<2.0) 12/30/16 20:47 Ur Leukocyte Esterase Neg (Negative) 12/30/16 20:47 Urine WBC (Auto) < 1.0 /HPF (0.0-6.0) 12/30/16 20:47 Urine RBC (Auto) 1.0 /HPF (0.0-6.0) 12/30/16 20:47 U Epithel Cells (Auto) 1.0 /HPF (0-13.0) 12/30/16 20:47 Urine Bacteria (Auto) 1+ /HPF (Negative) 12/30/16 20:47 Salicylates < 0.3 mg/dL (2.8-20.0) L 12/30/16 21:29 Urine Opiates Screen Presumptive negative 12/30/16 20:47 Urine Methadone Screen Presumptive negative 12/30/16 20:47 Acetaminophen < 15.0 ug/mL (10.0-30.0) 12/30/16 21:29 Ur Barbiturates Screen Presumptive negative 12/30/16 20:47 Ur Phencyclidine Scrn Presumptive negative 12/30/16 20:47 Ur Amphetamines Screen Presumptive negative 12/30/16 20:47 U Benzodiazepines Scrn Presumptive negative 12/30/16 20:47 Urine Cocaine Screen Presumptive negative 12/30/16 20:47 U Marijuana (THC) Screen Presumptive positive 12/30/16 20:47 Drugs of Abuse Note Disclamer 12/30/16 20:47 Plasma/Serum Alcohol < 0.01 gm% (0-0.07) 12/30/16 21:29 Blood Type O NEGATIVE 01/06/17 19:00 Antibody Screen Negative 01/06/17 19:00 Crossmatch See Detail 01/06/17 19:00
[2017-01-07] MEDS ORDERED: fentaNYL DRIP Premix 2,000 MCG/100 ML BAG IV SCH (19:00)
[2017-01-08] MEDS: NOVOLOG SUB-Q SCH ×4 (00:12→19:21)
[2017-01-08 05:52] LABS: Hemoglobin 8.8 gm/dl (10.1-14.3); Mean Corpuscular HGB Conc 34 % (30-34); Mean Corpuscular Hemoglobin 30 pg (28-32); Mean Corpuscular Volume 90 fl (79-97); Red Cell Distribution Width 16.5 % (13.2-15.2)
[2017-01-08 05:56] LABS: Platelet Count 133 K/mm3 (140-440)
[2017-01-08 06:14] LABS: BUN/Creatinine Ratio 12.74; Calcium 7.9 mg/dL (8.4-10.2); Chloride 96.8 mmol/L (98-107); Potassium 3.8 mmol/L (3.6-5.0)
[2017-01-08] MEDS ORDERED: NACL 0.9% 100 ML IV PRN ×2 (08:00→13:39)
--- NOTE | 2017-01-08 09:28 | Progress Note ---
Assessment and Plan Acute respiratory failure intubated on the vent Acute ischemic CVA Extensive plaque noted in the transverse and descending thoracic aorta, some plaques are mobile Normal LVEF Acute drop in HCT s/p transfusion of PRBCs Hypertension Diabetes mellitus PVD Hyperlipidemia Chronic Renal insufficiency requiring renal replacement Leukocytosis Subjective Date of service: 01/08/17 Principal diagnosis: Acute CVA; Acute Respiratory Failure Interval history: Remains intubated on the vent. No family members present. Objective Vital Signs Temp Pulse Resp BP Pulse Ox 01/08/17 08:00 98.1 F 62 16 142/65 98 01/08/17 07:44 66 18 143/64 99 01/08/17 07:35 62 143/64 98 01/08/17 07:00 61 15 139/66 98 01/08/17 06:00 62 16 139/65 99 01/08/17 05:00 64 14 148/70 98 01/08/17 04:00 98.0 F 63 16 140/68 98 01/08/17 03:49 63 129/65 98 01/08/17 03:00 63 18 135/64 99 01/08/17 02:00 61 17 130/66 99 01/08/17 01:00 66 23 134/65 99 01/08/17 00:00 65 21 134/59 97 01/07/17 23:59 98.4 F 01/07/17 23:13 65 24 140/61 98 01/07/17 23:05 66 140/61 98 01/07/17 23:00 65 20 140/61 96 01/07/17 22:00 65 20 149/64 97 01/07/17 21:10 70 154/65 01/07/17 21:00 71 22 154/65 98 01/07/17 20:00 98.9 F 72 23 161/70 98 01/07/17 19:06 71 23 162/70 98 01/07/17 19:00 72 23 162/70 98 01/07/17 18:00 73 26 H 166/78 97 01/07/17 17:25 70 24 156/72 98 01/07/17 17:00 71 26 H 158/72 96 01/07/17 16:00 98.5 F 70 22 143/64 97 01/07/17 15:00 67 21 147/68 97 01/07/17 14:00 66 22 148/68 97 01/07/17 13:00 66 23 150/70 98 01/07/17 12:53 67 20 149/69 99 01/07/17 12:01 66 18 149/69 96 01/07/17 12:00 97.8 F 01/07/17 11:00 63 21 141/67 97 01/07/17 10:00 66 23 152/71 98 01/07/17 09:35 67 166/71 - Physical Examination General: Other (intubated on the vent) Cardiac: Positive: Reg Rate and Rhythm - Labs and Meds CBC 01/08/17 Range/Units 05:30 WBC 13.0 H (4.5-11.0) K/mm3 RBC 2.90 L (3.65-5.03) M/mm3 Hgb 8.8 L (10.1-14.3) gm/dl Hct 26.0 L (30.3-42.9) % Plt Count 133 L (140-440) K/mm3 Comprehensive Metabolic Panel 01/07/17 01/08/17 Range/Units 08:14 05:30 Sodium 138 137 (137-145) mmol/L Potassium 3.7 3.8 (3.6-5.0) mmol/L Chloride 93.8 L 96.8 L (98-107) mmol/L Carbon Dioxide 26 23 (22-30) mmol/L BUN 55 H 65 H (7-17) mg/dL Creatinine 4.7 H 5.1 H (0.7-1.2) mg/dL Glucose 161 H 136 H (65-100) mg/dL Calcium 8.4 7.9 L (8.4-10.2) mg/dL - Imaging and Cardiology EKG: image reviewed
[2017-01-08] MEDS: NORVASC PO SCH (09:33)
[2017-01-08] MEDS: PEPCID PO SCH (09:33)
[2017-01-08] MEDS: KEPPRA PO SCH ×2 (09:33→21:39)
[2017-01-08] MEDS: ASPIRIN PO SCH (09:33)
[2017-01-08] MEDS: NORMODYNE PO SCH ×2 (09:34→21:38)
[2017-01-08] MEDS: HEPARIN SUB-Q SCH (09:49)
[2017-01-08] MEDS: LEVEMIR SUB-Q SCH (10:00)
--- NOTE | 2017-01-08 11:25 | Magnetic Resonance Report ---
MRI OF THE BRAIN WITHOUT CONTRAST: HISTORY: Mental status changes, comatose PROCEDURE: Multiplanar, multisequence MR imaging of the brain without IV contrast was performed. FINDINGS: Compared to 01/01/17. Multiple small and large areas of diffusion restriction is again identified throughout much of the cerebral and cerebellar hemispheres. Overall the pattern of diffusion restriction is relatively stable. There is however a new area of diffusion restriction in the medial left cerebellar hemisphere near the frontoparietal junction measuring 4.3 x 2.0 cm on diffusion image 25. The remaining areas of diffusion restriction appear stable. Minimal gyral T1 hyperintensity has developed in the bilateral parietal regions and left occipital region consistent with minimal petechial hemorrhage. There is no large uncontained hemorrhage. Ventricular size remains within normal limits. There is no significant mass effect, or ventricular effacement or basal cistern effacement. No herniation. Mild cortical volume loss and mild nonspecific chronic white matter changes are stable. IMPRESSION: Multiple small and large areas of diffusion restriction are again identified throughout the cerebral and cerebellar hemispheres. There is a new area of diffusion restriction in the medial left cerebral hemisphere as outlined above. Minimal petechial hemorrhage as described.
--- NOTE | 2017-01-08 11:30 | Magnetic Resonance Report ---
MRA HEAD WITHOUT CONTRAST HISTORY: CVA, evaluate for embolic source.. [id number] imaging with MIP reformations of the alutiiq of [place] is submitted. The images are slightly limited. The distal internal carotid arteries are patent. The proximal cerebral arteries are visualized and appear patent although the distal branches are poorly evaluated on this exam. The vertebrobasilar system is within normal limits. No embolic source, aneurysm or high-grade stenosis is suspected on this limited exam. IMPRESSION: Limited but grossly unremarkable MRA head.
--- NOTE | 2017-01-08 12:27 | XRay Report ---
SUPINE KUB: History: Dobbhoff tube placement. The abdominal gas pattern is unremarkable. No masses or organomegaly is identified and there is no gross evidence of free air or fluid. No significant soft tissue calcifications are noted. A right femoral catheter terminates at the level of L3. A Dobbhoff tube terminates in the distal stomach or just within the duodenal bulb. IMPRESSION: Normal study.
--- NOTE | 2017-01-08 12:48 | Progress Note ---
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 - continue supportive care - get neurology evaluation - continue secondary prevention with anti-lipid, anti-platelet, BP control therapies - for repeat MRI in am - unstable artheroma seen on JOSE likely embolic source - reconsider full anticoagulation after repeat MRI re: risk of hemorrhagic conversion - decision made to resume anticoagulation without bolus and watch closely (3) ARF (acute renal failure) Current Visit: Yes Status: Acute Qualifiers: Acute renal failure type: A Plan to address problem: - seen by nephrology - making urine - started on dialysis - prescription per nephrology but still giving her a chance for renal recovery - on supportive VIOLIN TUTOR - will defer to environmental health technologist (4) Hyperkalemia Current Visit: Yes Status: Acute Plan to address problem: - corrected - continue to trend and address (5) Hypertensive encephalopathy Current Visit: Yes Status: Acute Plan to address problem: - better BP control - will target pseudo-normal / permissive HTN in short course - prn IV meds for SBP > 170mmHg (6) Seizures Current Visit: Yes Status: Acute Plan to address problem: - per sister no prior history - will continue empiric keppra (7) Anemia Current Visit: Yes Status: Acute Qualifiers: Anemia type: A Iron deficiency anemia type: I Vitamin B12 deficiency anemia type: V Folate deficiency anemia type: F Bone marrow failure anemia type: B Hemolytic anemia type: H Other causes of anemia: O Chronic kidney disease stage: C Plan to address problem: - likely dilutional element - still suspect ABLA component - sent stool guaiac (pending) - get GI consultation - trend H&H (8) Healthcare maintenance Current Visit: Yes Status: Acute Plan to address problem: - on GI prophylaxis - on VTE prophylaxis - cather in place re: SIVA and for CCM issues acutely - glycemic control for target BG < 180mg/dl (9) NSTEMI (non-ST elevated myocardial infarction) Current Visit: Yes Status: Acute Plan to address problem: - will get cardiology evaluation - s/p JOSE with unstable transverse and descending aortic artheroma seen (10) Discharge planning issues Current Visit: Yes Status: Acute Plan to address problem: - care plan discussed at length with sister and i explained that if no significant improvement in mental status she will need a tracheostomy - may need LTAC evaluation eventually - care plan discussed with family at bedside ...she remains critically ill on life sustaining interventions including MVS and at risk for further deterioration including ...35' CCT Subjective Date of service: 01/08/17 Principal diagnosis: Acute CVA; Acute Respiratory Failure Interval history: Seen and examined at bedside; 24 hour events reviewed; nursing and respiratory care staff consulted; no adverse overnight events reported to me; AMS is persistent; remains on MVS; tolerating PSV trials decently so far; no gross bleeeding; awaiting stool guaiac Objective Vital Signs - 12hr 01/08/17 01/08/17 01/08/17 01:00 02:00 03:00 Temperature Pulse Rate 66 61 63 Respiratory 23 17 18 Rate Blood Pressure 134/65 130/66 135/64 O2 Sat by Pulse 99 99 99 Oximetry 01/08/17 01/08/17 01/08/17 03:49 04:00 05:00 Temperature 98.0 F Pulse Rate 63 63 64 Respiratory 16 14 Rate Blood Pressure 129/65 140/68 148/70 O2 Sat by Pulse 98 98 98 Oximetry 01/08/17 01/08/17 01/08/17 06:00 07:00 07:35 Temperature Pulse Rate 62 61 62 Respiratory 16 15 Rate Blood Pressure 139/65 139/66 143/64 O2 Sat by Pulse 99 98 98 Oximetry 01/08/17 01/08/17 01/08/17 07:44 08:00 08:45 Temperature 98.1 F Pulse Rate 66 62 60 Respiratory 18 16 14 Rate Blood Pressure 143/64 142/65 142/69 O2 Sat by Pulse 99 98 97 Oximetry 01/08/17 01/08/17 01/08/17 09:01 09:15 09:31 Temperature Pulse Rate 62 60 61 Respiratory 15 17 18 Rate Blood Pressure 149/72 149/72 155/72 O2 Sat by Pulse 97 97 100 Oximetry 01/08/17 01/08/1717 09:33 09:34 09:45 Temperature Pulse Rate 61 61 62 Respiratory 17 Rate Blood Pressure 155/72 155/72 155/72 O2 Sat by Pulse Oximetry 01/08/17 01/08/17 01/08/17 10:00 10:57 11:01 Temperature Pulse Rate 63 61 66 Respiratory 17 22 Rate Blood Pressure O2 Sat by Pulse 96 96 Oximetry 01/08/17 01/08/17 01/08/17 11:15 11:31 12:00 Temperature 98.1 F Pulse Rate 60 63 Respiratory 19 16 Rate Blood Pressure 149/71 160/72 O2 Sat by Pulse 97 97 Oximetry Constitutional: no acute distress, other (opens eyes to stimulus; not tracking) Eyes: non-icteric ENT: oropharynx moist Neck: supple, no lymphadenopathy, no JVD Effort: mildly labored Ascultation: Bilateral: clear, diminished breath sounds Cardiovascular: regular rate and rhythm Gastrointestinal: normoactive bowel sounds, soft, non-tender, non-distended Integumentary: normal Extremities: no cyanosis, no edema, pulses normal, no ischemia or petechiae, other (trans-metatarsal amputation) Neurologic: unable to assess Psychiatric: other (unable to access) CBC and BMP: 01/09/17 04:00 01/09/17 04:00 ABG, PT/INR, D-dimer: ABG POC ABG pH 7.538 (7.35-7.45) H 01/07/17 04:05 POC ABG pCO2 34.7 (35-45) L 01/07/17 04:05 POC ABG pO2 60 (80-105) L 01/07/17 04:05 POC ABG HCO3 29.5 01/07/17 04:05 POC ABG Total CO2 31 01/07/17 04:05 POC ABG O2 Sat 94 01/07/17 04:05 Abnormal lab findings: Abnormal Labs 12/31/16 12/31/16 12/31/16 01:31 01:31 03:42 WBC RBC Hgb Hct RDW Plt Count Forrest % (Auto) Forrest # Seg Neutrophils % Seg Neutrophils # POC ABG pH POC ABG pCO2 POC ABG pO2 Sodium 146 H Potassium 5.6 H Chloride Carbon Dioxide 14 L BUN 77 H Creatinine 4.0 H Glucose 107 H POC Glucose Calcium Phosphorus Iron TIBC Total Creatine Kinase 678 H 711 H CK-MB (CK-2) 10.5 H Troponin T 0.136 H* D Total Protein Albumin PTH Intact Crossmatch 12/31/16 12/31/16 12/31/16 03:42 06:58 06:58 WBC RBC Hgb Hct RDW Plt Count Forrest % (Auto) Forrest # Seg Neutrophils % Seg Neutrophils # POC ABG pH POC ABG pCO2 POC ABG pO2 Sodium 147 H Potassium 6.0 H Chloride 107.5 H Carbon Dioxide 12 L BUN 81 H Creatinine 4.6 H Glucose 183 H POC Glucose Calcium Phosphorus Iron TIBC Total Creatine Kinase 787 H CK-MB (CK-2) 10.8 H Troponin T 0.179 H* D Total Protein Albumin PTH Intact 124.4 H Crossmatch 12/31/16 12/31/16 12/31/16 09:34 13:47 15:40 WBC RBC Hgb Hct RDW Plt Count Forrest % (Auto) Forrest # Seg Neutrophils % Seg Neutrophils # POC ABG pH 7.344 L POC ABG pCO2 33.0 L POC ABG pO2 340 H Sodium Potassium Chloride Carbon Dioxide BUN Creatinine Glucose POC Glucose 294 H Calcium Phosphorus Iron TIBC Total Creatine Kinase CK-MB (CK-2) Troponin T Total Protein 6.1 L D Albumin 3.6 L PTH Intact Crossmatch 12/31/16 12/31/16 12/31/16 16:49 18:05 18:23 WBC RBC Hgb Hct RDW Plt Count Forrest % (Auto) Forrest # Seg Neutrophils % Seg Neutrophils # POC ABG pH 7.651 H POC ABG pCO2 23.2 L POC ABG pO2 64 L Sodium Potassium Chloride Carbon Dioxide BUN Creatinine Glucose POC Glucose 287 H 259 H Calcium Phosphorus Iron TIBC Total Creatine Kinase CK-MB (CK-2) Troponin T Total Protein Albumin PTH Intact Crossmatch 12/31/16 01/01/17 01/01/17 23:52 05:40 06:35 WBC RBC Hgb Hct RDW Plt Count Forrest % (Auto) Forrest # Seg Neutrophils % Seg Neutrophils # POC ABG pH POC ABG pCO2 POC ABG pO2 Sodium Potassium Chloride 96.6 L Carbon Dioxide BUN 34 H Creatinine 3.4 H Glucose 142 H POC Glucose 182 H 168 H Calcium 7.6 L D Phosphorus Iron TIBC Total Creatine Kinase CK-MB (CK-2) Troponin T Total Protein Albumin PTH Intact Crossmatch 01/01/17 01/01/17 01/01/17 11:54 12:24 17:10 WBC RBC Hgb Hct RDW Plt Count Forrest % (Auto) Forrest # Seg Neutrophils % Seg Neutrophils # POC ABG pH 7.536 H POC ABG pCO2 POC ABG pO2 149 H Sodium Potassium Chloride Carbon Dioxide BUN Creatinine Glucose POC Glucose 166 H 160 H Calcium Phosphorus Iron TIBC Total Creatine Kinase CK-MB (CK-2) Troponin T Total Protein Albumin PTH Intact Crossmatch 01/01/17 01/02/17 01/02/17 23:31 03:35 04:01 WBC 12.0 H RBC 2.88 L Hgb 8.4 L D Hct 25.4 L D RDW 15.9 H Plt Count Forrest % (Auto) Forrest # Seg Neutrophils % 75.3 H Seg Neutrophils # 9.0 H POC ABG pH 7.551 H POC ABG pCO2 33.7 L POC ABG pO2 Sodium Potassium Chloride Carbon Dioxide BUN Creatinine Glucose POC Glucose 232 H Calcium Phosphorus Iron TIBC Total Creatine Kinase CK-MB (CK-2) Troponin T Total Protein Albumin PTH Intact Crossmatch 01/02/17 01/02/17 01/02/17 04:01 05:09 12:28 WBC RBC Hgb Hct RDW Plt Count Forrest % (Auto) Forrest # Seg Neutrophils % Seg Neutrophils # POC ABG pH POC ABG pCO2 POC ABG pO2 Sodium Potassium Chloride 93.3 L Carbon Dioxide BUN 44 H Creatinine 5.1 H Glucose 208 H POC Glucose 343 H 197 H Calcium 7.7 L Phosphorus Iron TIBC Total Creatine Kinase CK-MB (CK-2) Troponin T Total Protein 6.1 L Albumin 3.1 L PTH Intact Crossmatch 01/02/17 01/02/17 01/02/17 12:40 17:52 18:40 WBC RBC Hgb Hct RDW Plt Count Forrest % (Auto) Forrest # Seg Neutrophils % Seg Neutrophils # POC ABG pH POC ABG pCO2 POC ABG pO2 Sodium Potassium Chloride Carbon Dioxide BUN Creatinine Glucose POC Glucose 296 H 53 L 172 H Calcium Phosphorus Iron TIBC Total Creatine Kinase CK-MB (CK-2) Troponin T Total Protein Albumin PTH Intact Crossmatch 01/02/17 01/03/17 01/03/17 23:57 03:44 03:44 WBC RBC 2.52 L Hgb 7.6 L Hct 22.5 L RDW 15.4 H Plt Count Forrest % (Auto) Forrest # Seg Neutrophils % 70.5 H Seg Neutrophils # POC ABG pH POC ABG pCO2 POC ABG pO2 Sodium Potassium Chloride 92.2 L Carbon Dioxide BUN 58 H Creatinine 6.2 H Glucose 147 H POC Glucose 248 H Calcium 7.4 L Phosphorus 5.90 H Iron TIBC Total Creatine Kinase CK-MB (CK-2) Troponin T Total Protein Albumin PTH Intact Crossmatch 01/03/17 01/03/17 01/03/17 05:41 11:51 17:33 WBC RBC Hgb Hct RDW Plt Count Forrest % (Auto) Forrest # Seg Neutrophils % Seg Neutrophils # POC ABG pH POC ABG pCO2 POC ABG pO2 Sodium Potassium Chloride Carbon Dioxide BUN Creatinine Glucose POC Glucose 190 H 258 H 197 H Calcium Phosphorus Iron TIBC Total Creatine Kinase CK-MB (CK-2) Troponin T Total Protein Albumin PTH Intact Crossmatch 01/03/17 01/03/17 01/04/17 21:38 23:50 04:45 WBC 12.7 H RBC 2.48 L Hgb 7.2 L Hct 22.5 L RDW 15.5 H Plt Count Forrest % (Auto) Forrest # Seg Neutrophils % 74.0 H Seg Neutrophils # 9.4 H POC ABG pH 7.551 H POC ABG pCO2 34.0 L POC ABG pO2 74 L Sodium Potassium Chloride Carbon Dioxide BUN Creatinine Glucose POC Glucose 189 H Calcium Phosphorus Iron TIBC Total Creatine Kinase CK-MB (CK-2) Troponin T Total Protein Albumin PTH Intact Crossmatch 01/04/17 01/04/17 01/04/17 04:45 05:59 09:53 WBC RBC Hgb Hct RDW Plt Count Forrest % (Auto) Forrest # Seg Neutrophils % Seg Neutrophils # POC ABG pH 7.550 H POC ABG pCO2 32.9 L POC ABG pO2 64 L Sodium 136 L Potassium Chloride 91.2 L Carbon Dioxide BUN 71 H Creatinine 6.4 H Glucose 167 H POC Glucose 203 H Calcium 7.8 L Phosphorus 6.50 H Iron TIBC Total Creatine Kinase 547 H CK-MB (CK-2) Troponin T Total Protein 5.6 L Albumin 2.7 L PTH Intact Crossmatch 01/04/17 01/04/17 01/04/17 12:15 17:37 23:41 WBC RBC Hgb Hct RDW Plt Count Forrest % (Auto) Forrest # Seg Neutrophils % Seg Neutrophils # POC ABG pH POC ABG pCO2 POC ABG pO2 Sodium Potassium Chloride Carbon Dioxide BUN Creatinine Glucose POC Glucose 228 H 225 H 231 H Calcium Phosphorus Iron TIBC Total Creatine Kinase CK-MB (CK-2) Troponin T Total Protein Albumin PTH Intact Crossmatch 01/05/17 01/05/17 01/05/17 04:40 04:40 05:24 WBC 11.3 H RBC 2.41 L Hgb 7.1 L Hct 21.6 L RDW 15.7 H Plt Count 138 L Forrest % (Auto) 7.7 H Forrest # 0.9 H Seg Neutrophils % 71.2 H Seg Neutrophils # 8.0 H POC ABG pH POC ABG pCO2 POC ABG pO2 Sodium 133 L Potassium 3.5 L Chloride 88.7 L Carbon Dioxide BUN 82 H Creatinine 6.5 H Glucose 137 H POC Glucose 175 H Calcium 7.8 L Phosphorus Iron 22 L TIBC 183 L Total Creatine Kinase 312 H CK-MB (CK-2) Troponin T Total Protein Albumin PTH Intact Crossmatch 01/05/17 01/05/17 01/05/17 09:34 11:12 17:33 WBC RBC Hgb Hct RDW Plt Count Forrest % (Auto) Forrest # Seg Neutrophils % Seg Neutrophils # POC ABG pH 7.531 H POC ABG pCO2 34.4 L POC ABG pO2 57 L Sodium Potassium Chloride Carbon Dioxide BUN Creatinine Glucose POC Glucose 188 H 222 H Calcium Phosphorus Iron TIBC Total Creatine Kinase CK-MB (CK-2) Troponin T Total Protein Albumin PTH Intact Crossmatch 01/05/17 01/06/17 01/06/17 23:24 03:15 05:20 WBC 11.2 H RBC 2.28 L Hgb 6.9 L Hct 20.7 L RDW 15.6 H Plt Count Forrest % (Auto) 7.7 H Forrest # 0.9 H Seg Neutrophils % 78.2 H Seg Neutrophils # 8.7 H POC ABG pH 7.566 H POC ABG pCO2 31.9 L POC ABG pO2 60 L Sodium Potassium Chloride Carbon Dioxide BUN Creatinine Glucose POC Glucose 223 H Calcium Phosphorus Iron TIBC Total Creatine Kinase CK-MB (CK-2) Troponin T Total Protein Albumin PTH Intact Crossmatch 01/06/17 01/06/1701/06/17 05:20 05:27 11:54 WBC RBC Hgb Hct RDW Plt Count Forrest % (Auto) Forrest # Seg Neutrophils % Seg Neutrophils # POC ABG pH POC ABG pCO2 POC ABG pO2 Sodium Potassium Chloride 93.7 L Carbon Dioxide BUN 40 H Creatinine 3.6 H Glucose 191 H POC Glucose 244 H 184 H Calcium Phosphorus Iron TIBC Total Creatine Kinase CK-MB (CK-2) Troponin T Total Protein Albumin PTH Intact Crossmatch 01/06/17 01/06/17 01/06/17 17:39 19:00 23:57 WBC RBC Hgb Hct RDW Plt Count Forrest % (Auto) Forrest # Seg Neutrophils % Seg Neutrophils # POC ABG pH POC ABG pCO2 POC ABG pO2 Sodium Potassium Chloride Carbon Dioxide BUN Creatinine Glucose POC Glucose 167 H 191 H Calcium Phosphorus Iron TIBC Total Creatine Kinase CK-MB (CK-2) Troponin T Total Protein Albumin PTH Intact Crossmatch See Detail 01/07/17 01/07/17 01/07/17 04:05 05:32 08:14 WBC 11.5 H RBC 2.98 L Hgb 8.8 L Hct 26.5 L RDW 16.3 H Plt Count Forrest % (Auto) 8.8 H Forrest # 1.0 H Seg Neutrophils % 70.4 H Seg Neutrophils # 8.1 H POC ABG pH 7.538 H POC ABG pCO2 34.7 L POC ABG pO2 60 L Sodium Potassium Chloride Carbon Dioxide BUN Creatinine Glucose POC Glucose 139 H Calcium Phosphorus Iron TIBC Total Creatine Kinase CK-MB (CK-2) Troponin T Total Protein Albumin PTH Intact Crossmatch 01/07/17 01/07/17 01/07/17 08:14 11:52 18:19 WBC RBC Hgb Hct RDW Plt Count Forrest % (Auto) Forrest # Seg Neutrophils % Seg Neutrophils # POC ABG pH POC ABG pCO2 POC ABG pO2 Sodium Potassium Chloride 93.8 L Carbon Dioxide BUN 55 H Creatinine 4.7 H Glucose 161 H POC Glucose 205 H 178 H Calcium Phosphorus 5.00 H Iron TIBC Total Creatine Kinase CK-MB (CK-2) Troponin T Total Protein Albumin PTH Intact Crossmatch 01/07/17 01/08/17 01/08/17 23:43 05:30 05:30 WBC 13.0 H RBC 2.90 L Hgb 8.8 L Hct 26.0 L RDW 16.5 H Plt Count 133 L Forrest % (Auto) Forrest # Seg Neutrophils % Seg Neutrophils # POC ABG pH POC ABG pCO2 POC ABG pO2 Sodium Potassium Chloride 96.8 L Carbon Dioxide BUN 65 H Creatinine 5.1 H Glucose 136 H POC Glucose 153 H Calcium 7.9 L Phosphorus Iron TIBC Total Creatine Kinase CK-MB (CK-2) Troponin T Total Protein Albumin PTH Intact Crossmatch 01/08/17 05:57 WBC RBC Hgb Hct RDW Plt Count Forrest % (Auto) Forrest # Seg Neutrophils % Seg Neutrophils # POC ABG pH POC ABG pCO2 POC ABG pO2 Sodium Potassium Chloride Carbon Dioxide BUN Creatinine Glucose POC Glucose 165 H Calcium Phosphorus Iron TIBC Total Creatine Kinase CK-MB (CK-2) Troponin T Total Protein Albumin PTH Intact Crossmatch Chest x-ray: image reviewed
--- NOTE | 2017-01-08 13:24 | Progress Note ---
Assessment and Plan - Patient Problems (1) ARF (acute renal failure) Current Visit: Yes Status: Acute Qualifiers: Acute renal failure type: A Plan to address problem: Acute kidney injury superimposed on CKD stage 3 in the setting of uncontrolled HTN. S/p hemodialysis on 12/31 and 01/05. No improvement in the kidney so far. Plan to do hemodialysis today. Monitor for AIDS NURSE needs. Renal prognosis is guarded. (2) Hyperkalemia Current Visit: Yes Status: Acute Plan to address problem: Hyperkalemia in the setting of Acute kidney injury. Improved with hemodialysis. (3) Metabolic acidosis Current Visit: Yes Status: Acute Plan to address problem: Improved. (4) Hypertensive encephalopathy Current Visit: Yes Status: Acute Plan to address problem: BP is better. (5) Respiratory failure Current Visit: Yes Status: Acute Qualifiers: Chronicity: C Respiratory failure complication: R Plan to address problem: On Vent. (6) Anemia Current Visit: Yes Status: Acute Qualifiers: Anemia type: A Iron deficiency anemia type: I Vitamin B12 deficiency anemia type: V Folate deficiency anemia type: F Bone marrow failure anemia type: B Hemolytic anemia type: H Other causes of anemia: O Chronic kidney disease stage: C Plan to address problem: Epogen. Hb is better. Subjective Date of service: 01/08/17 Principal diagnosis: Acute CVA; Acute Respiratory Failure Interval history: Patient remain on the vent. Objective - Vital Signs Vital signs: Vital Signs - 12hr 01/08/17 01/08/17 01/08/17 02:00 03:00 03:49 Temperature Pulse Rate 61 63 63 Respiratory 17 18 Rate Blood Pressure 130/66 135/64 129/65 O2 Sat by Pulse 99 99 98 Oximetry 01/08/17 01/08/17 01/08/17 04:00 05:00 06:00 Temperature 98.0 F Pulse Rate 63 64 62 Respiratory 16 14 16 Rate Blood Pressure 140/68 148/70 139/65 O2 Sat by Pulse 98 98 99 Oximetry 01/08/17 01/08/17 01/08/17 07:00 07:35 07:44 Temperature Pulse Rate 61 62 66 Respiratory 15 18 Rate Blood Pressure 139/66 143/64 143/64 O2 Sat by Pulse 98 98 99 Oximetry 01/08/17 01/08/17 01/08/17 08:00 08:45 09:01 Temperature 98.1 F Pulse Rate 62 60 62 Respiratory 16 14 15 Rate Blood Pressure 142/65 142/69 149/72 O2 Sat by Pulse 98 97 97 Oximetry 01/08/17 01/08/17 01/08/17 09:15 09:31 09:33 Temperature Pulse Rate 60 61 61 Respiratory 17 18 Rate Blood Pressure 149/72 155/72 155/72 O2 Sat by Pulse 97 100 Oximetry 01/08/17 01/08/17 01/08/17 09:34 09:45 10:00 Temperature Pulse Rate 61 62 63 Respiratory 17 Rate Blood Pressure 155/72 155/72 O2 Sat by Pulse Oximetry 01/08/17 01/08/17 01/08/17 10:57 11:01 11:15 Temperature Pulse Rate 61 66 60 Respiratory 17 22 19 Rate Blood Pressure 149/71 O2 Sat by Pulse 96 96 97 Oximetry 01/08/17 01/08/17 11:31 12:00 Temperature 98.1 F Pulse Rate 63 Respiratory 16 Rate Blood Pressure 160/72 O2 Sat by Pulse 97 Oximetry - General Appearance General appearance: well-developed, appears stated age, intubated, other (right groin hemodialysis catheter) EENT: ATNC, PERRL Neck: supple Respiratory: Present: Clear to Ascultation Cardiology: regular, S1S2, no murmurs Gastrointestinal: normoactive bowel sounds, no tenderness Integumentary: no rash Neurologic: obtunded Musculoskeletal: other (no edema) - Lab 01/08/17 05:30 01/08/17 05:30 Most recent lab results Calcium 7.9 mg/dL (8.4-10.2) L 01/08/17 05:30 Phosphorus 5.00 mg/dL (2.5-4.5) H 01/07/17 08:14 Magnesium 1.90 mg/dL (1.7-2.3) 01/04/17 04:45
--- NOTE | 2017-01-08 14:19 | Progress Note ---
Subjective Date of service: 01/08/17 Principal diagnosis: Acute CVA; Acute Respiratory Failure Interval history: NEUROLOGY PROGRESS NOTE: EXAM: NO change in Neuro exam today but no decerebrate posturing on nox stim to each arm. MRI today (discussed with Dr Ovi Szymanski, Radiol) shows a NEW INFARCT 4 x 2.5 cm in left cerebral hemisphere at temporo-parietal junction, not good for future language function. No significant development of edema, no evidence of hernation. JOSE shows a Grade 5 mobile atheroma in the transverse aorta, no clots in heart. GOOD DISCUSSION WITH SISTER ISREAL IN ROOM WITH HER . re all the above, and both voiced understanding of this IMP: 1. Recurrent cerebral infarcts (new one documented today by MR) secondary to unstable aortic atheroma. No other source has been found. 2. Persistent coma secondary to her worsening renal failure Creat 5.4 today, and not due to her strokes. Although many in number, none are in locations that can produce coma. There is no herniation. PLAN: 1. 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 The risk, of course, is she will experience hemorrhagic conversion on one of her infarcts, but while two are large, they are not massive, and we believe that the risk of recurrent emboli is greater than the risk of hemorrhagic conversion. 2. As she is TERTRAPLEGIC AND COMATOSE, she will need a baseline CT scan (to check for any baseline bleeding) and then daily head CT scans x several days ( MAYBE 5), the only way we have to monitor for hemorrhagic conversion 3. Our hope is that with dialysis, begun today, she will regain considerable awareness, and then we will go from there. 4. I will call her sister Isreal today and speak with her again so all will be informed. I have ordered todays CT scan, and am leaving in an hour or so for one month, SO SOMEONE ELSE WILL NEED TO ORDER SUBSEQUENT HEAD CT SCANS Odalys Porras MD Objective - Vital Sign Vital Signs - 12hr 01/08/17 01/08/17 01/08/17 02:00 03:00 03:49 Temperature Pulse Rate 61 63 63 Respiratory 17 18 Rate Blood Pressure 130/66 135/64 129/65 O2 Sat by Pulse 99 99 98 Oximetry O2 Sat by Pulse Oximetry [ Anterior Bilateral Throughout] 01/08/17 01/08/17 01/08/17 04:00 05:00 06:00 Temperature 98.0 F Pulse Rate 63 64 62 Respiratory 16 14 16 Rate Blood Pressure 140/68 148/70 139/65 O2 Sat by Pulse 98 98 99 Oximetry O2 Sat by Pulse Oximetry [ Anterior Bilateral Throughout] 01/08/17 01/08/17 01/08/17 07:00 07:35 07:44 Temperature Pulse Rate 61 62 66 Respiratory 15 18 Rate Blood Pressure 139/66 143/64 143/64 O2 Sat by Pulse 98 98 99 Oximetry O2 Sat by Pulse Oximetry [ Anterior Bilateral Throughout] 01/08/17 01/08/17 01/08/17 08:00 08:45 09:01 Temperature 98.1 F Pulse Rate 62 60 62 Respiratory 16 14 15 Rate Blood Pressure 142/65 142/69 149/72 O2 Sat by Pulse 98 97 97 Oximetry O2 Sat by Pulse Oximetry [ Anterior Bilateral Throughout] 01/08/17 01/08/17 01/08/17 09:15 09:31 09:33 Temperature Pulse Rate 60 61 61 Respiratory 17 18 Rate Blood Pressure 149/72 155/72 155/72 O2 Sat by Pulse 97 100 Oximetry O2 Sat by Pulse Oximetry [ Anterior Bilateral Throughout] 01/08/17 01/08/17 01/08/17 09:34 09:45 10:00 Temperature Pulse Rate 61 62 63 Respiratory 17 Rate Blood Pressure 155/72 155/72 O2 Sat by Pulse Oximetry O2 Sat by Pulse Oximetry [ Anterior Bilateral Throughout] 01/08/17 01/08/17 01/08/17 10:57 11:01 11:15 Temperature Pulse Rate 61 66 60 Respiratory 17 22 19 Rate Blood Pressure 149/71 O2 Sat by Pulse 96 96 97 Oximetry O2 Sat by Pulse Oximetry [ Anterior Bilateral Throughout] 01/08/17 01/08/17 01/08/17 11:31 12:00 12:40 Temperature 98.1 F 97.7 F Pulse Rate 63 63 Respiratory 16 15 Rate Blood Pressure 160/72 167/75 O2 Sat by Pulse 97 Oximetry O2 Sat by Pulse 98 Oximetry [ Anterior Bilateral Throughout] 01/08/17 01/08/17 01/08/17 12:50 13:00 13:15 Temperature Pulse Rate 63 63 65 Respiratory Rate Blood Pressure 167/75 162/75 156/71 O2 Sat by Pulse Oximetry O2 Sat by Pulse Oximetry [ Anterior Bilateral Throughout] 01/08/17 01/08/17 13:30 13:45 Temperature Pulse Rate 66 67 Respiratory Rate Blood Pressure 160/67 162/66 O2 Sat by Pulse Oximetry O2 Sat by Pulse Oximetry [ Anterior Bilateral Throughout] - Laboratory Findings CBC and BMP: 01/08/17 05:30 01/08/17 05:30 Abnormal Lab Findings: Abnormal Labs 12/31/16 12/31/16 12/31/16 01:31 01:31 03:42 WBC RBC Hgb Hct RDW Plt Count Holt % (Auto) Holt # Seg Neutrophils % Seg Neutrophils # POC ABG pH POC ABG pCO2 POC ABG pO2 Sodium 146 H Potassium 5.6 H Chloride Carbon Dioxide 14 L BUN 77 H Creatinine 4.0 H Glucose 107 H POC Glucose Calcium Phosphorus Iron TIBC Total Creatine Kinase 678 H 711 H CK-MB (CK-2) 10.5 H Troponin T 0.136 H* D Total Protein Albumin PTH Intact Crossmatch 12/31/16 12/31/16 12/31/16 03:42 06:58 06:58 WBC RBC Hgb Hct RDW Plt Count Holt % (Auto) Holt # Seg Neutrophils % Seg Neutrophils # POC ABG pH POC ABG pCO2 POC ABG pO2 Sodium 147 H Potassium 6.0 H Chloride 107.5 H Carbon Dioxide 12 L BUN 81 H Creatinine 4.6 H Glucose 183 H POC Glucose Calcium Phosphorus Iron TIBC Total Creatine Kinase 787 H CK-MB (CK-2) 10.8 H Troponin T 0.179 H* D Total Protein Albumin PTH Intact 124.4 H Crossmatch 12/31/16 12/31/16 12/31/16 09:34 13:47 15:40 WBC RBC Hgb Hct RDW Plt Count Holt % (Auto) Holt # Seg Neutrophils % Seg Neutrophils # POC ABG pH 7.344 L POC ABG pCO2 33.0 L POC ABG pO2 340 H Sodium Potassium Chloride Carbon Dioxide BUN Creatinine Glucose POC Glucose 294 H Calcium Phosphorus Iron TIBC Total Creatine Kinase CK-MB (CK-2) Troponin T Total Protein 6.1 L D Albumin 3.6 L PTH Intact Crossmatch 12/31/16 12/31/16 12/31/16 16:49 18:05 18:23 WBC RBC Hgb Hct RDW Plt Count Holt % (Auto) Holt # Seg Neutrophils % Seg Neutrophils # POC ABG pH 7.651 H POC ABG pCO2 23.2 L POC ABG pO2 64 L Sodium Potassium Chloride Carbon Dioxide BUN Creatinine Glucose POC Glucose 287 H 259 H Calcium Phosphorus Iron TIBC Total Creatine Kinase CK-MB (CK-2) Troponin T Total Protein Albumin PTH Intact Crossmatch 12/31/16 01/01/17 01/01/17 23:52 05:40 06:35 WBC RBC Hgb Hct RDW Plt Count Holt % (Auto) Holt # Seg Neutrophils % Seg Neutrophils # POC ABG pH POC ABG pCO2 POC ABG pO2 Sodium Potassium Chloride 96.6 L Carbon Dioxide BUN 34 H Creatinine 3.4 H Glucose 142 H POC Glucose 182 H 168 H Calcium 7.6 L D Phosphorus Iron TIBC Total Creatine Kinase CK-MB (CK-2) Troponin T Total Protein Albumin PTH Intact Crossmatch 01/01/17 01/01/17 01/01/17 11:54 12:24 17:10 WBC RBC Hgb Hct RDW Plt Count Holt % (Auto) Holt # Seg Neutrophils % Seg Neutrophils # POC ABG pH 7.536 H POC ABG pCO2 POC ABG pO2 149 H Sodium Potassium Chloride Carbon Dioxide BUN Creatinine Glucose POC Glucose 166 H 160 H Calcium Phosphorus Iron TIBC Total Creatine Kinase CK-MB (CK-2) Troponin T Total Protein Albumin PTH Intact Crossmatch 01/01/17 01/02/17 01/02/17 23:31 03:35 04:01 WBC 12.0 H RBC 2.88 L Hgb 8.4 L D Hct 25.4 L D RDW 15.9 H Plt Count Holt % (Auto) Holt # Seg Neutrophils % 75.3 H Seg Neutrophils # 9.0 H POC ABG pH 7.551 H POC ABG pCO2 33.7 L POC ABG pO2 Sodium Potassium Chloride Carbon Dioxide BUN Creatinine Glucose POC Glucose 232 H Calcium Phosphorus Iron TIBC Total Creatine Kinase CK-MB (CK-2) Troponin T Total Protein Albumin PTH Intact Crossmatch 01/02/17 01/02/17 01/02/17 04:01 05:09 12:28 WBC RBC Hgb Hct RDW Plt Count Holt % (Auto) Holt # Seg Neutrophils % Seg Neutrophils # POC ABG pH POC ABG pCO2 POC ABG pO2 Sodium Potassium Chloride 93.3 L Carbon Dioxide BUN 44 H Creatinine 5.1 H Glucose 208 H POC Glucose 343 H 197 H Calcium 7.7 L Phosphorus Iron TIBC Total Creatine Kinase CK-MB (CK-2) Troponin T Total Protein 6.1 L Albumin 3.1 L PTH Intact Crossmatch 01/02/17 01/02/17 01/02/17 12:40 17:52 18:40 WBC RBC Hgb Hct RDW Plt Count Holt % (Auto) Holt # Seg Neutrophils % Seg Neutrophils # POC ABG pH POC ABG pCO2 POC ABG pO2 Sodium Potassium Chloride Carbon Dioxide BUN Creatinine Glucose POC Glucose 296 H 53 L 172 H Calcium Phosphorus Iron TIBC Total Creatine Kinase CK-MB (CK-2) Troponin T Total Protein Albumin PTH Intact Crossmatch 01/02/17 01/03/17 01/03/17 23:57 03:44 03:44 WBC RBC 2.52 L Hgb 7.6 L Hct 22.5 L RDW 15.4 H Plt Count Holt % (Auto) Holt # Seg Neutrophils % 70.5 H Seg Neutrophils # POC ABG pH POC ABG pCO2 POC ABG pO2 Sodium Potassium Chloride 92.2 L Carbon Dioxide BUN 58 H Creatinine 6.2 H Glucose 147 H POC Glucose 248 H Calcium 7.4 L Phosphorus 5.90 H Iron TIBC Total Creatine Kinase CK-MB (CK-2) Troponin T Total Protein Albumin PTH Intact Crossmatch 01/03/17 01/03/17 01/03/17 05:41 11:51 17:33 WBC RBC Hgb Hct RDW Plt Count Holt % (Auto) Holt # Seg Neutrophils % Seg Neutrophils # POC ABG pH POC ABG pCO2 POC ABG pO2 Sodium Potassium Chloride Carbon Dioxide BUN Creatinine Glucose POC Glucose 190 H 258 H 197 H Calcium Phosphorus Iron TIBC Total Creatine Kinase CK-MB (CK-2) Troponin T Total Protein Albumin PTH Intact Crossmatch 01/03/17 01/03/17 01/04/17 21:38 23:50 04:45 WBC 12.7 H RBC 2.48 L Hgb 7.2 L Hct 22.5 L RDW 15.5 H Plt Count Holt % (Auto) Holt # Seg Neutrophils % 74.0 H Seg Neutrophils # 9.4 H POC ABG pH 7.551 H POC ABG pCO2 34.0 L POC ABG pO2 74 L Sodium Potassium Chloride Carbon Dioxide BUN Creatinine Glucose POC Glucose 189 H Calcium Phosphorus Iron TIBC Total Creatine Kinase CK-MB (CK-2) Troponin T Total Protein Albumin PTH Intact Crossmatch 01/04/17 01/04/17 01/04/17 04:45 05:59 09:53 WBC RBC Hgb Hct RDW Plt Count Holt % (Auto) Holt # Seg Neutrophils % Seg Neutrophils # POC ABG pH 7.550 H POC ABG pCO2 32.9 L POC ABG pO2 64 L Sodium 136 L Potassium Chloride 91.2 L Carbon Dioxide BUN 71 H Creatinine 6.4 H Glucose 167 H POC Glucose 203 H Calcium 7.8 L Phosphorus 6.50 H Iron TIBC Total Creatine Kinase 547 H CK-MB (CK-2) Troponin T Total Protein 5.6 L Albumin 2.7 L PTH Intact Crossmatch 01/04/17 01/04/17 01/04/17 12:15 17:37 23:41 WBC RBC Hgb Hct RDW Plt Count Holt % (Auto) Holt # Seg Neutrophils % Seg Neutrophils # POC ABG pH POC ABG pCO2 POC ABG pO2 Sodium Potassium Chloride Carbon Dioxide BUN Creatinine Glucose POC Glucose 228 H 225 H 231 H Calcium Phosphorus Iron TIBC Total Creatine Kinase CK-MB (CK-2) Troponin T Total Protein Albumin PTH Intact Crossmatch 01/05/17 01/05/17 01/05/17 04:40 04:40 05:24 WBC 11.3 H RBC 2.41 L Hgb 7.1 L Hct 21.6 L RDW 15.7 H Plt Count 138 L Holt % (Auto) 7.7 H Holt # 0.9 H Seg Neutrophils % 71.2 H Seg Neutrophils # 8.0 H POC ABG pH POC ABG pCO2 POC ABG pO2 Sodium 133 L Potassium 3.5 L Chloride 88.7 L Carbon Dioxide BUN 82 H Creatinine 6.5 H Glucose 137 H POC Glucose 175 H Calcium 7.8 L Phosphorus Iron 22 L TIBC 183 L Total Creatine Kinase 312 H CK-MB (CK-2) Troponin T Total Protein Albumin PTH Intact Crossmatch 01/05/17 01/05/17 01/05/17 09:34 11:12 17:33 WBC RBC Hgb Hct RDW Plt Count Holt % (Auto) Holt # Seg Neutrophils % Seg Neutrophils # POC ABG pH 7.531 H POC ABG pCO2 34.4 L POC ABG pO2 57 L Sodium Potassium Chloride Carbon Dioxide BUN Creatinine Glucose POC Glucose 188 H 222 H Calcium Phosphorus Iron TIBC Total Creatine Kinase CK-MB (CK-2) Troponin T Total Protein Albumin PTH Intact Crossmatch 01/05/17 01/06/17 01/06/17 23:24 03:15 05:20 WBC 11.2 H RBC 2.28 L Hgb 6.9 L Hct 20.7 L RDW 15.6 H Plt Count Holt % (Auto) 7.7 H Holt # 0.9 H Seg Neutrophils % 78.2 H Seg Neutrophils # 8.7 H POC ABG pH 7.566 H POC ABG pCO2 31.9 L POC ABG pO2 60 L Sodium Potassium Chloride Carbon Dioxide BUN Creatinine Glucose POC Glucose 223 H Calcium Phosphorus Iron TIBC Total Creatine Kinase CK-MB (CK-2) Troponin T Total Protein Albumin PTH Intact Crossmatch 01/06/17 01/06/17 01/06/17 05:20 05:27 11:54 WBC RBC Hgb Hct RDW Plt Count Holt % (Auto) Holt # Seg Neutrophils % Seg Neutrophils # POC ABG pH POC ABG pCO2 POC ABG pO2 Sodium Potassium Chloride 93.7 L Carbon Dioxide BUN 40 H Creatinine 3.6 H Glucose 191 H POC Glucose 244 H 184 H Calcium Phosphorus Iron TIBC Total Creatine Kinase CK-MB (CK-2) Troponin T Total Protein Albumin PTH Intact Crossmatch 01/06/17 01/06/17 01/06/17 17:39 19:00 23:57 WBC RBC Hgb Hct RDW Plt Count Holt % (Auto) Holt # Seg Neutrophils % Seg Neutrophils # POC ABG pH POC ABG pCO2 POC ABG pO2 Sodium Potassium Chloride Carbon Dioxide BUN Creatinine Glucose POC Glucose 167 H 191 H Calcium Phosphorus Iron TIBC Total Creatine Kinase CK-MB (CK-2) Troponin T Total Protein Albumin PTH Intact Crossmatch See Detail 01/07/17 01/07/17 01/07/17 04:05 05:32 08:14 WBC 11.5 H RBC 2.98 L Hgb 8.8 L Hct 26.5 L RDW 16.3 H Plt Count Holt % (Auto) 8.8 H Holt # 1.0 H Seg Neutrophils % 70.4 H Seg Neutrophils # 8.1 H POC ABG pH 7.538 H POC ABG pCO2 34.7 L POC ABG pO2 60 L Sodium Potassium Chloride Carbon Dioxide BUN Creatinine Glucose POC Glucose 139 H Calcium Phosphorus Iron TIBC Total Creatine Kinase CK-MB (CK-2) Troponin T Total Protein Albumin PTH Intact Crossmatch 01/07/17 01/07/17 01/07/17 08:14 11:52 18:19 WBC RBC Hgb Hct RDW Plt Count Holt % (Auto) Holt # Seg Neutrophils % Seg Neutrophils # POC ABG pH POC ABG pCO2 POC ABG pO2 Sodium Potassium Chloride 93.8 L Carbon Dioxide BUN 55 H Creatinine 4.7 H Glucose 161 H POC Glucose 205 H 178 H Calcium Phosphorus 5.00 H Iron TIBC Total Creatine Kinase CK-MB (CK-2) Troponin T Total Protein Albumin PTH Intact Crossmatch 01/07/17 01/08/17 01/08/17 23:43 05:30 05:30 WBC 13.0 H RBC 2.90 L Hgb 8.8 L Hct 26.0 L RDW 16.5 H Plt Count 133 L Holt % (Auto) Holt # Seg Neutrophils % Seg Neutrophils # POC ABG pH POC ABG pCO2 POC ABG pO2 Sodium Potassium Chloride 96.8 L Carbon Dioxide BUN 65 H Creatinine 5.1 H Glucose 136 H POC Glucose 153 H Calcium 7.9 L Phosphorus Iron TIBC Total Creatine Kinase CK-MB (CK-2) Troponin T Total Protein Albumin PTH Intact Crossmatch 01/08/17 05:57 WBC RBC Hgb Hct RDW Plt Count Holt % (Auto) Holt # Seg Neutrophils % Seg Neutrophils # POC ABG pH POC ABG pCO2 POC ABG pO2 Sodium Potassium Chloride Carbon Dioxide BUN Creatinine Glucose POC Glucose 165 H Calcium Phosphorus Iron TIBC Total Creatine Kinase CK-MB (CK-2) Troponin T Total Protein Albumin PTH Intact Crossmatch
--- NOTE | 2017-01-08 15:01 | Progress Note ---
Assessment and Plan Assessment and plan: Patient is a 61 yo woman with multiple medical comorbidities including hypertension, diabetes, hyperlipidemia, peripheral vascular disease status post bypass, medical noncompliance and not taking her medications for months, found down by family and brought to ER unresponsive with blood pressure 255/135 - Malignant hypertension/hypertensive emergency CT head showing chronic ischemic microvascular changes, with no acute infarct or hemorrhage Weaned off of Cardene drip; now on amlodipine and labetalol BP still elevated, will add low dose hydralazine - CVA Brain MRI showing multiple acute ischemic areas Started on antiplatelet and statin therapy Cardiology consulted for JOSE to rule out embolic source; monitor rhythm - Acute toxic metabolic encephalopathy Likely due to combination of hypertensive encephalopathy/multiple brain infarction areas/ renal failure with uremia/acidosis/electrolytes abnormalities / drug use Treat underlying conditions -Acute respiratory failure On mechanical ventilation Unable to be extubated due to mental status Pulmonary following - Acute renal failure likely superimposed on chronic kidney disease Significantly elevated BUN/Cr with marked hyperkalemia and metabolic acidosis on admission Nephrology consulted and acute HD initiated Assessing HD need daily -Hyperkalemia On admission K+ 6.9; received Kayexalate, insulin/D50, bicarbonate Now on HD Continue to closely monitor -Rhabdomyolysis Continue IV fluids CPK trending down -Elevated troponin Most likely secondary to hypertensive emergency/renal failure Echocardiogram ordered -Anemia Likely multifactorial Iron deficient, so started on supplementation -Hyperlipidemia - mixed Total cholesterol 355, LDL 251, TG 298 Starting atorvastatin as CPK trending down and given brain MRI findings - Peripheral vascular disease Status post bypass Discontinued anticoagulant therapy on her own months ago - Drug abuse UDS positive for marijuana If recovers, will need counseling - DVT prophylaxis Poor prognosis "NEUROLOGY PROGRESS NOTE: EXAM: NO change in Neuro exam today but no decerebrate posturing on nox stim to each arm. MRI today (discussed with Dr Ovi Szymanski, Radiol) shows a NEW INFARCT 4 x 2.5 cm in left cerebral hemisphere at temporo-parietal junction, not good for future language function. No significant development of edema, no evidence of hernation. JOSE shows a Grade 5 mobile atheroma in the transverse aorta, no clots in heart. GOOD DISCUSSION WITH SISTER ETHYL IN ROOM WITH HER . re all the above, and both voiced understanding of this IMP: 1. Recurrent cerebral infarcts (new one documented today by MR) secondary to unstable aortic atheroma. No other source has been found. 2. Persistent coma secondary to her worsening renal failure Creat 5.4 today, and not due to her strokes. Although many in number, none are in locations that can produce coma. There is no herniation. PLAN: 1. 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 The risk, of course, is she will experience hemorrhagic conversion on one of her infarcts, but while two are large, they are not massive, and we believe that the risk of recurrent emboli is greater than the risk of hemorrhagic conversion. 2. As she is TERTRAPLEGIC AND COMATOSE, she will need a baseline CT scan (to check for any baseline bleeding) and then daily head CT scans x several days ( MAYBE 5), the only way we have to monitor for hemorrhagic conversion 3. Our hope is that with dialysis, begun today, she will regain considerable awareness, and then we will go from there. 4. I will call her sister Ethyl today and speak with her again so all will be informed. I have ordered todays CT scan, and am leaving in an hour or so for one month, SO SOMEONE ELSE WILL NEED TO ORDER SUBSEQUENT HEAD CT SCANS Odalys Porras MD" History Interval history: Patient was seen and examined. Follow-up on current diagnosis/sob. Overnight uneventful. Still intubated but not sedated Hospitalist Physical - Physical exam Narrative exam: GEN: Ill-appearing on a mechanical ventilator HEENT: ET tube in place NECK: supple, no adenopathy, no thyromegaly, no JVD CVS/HEART: RRR, NORMAL S1S2, NO JVD, pulses present bilaterally CHEST/LUNGS: CTA B, Symmetrical chest expansion, good air entry bilaterally GI/Abdomen: soft, good bowel sounds, no guarding or rebound /Bladder: no suprapubic tenderness, no CVA or paraspinal tenderness Neuro: CN 2-12 grossly abn, no new focal deficits - Constitutional Vitals: Temp Pulse Resp BP Pulse Ox 97.7 F 67 15 162/68 98 01/08/17 12:40 01/08/17 14:46 01/08/17 12:40 01/08/17 14:46 01/08/17 12:40 General appearance: Present: other (intubated on the vent) Results - Labs CBC & Chem 7: 01/08/17 05:30 01/08/17 05:30 Labs: Laboratory Last Values WBC 13.0 K/mm3 (4.5-11.0) H 01/08/17 05:30 RBC 2.90 M/mm3 (3.65-5.03) L 01/08/17 05:30 Hgb 8.8 gm/dl (10.1-14.3) L 01/08/17 05:30 Hct 26.0 % (30.3-42.9) L 01/08/17 05:30 MCV 90 fl (79-97) 01/08/17 05:30 MCH 30 pg (28-32) 01/08/17 05:30 MCHC 34 % (30-34) 01/08/17 05:30 RDW 16.5 % (13.2-15.2) H 01/08/17 05:30 Plt Count 133 K/mm3 (140-440) L 01/08/17 05:30 Lymph % (Auto) 19.8 % (13.4-35.0) 01/07/17 08:14 Webb % (Auto) 8.8 % (0.0-7.3) H 01/07/17 08:14 Eos % (Auto) 0.7 % (0.0-4.3) 01/07/17 08:14 Baso % (Auto) 0.3 % (0.0-1.8) 01/07/17 08:14 Lymph # 2.3 K/mm3 (1.2-5.4) 01/07/17 08:14 Webb # 1.0 K/mm3 (0.0-0.8) H 01/07/17 08:14 Eos # 0.1 K/mm3 (0.0-0.4) 01/07/17 08:14 Baso # 0.0 K/mm3 (0.0-0.1) 01/07/17 08:14 Seg Neutrophils % 70.4 % (40.0-70.0) H 01/07/17 08:14 Seg Neutrophils # 8.1 K/mm3 (1.8-7.7) H 01/07/17 08:14 POC ABG pH 7.538 (7.35-7.45) H 01/07/17 04:05 POC ABG pCO2 34.7 (35-45) L 01/07/17 04:05 POC ABG pO2 60 (80-105) L 01/07/17 04:05 POC ABG HCO3 29.5 01/07/17 04:05 POC ABG Total CO2 31 01/07/17 04:05 POC ABG O2 Sat 94 01/07/17 04:05 POC ABG Base Excess 7 01/07/17 04:05 FiO2 35 % 01/07/17 04:05 Sodium 137 mmol/L (137-145) 01/08/17 05:30 Potassium 3.8 mmol/L (3.6-5.0) 01/08/17 05:30 Chloride 96.8 mmol/L (98-107) L 01/08/17 05:30 Carbon Dioxide 23 mmol/L (22-30) 01/08/17 05:30 Anion Gap 21 mmol/L 01/08/17 05:30 BUN 65 mg/dL (7-17) H 01/08/17 05:30 Creatinine 5.1 mg/dL (0.7-1.2) H 01/08/17 05:30 Estimated GFR 10 ml/min 01/08/17 05:30 BUN/Creatinine Ratio 12.74 % 01/08/17 05:30 Glucose 136 mg/dL (65-100) H 01/08/17 05:30 POC Glucose 165 (70-105) H 01/08/17 05:57 Lactic Acid 1.30 mmol/L (0.7-2.0) 01/01/17 06:35 Calcium 7.9 mg/dL (8.4-10.2) L 01/08/17 05:30 Phosphorus 5.00 mg/dL (2.5-4.5) H 01/07/17 08:14 Magnesium 1.90 mg/dL (1.7-2.3) 01/04/17 04:45 Iron 22 ug/dL (37-170) L 01/05/17 04:40 TIBC 183 mcg/dL (250-450) L 01/05/17 04:40 Ferritin 283.6 ng/mL (13.0-400.0) 01/05/17 04:40 Total Bilirubin 0.40 mg/dL (0.1-1.2) 01/04/17 04:45 Direct Bilirubin < 0.2 mg/dL (0-0.2) 12/31/16 15:40 Indirect Bilirubin 0.1 mg/dL 12/31/16 15:40 AST 25 units/L (5-40) 01/04/17 04:45 ALT 16 units/L (7-56) 01/04/17 04:45 Alkaline Phosphatase 75 units/L (35-129) 01/04/17 04:45 Total Creatine Kinase 312 units/L (30-135) H 01/05/17 04:40 CK-MB (CK-2) 10.8 ng/mL (0.0-4.0) H 12/31/16 06:58 CK-MB (CK-2) Rel Index 1.3 (0-4) 12/31/16 06:58 Troponin T 0.179 ng/mL (0.00-0.029) H* D 12/31/16 06:58 Total Protein 5.6 g/dL (6.3-8.2) L 01/04/17 04:45 Albumin 2.7 g/dL (3.9-5) L 01/04/17 04:45 Albumin/Globulin Ratio 0.9 % 01/04/17 04:45 Triglycerides 298 mg/dL (2-149) H 12/30/16 23:34 Cholesterol 355 mg/dL (50-199) H 12/30/16 23:34 LDL Cholesterol Direct 251 mg/dL (50-130) H 12/30/16 23:34 HDL Cholesterol 45 mg/dL (40-59) 12/30/16 23:34 Cholesterol/HDL Ratio 7.88 % 12/30/16 23:34 TSH 1.320 mlU/mL (0.270-4.200) 12/30/16 21:29 PTH Intact 124.4 pg/mL (15-65) H 12/31/16 03:42 Urine Color Yellow (Yellow) 12/30/16 20:47 Urine Turbidity Clear (Clear) 12/30/16 20:47 Urine pH 5.0 (5.0-7.0) 12/30/16 20:47 Ur Specific Power 1.023 (1.003-1.030) 12/30/16 20:47 Urine Protein 100 mg/dl mg/dL (Negative) 12/30/16 20:47 Urine Glucose (UA) Neg mg/dL (Negative) 12/30/16 20:47 Urine Ketones Tr mg/dL (Negative) 12/30/16 20:47 Urine Blood Neg (Negative) 12/30/16 20:47 Urine Nitrite Neg (Negative) 12/30/16 20:47 Urine Bilirubin Neg (Negative) 12/30/16 20:47 Urine Urobilinogen 2.0 mg/dL (<2.0) 12/30/16 20:47 Ur Leukocyte Esterase Neg (Negative) 12/30/16 20:47 Urine WBC (Auto) < 1.0 /HPF (0.0-6.0) 12/30/16 20:47 Urine RBC (Auto) 1.0 /HPF (0.0-6.0) 12/30/16 20:47 U Epithel Cells (Auto) 1.0 /HPF (0-13.0) 12/30/16 20:47 Urine Bacteria (Auto) 1+ /HPF (Negative) 12/30/16 20:47 Salicylates < 0.3 mg/dL (2.8-20.0) L 12/30/16 21:29 Urine Opiates Screen Presumptive negative 12/30/16 20:47 Urine Methadone Screen Presumptive negative 12/30/16 20:47 Acetaminophen < 15.0 ug/mL (10.0-30.0) 12/30/16 21:29 Ur Barbiturates Screen Presumptive negative 12/30/16 20:47 Ur Phencyclidine Scrn Presumptive negative 12/30/16 20:47 Ur Amphetamines Screen Presumptive negative 12/30/16 20:47 U Benzodiazepines Scrn Presumptive negative 12/30/16 20:47 Urine Cocaine Screen Presumptive negative 12/30/16 20:47 U Marijuana (THC) Screen Presumptive positive 12/30/16 20:47 Drugs of Abuse Note Disclamer 12/30/16 20:47 Plasma/Serum Alcohol < 0.01 gm% (0-0.07) 12/30/16 21:29 Blood Type O NEGATIVE 01/06/17 19:00 Antibody Screen Negative 01/06/17 19:00 Crossmatch See Detail 01/06/17 19:00
[2017-01-08] MEDS: PROCRIT IV PRN (15:11)
[2017-01-08] MEDS: HEPARIN IV PRN (16:14)
[2017-01-08 19:19] LABS: Hematocrit 26.4 % (30.3-42.9); Hemoglobin 8.6 gm/dl (10.1-14.3)
--- NOTE | 2017-01-08 19:19 | Cat Scan Report ---
FINAL REPORT EXAM: CT HEAD/BRAIN WO CON HISTORY: monitor for hemorrhagic conversion in strokes. TECHNIQUE: CT imaging is acquired through the brain without contrast. Transaxial reformations are provided. PRIORS: 12/30/2016 FINDINGS: Ventricles and CSF spaces are proportionately enlarged, consistent with parenchymal atrophy. Loss of bone-white matter differentiation in the left ADAN and MCA distribution is increased from prior. Sequela of cerebellar infarcts is also likely present. No acute intracranial hemorrhage or mass effect. Calvarium and superficial scalp are intact. Partially visualized paranasal sinuses are clear. Mastoids are clear. IMPRESSION: Evolution of multifocal infarction compared to 12/30/2016 without intracranial hemorrhage identified.
[2017-01-08 19:41] LABS: INR 0.95 (0.87-1.13); Partial Thromboplastin Time < 20.0 Sec. (24.2-36.6)
[2017-01-08] MEDS: HEPARIN/ 0.45% NACL-25,000 UNIT/500 ML 25,000 UNIT/500 ML BAG IV SCH (21:39)
[2017-01-09] MEDS: NOVOLOG SUB-Q SCH ×4 (06:34→18:52)
[2017-01-09 06:43] LABS: Basophils % (Auto) 0.8 % (0.0-1.8); Eosinophils % (Auto) 1.3 % (0.0-4.3); Hematocrit 26.3 % (30.3-42.9); Hemoglobin 8.3 gm/dl (10.1-14.3); Mean Corpuscular HGB Conc 32 % (30-34); Mean Corpuscular Hemoglobin 29 pg (28-32); Mean Corpuscular Volume 92 fl (79-97); Platelet Count 200 K/mm3 (140-440); Red Blood Count 2.87 M/mm3 (3.65-5.03); Red Cell Distribution Width 16.6 % (13.2-15.2); White Blood Count 12.3 K/mm3 (4.5-11.0)
[2017-01-09 06:59] LABS: BUN/Creatinine Ratio 11.17; Calcium 8.2 mg/dL (8.4-10.2); Chloride 93.9 mmol/L (98-107); Potassium 3.6 mmol/L (3.6-5.0)
--- NOTE | 2017-01-09 08:59 | Progress Note ---
Subjective Date of service: 01/09/17 Principal diagnosis: Acute CVA; Acute Respiratory Failure Interval history: Remains critically ill, intubated, comatose,and tetraplegic. Acute respiratory failure intubated on the vent Acute ischemic CVA Extensive plaque noted in the transverse and descending thoracic aorta, some plaques are mobile Normal LVEF, now on IV heparin Acute drop in HCT s/p transfusion of PRBCs Hypertension Diabetes mellitus PVD Hyperlipidemia Chronic Renal insufficiency requiring renal replacement Leukocytosis Objective Vital Signs Temp Pulse Resp BP Pulse Ox Pulse Ox 01/09/17 08:31 65 16 152/67 100 01/09/17 08:15 68 16 166/74 100 01/09/17 08:01 70 18 166/74 100 01/09/17 08:00 98.3 F 27 H 100 01/09/17 07:45 74 25 H 207/97 100 01/09/17 07:39 77 207/97 100 01/09/17 07:31 68 23 132/81 86 01/09/17 07:15 69 23 132/81 97 01/09/17 07:01 72 28 H 132/81 97 01/09/17 06:45 70 24 139/76 97 01/09/17 06:31 71 23 139/76 97 01/09/17 06:15 73 22 139/76 98 01/09/17 06:01 71 24 139/76 97 01/09/17 05:45 69 23 151/73 98 01/09/17 05:31 72 23 151/73 98 01/09/17 05:15 70 22 151/73 98 01/09/17 05:01 72 21 151/73 98 01/09/17 04:45 69 23 151/69 98 01/09/17 04:31 68 22 151/69 98 01/09/17 04:15 68 22 151/69 98 01/09/17 04:01 71 22 151/69 98 01/09/17 04:00 98.8 F 18 01/09/17 03:45 69 21 144/66 98 01/09/17 03:31 70 22 144/66 98 01/09/17 03:26 68 144/66 98 01/09/17 03:15 67 22 144/66 98 01/09/17 03:00 68 20 136/65 98 01/09/17 02:45 67 21 136/65 98 01/09/17 02:31 67 21 136/65 98 01/09/17 02:15 69 21 136/65 98 01/09/17 02:01 67 19 136/65 98 01/09/17 01:45 65 20 136/65 98 01/09/17 01:31 65 21 136/65 98 01/09/17 01:15 65 23 136/65 98 01/09/17 01:00 66 22 136/65 98 01/09/17 00:45 66 21 139/68 98 01/09/17 00:31 65 22 139/68 98 01/09/17 00:15 64 21 139/68 98 01/09/17 00:01 67 20 139/68 98 01/09/17 00:00 12 98 01/08/17 23:50 65 139/68 98 01/08/17 23:45 67 15 156/73 99 01/08/17 23:31 67 22 156/73 99 01/08/17 23:19 98.6 F 01/08/17 23:15 69 20 156/73 98 01/08/17 23:03 72 21 156/73 98 01/08/17 23:01 73 19 156/73 99 01/08/17 22:45 71 21 147/66 98 01/08/17 22:31 70 22 147/66 98 01/08/17 22:15 72 22 147/66 99 01/08/17 22:01 70 22 147/66 98 01/08/17 22:00 68 01/08/17 21:45 70 20 148/71 98 01/08/17 21:38 69 148/71 01/08/17 21:31 68 21 148/71 98 01/08/17 21:15 69 20 148/71 98 01/08/17 21:00 70 19 148/71 99 01/08/17 20:45 68 19 146/67 99 01/08/17 20:31 68 19 146/67 99 01/08/17 20:15 66 19 146/67 99 01/08/17 20:01 67 19 146/67 98 01/08/17 20:00 98.5 F 12 98 01/08/17 19:45 67 19 143/67 98 01/08/17 19:36 67 19 143/67 98 01/08/17 19:31 69 20 143/67 98 01/08/17 19:15 67 18 143/67 97 01/08/17 19:01 67 19 143/67 99 01/08/17 18:45 66 17 143/66 99 01/08/17 18:31 66 15 147/68 98 01/08/17 18:15 64 18 142/65 98 01/08/17 18:01 67 17 144/69 99 01/08/17 18:00 98.2 F 01/08/17 17:48 67 19 98 01/08/17 17:01 73 21 163/73 97 01/08/17 16:45 70 17 167/75 97 01/08/17 16:31 71 16 159/68 97 01/08/17 16:15 70 17 159/68 97 01/08/17 16:11 97.7 F 70 16 163/72 97 01/08/17 16:00 70 18 163/72 97 01/08/17 15:50 69 159/68 01/08/17 15:46 69 159/68 01/08/17 15:45 68 16 159/68 98 01/08/17 15:31 68 16 155/69 98 01/08/17 15:30 68 155/69 01/08/17 15:15 68 17 155/68 98 01/08/17 15:14 67 15 155/68 98 01/08/17 15:03 67 159/68 01/08/17 15:01 67 16 159/68 98 01/08/17 14:46 67 162/68 01/08/17 14:45 66 16 162/68 98 01/08/17 14:30 68 17 159/67 97 01/08/17 14:16 68 17 158/68 98 01/08/17 14:15 65 159/67 01/08/17 14:01 67 158/68 01/08/17 14:00 69 17 162/66 98 01/08/17 13:46 66 17 160/72 98 01/08/17 13:45 67 162/66 01/08/17 13:38 65 16 160/72 98 01/08/17 13:30 66 160/67 01/08/17 13:15 65 156/71 01/08/17 13:01 64 16 162/75 97 01/08/17 13:00 63 162/75 01/08/17 12:50 63 167/75 01/08/17 12:45 64 14 160/72 97 01/08/17 12:40 97.7 F 63 15 167/75 98 01/08/17 12:30 66 16 173/86 97 01/08/17 12:15 63 17 160/72 97 01/08/17 12:01 63 16 160/72 97 01/08/17 12:00 98.1 F 16 01/08/17 11:45 64 18 149/71 98 01/08/17 11:31 63 16 160/72 97 01/08/17 11:15 60 19 149/71 97 01/08/17 11:01 66 22 96 01/08/17 10:57 61 17 96 01/08/17 10:00 63 01/08/17 09:45 62 17 155/72 01/08/17 09:34 61 155/72 01/08/17 09:33 61 155/72 01/08/17 09:31 61 18 155/72 100 01/08/17 09:15 60 17 149/72 97 01/08/17 09:01 62 15 149/72 97 - Physical Examination General: Other (intubated on the vent) Neck: Positive: neck supple, trachea midline Cardiac: Positive: Reg Rate and Rhythm, S1/S2 Lungs: Positive: Rhonchi Abdomen: Positive: Soft. Negative: Pulsations/Bruits - Labs and Meds Coagulation 01/08/17 Range/Units 19:10 PT 13.2 (12.2-14.9) Sec. INR 0.95 (0.87-1.13) APTT < 20.0 L (24.2-36.6) Sec. CBC 01/08/17 01/09/17 Range/Units 19:10 04:00 WBC 12.3 H (4.5-11.0) K/mm3 RBC 2.87 L (3.65-5.03) M/mm3 Hgb 8.6 L 8.3 L (10.1-14.3) gm/dl Hct 26.4 L 26.3 L (30.3-42.9) % Plt Count 149 200 (140-440) K/mm3 Lymph # 2.6 (1.2-5.4) K/mm3 [place] # 1.1 H (0.0-0.8) K/mm3 Eos # 0.2 (0.0-0.4) K/mm3 Baso # 0.1 (0.0-0.1) K/mm3 Comprehensive Metabolic Panel 01/09/17 Range/Units 04:00 Sodium 135 L (137-145) mmol/L Potassium 3.6 (3.6-5.0) mmol/L Chloride 93.9 L (98-107) mmol/L Carbon Dioxide 25 (22-30) mmol/L BUN 38 H (7-17) mg/dL Creatinine 3.4 H (0.7-1.2) mg/dL Glucose 158 H (65-100) mg/dL Calcium 8.2 L (8.4-10.2) mg/dL - Imaging and Cardiology EKG: image reviewed
[2017-01-09] MEDS: NORVASC PO SCH (10:35)
[2017-01-09] MEDS: KEPPRA PO SCH ×2 (10:35→22:32)
[2017-01-09] MEDS: NORMODYNE PO SCH ×2 (10:36→22:32)
[2017-01-09] MEDS: ASPIRIN PO SCH (10:37)
[2017-01-09] MEDS: PEPCID PO SCH (10:37)
[2017-01-09] MEDS: LEVEMIR SUB-Q SCH (10:45)
--- NOTE | 2017-01-09 11:38 | Progress Note ---
Assessment and Plan - Patient Problems (1) ARF (acute renal failure) Current Visit: Yes Status: Acute Qualifiers: Acute renal failure type: A Plan to address problem: Acute kidney injury superimposed on CKD stage 3 in the setting of uncontrolled HTN. S/p hemodialysis on 12/31, 01/05 and 01/08. No improvement in the kidney so far. Monitor for [employer] needs and continue hemodialysis three times a week for now. Renal prognosis is guarded. D/w her sisters at the bedside. (2) Hyperkalemia Current Visit: Yes Status: Acute Plan to address problem: Hyperkalemia in the setting of Acute kidney injury. Improved with hemodialysis. (3) Metabolic acidosis Current Visit: Yes Status: Acute Plan to address problem: Improved. (4) Hypertensive encephalopathy Current Visit: Yes Status: Acute Plan to address problem: BP is better. (5) Respiratory failure Current Visit: Yes Status: Acute Qualifiers: Chronicity: C Respiratory failure complication: R Plan to address problem: On Vent. (6) Anemia Current Visit: Yes Status: Acute Qualifiers: Anemia type: A Iron deficiency anemia type: I Vitamin B12 deficiency anemia type: V Folate deficiency anemia type: F Bone marrow failure anemia type: B Hemolytic anemia type: H Other causes of anemia: O Chronic kidney disease stage: C Plan to address problem: Epogen. Monitor Hb. Subjective Date of service: 01/09/17 Principal diagnosis: Acute CVA; Acute Respiratory Failure Interval history: Patient remain on the vent. Objective - Vital Signs Vital signs: Vital Signs - 12hr 01/08/17 01/08/17 01/09/17 23:45 23:50 00:00 Temperature Pulse Rate 67 65 Respiratory 15 12 Rate Blood Pressure 156/73 139/68 O2 Sat by Pulse 99 98 98 Oximetry 01/09/17 01/09/17 01/09/17 00:01 00:15 00:31 Temperature Pulse Rate 67 64 65 Respiratory 20 21 22 Rate Blood Pressure 139/68 139/68 139/68 O2 Sat by Pulse 98 98 98 Oximetry 01/09/17 01/09/17 01/09/17 00:45 01:00 01:15 Temperature Pulse Rate 66 66 65 Respiratory 21 22 23 Rate Blood Pressure 139/68 136/65 136/65 O2 Sat by Pulse 98 98 98 Oximetry 01/09/17 01/09/17 01/09/17 01:31 01:45 02:01 Temperature Pulse Rate 65 65 67 Respiratory 21 20 19 Rate Blood Pressure 136/65 136/65 136/65 O2 Sat by Pulse 98 98 98 Oximetry 01/09/17 01/09/17 01/09/17 02:15 02:31 02:45 Temperature Pulse Rate 69 67 67 Respiratory 21 21 21 Rate Blood Pressure 136/65 136/65 136/65 O2 Sat by Pulse 98 98 98 Oximetry 01/09/17 01/09/17 01/09/17 03:00 03:15 03:26 Temperature Pulse Rate 68 67 68 Respiratory 20 22 Rate Blood Pressure 136/65 144/66 144/66 O2 Sat by Pulse 98 98 98 Oximetry 01/09/17 01/09/17 01/09/17 03:31 03:45 04:00 Temperature 98.8 F Pulse Rate 70 69 Respiratory 22 21 18 Rate Blood Pressure 144/66 144/66 O2 Sat by Pulse 98 98 Oximetry 01/09/17 01/09/17 01/09/17 04:01 04:15 04:31 Temperature Pulse Rate 71 68 68 Respiratory 22 22 22 Rate Blood Pressure 151/69 151/69 151/69 O2 Sat by Pulse 98 98 98 Oximetry 01/09/17 01/09/17 01/09/17 04:45 05:01 05:15 Temperature Pulse Rate 69 72 70 Respiratory 23 21 22 Rate Blood Pressure 151/69 151/73 151/73 O2 Sat by Pulse 98 98 98 Oximetry 01/09/17 01/09/17 01/09/17 05:31 05:45 06:01 Temperature Pulse Rate 72 69 71 Respiratory 23 23 24 Rate Blood Pressure 151/73 151/73 139/76 O2 Sat by Pulse 98 98 97 Oximetry 01/09/17 01/09/17 01/09/17 06:15 06:31 06:45 Temperature Pulse Rate 73 71 70 Respiratory 22 23 24 Rate Blood Pressure 139/76 139/76 139/76 O2 Sat by Pulse 98 97 97 Oximetry 01/09/17 01/09/17 01/09/17 07:01 07:15 07:31 Temperature Pulse Rate 72 69 68 Respiratory 28 H 23 23 Rate Blood Pressure 132/81 132/81 132/81 O2 Sat by Pulse 97 97 86 Oximetry 01/09/17 01/09/17 01/09/17 07:39 07:45 08:00 Temperature 98.3 F Pulse Rate 77 74 Respiratory 25 H 27 H Rate Blood Pressure 207/97 207/97 O2 Sat by Pulse 100 100 100 Oximetry 01/09/17 01/09/17 01/09/17 08:01 08:15 08:31 Temperature Pulse Rate 70 68 65 Respiratory 18 16 16 Rate Blood Pressure 166/74 166/74 152/67 O2 Sat by Pulse 100 100 100 Oximetry 01/09/17 01/09/17 01/09/17 08:45 09:01 09:15 Temperature Pulse Rate 63 70 69 Respiratory 17 19 20 Rate Blood Pressure 152/67 174/75 174/75 O2 Sat by Pulse 100 95 95 Oximetry 01/09/17 01/09/17 01/09/17 09:31 09:45 10:00 Temperature Pulse Rate 69 70 65 Respiratory 16 18 Rate Blood Pressure 159/65 174/75 O2 Sat by Pulse 96 95 Oximetry 01/09/17 01/09/17 01/09/17 10:01 10:15 10:31 Temperature Pulse Rate 68 70 73 Respiratory 20 19 17 Rate Blood Pressure 165/80 165/80 198/87 O2 Sat by Pulse 97 96 96 Oximetry 01/09/17 01/09/17 01/09/17 10:35 10:36 10:45 Temperature Pulse Rate 71 71 71 Respiratory 19 Rate Blood Pressure 168/80 168/80 173/78 O2 Sat by Pulse 97 Oximetry 01/09/17 01/09/17 01/09/17 11:00 11:06 11:15 Temperature Pulse Rate 68 65 62 Respiratory 19 20 Rate Blood Pressure 173/78 166/85 166/85 O2 Sat by Pulse 97 97 98 Oximetry - General Appearance General appearance: well-developed, appears stated age, intubated (FiO2 30%), other (right groin hemodialysis catheter) EENT: ATNC, PERRL Neck: supple Respiratory: Present: Other (coarse breath sounds) Cardiology: regular, S1S2, no murmurs Gastrointestinal: normoactive bowel sounds, no tenderness, obese Integumentary: no rash Neurologic: obtunded Musculoskeletal: other (no edema) - Lab 01/10/17 04:00 01/10/17 04:00 Most recent lab results Calcium 8.2 mg/dL (8.4-10.2) L 01/09/17 04:00 Phosphorus 5.00 mg/dL (2.5-4.5) H 01/07/17 08:14 Magnesium 1.90 mg/dL (1.7-2.3) 01/04/17 04:45
--- NOTE | 2017-01-09 15:19 | Progress Note ---
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 - continue supportive care - get neurology evaluation - continue secondary prevention with anti-lipid, anti-platelet, BP control therapies - for repeat MRI in am - unstable artheroma seen on JOSE likely embolic source - reconsider full anticoagulation after repeat MRI re: risk of hemorrhagic conversion (3) ARF (acute renal failure) Current Visit: Yes Status: Acute Qualifiers: Acute renal failure type: A Plan to address problem: - seen by nephrology - making urine - started on dialysis - prescription per nephrology but still giving her a chance for renal recovery - on supportive [employer] - 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 (4) Hyperkalemia Current Visit: Yes Status: Acute Plan to address problem: - corrected - continue to trend and address (5) Hypertensive encephalopathy Current Visit: Yes Status: Acute Plan to address problem: - better BP control - will target pseudo-normal / permissive HTN in short course - prn IV meds for SBP > 170mmHg (6) Seizures Current Visit: Yes Status: Acute Plan to address problem: - per sister no prior history - will continue empiric keppra (7) Anemia Current Visit: Yes Status: Acute Qualifiers: Anemia type: A Iron deficiency anemia type: I Vitamin B12 deficiency anemia type: V Folate deficiency anemia type: F Bone marrow failure anemia type: B Hemolytic anemia type: H Other causes of anemia: O Chronic kidney disease stage: C Plan to address problem: - likely dilutional element - still suspect ABLA component - sent stool guaiac (pending) - get GI consultation - trend H&H (8) Healthcare maintenance Current Visit: Yes Status: Acute Plan to address problem: - on GI prophylaxis - on VTE prophylaxis - cather in place re: SIVA and for CCM issues acutely - glycemic control for target BG < 180mg/dl (9) NSTEMI (non-ST elevated myocardial infarction) Current Visit: Yes Status: Acute Plan to address problem: - cardiology evaluation pngoing - s/p JOSE with unstable aortic artheroma seen (10) Discharge planning issues Current Visit: Yes Status: Acute Plan to address problem: - care plan discussed at length with sister and i explained that if no significant improvement in mental status she will need a tracheostomy - may need LTAC evaluation eventually ...she remains critically ill on life sustaining interventions including MVS and at risk for further deterioration including ...30' CCT Subjective Date of service: 01/09/17 Principal diagnosis: Acute CVA; Acute Respiratory Failure Interval history: Seen and examined at bedside; 24 hour events reviewed; nursing and respiratory care staff consulted; no adverse overnight events reported to me; resting peacefully in bed; AMS is persistent; no reported seizures; No emesis or overt aspiration and no gross bleeding; remains on MVS Objective Vital Signs - 12hr 01/09/17 01/09/17 01/09/17 03:26 03:31 03:45 Temperature Pulse Rate 68 70 69 Respiratory 22 21 Rate Blood Pressure 144/66 144/66 144/66 O2 Sat by Pulse 98 98 98 Oximetry 01/09/17 01/09/17 01/09/17 04:00 04:01 04:15 Temperature 98.8 F Pulse Rate 71 68 Respiratory 18 22 22 Rate Blood Pressure 151/69 151/69 O2 Sat by Pulse 98 98 Oximetry 01/09/17 01/09/17 01/09/17 04:31 04:45 05:01 Temperature Pulse Rate 68 69 72 Respiratory 22 23 21 Rate Blood Pressure 151/69 151/69 151/73 O2 Sat by Pulse 98 98 98 Oximetry 01/09/17 01/09/17 01/09/17 05:15 05:31 05:45 Temperature Pulse Rate 70 72 69 Respiratory 22 23 23 Rate Blood Pressure 151/73 151/73 151/73 O2 Sat by Pulse 98 98 98 Oximetry 01/09/17 01/09/17 01/09/17 06:01 06:15 06:31 Temperature Pulse Rate 71 73 71 Respiratory 24 22 23 Rate Blood Pressure 139/76 139/76 139/76 O2 Sat by Pulse 97 98 97 Oximetry 01/09/17 01/09/17 01/09/17 06:45 07:01 07:15 Temperature Pulse Rate 70 72 69 Respiratory 24 28 H 23 Rate Blood Pressure 139/76 132/81 132/81 O2 Sat by Pulse 97 97 97 Oximetry 01/09/17 01/09/17 01/09/17 07:31 07:39 07:45 Temperature Pulse Rate 68 77 74 Respiratory 23 25 H Rate Blood Pressure 132/81 207/97 207/97 O2 Sat by Pulse 86 100 100 Oximetry 01/09/17 01/09/17 01/09/17 08:00 08:01 08:15 Temperature 98.3 F Pulse Rate 70 68 Respiratory 27 H 18 16 Rate Blood Pressure 166/74 166/74 O2 Sat by Pulse 100 100 100 Oximetry 01/09/17 01/09/17 01/09/17 08:31 08:45 09:01 Temperature Pulse Rate 65 63 70 Respiratory 16 17 19 Rate Blood Pressure 152/67 152/67 174/75 O2 Sat by Pulse 100 100 95 Oximetry 01/09/17 01/09/17 01/09/17 09:15 09:31 09:45 Temperature Pulse Rate 69 69 70 Respiratory 20 16 18 Rate Blood Pressure 174/75 159/65 174/75 O2 Sat by Pulse 95 96 95 Oximetry 01/09/17 01/09/17 01/09/17 10:00 10:01 10:15 Temperature Pulse Rate 65 68 70 Respiratory 20 19 Rate Blood Pressure 165/80 165/80 O2 Sat by Pulse 97 96 Oximetry 01/09/17 01/09/17 01/09/17 10:31 10:35 10:36 Temperature Pulse Rate 73 71 71 Respiratory 17 Rate Blood Pressure 198/87 168/80 168/80 O2 Sat by Pulse 96 Oximetry 01/09/17 01/09/17 01/09/17 10:45 11:00 11:06 Temperature Pulse Rate 71 68 65 Respiratory 19 19 Rate Blood Pressure 173/78 173/78 166/85 O2 Sat by Pulse 97 97 97 Oximetry 01/09/17 01/09/17 01/09/17 11:15 11:31 12:00 Temperature 97.9 F Pulse Rate 62 63 Respiratory 20 21 21 Rate Blood Pressure 166/85 145/70 O2 Sat by Pulse 98 98 99 Oximetry 01/09/17 01/09/17 01/09/17 12:01 12:31 13:01 Temperature Pulse Rate 61 61 61 Respiratory 20 20 21 Rate Blood Pressure 142/67 141/67 145/65 O2 Sat by Pulse 99 99 98 Oximetry 01/09/17 01/09/17 01/09/17 13:30 14:01 14:31 Temperature Pulse Rate 60 61 62 Respiratory 20 21 20 Rate Blood Pressure 149/69 143/65 144/68 O2 Sat by Pulse 99 99 99 Oximetry Constitutional: no acute distress, other (opens eyes to stimulus; not tracking) Eyes: non-icteric ENT: oropharynx moist Neck: supple, no lymphadenopathy, no JVD Effort: mildly labored Ascultation: Bilateral: diminished breath sounds, rhonchi (base) Cardiovascular: regular rate and rhythm Gastrointestinal: normoactive bowel sounds, soft, non-tender, non-distended Integumentary: normal Extremities: no cyanosis, no edema, pulses normal, no ischemia or petechiae, other (trans-metatarsal amputation) Neurologic: unable to assess Psychiatric: other (unable to access) CBC and BMP: 01/14/17 05:00 01/14/17 05:00 ABG, PT/INR, D-dimer: ABG POC ABG pH 7.538 (7.35-7.45) H 01/07/17 04:05 POC ABG pCO2 34.7 (35-45) L 01/07/17 04:05 POC ABG pO2 60 (80-105) L 01/07/17 04:05 POC ABG HCO3 29.5 01/07/17 04:05 POC ABG Total CO2 31 01/07/17 04:05 POC ABG O2 Sat 94 01/07/17 04:05 PT/INR, D-dimer PT 13.2 Sec. (12.2-14.9) 01/08/17 19:10 INR 0.95 (0.87-1.13) 01/08/17 19:10 Abnormal lab findings: Abnormal Labs 12/31/16 12/31/16 12/31/16 01:31 01:31 03:42 WBC RBC Hgb Hct RDW Plt Count Greer % (Auto) Greer # Seg Neutrophils % Seg Neutrophils # APTT Heparin Anti-Xa Level POC ABG pH POC ABG pCO2 POC ABG pO2 Sodium 146 H Potassium 5.6 H Chloride Carbon Dioxide 14 L BUN 77 H Creatinine 4.0 H Glucose 107 H POC Glucose Calcium Phosphorus Iron TIBC Total Creatine Kinase 678 H 711 H CK-MB (CK-2) 10.5 H Troponin T 0.136 H* D Total Protein Albumin PTH Intact Crossmatch 12/31/16 12/31/16 12/31/16 03:42 06:58 06:58 WBC RBC Hgb Hct RDW Plt Count Greer % (Auto) Greer # Seg Neutrophils % Seg Neutrophils # APTT Heparin Anti-Xa Level POC ABG pH POC ABG pCO2 POC ABG pO2 Sodium 147 H Potassium 6.0 H Chloride 107.5 H Carbon Dioxide 12 L BUN 81 H Creatinine 4.6 H Glucose 183 H POC Glucose Calcium Phosphorus Iron TIBC Total Creatine Kinase 787 H CK-MB (CK-2) 10.8 H Troponin T 0.179 H* D Total Protein Albumin PTH Intact 124.4 H Crossmatch 12/31/16 12/31/16 12/31/16 09:34 13:47 15:40 WBC RBC Hgb Hct RDW Plt Count Greer % (Auto) Greer # Seg Neutrophils % Seg Neutrophils # APTT Heparin Anti-Xa Level POC ABG pH 7.344 L POC ABG pCO2 33.0 L POC ABG pO2 340 H Sodium Potassium Chloride Carbon Dioxide BUN Creatinine Glucose POC Glucose 294 H Calcium Phosphorus Iron TIBC Total Creatine Kinase CK-MB (CK-2) Troponin T Total Protein 6.1 L D Albumin 3.6 L PTH Intact Crossmatch 12/31/16 12/31/16 12/31/16 16:49 18:05 18:23 WBC RBC Hgb Hct RDW Plt Count Greer % (Auto) Greer # Seg Neutrophils % Seg Neutrophils # APTT Heparin Anti-Xa Level POC ABG pH 7.651 H POC ABG pCO2 23.2 L POC ABG pO2 64 L Sodium Potassium Chloride Carbon Dioxide BUN Creatinine Glucose POC Glucose 287 H 259 H Calcium Phosphorus Iron TIBC Total Creatine Kinase CK-MB (CK-2) Troponin T Total Protein Albumin PTH Intact Crossmatch 12/31/16 01/01/17 01/01/17 23:52 05:40 06:35 WBC RBC Hgb Hct RDW Plt Count Greer % (Auto) Greer # Seg Neutrophils % Seg Neutrophils # APTT Heparin Anti-Xa Level POC ABG pH POC ABG pCO2 POC ABG pO2 Sodium Potassium Chloride 96.6 L Carbon Dioxide BUN 34 H Creatinine 3.4 H Glucose 142 H POC Glucose 182 H 168 H Calcium 7.6 L D Phosphorus Iron TIBC Total Creatine Kinase CK-MB (CK-2) Troponin T Total Protein Albumin PTH Intact Crossmatch 01/01/17 01/01/17 01/01/17 11:54 12:24 17:10 WBC RBC Hgb Hct RDW Plt Count Greer % (Auto) Greer # Seg Neutrophils % Seg Neutrophils # APTT Heparin Anti-Xa Level POC ABG pH 7.536 H POC ABG pCO2 POC ABG pO2 149 H Sodium Potassium Chloride Carbon Dioxide BUN Creatinine Glucose POC Glucose 166 H 160 H Calcium Phosphorus Iron TIBC Total Creatine Kinase CK-MB (CK-2) Troponin T Total Protein Albumin PTH Intact Crossmatch 01/01/17 01/02/17 01/02/17 23:31 03:35 04:01 WBC 12.0 H RBC 2.88 L Hgb 8.4 L D Hct 25.4 L D RDW 15.9 H Plt Count Greer % (Auto) Greer # Seg Neutrophils % 75.3 H Seg Neutrophils # 9.0 H APTT Heparin Anti-Xa Level POC ABG pH 7.551 H POC ABG pCO2 33.7 L POC ABG pO2 Sodium Potassium Chloride Carbon Dioxide BUN Creatinine Glucose POC Glucose 232 H Calcium Phosphorus Iron TIBC Total Creatine Kinase CK-MB (CK-2) Troponin T Total Protein Albumin PTH Intact Crossmatch 01/02/17 01/02/17 01/02/17 04:01 05:09 12:28 WBC RBC Hgb Hct RDW Plt Count Greer % (Auto) Greer # Seg Neutrophils % Seg Neutrophils # APTT Heparin Anti-Xa Level POC ABG pH POC ABG pCO2 POC ABG pO2 Sodium Potassium Chloride 93.3 L Carbon Dioxide BUN 44 H Creatinine 5.1 H Glucose 208 H POC Glucose 343 H 197 H Calcium 7.7 L Phosphorus Iron TIBC Total Creatine Kinase CK-MB (CK-2) Troponin T Total Protein 6.1 L Albumin 3.1 L PTH Intact Crossmatch 01/02/17 01/02/17 01/02/17 12:40 17:52 18:40 WBC RBC Hgb Hct RDW Plt Count Greer % (Auto) Greer # Seg Neutrophils % Seg Neutrophils # APTT Heparin Anti-Xa Level POC ABG pH POC ABG pCO2 POC ABG pO2 Sodium Potassium Chloride Carbon Dioxide BUN Creatinine Glucose POC Glucose 296 H 53 L 172 H Calcium Phosphorus Iron TIBC Total Creatine Kinase CK-MB (CK-2) Troponin T Total Protein Albumin PTH Intact Crossmatch 01/02/17 01/03/17 01/03/17 23:57 03:44 03:44 WBC RBC 2.52 L Hgb 7.6 L Hct 22.5 L RDW 15.4 H Plt Count Greer % (Auto) Greer # Seg Neutrophils % 70.5 H Seg Neutrophils # APTT Heparin Anti-Xa Level POC ABG pH POC ABG pCO2 POC ABG pO2 Sodium Potassium Chloride 92.2 L Carbon Dioxide BUN 58 H Creatinine 6.2 H Glucose 147 H POC Glucose 248 H Calcium 7.4 L Phosphorus 5.90 H Iron TIBC Total Creatine Kinase CK-MB (CK-2) Troponin T Total Protein Albumin PTH Intact Crossmatch 01/03/17 01/03/17 01/03/17 05:41 11:51 17:33 WBC RBC Hgb Hct RDW Plt Count Greer % (Auto) Greer # Seg Neutrophils % Seg Neutrophils # APTT Heparin Anti-Xa Level POC ABG pH POC ABG pCO2 POC ABG pO2 Sodium Potassium Chloride Carbon Dioxide BUN Creatinine Glucose POC Glucose 190 H 258 H 197 H Calcium Phosphorus Iron TIBC Total Creatine Kinase CK-MB (CK-2) Troponin T Total Protein Albumin PTH Intact Crossmatch 01/03/17 01/03/17 01/04/17 21:38 23:50 04:45 WBC 12.7 H RBC 2.48 L Hgb 7.2 L Hct 22.5 L RDW 15.5 H Plt Count Greer % (Auto) Greer # Seg Neutrophils % 74.0 H Seg Neutrophils # 9.4 H APTT Heparin Anti-Xa Level POC ABG pH 7.551 H POC ABG pCO2 34.0 L POC ABG pO2 74 L Sodium Potassium Chloride Carbon Dioxide BUN Creatinine Glucose POC Glucose 189 H Calcium Phosphorus Iron TIBC Total Creatine Kinase CK-MB (CK-2) Troponin T Total Protein Albumin PTH Intact Crossmatch 01/04/17 01/04/17 01/04/17 04:45 05:59 09:53 WBC RBC Hgb Hct RDW Plt Count Greer % (Auto) Greer # Seg Neutrophils % Seg Neutrophils # APTT Heparin Anti-Xa Level POC ABG pH 7.550 H POC ABG pCO2 32.9 L POC ABG pO2 64 L Sodium 136 L Potassium Chloride 91.2 L Carbon Dioxide BUN 71 H Creatinine 6.4 H Glucose 167 H POC Glucose 203 H Calcium 7.8 L Phosphorus 6.50 H Iron TIBC Total Creatine Kinase 547 H CK-MB (CK-2) Troponin T Total Protein 5.6 L Albumin 2.7 L PTH Intact Crossmatch 01/04/17 01/04/17 01/04/17 12:15 17:37 23:41 WBC RBC Hgb Hct RDW Plt Count Greer % (Auto) Greer # Seg Neutrophils % Seg Neutrophils # APTT Heparin Anti-Xa Level POC ABG pH POC ABG pCO2 POC ABG pO2 Sodium Potassium Chloride Carbon Dioxide BUN Creatinine Glucose POC Glucose 228 H 225 H 231 H Calcium Phosphorus Iron TIBC Total Creatine Kinase CK-MB (CK-2) Troponin T Total Protein Albumin PTH Intact Crossmatch 01/05/17 01/05/17 01/05/17 04:40 04:40 05:24 WBC 11.3 H RBC 2.41 L Hgb 7.1 L Hct 21.6 L RDW 15.7 H Plt Count 138 L Greer % (Auto) 7.7 H Greer # 0.9 H Seg Neutrophils % 71.2 H Seg Neutrophils # 8.0 H APTT Heparin Anti-Xa Level POC ABG pH POC ABG pCO2 POC ABG pO2 Sodium 133 L Potassium 3.5 L Chloride 88.7 L Carbon Dioxide BUN 82 H Creatinine 6.5 H Glucose 137 H POC Glucose 175 H Calcium 7.8 L Phosphorus Iron 22 L TIBC 183 L Total Creatine Kinase 312 H CK-MB (CK-2) Troponin T Total Protein Albumin PTH Intact Crossmatch 01/05/17 01/05/17 01/05/17 09:34 11:12 17:33 WBC RBC Hgb Hct RDW Plt Count Greer % (Auto) Greer # Seg Neutrophils % Seg Neutrophils # APTT Heparin Anti-Xa Level POC ABG pH 7.531 H POC ABG pCO2 34.4 L POC ABG pO2 57 L Sodium Potassium Chloride Carbon Dioxide BUN Creatinine Glucose POC Glucose 188 H 222 H Calcium Phosphorus Iron TIBC Total Creatine Kinase CK-MB (CK-2) Troponin T Total Protein Albumin PTH Intact Crossmatch 01/05/17 01/06/17 01/06/17 23:24 03:15 05:20 WBC 11.2 H RBC 2.28 L Hgb 6.9 L Hct 20.7 L RDW 15.6 H Plt Count Greer % (Auto) 7.7 H Greer # 0.9 H Seg Neutrophils % 78.2 H Seg Neutrophils # 8.7 H APTT Heparin Anti-Xa Level POC ABG pH 7.566 H POC ABG pCO2 31.9 L POC ABG pO2 60 L Sodium Potassium Chloride Carbon Dioxide BUN Creatinine Glucose POC Glucose 223 H Calcium Phosphorus Iron TIBC Total Creatine Kinase CK-MB (CK-2) Troponin T Total Protein Albumin PTH Intact Crossmatch 01/06/17 01/06/17 01/06/17 05:20 05:27 11:54 WBC RBC Hgb Hct RDW Plt Count Greer % (Auto) Greer # Seg Neutrophils % Seg Neutrophils # APTT Heparin Anti-Xa Level POC ABG pH POC ABG pCO2 POC ABG pO2 Sodium Potassium Chloride 93.7 L Carbon Dioxide BUN 40 H Creatinine 3.6 H Glucose 191 H POC Glucose 244 H 184 H Calcium Phosphorus Iron TIBC Total Creatine Kinase CK-MB (CK-2) Troponin T Total Protein Albumin PTH Intact Crossmatch 01/06/17 01/06/17 01/06/17 17:39 19:00 23:57 WBC RBC Hgb Hct RDW Plt Count Greer % (Auto) Greer # Seg Neutrophils % Seg Neutrophils # APTT Heparin Anti-Xa Level POC ABG pH POC ABG pCO2 POC ABG pO2 Sodium Potassium Chloride Carbon Dioxide BUN Creatinine Glucose POC Glucose 167 H 191 H Calcium Phosphorus Iron TIBC Total Creatine Kinase CK-MB (CK-2) Troponin T Total Protein Albumin PTH Intact Crossmatch See Detail 01/07/17 01/07/17 01/07/17 04:05 05:32 08:14 WBC 11.5 H RBC 2.98 L Hgb 8.8 L Hct 26.5 L RDW 16.3 H Plt Count Greer % (Auto) 8.8 H Greer # 1.0 H Seg Neutrophils % 70.4 H Seg Neutrophils # 8.1 H APTT Heparin Anti-Xa Level POC ABG pH 7.538 H POC ABG pCO2 34.7 L POC ABG pO2 60 L Sodium Potassium Chloride Carbon Dioxide BUN Creatinine Glucose POC Glucose 139 H Calcium Phosphorus Iron TIBC Total Creatine Kinase CK-MB (CK-2) Troponin T Total Protein Albumin PTH Intact Crossmatch 01/07/17 01/07/17 01/07/17 08:14 11:52 18:19 WBC RBC Hgb Hct RDW Plt Count Greer % (Auto) Greer # Seg Neutrophils % Seg Neutrophils # APTT Heparin Anti-Xa Level POC ABG pH POC ABG pCO2 POC ABG pO2 Sodium Potassium Chloride 93.8 L Carbon Dioxide BUN 55 H Creatinine 4.7 H Glucose 161 H POC Glucose 205 H 178 H Calcium Phosphorus 5.00 H Iron TIBC Total Creatine Kinase CK-MB (CK-2) Troponin T Total Protein Albumin PTH Intact Crossmatch 01/07/17 01/08/17 01/08/17 23:43 05:30 05:30 WBC 13.0 H RBC 2.90 L Hgb 8.8 L Hct 26.0 L RDW 16.5 H Plt Count 133 L Greer % (Auto) Greer # Seg Neutrophils % Seg Neutrophils # APTT Heparin Anti-Xa Level POC ABG pH POC ABG pCO2 POC ABG pO2 Sodium Potassium Chloride 96.8 L Carbon Dioxide BUN 65 H Creatinine 5.1 H Glucose 136 H POC Glucose 153 H Calcium 7.9 L Phosphorus Iron TIBC Total Creatine Kinase CK-MB (CK-2) Troponin T Total Protein Albumin PTH Intact Crossmatch 01/08/17 01/08/17 01/08/17 05:57 11:40 18:11 WBC RBC Hgb Hct RDW Plt Count Greer % (Auto) Greer # Seg Neutrophils % Seg Neutrophils # APTT Heparin Anti-Xa Level POC ABG pH POC ABG pCO2 POC ABG pO2 Sodium Potassium Chloride Carbon Dioxide BUN Creatinine Glucose POC Glucose 165 H 152 H 167 H Calcium Phosphorus Iron TIBC Total Creatine Kinase CK-MB (CK-2) Troponin T Total Protein Albumin PTH Intact Crossmatch 01/08/17 01/08/17 01/08/17 19:10 19:10 23:50 WBC RBC Hgb 8.6 L Hct 26.4 L RDW Plt Count Greer % (Auto) Greer # Seg Neutrophils % Seg Neutrophils # APTT < 20.0 L Heparin Anti-Xa Level POC ABG pH POC ABG pCO2 POC ABG pO2 Sodium Potassium Chloride Carbon Dioxide BUN Creatinine Glucose POC Glucose 136 H Calcium Phosphorus Iron TIBC Total Creatine Kinase CK-MB (CK-2) Troponin T Total Protein Albumin PTH Intact Crossmatch 01/09/17 01/09/17 01/09/17 04:00 04:00 04:00 WBC 12.3 H RBC 2.87 L Hgb 8.3 L Hct 26.3 L RDW 16.6 H Plt Count Greer % (Auto) 8.7 H Greer # 1.1 H Seg Neutrophils % Seg Neutrophils # 8.4 H APTT Heparin Anti-Xa Level 0.15 L POC ABG pH POC ABG pCO2 POC ABG pO2 Sodium 135 L Potassium Chloride 93.9 L Carbon Dioxide BUN 38 H Creatinine 3.4 H Glucose 158 H POC Glucose Calcium 8.2 L Phosphorus Iron TIBC Total Creatine Kinase CK-MB (CK-2) Troponin T Total Protein Albumin PTH Intact Crossmatch 01/09/17 05:21 WBC RBC Hgb Hct RDW Plt Count Greer % (Auto) Greer # Seg Neutrophils % Seg Neutrophils # APTT Heparin Anti-Xa Level POC ABG pH POC ABG pCO2 POC ABG pO2 Sodium Potassium Chloride Carbon Dioxide BUN Creatinine Glucose POC Glucose 190 H Calcium Phosphorus Iron TIBC Total Creatine Kinase CK-MB (CK-2) Troponin T Total Protein Albumin PTH Intact Crossmatch
--- NOTE | 2017-01-09 16:06 | Progress Note ---
Assessment and Plan Assessment and plan: Patient is a 61 yo woman with multiple medical comorbidities including hypertension, diabetes, hyperlipidemia, peripheral vascular disease status post bypass, medical noncompliance and not taking her medications for months, found down by family and brought to ER unresponsive with blood pressure 255/135 - Malignant hypertension/hypertensive emergency CT head showing chronic ischemic microvascular changes, with no acute infarct or hemorrhage Weaned off of Cardene drip; now on amlodipine and labetalol BP still elevated, will add low dose hydralazine - CVA Brain MRI showing multiple acute ischemic areas Started on antiplatelet and statin therapy Cardiology consulted for JOSE to rule out embolic source; monitor rhythm - Acute toxic metabolic encephalopathy Likely due to combination of hypertensive encephalopathy/multiple brain infarction areas/ renal failure with uremia/acidosis/electrolytes abnormalities / drug use Treat underlying conditions -Acute respiratory failure On mechanical ventilation Unable to be extubated due to mental status Pulmonary following - Acute renal failure likely superimposed on chronic kidney disease Significantly elevated BUN/Cr with marked hyperkalemia and metabolic acidosis on admission Nephrology consulted and acute HD initiated Assessing HD need daily -Hyperkalemia On admission K+ 6.9; received Kayexalate, insulin/D50, bicarbonate Now on HD Continue to closely monitor -Rhabdomyolysis Continue IV fluids CPK trending down -Elevated troponin Most likely secondary to hypertensive emergency/renal failure Echocardiogram ordered -Anemia Likely multifactorial Iron deficient, so started on supplementation -Hyperlipidemia - mixed Total cholesterol 355, LDL 251, TG 298 Starting atorvastatin as CPK trending down and given brain MRI findings - Peripheral vascular disease Status post bypass Discontinued anticoagulant therapy on her own months ago - Drug abuse UDS positive for marijuana If recovers, will need counseling - DVT prophylaxis Poor prognosis "NEUROLOGY PROGRESS NOTE: EXAM: NO change in Neuro exam today but no decerebrate posturing on nox stim to each arm. MRI today (discussed with Dr Ovi Szymanski, Radiol) shows a NEW INFARCT 4 x 2.5 cm in left cerebral hemisphere at temporo-parietal junction, not good for future language function. No significant development of edema, no evidence of hernation. JOSE shows a Grade 5 mobile atheroma in the transverse aorta, no clots in heart. GOOD DISCUSSION WITH SISTER ETHYL IN ROOM WITH HER . re all the above, and both voiced understanding of this IMP: 1. Recurrent cerebral infarcts (new one documented today by MR) secondary to unstable aortic atheroma. No other source has been found. 2. Persistent coma secondary to her worsening renal failure Creat 5.4 today, and not due to her strokes. Although many in number, none are in locations that can produce coma. There is no herniation. PLAN: 1. In discussion with Cardiology, we will move forward and place pt on Heparin (without a bolus) to hoperfully prevent further embolic insults to CASING TRIMMER. The risk, of course, is she will experience hemorrhagic conversion on one of her infarcts, but while two are large, they are not massive, and we believe that the risk of recurrent emboli is greater than the risk of hemorrhagic conversion. 2. As she is TERTRAPLEGIC AND COMATOSE, she will need a baseline CT scan (to check for any baseline bleeding) and then daily head CT scans x several days ( MAYBE 5), the only way we have to monitor for hemorrhagic conversion 3. Our hope is that with dialysis, begun today, she will regain considerable awareness, and then we will go from there. 4. I will call her sister Ethyl today and speak with her again so all will be informed. I have ordered todays CT scan, and am leaving in an hour or so for one month, SO SOMEONE ELSE WILL NEED TO ORDER SUBSEQUENT HEAD CT SCANS Odalys Porras MD" History Interval history: Patient was seen and examined. Follow-up on current diagnosis/sob. Overnight uneventful. Still intubated but not sedated Hospitalist Physical - Physical exam Narrative exam: GEN: Ill-appearing on a mechanical ventilator HEENT: ET tube in place NECK: supple, no adenopathy, no thyromegaly, no JVD CVS/HEART: RRR, NORMAL S1S2, NO JVD, pulses present bilaterally CHEST/LUNGS: CTA B, Symmetrical chest expansion, good air entry bilaterally GI/Abdomen: soft, good bowel sounds, no guarding or rebound /Bladder: no suprapubic tenderness, no CVA or paraspinal tenderness Neuro: CN 2-12 grossly abn, no new focal deficits - Constitutional Vitals: Temp Pulse Resp BP Pulse Ox 97.9 F 62 20 144/68 99 01/09/17 12:00 01/09/17 14:31 01/09/17 14:31 01/09/17 14:31 01/09/17 14:31 General appearance: Present: other (intubated on the vent) Results - Labs CBC & Chem 7: 01/09/17 04:00 01/09/17 04:00 Labs: Laboratory Last Values WBC 12.3 K/mm3 (4.5-11.0) H 01/09/17 04:00 RBC 2.87 M/mm3 (3.65-5.03) L 01/09/17 04:00 Hgb 8.3 gm/dl (10.1-14.3) L 01/09/17 04:00 Hct 26.3 % (30.3-42.9) L 01/09/17 04:00 MCV 92 fl (79-97) 01/09/17 04:00 MCH 29 pg (28-32) 01/09/17 04:00 MCHC 32 % (30-34) 01/09/17 04:00 RDW 16.6 % (13.2-15.2) H 01/09/17 04:00 Plt Count 200 K/mm3 (140-440) 01/09/17 04:00 Lymph % (Auto) 20.7 % (13.4-35.0) 01/09/17 04:00 [place] % (Auto) 8.7 % (0.0-7.3) H 01/09/17 04:00 Eos % (Auto) 1.3 % (0.0-4.3) 01/09/17 04:00 Baso % (Auto) 0.8 % (0.0-1.8) 01/09/17 04:00 Lymph # 2.6 K/mm3 (1.2-5.4) 01/09/17 04:00 [place] # 1.1 K/mm3 (0.0-0.8) H 01/09/17 04:00 Eos # 0.2 K/mm3 (0.0-0.4) 01/09/17 04:00 Baso # 0.1 K/mm3 (0.0-0.1) 01/09/17 04:00 Seg Neutrophils % 68.5 % (40.0-70.0) 01/09/17 04:00 Seg Neutrophils # 8.4 K/mm3 (1.8-7.7) H 01/09/17 04:00 PT 13.2 Sec. (12.2-14.9) 01/08/17 19:10 INR 0.95 (0.87-1.13) 01/08/17 19:10 APTT < 20.0 Sec. (24.2-36.6) L 01/08/17 19:10 Heparin Anti-Xa Level 0.15 U.I./ml (0.3-0.7) L 01/09/17 04:00 POC ABG pH 7.538 (7.35-7.45) H 01/07/17 04:05 POC ABG pCO2 34.7 (35-45) L 01/07/17 04:05 POC ABG pO2 60 (80-105) L 01/07/17 04:05 POC ABG HCO3 29.5 01/07/17 04:05 POC ABG Total CO2 31 01/07/17 04:05 POC ABG O2 Sat 94 01/07/17 04:05 POC ABG Base Excess 7 01/07/17 04:05 FiO2 35 % 01/07/17 04:05 Sodium 135 mmol/L (137-145) L 01/09/17 04:00 Potassium 3.6 mmol/L (3.6-5.0) 01/09/17 04:00 Chloride 93.9 mmol/L (98-107) L 01/09/17 04:00 Carbon Dioxide 25 mmol/L (22-30) 01/09/17 04:00 Anion Gap 20 mmol/L 01/09/17 04:00 BUN 38 mg/dL (7-17) H 01/09/17 04:00 Creatinine 3.4 mg/dL (0.7-1.2) H 01/09/17 04:00 Estimated GFR 17 ml/min 01/09/17 04:00 BUN/Creatinine Ratio 11.17 % 01/09/17 04:00 Glucose 158 mg/dL (65-100) H 01/09/17 04:00 POC Glucose 190 (70-105) H 01/09/17 05:21 Lactic Acid 1.30 mmol/L (0.7-2.0) 01/01/17 06:35 Calcium 8.2 mg/dL (8.4-10.2) L 01/09/17 04:00 Phosphorus 5.00 mg/dL (2.5-4.5) H 01/07/17 08:14 Magnesium 1.90 mg/dL (1.7-2.3) 01/04/17 04:45 Iron 22 ug/dL (37-170) L 01/05/17 04:40 TIBC 183 mcg/dL (250-450) L 01/05/17 04:40 Ferritin 283.6 ng/mL (13.0-400.0) 01/05/17 04:40 Total Bilirubin 0.40 mg/dL (0.1-1.2) 01/04/17 04:45 Direct Bilirubin < 0.2 mg/dL (0-0.2) 12/31/16 15:40 Indirect Bilirubin 0.1 mg/dL 12/31/16 15:40 AST 25 units/L (5-40) 01/04/17 04:45 ALT 16 units/L (7-56) 01/04/17 04:45 Alkaline Phosphatase 75 units/L (35-129) 01/04/17 04:45 Total Creatine Kinase 312 units/L (30-135) H 01/05/17 04:40 CK-MB (CK-2) 10.8 ng/mL (0.0-4.0) H 12/31/16 06:58 CK-MB (CK-2) Rel Index 1.3 (0-4) 12/31/16 06:58 Troponin T 0.179 ng/mL (0.00-0.029) H* D 12/31/16 06:58 Total Protein 5.6 g/dL (6.3-8.2) L 01/04/17 04:45 Albumin 2.7 g/dL (3.9-5) L 01/04/17 04:45 Albumin/Globulin Ratio 0.9 % 01/04/17 04:45 Triglycerides 298 mg/dL (2-149) H 12/30/16 23:34 Cholesterol 355 mg/dL (50-199) H 12/30/16 23:34 LDL Cholesterol Direct 251 mg/dL (50-130) H 12/30/16 23:34 HDL Cholesterol 45 mg/dL (40-59) 12/30/16 23:34 Cholesterol/HDL Ratio 7.88 % 12/30/16 23:34 TSH 1.320 mlU/mL (0.270-4.200) 12/30/16 21:29 PTH Intact 124.4 pg/mL (15-65) H 12/31/16 03:42 Urine Color Yellow (Yellow) 12/30/16 20:47 Urine Turbidity Clear (Clear) 12/30/16 20:47 Urine pH 5.0 (5.0-7.0) 12/30/16 20:47 Ur Specific [place] 1.023 (1.003-1.030) 12/30/16 20:47 Urine Protein 100 mg/dl mg/dL (Negative) 12/30/16 20:47 Urine Glucose (UA) Neg mg/dL (Negative) 12/30/16 20:47 Urine Ketones Tr mg/dL (Negative) 12/30/16 20:47 Urine Blood Neg (Negative) 12/30/16 20:47 Urine Nitrite Neg (Negative) 12/30/16 20:47 Urine Bilirubin Neg (Negative) 12/30/16 20:47 Urine Urobilinogen 2.0 mg/dL (<2.0) 12/30/16 20:47 Ur Leukocyte Esterase Neg (Negative) 12/30/16 20:47 Urine WBC (Auto) < 1.0 /HPF (0.0-6.0) 12/30/16 20:47 Urine RBC (Auto) 1.0 /HPF (0.0-6.0) 12/30/16 20:47 U Epithel Cells (Auto) 1.0 /HPF (0-13.0) 12/30/16 20:47 Urine Bacteria (Auto) 1+ /HPF (Negative) 12/30/16 20:47 Salicylates < 0.3 mg/dL (2.8-20.0) L 12/30/16 21:29 Urine Opiates Screen Presumptive negative 12/30/16 20:47 Urine Methadone Screen Presumptive negative 12/30/16 20:47 Acetaminophen < 15.0 ug/mL (10.0-30.0) 12/30/16 21:29 Ur Barbiturates Screen Presumptive negative 12/30/16 20:47 Ur Phencyclidine Scrn Presumptive negative 12/30/16 20:47 Ur Amphetamines Screen Presumptive negative 12/30/16 20:47 U Benzodiazepines Scrn Presumptive negative 12/30/16 20:47 Urine Cocaine Screen Presumptive negative 12/30/16 20:47 U Marijuana (THC) Screen Presumptive positive 12/30/16 20:47 Drugs of Abuse Note Disclamer 12/30/16 20:47 Plasma/Serum Alcohol < 0.01 gm% (0-0.07) 12/30/16 21:29 Hepatitis A IgM Ab Non-reactive (NonReactive) 01/08/17 15:21 Hep Bs Antigen Non-reactive (Negative) 01/08/17 15:21 Hep B Core IgM Ab Non-reactive (NonReactive) 01/08/17 15:21 Hepatitis C Antibody Non-reactive (NonReactive) 01/08/17 15:21 Blood Type O NEGATIVE 01/06/17 19:00 Antibody Screen Negative 01/06/17 19:00 Crossmatch See Detail 01/06/17 19:00
--- NOTE | 2017-01-09 16:15 | Cat Scan Report ---
FINAL REPORT EXAM: CT HEAD/BRAIN WO CON HISTORY: monitor for hemorrhagic conversion in strokes. TECHNIQUE: CT examination of the head without IV contrast PRIORS: 01/08/2017 and 12/30/2016 FINDINGS: Near complete opacification of right sphenoid sinus may be related to nasal tubing. The other paranasal sinuses are clear as are the mastoid air cells and middle ear cavities. No acute air-fluid level visualized in the included air-filled sinuses. Bone windows demonstrate no acute fracture. There is again ventricular and sulcal prominence compatible with global cerebrocortical atrophy. Low attenuation regions in the cerebral white matter, while nonspecific, remain present and usually attributed to chronic ischemic gliosis. It can occur secondary to the normal aging process, hypertension, or arterial sclerotic vascular disease. The differential includes demyelination in the appropriate clinical setting. The brain contains no new mass or mass effect. There is no extra-axial intracranial bleed or brain bleed. There is no midline shift. Pre-existing hypodensities are again widely scattered in the left cerebral hemisphere involving the central left temporal lobe, left frontoparietal watershed region, multifocal regions of the upper left parietal lobe, and left parieto-occipital watershed region. Hypodensity is also noted in the right medial superior parietal lobe and posterior right cerebellar hemisphere. These are most compatible with persisting multifocal ischemic infarcts, again without evidence of hemorrhagic conversion. Degree of hypodensity and extensive involvement is relatively unchanged. Stable chronic appearing small lacunar infarcts in the left anterior internal capsule and right mid lateral thalamus. IMPRESSION: No new bleed or infarct. Multifocal previous cystic lesions most compatible with [place] infarcts bilaterally. The differential includes areas of inflammation and/or infection. MRI with IV contrast may be useful as followup to exclude underlying mass lesion. Stable chronic small lacunar infarcts in the left internal capsule and right thalamus. Stable near complete opacification of the right sphenoid sinus
[2017-01-09] MEDS: HEPARIN/ 0.45% NACL-25,000 UNIT/500 ML 25,000 UNIT/500 ML BAG IV SCH (19:42)
[2017-01-09] MEDS: APRESOLINE IV PRN (22:43)
[2017-01-10 05:31] LABS: Hematocrit 25.9 % (30.3-42.9); Hemoglobin 8.3 gm/dl (10.1-14.3)
[2017-01-10] MEDS: NOVOLOG SUB-Q SCH ×4 (06:07→18:33)
[2017-01-10 06:13] LABS: BUN/Creatinine Ratio 11.59; Calcium 8.9 mg/dL (8.4-10.2); Chloride 91.2 mmol/L (98-107); Potassium 3.8 mmol/L (3.6-5.0)
--- NOTE | 2017-01-10 06:46 | Progress Note ---
Assessment and Plan - Patient Problems (1) ARF (acute renal failure) Current Visit: Yes Status: Acute Qualifiers: Acute renal failure type: A Plan to address problem: Acute kidney injury superimposed on CKD stage 3 in the setting of uncontrolled HTN. S/p hemodialysis on 12/31, 01/05 and 01/08. No improvement in the kidney so far. 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 Renal prognosis is guarded. (2) Hyperkalemia Current Visit: Yes Status: Acute Plan to address problem: Hyperkalemia in the setting of Acute kidney injury. Improved with hemodialysis. (3) Metabolic acidosis Current Visit: Yes Status: Acute Plan to address problem: Improved. (4) Hypertensive encephalopathy Current Visit: Yes Status: Acute Plan to address problem: BP is better. (5) Respiratory failure Current Visit: Yes Status: Acute Qualifiers: Chronicity: C Respiratory failure complication: R Plan to address problem: On Vent. (6) Anemia Current Visit: Yes Status: Acute Qualifiers: Anemia type: A Iron deficiency anemia type: I Vitamin B12 deficiency anemia type: V Folate deficiency anemia type: F Bone marrow failure anemia type: B Hemolytic anemia type: H Other causes of anemia: O Chronic kidney disease stage: C Plan to address problem: Epogen. Monitor Hb. Subjective Date of service: 01/10/17 Principal diagnosis: Acute CVA; Acute Respiratory Failure Interval history: Patient remain on the vent. Objective - Vital Signs Vital signs: Vital Signs - 12hr 01/09/17 01/09/17 01/09/17 19:00 19:30 19:36 Temperature Pulse Rate 69 69 69 Respiratory 20 19 Rate Blood Pressure 157/69 157/69 161/74 O2 Sat by Pulse 98 98 98 Oximetry 01/09/17 01/09/17 01/09/17 19:45 20:00 20:30 Temperature 98.8 F Pulse Rate 67 66 Respiratory 21 21 Rate Blood Pressure 163/69 161/70 O2 Sat by Pulse 98 98 Oximetry 01/09/17 01/09/17 01/09/17 21:00 21:30 22:00 Temperature Pulse Rate 69 70 73 Respiratory 21 22 24 Rate Blood Pressure 163/73 170/75 174/76 O2 Sat by Pulse 98 97 98 Oximetry 01/09/17 01/09/17 01/09/17 22:30 22:32 22:43 Temperature Pulse Rate 74 74 74 Respiratory 22 Rate Blood Pressure 175/75 175/75 177/78 O2 Sat by Pulse 98 Oximetry 01/09/17 01/09/17 01/09/17 22:46 22:47 23:00 Temperature Pulse Rate 72 72 69 Respiratory 24 25 H Rate Blood Pressure 177/78 150/68 O2 Sat by Pulse 97 98 Oximetry 01/09/17 01/09/17 01/09/17 23:14 23:30 23:57 Temperature 99 F Pulse Rate 68 69 Respiratory 22 Rate Blood Pressure 149/66 149/66 O2 Sat by Pulse 98 97 Oximetry 01/10/17 01/10/17 01/10/17 00:00 00:30 01:00 Temperature Pulse Rate 70 70 71 Respiratory 22 21 24 Rate Blood Pressure 145/66 145/66 155/63 O2 Sat by Pulse 98 98 97 Oximetry 01/10/17 01/10/17 01/10/17 01:30 02:00 02:30 Temperature Pulse Rate 72 72 77 Respiratory 21 20 25 H Rate Blood Pressure 155/63 154/66 155/63 O2 Sat by Pulse 97 98 97 Oximetry 01/10/17 01/10/17 01/10/17 03:00 03:30 03:38 Temperature 98 F Pulse Rate 76 71 Respiratory 20 22 Rate Blood Pressure 154/66 145/70 O2 Sat by Pulse 97 Oximetry 01/10/17 01/10/17 01/10/17 04:00 04:30 05:00 Temperature Pulse Rate 70 71 71 Respiratory 22 20 21 Rate Blood Pressure 138/75 145/70 138/75 O2 Sat by Pulse 94 97 96 Oximetry 01/10/17 01/10/17 05:30 06:00 Temperature Pulse Rate 76 73 Respiratory 18 25 H Rate Blood Pressure 124/79 124/79 O2 Sat by Pulse 96 95 Oximetry - General Appearance General appearance: well-developed, appears stated age, intubated (FiO2 30%), other (right groin hemodialysis catheter) EENT: ATNC, PERRL Neck: supple Respiratory: Present: Other (coarse breath sounds) Cardiology: regular, S1S2, no murmurs Gastrointestinal: normoactive bowel sounds, no tenderness Integumentary: no rash Neurologic: obtunded Musculoskeletal: other (no edema) - Lab 01/10/17 04:00 01/10/17 04:00 Most recent lab results Calcium 8.9 mg/dL (8.4-10.2) 01/10/17 04:00 Phosphorus 5.00 mg/dL (2.5-4.5) H 01/07/17 08:14 Magnesium 1.90 mg/dL (1.7-2.3) 01/04/17 04:45
[2017-01-10] MEDS: NORVASC PO SCH (09:26)
[2017-01-10] MEDS: PEPCID PO SCH (09:26)
[2017-01-10] MEDS: NORMODYNE PO SCH ×2 (09:26→21:18)
[2017-01-10] MEDS: ASPIRIN PO SCH (09:26)
[2017-01-10] MEDS: KEPPRA PO SCH ×2 (09:26→21:18)
[2017-01-10] MEDS: LEVEMIR SUB-Q SCH (09:27)
--- NOTE | 2017-01-10 10:02 | Cat Scan Report ---
CT HEAD WITHOUT CONTRAST: HISTORY: Hemorrhage, CVA. Technique: Sequential noncontrast CT images. Previous CTs and MRIs of the brain were reviewed. Multiple bilateral ischemic infarcts continue to involve. There is mild edema bilaterally which is most pronounced in the left parietal lobe. There is no evidence for mass effect or hemorrhagic change. Ventricular size is stable. No new areas of abnormal density is appreciated. IMPRESSION: No significant change in the multiple bilateral skin infarcts. No evidence for hemorrhage.
--- NOTE | 2017-01-10 10:14 | Progress Note ---
Subjective Principal diagnosis: Acute CVA; Acute Respiratory Failure Interval history: Remains critically ill, intubated, comatose,and tetraplegic. Acute respiratory failure intubated on the vent Acute ischemic CVA Extensive plaque noted in the transverse and descending thoracic aorta, some plaques are mobile Normal LVEF, now on IV heparin Acute drop in HCT s/p transfusion of PRBCs Hypertension Diabetes mellitus PVD Hyperlipidemia Chronic Renal insufficiency requiring renal replacement Leukocytosis Objective Vital Signs Temp Pulse Resp BP Pulse Ox 01/10/17 09:26 73 154/73 01/10/17 08:00 98.4 F 74 22 158/69 96 01/10/17 07:59 77 158/69 97 01/10/17 07:00 76 20 158/69 97 01/10/17 06:00 73 25 H 124/79 95 01/10/17 05:30 76 18 124/79 96 01/10/17 05:00 71 21 138/75 96 01/10/17 04:30 71 20 145/70 97 01/10/17 04:00 70 22 138/75 94 01/10/17 03:38 98 F 01/10/17 03:30 71 22 145/70 01/10/17 03:00 76 20 154/66 97 01/10/17 02:30 77 25 H 155/63 97 01/10/17 02:00 72 20 154/66 98 01/10/17 01:30 72 21 155/63 97 01/10/17 01:00 71 24 155/63 97 01/10/17 00:30 70 21 145/66 98 01/10/17 00:00 70 22 145/66 98 01/09/17 23:57 69 149/66 97 01/09/17 23:30 68 22 149/66 98 01/09/17 23:14 99 F 01/09/17 23:00 69 25 H 150/68 98 01/09/17 22:47 72 01/09/17 22:46 72 24 177/78 97 01/09/17 22:43 74 177/78 01/09/17 22:32 74 175/75 01/09/17 22:30 74 22 175/75 98 01/09/17 22:00 73 24 174/76 98 01/09/17 21:30 70 22 170/75 97 01/09/17 21:00 69 21 163/73 98 01/09/17 20:30 66 21 161/70 98 01/09/17 20:00 67 21 163/69 98 01/09/17 19:45 98.8 F 01/09/17 19:36 69 161/74 98 01/09/17 19:30 69 19 157/69 98 01/09/17 19:00 69 20 157/69 98 01/09/17 18:30 66 20 167/78 98 01/09/17 18:00 66 17 164/74 99 01/09/17 17:30 66 21 164/78 99 01/09/17 17:00 64 18 153/76 100 01/09/17 16:30 63 19 155/72 100 01/09/17 16:12 63 152/76 100 01/09/17 16:00 97.2 F L 64 23 152/73 99 01/09/17 15:43 62 20 99 01/09/17 15:01 62 21 150/71 98 01/09/17 14:31 62 20 144/68 99 01/09/17 14:01 61 21 143/65 99 01/09/17 13:30 60 20 149/69 99 01/09/17 13:01 61 21 145/65 98 01/09/17 12:31 61 20 141/67 99 01/09/17 12:01 61 20 142/67 99 01/09/17 12:00 97.9 F 21 99 01/09/17 11:31 63 21 145/70 98 01/09/17 11:15 62 20 166/85 98 01/09/17 11:06 65 166/85 97 01/09/17 11:00 68 19 173/78 97 01/09/17 10:45 71 19 173/78 97 01/09/17 10:36 71 168/80 01/09/17 10:35 71 168/80 01/09/17 10:31 73 17 198/87 96 01/09/17 10:15 70 19 165/80 96 - Physical Examination General: Other (intubated on the vent) Neck: Positive: neck supple, trachea midline Cardiac: Positive: Reg Rate and Rhythm, S1/S2 Lungs: Positive: Normal Exam Abdomen: Positive: Soft. Negative: Pulsations/Bruits - Labs and Meds CBC 01/10/17 Range/Units 04:00 Hgb 8.3 L (10.1-14.3) gm/dl Hct 25.9 L (30.3-42.9) % Plt Count 227 (140-440) K/mm3 Comprehensive Metabolic Panel 01/10/17 Range/Units 04:00 Sodium 136 L (137-145) mmol/L Potassium 3.8 (3.6-5.0) mmol/L Chloride 91.2 L (98-107) mmol/L Carbon Dioxide 24 (22-30) mmol/L BUN 51 H (7-17) mg/dL Creatinine 4.4 H (0.7-1.2) mg/dL Glucose 181 H (65-100) mg/dL Calcium 8.9 (8.4-10.2) mg/dL - Imaging and Cardiology EKG: image reviewed
--- NOTE | 2017-01-10 13:59 | Progress Note ---
Assessment and Plan Assessment and plan: Patient is a 61 yo woman with multiple medical comorbidities including hypertension, diabetes, hyperlipidemia, peripheral vascular disease status post bypass, medical noncompliance and not taking her medications for months, found down by family and brought to ER unresponsive with blood pressure 255/135 - Malignant hypertension/hypertensive emergency CT head showing chronic ischemic microvascular changes, with no acute infarct or hemorrhage Weaned off of Cardene drip; now on amlodipine and labetalol BP still elevated, will add low dose hydralazine - CVA Brain MRI showing multiple acute ischemic areas Started on antiplatelet and statin therapy Cardiology consulted for JOSE to rule out embolic source; monitor rhythm - Acute toxic metabolic encephalopathy Likely due to combination of hypertensive encephalopathy/multiple brain infarction areas/ renal failure with uremia/acidosis/electrolytes abnormalities / drug use Treat underlying conditions -Acute respiratory failure On mechanical ventilation Unable to be extubated due to mental status Pulmonary following - Acute renal failure likely superimposed on chronic kidney disease Significantly elevated BUN/Cr with marked hyperkalemia and metabolic acidosis on admission Nephrology consulted and acute HD initiated Assessing HD need daily -Hyperkalemia On admission K+ 6.9; received Kayexalate, insulin/D50, bicarbonate Now on HD Continue to closely monitor -Rhabdomyolysis Continue IV fluids CPK trending down -Elevated troponin Most likely secondary to hypertensive emergency/renal failure Echocardiogram ordered -Anemia Likely multifactorial Iron deficient, so started on supplementation -Hyperlipidemia - mixed Total cholesterol 355, LDL 251, TG 298 Starting atorvastatin as CPK trending down and given brain MRI findings - Peripheral vascular disease Status post bypass Discontinued anticoagulant therapy on her own months ago - Drug abuse UDS positive for marijuana If recovers, will need counseling - DVT prophylaxis Poor prognosis "NEUROLOGY PROGRESS NOTE: EXAM: NO change in Neuro exam today but no decerebrate posturing on nox stim to each arm. MRI today (discussed with Dr Ovi Szymanski, Radiol) shows a NEW INFARCT 4 x 2.5 cm in left cerebral hemisphere at temporo-parietal junction, not good for future language function. No significant development of edema, no evidence of hernation. JOSE shows a Grade 5 mobile atheroma in the transverse aorta, no clots in heart. GOOD DISCUSSION WITH SISTER ETHYL IN ROOM WITH HER . re all the above, and both voiced understanding of this IMP: 1. Recurrent cerebral infarcts (new one documented today by MR) secondary to unstable aortic atheroma. No other source has been found. 2. Persistent coma secondary to her worsening renal failure Creat 5.4 today, and not due to her strokes. Although many in number, none are in locations that can produce coma. There is no herniation. PLAN: 1. In discussion with Cardiology, we will move forward and place pt on Heparin (without a bolus) to hoperfully prevent further embolic insults to [employer]. The risk, of course, is she will experience hemorrhagic conversion on one of her infarcts, but while two are large, they are not massive, and we believe that the risk of recurrent emboli is greater than the risk of hemorrhagic conversion. 2. As she is TERTRAPLEGIC AND COMATOSE, she will need a baseline CT scan (to check for any baseline bleeding) and then daily head CT scans x several days ( MAYBE 5), the only way we have to monitor for hemorrhagic conversion 3. Our hope is that with dialysis, begun today, she will regain considerable awareness, and then we will go from there. 4. I will call her sister Ethyl today and speak with her again so all will be informed. I have ordered todays CT scan, and am leaving in an hour or so for one month, SO SOMEONE ELSE WILL NEED TO ORDER SUBSEQUENT HEAD CT SCANS Odalys Porras MD" History Interval history: Patient was seen and examined. Follow-up on current diagnosis/sob. Overnight uneventful. Still intubated but not sedated Hospitalist Physical - Physical exam Narrative exam: GEN: Ill-appearing on a mechanical ventilator HEENT: ET tube in place NECK: supple, no adenopathy, no thyromegaly, no JVD CVS/HEART: RRR, NORMAL S1S2, NO JVD, pulses present bilaterally CHEST/LUNGS: CTA B, Symmetrical chest expansion, good air entry bilaterally GI/Abdomen: soft, good bowel sounds, no guarding or rebound /Bladder: no suprapubic tenderness, no CVA or paraspinal tenderness Neuro: CN 2-12 grossly abn, no new focal deficits - Constitutional Vitals: Temp Pulse Resp BP Pulse Ox 98.4 F 69 20 146/60 96 01/10/17 08:00 01/10/17 12:26 01/10/17 12:00 01/10/17 12:26 01/10/17 12:26 General appearance: Present: other (intubated on the vent) Results - Labs CBC & Chem 7: 01/10/17 04:00 01/10/17 04:00 Labs: Laboratory Last Values WBC 12.3 K/mm3 (4.5-11.0) H 01/09/17 04:00 RBC 2.87 M/mm3 (3.65-5.03) L 01/09/17 04:00 Hgb 8.3 gm/dl (10.1-14.3) L 01/10/17 04:00 Hct 25.9 % (30.3-42.9) L 01/10/17 04:00 MCV 92 fl (79-97) 01/09/17 04:00 MCH 29 pg (28-32) 01/09/17 04:00 MCHC 32 % (30-34) 01/09/17 04:00 RDW 16.6 % (13.2-15.2) H 01/09/17 04:00 Plt Count 227 K/mm3 (140-440) 01/10/17 04:00 Lymph % (Auto) 20.7 % (13.4-35.0) 01/09/17 04:00 [place] % (Auto) 8.7 % (0.0-7.3) H 01/09/17 04:00 Eos % (Auto) 1.3 % (0.0-4.3) 01/09/17 04:00 Baso % (Auto) 0.8 % (0.0-1.8) 01/09/17 04:00 Lymph # 2.6 K/mm3 (1.2-5.4) 01/09/17 04:00 [place] # 1.1 K/mm3 (0.0-0.8) H 01/09/17 04:00 Eos # 0.2 K/mm3 (0.0-0.4) 01/09/17 04:00 Baso # 0.1 K/mm3 (0.0-0.1) 01/09/17 04:00 Seg Neutrophils % 68.5 % (40.0-70.0) 01/09/17 04:00 Seg Neutrophils # 8.4 K/mm3 (1.8-7.7) H 01/09/17 04:00 PT 13.2 Sec. (12.2-14.9) 01/08/17 19:10 INR 0.95 (0.87-1.13) 01/08/17 19:10 APTT < 20.0 Sec. (24.2-36.6) L 01/08/17 19:10 Heparin Anti-Xa Level 0.14 U.I./ml (0.3-0.7) L 01/10/17 12:14 POC ABG pH 7.538 (7.35-7.45) H 01/07/17 04:05 POC ABG pCO2 34.7 (35-45) L 01/07/17 04:05 POC ABG pO2 60 (80-105) L 01/07/17 04:05 POC ABG HCO3 29.5 01/07/17 04:05 POC ABG Total CO2 31 01/07/17 04:05 POC ABG O2 Sat 94 01/07/17 04:05 POC ABG Base Excess 7 01/07/17 04:05 FiO2 35 % 01/07/17 04:05 Sodium 136 mmol/L (137-145) L 01/10/17 04:00 Potassium 3.8 mmol/L (3.6-5.0) 01/10/17 04:00 Chloride 91.2 mmol/L (98-107) L 01/10/17 04:00 Carbon Dioxide 24 mmol/L (22-30) 01/10/17 04:00 Anion Gap 25 mmol/L 01/10/17 04:00 BUN 51 mg/dL (7-17) H 01/10/17 04:00 Creatinine 4.4 mg/dL (0.7-1.2) H 01/10/17 04:00 Estimated GFR 12 ml/min 01/10/17 04:00 BUN/Creatinine Ratio 11.59 % 01/10/17 04:00 Glucose 181 mg/dL (65-100) H 01/10/17 04:00 POC Glucose 158 (70-105) H 01/10/17 12:15 Lactic Acid 1.30 mmol/L (0.7-2.0) 01/01/17 06:35 Calcium 8.9 mg/dL (8.4-10.2) 01/10/17 04:00 Phosphorus 5.00 mg/dL (2.5-4.5) H 01/07/17 08:14 Magnesium 1.90 mg/dL (1.7-2.3) 01/04/17 04:45 Iron 22 ug/dL (37-170) L 01/05/17 04:40 TIBC 183 mcg/dL (250-450) L 01/05/17 04:40 Ferritin 283.6 ng/mL (13.0-400.0) 01/05/17 04:40 Total Bilirubin 0.40 mg/dL (0.1-1.2) 01/04/17 04:45 Direct Bilirubin < 0.2 mg/dL (0-0.2) 12/31/16 15:40 Indirect Bilirubin 0.1 mg/dL 12/31/16 15:40 AST 25 units/L (5-40) 01/04/17 04:45 ALT 16 units/L (7-56) 01/04/17 04:45 Alkaline Phosphatase 75 units/L (35-129) 01/04/17 04:45 Total Creatine Kinase 312 units/L (30-135) H 01/05/17 04:40 CK-MB (CK-2) 10.8 ng/mL (0.0-4.0) H 12/31/16 06:58 CK-MB (CK-2) Rel Index 1.3 (0-4) 12/31/16 06:58 Troponin T 0.179 ng/mL (0.00-0.029) H* D 12/31/16 06:58 Total Protein 5.6 g/dL (6.3-8.2) L 01/04/17 04:45 Albumin 2.7 g/dL (3.9-5) L 01/04/17 04:45 Albumin/Globulin Ratio 0.9 % 01/04/17 04:45 Triglycerides 298 mg/dL (2-149) H 12/30/16 23:34 Cholesterol 355 mg/dL (50-199) H 12/30/16 23:34 LDL Cholesterol Direct 251 mg/dL (50-130) H 12/30/16 23:34 HDL Cholesterol 45 mg/dL (40-59) 12/30/16 23:34 Cholesterol/HDL Ratio 7.88 % 12/30/16 23:34 TSH 1.320 mlU/mL (0.270-4.200) 12/30/16 21:29 PTH Intact 124.4 pg/mL (15-65) H 12/31/16 03:42 Urine Color Yellow (Yellow) 12/30/16 20:47 Urine Turbidity Clear (Clear) 12/30/16 20:47 Urine pH 5.0 (5.0-7.0) 12/30/16 20:47 Ur Specific [place] 1.023 (1.003-1.030) 12/30/16 20:47 Urine Protein 100 mg/dl mg/dL (Negative) 12/30/16 20:47 Urine Glucose (UA) Neg mg/dL (Negative) 12/30/16 20:47 Urine Ketones Tr mg/dL (Negative) 12/30/16 20:47 Urine Blood Neg (Negative) 12/30/16 20:47 Urine Nitrite Neg (Negative) 12/30/16 20:47 Urine Bilirubin Neg (Negative) 12/30/16 20:47 Urine Urobilinogen 2.0 mg/dL (<2.0) 12/30/16 20:47 Ur Leukocyte Esterase Neg (Negative) 12/30/16 20:47 Urine WBC (Auto) < 1.0 /HPF (0.0-6.0) 12/30/16 20:47 Urine RBC (Auto) 1.0 /HPF (0.0-6.0) 12/30/16 20:47 U Epithel Cells (Auto) 1.0 /HPF (0-13.0) 12/30/16 20:47 Urine Bacteria (Auto) 1+ /HPF (Negative) 12/30/16 20:47 Salicylates < 0.3 mg/dL (2.8-20.0) L 12/30/16 21:29 Urine Opiates Screen Presumptive negative 12/30/16 20:47 Urine Methadone Screen Presumptive negative 12/30/16 20:47 Acetaminophen < 15.0 ug/mL (10.0-30.0) 12/30/16 21:29 Ur Barbiturates Screen Presumptive negative 12/30/16 20:47 Ur Phencyclidine Scrn Presumptive negative 12/30/16 20:47 Ur Amphetamines Screen Presumptive negative 12/30/16 20:47 U Benzodiazepines Scrn Presumptive negative 12/30/16 20:47 Urine Cocaine Screen Presumptive negative 12/30/16 20:47 U Marijuana (THC) Screen Presumptive positive 12/30/16 20:47 Drugs of Abuse Note Disclamer 12/30/16 20:47 Plasma/Serum Alcohol < 0.01 gm% (0-0.07) 12/30/16 21:29 Hepatitis A IgM Ab Non-reactive (NonReactive) 01/08/17 15:21 Hep Bs Antigen Non-reactive (Negative) 01/08/17 15:21 Hep B Core IgM Ab Non-reactive (NonReactive) 01/08/17 15:21 Hepatitis C Antibody Non-reactive (NonReactive) 01/08/17 15:21 Blood Type O NEGATIVE 01/06/17 19:00 Antibody Screen Negative 01/06/17 19:00 Crossmatch See Detail 01/06/17 19:00
--- NOTE | 2017-01-10 14:15 | Progress Note ---
Assessment and Plan (1) Acute respiratory failure Current Visit: Yes Status: Acute Qualifiers: Respiratory failure complication: R Plan to address problem: - remains on MVS - tolerating daily PSV trials well however AMS is rate limiting factor to extubation - continue aspiration precautions / addressed VAP bundle - continue to wean oxygen to keep sats >/= 92% - continue GI & VTE prophylaxis - will likely need a tracheostomy and will order by wednesday if no improvement in mental status (2) Acute encephalopathy Current Visit: Yes Status: Acute Plan to address problem: - Hypertensive emergency component at presentation - 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 - continue supportive care - get neurology evaluation - continue secondary prevention with anti-lipid, anti-platelet, BP control therapies - for repeat MRI in am - unstable artheroma seen on JOSE likely embolic source - repeat MRI reveals new embolic stroke likely - risk-benefits weighed and started on IV heparin without bolus - will follow clinically and follow repeat CT brains (3) ARF (acute renal failure) Current Visit: Yes Status: Acute Qualifiers: Acute renal failure type: A Plan to address problem: - seen by nephrology - making urine - started on dialysis - prescription per nephrology but still giving her a chance for renal recovery - continue supportive RELAY TELEGRAPHER - will defer to patient registration clerk (4) Hyperkalemia Current Visit: Yes Status: Acute Plan to address problem: - corrected - continue to trend and address (5) Hypertensive encephalopathy Current Visit: Yes Status: Acute Plan to address problem: - better BP control - will target pseudo-normal / permissive HTN in short course - prn IV meds for SBP > 170mmHg (6) Seizures Current Visit: Yes Status: Acute Plan to address problem: - per sister no prior history - will continue empiric keppra (7) Anemia Current Visit: Yes Status: Acute Qualifiers: Anemia type: A Iron deficiency anemia type: I Vitamin B12 deficiency anemia type: V Folate deficiency anemia type: F Bone marrow failure anemia type: B Hemolytic anemia type: H Other causes of anemia: O Chronic kidney disease stage: C Plan to address problem: - likely dilutional element - still suspect ABLA component - sent stool guaiac (pending) - get GI consultation - trend H&H (8) Healthcare maintenance Current Visit: Yes Status: Acute Plan to address problem: - on GI prophylaxis - on VTE prophylaxis - cather in place re: SIVA and for CCM issues acutely - glycemic control for target BG < 180mg/dl (9) NSTEMI (non-ST elevated myocardial infarction) Current Visit: Yes Status: Acute Plan to address problem: - cardiology evaluation pngoing - s/p JOSE with unstable aortic artheroma seen (10) Discharge planning issues Current Visit: Yes Status: Acute Plan to address problem: - care plan discussed at length with sister and i explained that if no significant improvement in mental status she will need a tracheostomy - may need LTAC evaluation eventually ...she remains critically ill on life sustaining interventions including MVS and at risk for further deterioration including ...30' CCT Subjective Date of service: 01/10/17 Principal diagnosis: Acute CVA; Acute Respiratory Failure Interval history: Seen and examined at bedside; 24 hour events reviewed; nursing and respiratory care staff consulted; no adverse overnight events reported to me; remains on MVS ; discussed need for tracheostomy with family; no emesis or overt aspiration Objective Vital Signs - 12hr 01/10/17 01/10/17 01/10/17 02:30 03:00 03:30 Temperature Pulse Rate 77 76 71 Respiratory 25 H 20 22 Rate Blood Pressure 155/63 154/66 145/70 O2 Sat by Pulse 97 97 Oximetry 01/10/17 01/10/17 01/10/17 03:38 04:00 04:30 Temperature 98 F Pulse Rate 70 71 Respiratory 22 20 Rate Blood Pressure 138/75 145/70 O2 Sat by Pulse 94 97 Oximetry 01/10/17 01/10/17 01/10/17 05:00 05:30 06:00 Temperature Pulse Rate 71 76 73 Respiratory 21 18 25 H Rate Blood Pressure 138/75 124/79 124/79 O2 Sat by Pulse 96 96 95 Oximetry 01/10/17 01/10/17 01/10/17 07:00 07:59 08:00 Temperature 98.4 F Pulse Rate 76 77 74 Respiratory 20 22 Rate Blood Pressure 158/69 158/69 158/69 O2 Sat by Pulse 97 97 96 Oximetry 01/10/17 01/10/17 01/10/17 09:00 09:26 10:00 Temperature Pulse Rate 77 73 67 Respiratory 24 22 Rate Blood Pressure 144/74 154/73 O2 Sat by Pulse 95 97 Oximetry 01/10/17 01/10/17 01/10/17 11:00 12:00 12:26 Temperature Pulse Rate 66 69 69 Respiratory 21 18 Rate Blood Pressure 135/57 135/57 146/60 O2 Sat by Pulse 95 97 96 Oximetry 01/10/17 13:00 Temperature Pulse Rate 66 Respiratory 22 Rate Blood Pressure 146/60 O2 Sat by Pulse 97 Oximetry Constitutional: no acute distress, other (opens eyes to stimulus; not tracking) Eyes: non-icteric ENT: oropharynx moist Neck: supple, no lymphadenopathy, no JVD Effort: mildly labored Ascultation: Bilateral: diminished breath sounds, rhonchi (base) Cardiovascular: regular rate and rhythm Gastrointestinal: normoactive bowel sounds, soft, non-tender, non-distended Integumentary: normal Extremities: no cyanosis, no edema, pulses normal, no ischemia or petechiae, other (trans-metatarsal amputation) Neurologic: unable to assess Psychiatric: other (unable to access) CBC and BMP: 01/14/17 05:00 01/14/17 05:00 ABG, PT/INR, D-dimer: ABG POC ABG pH 7.538 (7.35-7.45) H 01/07/17 04:05 POC ABG pCO2 34.7 (35-45) L 01/07/17 04:05 POC ABG pO2 60 (80-105) L 01/07/17 04:05 POC ABG HCO3 29.5 01/07/17 04:05 POC ABG Total CO2 31 01/07/17 04:05 POC ABG O2 Sat 94 01/07/17 04:05 PT/INR, D-dimer PT 13.2 Sec. (12.2-14.9) 01/08/17 19:10 INR 0.95 (0.87-1.13) 01/08/17 19:10 Abnormal lab findings: Abnormal Labs 12/31/16 12/31/16 12/31/16 01:31 01:31 03:42 WBC RBC Hgb Hct RDW Plt Count [place] % (Auto) [place] # Seg Neutrophils % Seg Neutrophils # APTT Heparin Anti-Xa Level POC ABG pH POC ABG pCO2 POC ABG pO2 Sodium 146 H Potassium 5.6 H Chloride Carbon Dioxide 14 L BUN 77 H Creatinine 4.0 H Glucose 107 H POC Glucose Calcium Phosphorus Iron TIBC Total Creatine Kinase 678 H 711 H CK-MB (CK-2) 10.5 H Troponin T 0.136 H* D Total Protein Albumin PTH Intact Crossmatch 12/31/16 12/31/16 12/31/16 03:42 06:58 06:58 WBC RBC Hgb Hct RDW Plt Count [place] % (Auto) [place] # Seg Neutrophils % Seg Neutrophils # APTT Heparin Anti-Xa Level POC ABG pH POC ABG pCO2 POC ABG pO2 Sodium 147 H Potassium 6.0 H Chloride 107.5 H Carbon Dioxide 12 L BUN 81 H Creatinine 4.6 H Glucose 183 H POC Glucose Calcium Phosphorus Iron TIBC Total Creatine Kinase 787 H CK-MB (CK-2) 10.8 H Troponin T 0.179 H* D Total Protein Albumin PTH Intact 124.4 H Crossmatch 12/31/16 12/31/16 12/31/16 09:34 13:47 15:40 WBC RBC Hgb Hct RDW Plt Count [place] % (Auto) [place] # Seg Neutrophils % Seg Neutrophils # APTT Heparin Anti-Xa Level POC ABG pH 7.344 L POC ABG pCO2 33.0 L POC ABG pO2 340 H Sodium Potassium Chloride Carbon Dioxide BUN Creatinine Glucose POC Glucose 294 H Calcium Phosphorus Iron TIBC Total Creatine Kinase CK-MB (CK-2) Troponin T Total Protein 6.1 L D Albumin 3.6 L PTH Intact Crossmatch 12/31/16 12/31/16 12/31/16 16:49 18:05 18:23 WBC RBC Hgb Hct RDW Plt Count [place] % (Auto) [place] # Seg Neutrophils % Seg Neutrophils # APTT Heparin Anti-Xa Level POC ABG pH 7.651 H POC ABG pCO2 23.2 L POC ABG pO2 64 L Sodium Potassium Chloride Carbon Dioxide BUN Creatinine Glucose POC Glucose 287 H 259 H Calcium Phosphorus Iron TIBC Total Creatine Kinase CK-MB (CK-2) Troponin T Total Protein Albumin PTH Intact Crossmatch 12/31/16 01/01/17 01/01/17 23:52 05:40 06:35 WBC RBC Hgb Hct RDW Plt Count [place] % (Auto) [place] # Seg Neutrophils % Seg Neutrophils # APTT Heparin Anti-Xa Level POC ABG pH POC ABG pCO2 POC ABG pO2 Sodium Potassium Chloride 96.6 L Carbon Dioxide BUN 34 H Creatinine 3.4 H Glucose 142 H POC Glucose 182 H 168 H Calcium 7.6 L D Phosphorus Iron TIBC Total Creatine Kinase CK-MB (CK-2) Troponin T Total Protein Albumin PTH Intact Crossmatch 01/01/17 01/01/17 01/01/17 11:54 12:24 17:10 WBC RBC Hgb Hct RDW Plt Count [place] % (Auto) [place] # Seg Neutrophils % Seg Neutrophils # APTT Heparin Anti-Xa Level POC ABG pH 7.536 H POC ABG pCO2 POC ABG pO2 149 H Sodium Potassium Chloride Carbon Dioxide BUN Creatinine Glucose POC Glucose 166 H 160 H Calcium Phosphorus Iron TIBC Total Creatine Kinase CK-MB (CK-2) Troponin T Total Protein Albumin PTH Intact Crossmatch 01/01/17 01/02/17 01/02/17 23:31 03:35 04:01 WBC 12.0 H RBC 2.88 L Hgb 8.4 L D Hct 25.4 L D RDW 15.9 H Plt Count [place] % (Auto) [place] # Seg Neutrophils % 75.3 H Seg Neutrophils # 9.0 H APTT Heparin Anti-Xa Level POC ABG pH 7.551 H POC ABG pCO2 33.7 L POC ABG pO2 Sodium Potassium Chloride Carbon Dioxide BUN Creatinine Glucose POC Glucose 232 H Calcium Phosphorus Iron TIBC Total Creatine Kinase CK-MB (CK-2) Troponin T Total Protein Albumin PTH Intact Crossmatch 01/02/17 01/02/17 01/02/17 04:01 05:09 12:28 WBC RBC Hgb Hct RDW Plt Count [place] % (Auto) [place] # Seg Neutrophils % Seg Neutrophils # APTT Heparin Anti-Xa Level POC ABG pH POC ABG pCO2 POC ABG pO2 Sodium Potassium Chloride 93.3 L Carbon Dioxide BUN 44 H Creatinine 5.1 H Glucose 208 H POC Glucose 343 H 197 H Calcium 7.7 L Phosphorus Iron TIBC Total Creatine Kinase CK-MB (CK-2) Troponin T Total Protein 6.1 L Albumin 3.1 L PTH Intact Crossmatch 01/02/17 01/02/17 01/02/17 12:40 17:52 18:40 WBC RBC Hgb Hct RDW Plt Count [place] % (Auto) [place] # Seg Neutrophils % Seg Neutrophils # APTT Heparin Anti-Xa Level POC ABG pH POC ABG pCO2 POC ABG pO2 Sodium Potassium Chloride Carbon Dioxide BUN Creatinine Glucose POC Glucose 296 H 53 L 172 H Calcium Phosphorus Iron TIBC Total Creatine Kinase CK-MB (CK-2) Troponin T Total Protein Albumin PTH Intact Crossmatch 01/02/17 01/03/17 01/03/17 23:57 03:44 03:44 WBC RBC 2.52 L Hgb 7.6 L Hct 22.5 L RDW 15.4 H Plt Count [place] % (Auto) [place] # Seg Neutrophils % 70.5 H Seg Neutrophils # APTT Heparin Anti-Xa Level POC ABG pH POC ABG pCO2 POC ABG pO2 Sodium Potassium Chloride 92.2 L Carbon Dioxide BUN 58 H Creatinine 6.2 H Glucose 147 H POC Glucose 248 H Calcium 7.4 L Phosphorus 5.90 H Iron TIBC Total Creatine Kinase CK-MB (CK-2) Troponin T Total Protein Albumin PTH Intact Crossmatch 01/03/17 01/03/17 01/03/17 05:41 11:51 17:33 WBC RBC Hgb Hct RDW Plt Count [place] % (Auto) [place] # Seg Neutrophils % Seg Neutrophils # APTT Heparin Anti-Xa Level POC ABG pH POC ABG pCO2 POC ABG pO2 Sodium Potassium Chloride Carbon Dioxide BUN Creatinine Glucose POC Glucose 190 H 258 H 197 H Calcium Phosphorus Iron TIBC Total Creatine Kinase CK-MB (CK-2) Troponin T Total Protein Albumin PTH Intact Crossmatch 01/03/17 01/03/17 01/04/17 21:38 23:50 04:45 WBC 12.7 H RBC 2.48 L Hgb 7.2 L Hct 22.5 L RDW 15.5 H Plt Count [place] % (Auto) [place] # Seg Neutrophils % 74.0 H Seg Neutrophils # 9.4 H APTT Heparin Anti-Xa Level POC ABG pH 7.551 H POC ABG pCO2 34.0 L POC ABG pO2 74 L Sodium Potassium Chloride Carbon Dioxide BUN Creatinine Glucose POC Glucose 189 H Calcium Phosphorus Iron TIBC Total Creatine Kinase CK-MB (CK-2) Troponin T Total Protein Albumin PTH Intact Crossmatch 01/04/17 01/04/17 01/04/17 04:45 05:59 09:53 WBC RBC Hgb Hct RDW Plt Count [place] % (Auto) [place] # Seg Neutrophils % Seg Neutrophils # APTT Heparin Anti-Xa Level POC ABG pH 7.550 H POC ABG pCO2 32.9 L POC ABG pO2 64 L Sodium 136 L Potassium Chloride 91.2 L Carbon Dioxide BUN 71 H Creatinine 6.4 H Glucose 167 H POC Glucose 203 H Calcium 7.8 L Phosphorus 6.50 H Iron TIBC Total Creatine Kinase 547 H CK-MB (CK-2) Troponin T Total Protein 5.6 L Albumin 2.7 L PTH Intact Crossmatch 01/04/17 01/04/17 01/04/17 12:15 17:37 23:41 WBC RBC Hgb Hct RDW Plt Count [place] % (Auto) [place] # Seg Neutrophils % Seg Neutrophils # APTT Heparin Anti-Xa Level POC ABG pH POC ABG pCO2 POC ABG pO2 Sodium Potassium Chloride Carbon Dioxide BUN Creatinine Glucose POC Glucose 228 H 225 H 231 H Calcium Phosphorus Iron TIBC Total Creatine Kinase CK-MB (CK-2) Troponin T Total Protein Albumin PTH Intact Crossmatch 01/05/17 01/05/17 01/05/17 04:40 04:40 05:24 WBC 11.3 H RBC 2.41 L Hgb 7.1 L Hct 21.6 L RDW 15.7 H Plt Count 138 L [place] % (Auto) 7.7 H [place] # 0.9 H Seg Neutrophils % 71.2 H Seg Neutrophils # 8.0 H APTT Heparin Anti-Xa Level POC ABG pH POC ABG pCO2 POC ABG pO2 Sodium 133 L Potassium 3.5 L Chloride 88.7 L Carbon Dioxide BUN 82 H Creatinine 6.5 H Glucose 137 H POC Glucose 175 H Calcium 7.8 L Phosphorus Iron 22 L TIBC 183 L Total Creatine Kinase 312 H CK-MB (CK-2) Troponin T Total Protein Albumin PTH Intact Crossmatch 01/05/17 01/05/17 01/05/17 09:34 11:12 17:33 WBC RBC Hgb Hct RDW Plt Count [place] % (Auto) [place] # Seg Neutrophils % Seg Neutrophils # APTT Heparin Anti-Xa Level POC ABG pH 7.531 H POC ABG pCO2 34.4 L POC ABG pO2 57 L Sodium Potassium Chloride Carbon Dioxide BUN Creatinine Glucose POC Glucose 188 H 222 H Calcium Phosphorus Iron TIBC Total Creatine Kinase CK-MB (CK-2) Troponin T Total Protein Albumin PTH Intact Crossmatch 01/05/17 01/06/17 01/06/17 23:24 03:15 05:20 WBC 11.2 H RBC 2.28 L Hgb 6.9 L Hct 20.7 L RDW 15.6 H Plt Count [place] % (Auto) 7.7 H [place] # 0.9 H Seg Neutrophils % 78.2 H Seg Neutrophils # 8.7 H APTT Heparin Anti-Xa Level POC ABG pH 7.566 H POC ABG pCO2 31.9 L POC ABG pO2 60 L Sodium Potassium Chloride Carbon Dioxide BUN Creatinine Glucose POC Glucose 223 H Calcium Phosphorus Iron TIBC Total Creatine Kinase CK-MB (CK-2) Troponin T Total Protein Albumin PTH Intact Crossmatch 01/06/17 01/06/17 01/06/17 05:20 05:27 11:54 WBC RBC Hgb Hct RDW Plt Count [place] % (Auto) [place] # Seg Neutrophils % Seg Neutrophils # APTT Heparin Anti-Xa Level POC ABG pH POC ABG pCO2 POC ABG pO2 Sodium Potassium Chloride 93.7 L Carbon Dioxide BUN 40 H Creatinine 3.6 H Glucose 191 H POC Glucose 244 H 184 H Calcium Phosphorus Iron TIBC Total Creatine Kinase CK-MB (CK-2) Troponin T Total Protein Albumin PTH Intact Crossmatch 01/06/17 01/06/17 01/06/17 17:39 19:00 23:57 WBC RBC Hgb Hct RDW Plt Count [place] % (Auto) [place] # Seg Neutrophils % Seg Neutrophils # APTT Heparin Anti-Xa Level POC ABG pH POC ABG pCO2 POC ABG pO2 Sodium Potassium Chloride Carbon Dioxide BUN Creatinine Glucose POC Glucose 167 H 191 H Calcium Phosphorus Iron TIBC Total Creatine Kinase CK-MB (CK-2) Troponin T Total Protein Albumin PTH Intact Crossmatch See Detail 01/07/17 01/07/17 01/07/17 04:05 05:32 08:14 WBC 11.5 H RBC 2.98 L Hgb 8.8 L Hct 26.5 L RDW 16.3 H Plt Count [place] % (Auto) 8.8 H [place] # 1.0 H Seg Neutrophils % 70.4 H Seg Neutrophils # 8.1 H APTT Heparin Anti-Xa Level POC ABG pH 7.538 H POC ABG pCO2 34.7 L POC ABG pO2 60 L Sodium Potassium Chloride Carbon Dioxide BUN Creatinine Glucose POC Glucose 139 H Calcium Phosphorus Iron TIBC Total Creatine Kinase CK-MB (CK-2) Troponin T Total Protein Albumin PTH Intact Crossmatch 01/07/17 01/07/17 01/07/17 08:14 11:52 18:19 WBC RBC Hgb Hct RDW Plt Count [place] % (Auto) [place] # Seg Neutrophils % Seg Neutrophils # APTT Heparin Anti-Xa Level POC ABG pH POC ABG pCO2 POC ABG pO2 Sodium Potassium Chloride 93.8 L Carbon Dioxide BUN 55 H Creatinine 4.7 H Glucose 161 H POC Glucose 205 H 178 H Calcium Phosphorus 5.00 H Iron TIBC Total Creatine Kinase CK-MB (CK-2) Troponin T Total Protein Albumin PTH Intact Crossmatch 01/07/17 01/08/17 01/08/17 23:43 05:30 05:30 WBC 13.0 H RBC 2.90 L Hgb 8.8 L Hct 26.0 L RDW 16.5 H Plt Count 133 L [place] % (Auto) [place] # Seg Neutrophils % Seg Neutrophils # APTT Heparin Anti-Xa Level POC ABG pH POC ABG pCO2 POC ABG pO2 Sodium Potassium Chloride 96.8 L Carbon Dioxide BUN 65 H Creatinine 5.1 H Glucose 136 H POC Glucose 153 H Calcium 7.9 L Phosphorus Iron TIBC Total Creatine Kinase CK-MB (CK-2) Troponin T Total Protein Albumin PTH Intact Crossmatch 01/08/17 01/08/17 01/08/17 05:57 11:40 18:11 WBC RBC Hgb Hct RDW Plt Count [place] % (Auto) [place] # Seg Neutrophils % Seg Neutrophils # APTT Heparin Anti-Xa Level POC ABG pH POC ABG pCO2 POC ABG pO2 Sodium Potassium Chloride Carbon Dioxide BUN Creatinine Glucose POC Glucose 165 H 152 H 167 H Calcium Phosphorus Iron TIBC Total Creatine Kinase CK-MB (CK-2) Troponin T Total Protein Albumin PTH Intact Crossmatch 01/08/17 01/08/17 01/08/17 19:10 19:10 23:50 WBC RBC Hgb 8.6 L Hct 26.4 L RDW Plt Count [place] % (Auto) [place] # Seg Neutrophils % Seg Neutrophils # APTT < 20.0 L Heparin Anti-Xa Level POC ABG pH POC ABG pCO2 POC ABG pO2 Sodium Potassium Chloride Carbon Dioxide BUN Creatinine Glucose POC Glucose 136 H Calcium Phosphorus Iron TIBC Total Creatine Kinase CK-MB (CK-2) Troponin T Total Protein Albumin PTH Intact Crossmatch 01/09/17 01/09/17 01/09/17 04:00 04:00 04:00 WBC 12.3 H RBC 2.87 L Hgb 8.3 L Hct 26.3 L RDW 16.6 H Plt Count [place] % (Auto) 8.7 H [place] # 1.1 H Seg Neutrophils % Seg Neutrophils # 8.4 H APTT Heparin Anti-Xa Level 0.15 L POC ABG pH POC ABG pCO2 POC ABG pO2 Sodium 135 L Potassium Chloride 93.9 L Carbon Dioxide BUN 38 H Creatinine 3.4 H Glucose 158 H POC Glucose Calcium 8.2 L Phosphorus Iron TIBC Total Creatine Kinase CK-MB (CK-2) Troponin T Total Protein Albumin PTH Intact Crossmatch 01/09/17 01/09/17 01/09/17 05:21 11:35 17:43 WBC RBC Hgb Hct RDW Plt Count [place] % (Auto) [place] # Seg Neutrophils % Seg Neutrophils # APTT Heparin Anti-Xa Level POC ABG pH POC ABG pCO2 POC ABG pO2 Sodium Potassium Chloride Carbon Dioxide BUN Creatinine Glucose POC Glucose 190 H 182 H 157 H Calcium Phosphorus Iron TIBC Total Creatine Kinase CK-MB (CK-2) Troponin T Total Protein Albumin PTH Intact Crossmatch 01/09/17 01/10/17 01/10/17 23:38 04:00 04:00 WBC RBC Hgb 8.3 L Hct 25.9 L RDW Plt Count [place] % (Auto) [place] # Seg Neutrophils % Seg Neutrophils # APTT Heparin Anti-Xa Level POC ABG pH POC ABG pCO2 POC ABG pO2 Sodium 136 L Potassium Chloride 91.2 L Carbon Dioxide BUN 51 H Creatinine 4.4 H Glucose 181 H POC Glucose 165 H Calcium Phosphorus Iron TIBC Total Creatine Kinase CK-MB (CK-2) Troponin T Total Protein Albumin PTH Intact Crossmatch 01/10/17 01/10/17 01/10/17 05:02 12:14 12:15 WBC RBC Hgb Hct RDW Plt Count [place] % (Auto) [place] # Seg Neutrophils % Seg Neutrophils # APTT Heparin Anti-Xa Level 0.14 L POC ABG pH POC ABG pCO2 POC ABG pO2 Sodium Potassium Chloride Carbon Dioxide BUN Creatinine Glucose POC Glucose 211 H 158 H Calcium Phosphorus Iron TIBC Total Creatine Kinase CK-MB (CK-2) Troponin T Total Protein Albumin PTH Intact Crossmatch
[2017-01-10] MEDS: HEPARIN/ 0.45% NACL-25,000 UNIT/500 ML 25,000 UNIT/500 ML BAG IV SCH (18:34)
[2017-01-11] MEDS: NOVOLOG SUB-Q SCH ×4 (00:47→18:32)
[2017-01-11] MEDS: ATIVAN IV PRN (01:49)
[2017-01-11 04:45] LABS: BUN/Creatinine Ratio 12.35; Calcium 8.7 mg/dL (8.4-10.2); Phosphorous 4.4 mg/dL (2.5-4.5)
[2017-01-11 04:59] LABS: ISTAT Base Excess 7; ISTAT HCO3 28.6; ISTAT PCO2 29.4 (35-45); ISTAT PH 7.595 (7.35-7.45); ISTAT PO2 139 (80-105); ISTAT SO2 100; ISTAT TCO2 29
[2017-01-11] MEDS ORDERED: NACL 0.9% 100 ML IV PRN (05:40)
--- NOTE | 2017-01-11 05:40 | Progress Note ---
Assessment and Plan - Patient Problems (1) ARF (acute renal failure) Current Visit: Yes Status: Acute Qualifiers: Acute renal failure type: A Plan to address problem: Acute kidney injury superimposed on CKD stage 3 in the setting of uncontrolled HTN. S/p hemodialysis on 12/31, 01/05 and 01/08. No improvement in the kidney so far. Plan to do hemodialysis today. Monitor for APPLICATIONS SCIENTIST needs and continue hemodialysis three times a week for now. Renal prognosis is guarded. (2) Hyperkalemia Current Visit: Yes Status: Acute Plan to address problem: Hyperkalemia in the setting of Acute kidney injury. Improved with hemodialysis. (3) Metabolic acidosis Current Visit: Yes Status: Acute Plan to address problem: Improved. (4) Hypertensive encephalopathy Current Visit: Yes Status: Acute Plan to address problem: BP is better. (5) Respiratory failure Current Visit: Yes Status: Acute Qualifiers: Chronicity: C Respiratory failure complication: R Plan to address problem: On Vent. (6) Anemia Current Visit: Yes Status: Acute Qualifiers: Anemia type: A Iron deficiency anemia type: I Vitamin B12 deficiency anemia type: V Folate deficiency anemia type: F Bone marrow failure anemia type: B Hemolytic anemia type: H Other causes of anemia: O Chronic kidney disease stage: C Plan to address problem: Epogen. Monitor Hb. Subjective Date of service: 01/11/17 Principal diagnosis: Acute CVA; Acute Respiratory Failure Interval history: Patient remain on the vent. Objective - Vital Signs Vital signs: Vital Signs - 12hr 01/10/17 01/10/17 01/10/17 18:00 19:00 19:08 Temperature Pulse Rate 70 72 70 Respiratory 22 20 Rate Blood Pressure 160/70 160/71 160/70 O2 Sat by Pulse 97 98 98 Oximetry 01/10/17 01/10/17 01/10/17 19:42 20:00 21:00 Temperature 98.8 F Pulse Rate 72 71 Respiratory 16 22 Rate Blood Pressure 160/69 167/65 O2 Sat by Pulse 99 97 Oximetry 01/10/17 01/10/17 01/10/17 21:18 22:00 23:00 Temperature Pulse Rate 72 69 70 Respiratory 22 23 Rate Blood Pressure 167/65 161/72 152/68 O2 Sat by Pulse 97 96 Oximetry 01/10/17 01/10/17 01/11/17 23:01 23:09 00:00 Temperature 99.3 F Pulse Rate 67 69 Respiratory 28 H Rate Blood Pressure 152/65 152/67 O2 Sat by Pulse 96 95 Oximetry 01/11/17 01/11/17 01/11/17 00:12 01:00 02:00 Temperature Pulse Rate 68 68 69 Respiratory 22 22 29 H Rate Blood Pressure 152/67 150/62 152/67 O2 Sat by Pulse 96 97 96 Oximetry 01/11/17 01/11/17 01/11/17 03:00 03:34 04:00 Temperature 98.7 F Pulse Rate 69 Respiratory 15 Rate Blood Pressure 154/69 154/69 O2 Sat by Pulse 95 97 Oximetry 01/11/17 04:42 Temperature Pulse Rate Respiratory Rate Blood Pressure 154/69 O2 Sat by Pulse 98 Oximetry - General Appearance General appearance: well-developed, appears stated age, intubated (FiO2 30%), other (right groin hemodialysis catheter) EENT: ATNC, PERRL Neck: supple Respiratory: Present: Other (coarse breath sounds) Cardiology: regular, S1S2, no murmurs Gastrointestinal: normoactive bowel sounds, no tenderness Integumentary: no rash Neurologic: other (barely arousable) Musculoskeletal: other (no edema) - Lab 01/10/17 04:00 01/11/17 04:13 Most recent lab results Calcium 8.7 mg/dL (8.4-10.2) 01/11/17 04:13 Phosphorus 4.40 mg/dL (2.5-4.5) 01/11/17 04:13 Magnesium 1.90 mg/dL (1.7-2.3) 01/04/17 04:45
[2017-01-11] MEDS ORDERED: SODIUM BICARBONATE FEEDTUBE PRN (08:25)
[2017-01-11] MEDS ORDERED: PANCREAZE DR 10,500 UNIT FEEDTUBE PRN (08:25)
[2017-01-11] MEDS ORDERED: SIMPLE SYRUP FEEDTUBE PRN ×2 (08:25)
--- NOTE | 2017-01-11 09:42 | Cat Scan Report ---
CT head without contrast: Evaluation of recent strokes or hemorrhage. Axial images are compared to the recent study of January 10. There is left parietal edema involving a large percentage of the left parietal lobe. Focal areas of markedly decreased attenuation in the mid and posterior parasagittal and peripheral anterior locations. Lacunar infarct in the left basal ganglion. Focal decreased attenuation in right frontotemporal and left temporal regions. Severe periventricular decreased white matter attenuation bilaterally. No mass effect. There is no hemorrhage and no significant change compared to prior exam. Impression: Bilateral infarcts and ischemic white matter changes. No hemorrhage and no interval change.
--- NOTE | 2017-01-11 09:46 | Progress Note ---
Subjective Date of service: 01/11/17 Principal diagnosis: Acute CVA; Acute Respiratory Failure Interval history: Remains critically ill, intubated, comatose,and tetraplegic. Acute respiratory failure intubated on the vent Acute ischemic CVA Extensive plaque noted in the transverse and descending thoracic aorta, some plaques are mobile Normal LVEF, now on IV heparin Acute drop in HCT s/p transfusion of PRBCs Hypertension Diabetes mellitus PVD Hyperlipidemia Chronic Renal insufficiency requiring renal replacement Leukocytosis Objective Vital Signs Temp Pulse Resp BP Pulse Ox 01/11/17 08:00 97.5 F L 67 22 157/66 98 01/11/17 07:22 67 21 157/66 100 01/11/17 07:00 64 22 157/66 99 01/11/17 06:00 67 23 148/64 100 01/11/17 05:56 65 20 148/68 100 01/11/17 05:00 63 22 148/64 99 01/11/17 04:42 154/69 98 01/11/17 04:00 154/69 97 01/11/17 03:34 98.7 F 01/11/17 03:00 69 15 154/69 95 01/11/17 02:00 69 29 H 152/67 96 01/11/17 01:00 68 22 150/62 97 01/11/17 00:12 68 22 152/67 96 01/11/17 00:00 69 28 H 152/67 95 01/10/17 23:09 99.3 F 01/10/17 23:01 67 152/65 96 01/10/17 23:00 70 23 152/68 96 01/10/17 22:00 69 22 161/72 97 01/10/17 21:18 72 167/65 01/10/17 21:00 71 22 167/65 97 01/10/17 20:00 72 16 160/69 99 01/10/17 19:42 98.8 F 01/10/17 19:08 70 160/70 98 01/10/17 19:00 72 20 160/71 98 01/10/17 18:00 70 22 160/70 97 01/10/17 17:00 71 26 H 169/77 98 01/10/17 16:52 69 156/70 95 01/10/17 16:00 98.5 F 69 21 156/70 95 01/10/17 15:00 69 20 143/66 96 01/10/17 14:00 64 24 143/66 99 01/10/17 13:00 66 22 146/60 97 01/10/17 12:26 69 146/60 96 01/10/17 12:00 98.5 F 69 18 135/57 97 01/10/17 11:00 66 21 135/57 95 01/10/17 10:00 67 22 97 - Physical Examination General: Other (intubated on the vent) HEENT: Positive: PERRL, EOMI Neck: Positive: neck supple, trachea midline Cardiac: Positive: Reg Rate and Rhythm, S1/S2. Negative: S3 Lungs: Positive: Normal Exam Abdomen: Positive: Soft. Negative: Pulsations/Bruits - Labs and Meds Comprehensive Metabolic Panel 01/11/17 Range/Units 04:13 Sodium 133 L (137-145) mmol/L Potassium 4.0 (3.6-5.0) mmol/L Chloride 91.0 L (98-107) mmol/L Carbon Dioxide 23 (22-30) mmol/L BUN 63 H (7-17) mg/dL Creatinine 5.1 H (0.7-1.2) mg/dL Glucose 147 H (65-100) mg/dL Calcium 8.7 (8.4-10.2) mg/dL - Imaging and Cardiology EKG: image reviewed
[2017-01-11] MEDS ORDERED: NACL 0.9 (PRIMING MACHINE ONLY DIALYSIS) MC ONE (10:03)
--- NOTE | 2017-01-11 10:11 | Progress Note ---
Assessment and Plan 61 yo AAF with multiple chronic conditions (hypertension, diabetes, hyperlipidemia, peripheral vascular disease status post bypass) noncompliant, not taking her medications for months, found down by family and brought to ER unresponsive with blood pressure 255/135. At the time of my initial evaluation in the ED, patient was obtunded, tachynpneic and so I intubated her. 1. Acute hypoxic respiratory failure on mechanical ventilatory support Lung protective strategies Adjust minute ventilation for better gas-exchange( has respiratory alkalosis). VAP bundle addressed HOB>40, Aspiration precautions Small bowel feeding tube in place- continue enteric feeding Accucheck with glycemic control, blood glucose goal<180mg/dl Muir catheter in this critically ill patient with acute on chronic renal failure VTE prophylaxis Stress ulcer prophylaxis Daily spontaneous breathing trials as tolerated Needs tracheostomy and LTACH for chronic weaning and liberation from mechanical ventilation 2. Malignant hypertension/hypertensive emergency -Continue secondary stroke prophylaxis - 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 - continue supportive care - Neurology following - for repeat CT in am - unstable artheroma seen on JOSE likely embolic source - On therapeutic heparin infusion while monitoring for hemorrhagic events on neuro-imaging. 3. Acute toxic metabolic encephalopathy Likely due to combination of hypertensive encephalopathy/renal failure with uremia/acidosis/electrolytes abnormalities/ drug use 4. Acute renal failure likely superimposed on chronic kidney disease -HD per renal service 5. Hyperkalemia Resolved 6. Rhabdomyolysis Resolved 7. Elevated troponin- type NSTEMI Most likely secondary to hypertensive emergency/renal failure 8. Hyperlipidemia - mixed 9. Peripheral vascular disease s/p left transmetatarsal amputation Status post bypass Not on any anticoagulation or anti-platelet therapy 10. Drug abuse UDS positive for marijuana If recovers, will need counseling 11. Discharge planning- will need trach/PEG and LTACH for weaning. - Patient Problems (1) Respiratory failure Current Visit: Yes Status: Acute Qualifiers: Chronicity: C Respiratory failure complication: R (2) Hypertensive encephalopathy Current Visit: Yes Status: Acute (3) ARF (acute renal failure) Current Visit: Yes Status: Acute Qualifiers: Acute renal failure type: A (4) Seizures Current Visit: Yes Status: Acute Subjective Date of service: 01/11/17 Principal diagnosis: Acute CVA; Acute Respiratory Failure Interval history: Patient seen and examined. Remains intubated, tolerating PSV trials. MRI shows evidence of ischemic areas suggestive of embolic strokes Had a lesion on the aortic valve suggestive of vegetation. Getting daily CT scans of the head for evaluation of hemorrhagic transformation while on therapeutic heparin infusion No hemorrhage, no mass, no new changes on CT head 01/11/2017 For HD this morning Vitals, labs, medications, chart reviewed. No acute overnight events Discussed on interdisciplinary rounds with RT and RN Objective - Exam Narrative Exam: GEN: Ill-appearing on a mechanical ventilator, ETT to vent on PS 10/5, no dyssynchrony. Spontaneous tidal volumes 375 HEENT: Atraumatic, normocephalic, Small bowel feeding tube in place NECK: supple, no adenopathy,no JVD CVS/HEART: RRR, NORMAL S1S2, NO JVD, pulses present bilaterally CHEST/LUNGS: CTA B, Symmetrical chest expansion, good air entry bilaterally GI/Abdomen: soft, good bowel sounds, no guarding or rebound, no organomegally /Bladder: no suprapubic tenderness, Extremities: Right groin vascular catheter, s/p trans-metatarsal amputation of the left foot, no cyanosis, DP pulses intact bilaterally Neuro:left upper extremity decerbrate, open eyes on sternal rub, obtunded Vital Signs - 12hr 01/10/17 01/10/17 01/10/17 23:00 23:01 23:09 Temperature 99.3 F Pulse Rate 70 67 Respiratory 23 Rate Blood Pressure 152/68 152/65 O2 Sat by Pulse 96 96 Oximetry 01/11/17 01/11/17 01/11/17 00:00 00:12 01:00 Temperature Pulse Rate 69 68 68 Respiratory 28 H 22 22 Rate Blood Pressure 152/67 152/67 150/62 O2 Sat by Pulse 95 96 97 Oximetry 01/11/17 01/11/17 01/11/17 02:00 03:00 03:34 Temperature 98.7 F Pulse Rate 69 69 Respiratory 29 H 15 Rate Blood Pressure 152/67 154/69 O2 Sat by Pulse 96 95 Oximetry 01/11/17 01/11/17 01/11/17 04:00 04:42 05:00 Temperature Pulse Rate 63 Respiratory 22 Rate Blood Pressure 154/69 154/69 148/64 O2 Sat by Pulse 97 98 99 Oximetry 01/11/17 01/11/17 01/11/17 05:56 06:00 07:00 Temperature Pulse Rate 65 67 64 Respiratory 20 23 22 Rate Blood Pressure 148/68 148/64 157/66 O2 Sat by Pulse 100 100 99 Oximetry 01/11/17 01/11/17 01/11/17 07:22 08:00 09:28 Temperature 97.5 F L Pulse Rate 67 67 Respiratory 21 22 Rate Blood Pressure 157/66 157/66 168/72 O2 Sat by Pulse 100 98 100 Oximetry 01/11/17 09:58 Temperature Pulse Rate 64 Respiratory Rate Blood Pressure O2 Sat by Pulse Oximetry Constitutional: no acute distress, other (opens eyes to stimulus; not tracking) Eyes: non-icteric ENT: oropharynx moist Neck: supple, no lymphadenopathy, no JVD Effort: mildly labored Ascultation: Bilateral: clear, diminished breath sounds, rhonchi (base) Cardiovascular: regular rate and rhythm Gastrointestinal: normoactive bowel sounds, soft, non-tender, non-distended Integumentary: normal Extremities: no cyanosis, no edema, pulses normal, no ischemia or petechiae, other (trans-metatarsal amputation) Neurologic: unable to assess Psychiatric: other (unable to access) CBC and BMP: 01/10/17 04:00 01/11/17 04:13 ABG, PT/INR, D-dimer: ABG POC ABG pH 7.595 (7.35-7.45) H 01/11/17 04:47 POC ABG pCO2 29.4 (35-45) L 01/11/17 04:47 POC ABG pO2 139 (80-105) H 01/11/17 04:47 POC ABG HCO3 28.6 01/11/17 04:47 POC ABG Total CO2 29 01/11/17 04:47 POC ABG O2 Sat 100 01/11/17 04:47 PT/INR, D-dimer PT 13.2 Sec. (12.2-14.9) 01/08/17 19:10 INR 0.95 (0.87-1.13) 01/08/17 19:10 Abnormal lab findings: Abnormal Labs 12/31/16 12/31/16 12/31/16 01:31 01:31 03:42 WBC RBC Hgb Hct RDW Plt Count Cottle % (Auto) Cottle # Seg Neutrophils % Seg Neutrophils # APTT Heparin Anti-Xa Level POC ABG pH POC ABG pCO2 POC ABG pO2 Sodium 146 H Potassium 5.6 H Chloride Carbon Dioxide 14 L BUN 77 H Creatinine 4.0 H Glucose 107 H POC Glucose Calcium Phosphorus Iron TIBC Total Creatine Kinase 678 H 711 H CK-MB (CK-2) 10.5 H Troponin T 0.136 H* D Total Protein Albumin PTH Intact Crossmatch 12/31/16 12/31/16 12/31/16 03:42 06:58 06:58 WBC RBC Hgb Hct RDW Plt Count Cottle % (Auto) Cottle # Seg Neutrophils % Seg Neutrophils # APTT Heparin Anti-Xa Level POC ABG pH POC ABG pCO2 POC ABG pO2 Sodium 147 H Potassium 6.0 H Chloride 107.5 H Carbon Dioxide 12 L BUN 81 H Creatinine 4.6 H Glucose 183 H POC Glucose Calcium Phosphorus Iron TIBC Total Creatine Kinase 787 H CK-MB (CK-2) 10.8 H Troponin T 0.179 H* D Total Protein Albumin PTH Intact 124.4 H Crossmatch 12/31/16 12/31/16 12/31/16 09:34 13:47 15:40 WBC RBC Hgb Hct RDW Plt Count Cottle % (Auto) Cottle # Seg Neutrophils % Seg Neutrophils # APTT Heparin Anti-Xa Level POC ABG pH 7.344 L POC ABG pCO2 33.0 L POC ABG pO2 340 H Sodium Potassium Chloride Carbon Dioxide BUN Creatinine Glucose POC Glucose 294 H Calcium Phosphorus Iron TIBC Total Creatine Kinase CK-MB (CK-2) Troponin T Total Protein 6.1 L D Albumin 3.6 L PTH Intact Crossmatch 12/31/16 12/31/16 12/31/16 16:49 18:05 18:23 WBC RBC Hgb Hct RDW Plt Count Cottle % (Auto) Cottle # Seg Neutrophils % Seg Neutrophils # APTT Heparin Anti-Xa Level POC ABG pH 7.651 H POC ABG pCO2 23.2 L POC ABG pO2 64 L Sodium Potassium Chloride Carbon Dioxide BUN Creatinine Glucose POC Glucose 287 H 259 H Calcium Phosphorus Iron TIBC Total Creatine Kinase CK-MB (CK-2) Troponin T Total Protein Albumin PTH Intact Crossmatch 12/31/16 01/01/17 01/01/17 23:52 05:40 06:35 WBC RBC Hgb Hct RDW Plt Count Cottle % (Auto) Cottle # Seg Neutrophils % Seg Neutrophils # APTT Heparin Anti-Xa Level POC ABG pH POC ABG pCO2 POC ABG pO2 Sodium Potassium Chloride 96.6 L Carbon Dioxide BUN 34 H Creatinine 3.4 H Glucose 142 H POC Glucose 182 H 168 H Calcium 7.6 L D Phosphorus Iron TIBC Total Creatine Kinase CK-MB (CK-2) Troponin T Total Protein Albumin PTH Intact Crossmatch 01/01/17 01/01/17 01/01/17 11:54 12:24 17:10 WBC RBC Hgb Hct RDW Plt Count Cottle % (Auto) Cottle # Seg Neutrophils % Seg Neutrophils # APTT Heparin Anti-Xa Level POC ABG pH 7.536 H POC ABG pCO2 POC ABG pO2 149 H Sodium Potassium Chloride Carbon Dioxide BUN Creatinine Glucose POC Glucose 166 H 160 H Calcium Phosphorus Iron TIBC Total Creatine Kinase CK-MB (CK-2) Troponin T Total Protein Albumin PTH Intact Crossmatch 01/01/17 01/02/17 01/02/17 23:31 03:35 04:01 WBC 12.0 H RBC 2.88 L Hgb 8.4 L D Hct 25.4 L D RDW 15.9 H Plt Count Cottle % (Auto) Cottle # Seg Neutrophils % 75.3 H Seg Neutrophils # 9.0 H APTT Heparin Anti-Xa Level POC ABG pH 7.551 H POC ABG pCO2 33.7 L POC ABG pO2 Sodium Potassium Chloride Carbon Dioxide BUN Creatinine Glucose POC Glucose 232 H Calcium Phosphorus Iron TIBC Total Creatine Kinase CK-MB (CK-2) Troponin T Total Protein Albumin PTH Intact Crossmatch 01/02/17 01/02/17 01/02/17 04:01 05:09 12:28 WBC RBC Hgb Hct RDW Plt Count Cottle % (Auto) Cottle # Seg Neutrophils % Seg Neutrophils # APTT Heparin Anti-Xa Level POC ABG pH POC ABG pCO2 POC ABG pO2 Sodium Potassium Chloride 93.3 L Carbon Dioxide BUN 44 H Creatinine 5.1 H Glucose 208 H POC Glucose 343 H 197 H Calcium 7.7 L Phosphorus Iron TIBC Total Creatine Kinase CK-MB (CK-2) Troponin T Total Protein 6.1 L Albumin 3.1 L PTH Intact Crossmatch 01/02/17 01/02/17 01/02/17 12:40 17:52 18:40 WBC RBC Hgb Hct RDW Plt Count Cottle % (Auto) Cottle # Seg Neutrophils % Seg Neutrophils # APTT Heparin Anti-Xa Level POC ABG pH POC ABG pCO2 POC ABG pO2 Sodium Potassium Chloride Carbon Dioxide BUN Creatinine Glucose POC Glucose 296 H 53 L 172 H Calcium Phosphorus Iron TIBC Total Creatine Kinase CK-MB (CK-2) Troponin T Total Protein Albumin PTH Intact Crossmatch 01/02/17 01/03/17 01/03/17 23:57 03:44 03:44 WBC RBC 2.52 L Hgb 7.6 L Hct 22.5 L RDW 15.4 H Plt Count Cottle % (Auto) Cottle # Seg Neutrophils % 70.5 H Seg Neutrophils # APTT Heparin Anti-Xa Level POC ABG pH POC ABG pCO2 POC ABG pO2 Sodium Potassium Chloride 92.2 L Carbon Dioxide BUN 58 H Creatinine 6.2 H Glucose 147 H POC Glucose 248 H Calcium 7.4 L Phosphorus 5.90 H Iron TIBC Total Creatine Kinase CK-MB (CK-2) Troponin T Total Protein Albumin PTH Intact Crossmatch 01/03/17 01/03/17 01/03/17 05:41 11:51 17:33 WBC RBC Hgb Hct RDW Plt Count Cottle % (Auto) Cottle # Seg Neutrophils % Seg Neutrophils # APTT Heparin Anti-Xa Level POC ABG pH POC ABG pCO2 POC ABG pO2 Sodium Potassium Chloride Carbon Dioxide BUN Creatinine Glucose POC Glucose 190 H 258 H 197 H Calcium Phosphorus Iron TIBC Total Creatine Kinase CK-MB (CK-2) Troponin T Total Protein Albumin PTH Intact Crossmatch 01/03/17 01/03/17 01/04/17 21:38 23:50 04:45 WBC 12.7 H RBC 2.48 L Hgb 7.2 L Hct 22.5 L RDW 15.5 H Plt Count Cottle % (Auto) Cottle # Seg Neutrophils % 74.0 H Seg Neutrophils # 9.4 H APTT Heparin Anti-Xa Level POC ABG pH 7.551 H POC ABG pCO2 34.0 L POC ABG pO2 74 L Sodium Potassium Chloride Carbon Dioxide BUN Creatinine Glucose POC Glucose 189 H Calcium Phosphorus Iron TIBC Total Creatine Kinase CK-MB (CK-2) Troponin T Total Protein Albumin PTH Intact Crossmatch 01/04/17 01/04/17 01/04/17 04:45 05:59 09:53 WBC RBC Hgb Hct RDW Plt Count Cottle % (Auto) Cottle # Seg Neutrophils % Seg Neutrophils # APTT Heparin Anti-Xa Level POC ABG pH 7.550 H POC ABG pCO2 32.9 L POC ABG pO2 64 L Sodium 136 L Potassium Chloride 91.2 L Carbon Dioxide BUN 71 H Creatinine 6.4 H Glucose 167 H POC Glucose 203 H Calcium 7.8 L Phosphorus 6.50 H Iron TIBC Total Creatine Kinase 547 H CK-MB (CK-2) Troponin T Total Protein 5.6 L Albumin 2.7 L PTH Intact Crossmatch 01/04/17 01/04/17 01/04/17 12:15 17:37 23:41 WBC RBC Hgb Hct RDW Plt Count Cottle % (Auto) Cottle # Seg Neutrophils % Seg Neutrophils # APTT Heparin Anti-Xa Level POC ABG pH POC ABG pCO2 POC ABG pO2 Sodium Potassium Chloride Carbon Dioxide BUN Creatinine Glucose POC Glucose 228 H 225 H 231 H Calcium Phosphorus Iron TIBC Total Creatine Kinase CK-MB (CK-2) Troponin T Total Protein Albumin PTH Intact Crossmatch 01/05/17 01/05/17 01/05/17 04:40 04:40 05:24 WBC 11.3 H RBC 2.41 L Hgb 7.1 L Hct 21.6 L RDW 15.7 H Plt Count 138 L Cottle % (Auto) 7.7 H Cottle # 0.9 H Seg Neutrophils % 71.2 H Seg Neutrophils # 8.0 H APTT Heparin Anti-Xa Level POC ABG pH POC ABG pCO2 POC ABG pO2 Sodium 133 L Potassium 3.5 L Chloride 88.7 L Carbon Dioxide BUN 82 H Creatinine 6.5 H Glucose 137 H POC Glucose 175 H Calcium 7.8 L Phosphorus Iron 22 L TIBC 183 L Total Creatine Kinase 312 H CK-MB (CK-2) Troponin T Total Protein Albumin PTH Intact Crossmatch 01/05/17 01/05/17 01/05/17 09:34 11:12 17:33 WBC RBC Hgb Hct RDW Plt Count Cottle % (Auto) Cottle # Seg Neutrophils % Seg Neutrophils # APTT Heparin Anti-Xa Level POC ABG pH 7.531 H POC ABG pCO2 34.4 L POC ABG pO2 57 L Sodium Potassium Chloride Carbon Dioxide BUN Creatinine Glucose POC Glucose 188 H 222 H Calcium Phosphorus Iron TIBC Total Creatine Kinase CK-MB (CK-2) Troponin T Total Protein Albumin PTH Intact Crossmatch 01/05/17 01/06/17 01/06/17 23:24 03:15 05:20 WBC 11.2 H RBC 2.28 L Hgb 6.9 L Hct 20.7 L RDW 15.6 H Plt Count Cottle % (Auto) 7.7 H Cottle # 0.9 H Seg Neutrophils % 78.2 H Seg Neutrophils # 8.7 H APTT Heparin Anti-Xa Level POC ABG pH 7.566 H POC ABG pCO2 31.9 L POC ABG pO2 60 L Sodium Potassium Chloride Carbon Dioxide BUN Creatinine Glucose POC Glucose 223 H Calcium Phosphorus Iron TIBC Total Creatine Kinase CK-MB (CK-2) Troponin T Total Protein Albumin PTH Intact Crossmatch 01/06/17 01/06/17 01/06/17 05:20 05:27 11:54 WBC RBC Hgb Hct RDW Plt Count Cottle % (Auto) Cottle # Seg Neutrophils % Seg Neutrophils # APTT Heparin Anti-Xa Level POC ABG pH POC ABG pCO2 POC ABG pO2 Sodium Potassium Chloride 93.7 L Carbon Dioxide BUN 40 H Creatinine 3.6 H Glucose 191 H POC Glucose 244 H 184 H Calcium Phosphorus Iron TIBC Total Creatine Kinase CK-MB (CK-2) Troponin T Total Protein Albumin PTH Intact Crossmatch 01/06/17 01/06/17 01/06/17 17:39 19:00 23:57 WBC RBC Hgb Hct RDW Plt Count Cottle % (Auto) Cottle # Seg Neutrophils % Seg Neutrophils # APTT Heparin Anti-Xa Level POC ABG pH POC ABG pCO2 POC ABG pO2 Sodium Potassium Chloride Carbon Dioxide BUN Creatinine Glucose POC Glucose 167 H 191 H Calcium Phosphorus Iron TIBC Total Creatine Kinase CK-MB (CK-2) Troponin T Total Protein Albumin PTH Intact Crossmatch See Detail 01/07/17 01/07/17 01/07/17 04:05 05:32 08:14 WBC 11.5 H RBC 2.98 L Hgb 8.8 L Hct 26.5 L RDW 16.3 H Plt Count Cottle % (Auto) 8.8 H Cottle # 1.0 H Seg Neutrophils % 70.4 H Seg Neutrophils # 8.1 H APTT Heparin Anti-Xa Level POC ABG pH 7.538 H POC ABG pCO2 34.7 L POC ABG pO2 60 L Sodium Potassium Chloride Carbon Dioxide BUN Creatinine Glucose POC Glucose 139 H Calcium Phosphorus Iron TIBC Total Creatine Kinase CK-MB (CK-2) Troponin T Total Protein Albumin PTH Intact Crossmatch 01/07/17 01/07/17 01/07/17 08:14 11:52 18:19 WBC RBC Hgb Hct RDW Plt Count Cottle % (Auto) Cottle # Seg Neutrophils % Seg Neutrophils # APTT Heparin Anti-Xa Level POC ABG pH POC ABG pCO2 POC ABG pO2 Sodium Potassium Chloride 93.8 L Carbon Dioxide BUN 55 H Creatinine 4.7 H Glucose 161 H POC Glucose 205 H 178 H Calcium Phosphorus 5.00 H Iron TIBC Total Creatine Kinase CK-MB (CK-2) Troponin T Total Protein Albumin PTH Intact Crossmatch 01/07/17 01/08/17 01/08/17 23:43 05:30 05:30 WBC 13.0 H RBC 2.90 L Hgb 8.8 L Hct 26.0 L RDW 16.5 H Plt Count 133 L Cottle % (Auto) Cottle # Seg Neutrophils % Seg Neutrophils # APTT Heparin Anti-Xa Level POC ABG pH POC ABG pCO2 POC ABG pO2 Sodium Potassium Chloride 96.8 L Carbon Dioxide BUN 65 H Creatinine 5.1 H Glucose 136 H POC Glucose 153 H Calcium 7.9 L Phosphorus Iron TIBC Total Creatine Kinase CK-MB (CK-2) Troponin T Total Protein Albumin PTH Intact Crossmatch 01/08/17 01/08/17 01/08/17 05:57 11:40 18:11 WBC RBC Hgb Hct RDW Plt Count Cottle % (Auto) Cottle # Seg Neutrophils % Seg Neutrophils # APTT Heparin Anti-Xa Level POC ABG pH POC ABG pCO2 POC ABG pO2 Sodium Potassium Chloride Carbon Dioxide BUN Creatinine Glucose POC Glucose 165 H 152 H 167 H Calcium Phosphorus Iron TIBC Total Creatine Kinase CK-MB (CK-2) Troponin T Total Protein Albumin PTH Intact Crossmatch 01/08/17 01/08/17 01/08/17 19:10 19:10 23:50 WBC RBC Hgb 8.6 L Hct 26.4 L RDW Plt Count Cottle % (Auto) Cottle # Seg Neutrophils % Seg Neutrophils # APTT < 20.0 L Heparin Anti-Xa Level POC ABG pH POC ABG pCO2 POC ABG pO2 Sodium Potassium Chloride Carbon Dioxide BUN Creatinine Glucose POC Glucose 136 H Calcium Phosphorus Iron TIBC Total Creatine Kinase CK-MB (CK-2) Troponin T Total Protein Albumin PTH Intact Crossmatch 01/09/17 01/09/17 01/09/17 04:00 04:00 04:00 WBC 12.3 H RBC 2.87 L Hgb 8.3 L Hct 26.3 L RDW 16.6 H Plt Count Cottle % (Auto) 8.7 H Cottle # 1.1 H Seg Neutrophils % Seg Neutrophils # 8.4 H APTT Heparin Anti-Xa Level 0.15 L POC ABG pH POC ABG pCO2 POC ABG pO2 Sodium 135 L Potassium Chloride 93.9 L Carbon Dioxide BUN 38 H Creatinine 3.4 H Glucose 158 H POC Glucose Calcium 8.2 L Phosphorus Iron TIBC Total Creatine Kinase CK-MB (CK-2) Troponin T Total Protein Albumin PTH Intact Crossmatch 01/09/17 01/09/17 01/09/17 05:21 11:35 17:43 WBC RBC Hgb Hct RDW Plt Count Cottle % (Auto) Cottle # Seg Neutrophils % Seg Neutrophils # APTT Heparin Anti-Xa Level POC ABG pH POC ABG pCO2 POC ABG pO2 Sodium Potassium Chloride Carbon Dioxide BUN Creatinine Glucose POC Glucose 190 H 182 H 157 H Calcium Phosphorus Iron TIBC Total Creatine Kinase CK-MB (CK-2) Troponin T Total Protein Albumin PTH Intact Crossmatch 01/09/17 01/10/17 01/10/17 23:38 04:00 04:00 WBC RBC Hgb 8.3 L Hct 25.9 L RDW Plt Count Cottle % (Auto) Cottle # Seg Neutrophils % Seg Neutrophils # APTT Heparin Anti-Xa Level POC ABG pH POC ABG pCO2 POC ABG pO2 Sodium 136 L Potassium Chloride 91.2 L Carbon Dioxide BUN 51 H Creatinine 4.4 H Glucose 181 H POC Glucose 165 H Calcium Phosphorus Iron TIBC Total Creatine Kinase CK-MB (CK-2) Troponin T Total Protein Albumin PTH Intact Crossmatch 01/10/17 01/10/17 01/10/17 05:02 12:14 12:15 WBC RBC Hgb Hct RDW Plt Count Cottle % (Auto) Cottle # Seg Neutrophils % Seg Neutrophils # APTT Heparin Anti-Xa Level 0.14 L POC ABG pH POC ABG pCO2 POC ABG pO2 Sodium Potassium Chloride Carbon Dioxide BUN Creatinine Glucose POC Glucose 211 H 158 H Calcium Phosphorus Iron TIBC Total Creatine Kinase CK-MB (CK-2) Troponin T Total Protein Albumin PTH Intact Crossmatch 01/10/17 01/10/1701/11/17 17:43 23:34 02:00 WBC RBC Hgb Hct RDW Plt Count Cottle % (Auto) Cottle # Seg Neutrophils % Seg Neutrophils # APTT Heparin Anti-Xa Level POC ABG pH POC ABG pCO2 POC ABG pO2 Sodium Potassium Chloride Carbon Dioxide BUN Creatinine Glucose POC Glucose 178 H 164 H 166 H Calcium Phosphorus Iron TIBC Total Creatine Kinase CK-MB (CK-2) Troponin T Total Protein Albumin PTH Intact Crossmatch 01/11/17 01/11/17 01/11/17 04:13 04:47 05:33 WBC RBC Hgb Hct RDW Plt Count Cottle % (Auto) Cottle # Seg Neutrophils % Seg Neutrophils # APTT Heparin Anti-Xa Level POC ABG pH 7.595 H POC ABG pCO2 29.4 L POC ABG pO2 139 H Sodium 133 L Potassium Chloride 91.0 L Carbon Dioxide BUN 63 H Creatinine 5.1 H Glucose 147 H POC Glucose 166 H Calcium Phosphorus Iron TIBC Total Creatine Kinase CK-MB (CK-2) Troponin T Total Protein Albumin PTH Intact Crossmatch
[2017-01-11] MEDS: APRESOLINE IV PRN (11:08)
[2017-01-11] MEDS: NORMODYNE PO SCH ×2 (11:11→21:17)
[2017-01-11] MEDS: PEPCID PO SCH (11:13)
[2017-01-11] MEDS: ASPIRIN PO SCH (11:14)
[2017-01-11] MEDS: NORVASC PO SCH (11:14)
[2017-01-11] MEDS: KEPPRA PO SCH ×2 (11:17→21:17)
[2017-01-11] MEDS: LEVEMIR SUB-Q SCH (11:19)
[2017-01-11] MEDS: PROCRIT IV PRN (12:20)
--- NOTE | 2017-01-11 12:32 | Progress Note ---
Assessment and Plan Assessment and plan: Patient is a 61 yo woman with multiple medical comorbidities including hypertension, diabetes, hyperlipidemia, peripheral vascular disease status post bypass, medical noncompliance and not taking her medications for months, found down by family and brought to ER unresponsive with blood pressure 255/135 - Malignant hypertension/hypertensive emergency CT head showing chronic ischemic microvascular changes, with no acute infarct or hemorrhage Weaned off of Cardene drip; now on amlodipine and labetalol BP still elevated, will add low dose hydralazine - CVA Brain MRI showing multiple acute ischemic areas Started on antiplatelet and statin therapy Cardiology consulted for JOSE to rule out embolic source; monitor rhythm - Acute toxic metabolic encephalopathy Likely due to combination of hypertensive encephalopathy/multiple brain infarction areas/ renal failure with uremia/acidosis/electrolytes abnormalities / drug use Treat underlying conditions -Acute respiratory failure On mechanical ventilation Unable to be extubated due to mental status Pulmonary following - Acute renal failure likely superimposed on chronic kidney disease Significantly elevated BUN/Cr with marked hyperkalemia and metabolic acidosis on admission Nephrology consulted and acute HD initiated Assessing HD need daily -Hyperkalemia On admission K+ 6.9; received Kayexalate, insulin/D50, bicarbonate Now on HD Continue to closely monitor -Rhabdomyolysis Continue IV fluids CPK trending down -Elevated troponin Most likely secondary to hypertensive emergency/renal failure Echocardiogram ordered -Anemia Likely multifactorial Iron deficient, so started on supplementation -Hyperlipidemia - mixed Total cholesterol 355, LDL 251, TG 298 Starting atorvastatin as CPK trending down and given brain MRI findings - Peripheral vascular disease Status post bypass Discontinued anticoagulant therapy on her own months ago - Drug abuse UDS positive for marijuana If recovers, will need counseling - DVT prophylaxis Poor prognosis "NEUROLOGY PROGRESS NOTE: EXAM: NO change in Neuro exam today but no decerebrate posturing on nox stim to each arm. MRI today (discussed with Dr Ovi Szymanski, Radiol) shows a NEW INFARCT 4 x 2.5 cm in left cerebral hemisphere at temporo-parietal junction, not good for future language function. No significant development of edema, no evidence of hernation. JOSE shows a Grade 5 mobile atheroma in the transverse aorta, no clots in heart. GOOD DISCUSSION WITH SISTER ETHYL IN ROOM WITH HER . re all the above, and both voiced understanding of this IMP: 1. Recurrent cerebral infarcts (new one documented today by MR) secondary to unstable aortic atheroma. No other source has been found. 2. Persistent coma secondary to her worsening renal failure Creat 5.4 today, and not due to her strokes. Although many in number, none are in locations that can produce coma. There is no herniation. PLAN: 1. In discussion with Cardiology, we will move forward and place pt on Heparin (without a bolus) to hoperfully prevent further embolic insults to [employer]. The risk, of course, is she will experience hemorrhagic conversion on one of her infarcts, but while two are large, they are not massive, and we believe that the risk of recurrent emboli is greater than the risk of hemorrhagic conversion. 2. As she is TERTRAPLEGIC AND COMATOSE, she will need a baseline CT scan (to check for any baseline bleeding) and then daily head CT scans x several days ( MAYBE 5), the only way we have to monitor for hemorrhagic conversion 3. Our hope is that with dialysis, begun today, she will regain considerable awareness, and then we will go from there. 4. I will call her sister Raman today and speak with her again so all will be informed. I have ordered todays CT scan, and am leaving in an hour or so for one month, SO SOMEONE ELSE WILL NEED TO ORDER SUBSEQUENT HEAD CT SCANS Odalys Porras MD" 01/11/17: Patient is receiving hemodialysis, d/w sister Fanny at bedside. Dr. Garcia' surgical group to be consulted for trach and peg History Interval history: Patient was seen and examined. Follow-up on current diagnosis/sob. Overnight uneventful. Still intubated but not sedated Hospitalist Physical - Physical exam Narrative exam: GEN: Ill-appearing on a mechanical ventilator HEENT: ET tube in place NECK: supple, no adenopathy, no thyromegaly, no JVD CVS/HEART: RRR, NORMAL S1S2, NO JVD, pulses present bilaterally CHEST/LUNGS: CTA B, Symmetrical chest expansion, good air entry bilaterally GI/Abdomen: soft, good bowel sounds, no guarding or rebound /Bladder: no suprapubic tenderness, no CVA or paraspinal tenderness Neuro: CN 2-12 grossly abn, no new focal deficits - Constitutional Vitals: Temp Pulse Resp BP Pulse Ox 97.5 F L 70 23 148/62 99 01/11/17 10:20 01/11/17 12:20 01/11/17 11:23 01/11/17 12:20 01/11/17 11:23 General appearance: Present: other (intubated on the vent) Results - Labs CBC & Chem 7: 01/10/17 04:00 01/11/17 04:13 Labs: Laboratory Last Values WBC 12.3 K/mm3 (4.5-11.0) H 01/09/17 04:00 RBC 2.87 M/mm3 (3.65-5.03) L 01/09/17 04:00 Hgb 8.3 gm/dl (10.1-14.3) L 01/10/17 04:00 Hct 25.9 % (30.3-42.9) L 01/10/17 04:00 MCV 92 fl (79-97) 01/09/17 04:00 MCH 29 pg (28-32) 01/09/17 04:00 MCHC 32 % (30-34) 01/09/17 04:00 RDW 16.6 % (13.2-15.2) H 01/09/17 04:00 Plt Count 227 K/mm3 (140-440) 01/10/17 04:00 Lymph % (Auto) 20.7 % (13.4-35.0) 01/09/17 04:00 [place] % (Auto) 8.7 % (0.0-7.3) H 01/09/17 04:00 Eos % (Auto) 1.3 % (0.0-4.3) 01/09/17 04:00 Baso % (Auto) 0.8 % (0.0-1.8) 01/09/17 04:00 Lymph # 2.6 K/mm3 (1.2-5.4) 01/09/17 04:00 [place] # 1.1 K/mm3 (0.0-0.8) H 01/09/17 04:00 Eos # 0.2 K/mm3 (0.0-0.4) 01/09/17 04:00 Baso # 0.1 K/mm3 (0.0-0.1) 01/09/17 04:00 Seg Neutrophils % 68.5 % (40.0-70.0) 01/09/17 04:00 Seg Neutrophils # 8.4 K/mm3 (1.8-7.7) H 01/09/17 04:00 PT 13.2 Sec. (12.2-14.9) 01/08/17 19:10 INR 0.95 (0.87-1.13) 01/08/17 19:10 APTT < 20.0 Sec. (24.2-36.6) L 01/08/17 19:10 Heparin Anti-Xa Level 0.14 U.I./ml (0.3-0.7) L 01/10/17 12:14 POC ABG pH 7.595 (7.35-7.45) H 01/11/17 04:47 POC ABG pCO2 29.4 (35-45) L 01/11/17 04:47 POC ABG pO2 139 (80-105) H 01/11/17 04:47 POC ABG HCO3 28.6 01/11/17 04:47 POC ABG Total CO2 29 01/11/17 04:47 POC ABG O2 Sat 100 01/11/17 04:47 POC ABG Base Excess 7 01/11/17 04:47 FiO2 30 % 01/11/17 04:47 Sodium 133 mmol/L (137-145) L 01/11/17 04:13 Potassium 4.0 mmol/L (3.6-5.0) 01/11/17 04:13 Chloride 91.0 mmol/L (98-107) L 01/11/17 04:13 Carbon Dioxide 23 mmol/L (22-30) 01/11/17 04:13 Anion Gap 23 mmol/L 01/11/17 04:13 BUN 63 mg/dL (7-17) H 01/11/17 04:13 Creatinine 5.1 mg/dL (0.7-1.2) H 01/11/17 04:13 Estimated GFR 10 ml/min 01/11/17 04:13 BUN/Creatinine Ratio 12.35 % 01/11/17 04:13 Glucose 147 mg/dL (65-100) H 01/11/17 04:13 POC Glucose 173 (70-105) H 01/11/17 11:45 Lactic Acid 1.30 mmol/L (0.7-2.0) 01/01/17 06:35 Calcium 8.7 mg/dL (8.4-10.2) 01/11/17 04:13 Phosphorus 4.40 mg/dL (2.5-4.5) 01/11/17 04:13 Magnesium 1.90 mg/dL (1.7-2.3) 01/04/17 04:45 Iron 22 ug/dL (37-170) L 01/05/17 04:40 TIBC 183 mcg/dL (250-450) L 01/05/17 04:40 Ferritin 283.6 ng/mL (13.0-400.0) 01/05/17 04:40 Total Bilirubin 0.40 mg/dL (0.1-1.2) 01/04/17 04:45 Direct Bilirubin < 0.2 mg/dL (0-0.2) 12/31/16 15:40 Indirect Bilirubin 0.1 mg/dL 12/31/16 15:40 AST 25 units/L (5-40) 01/04/17 04:45 ALT 16 units/L (7-56) 01/04/17 04:45 Alkaline Phosphatase 75 units/L (35-129) 01/04/17 04:45 Total Creatine Kinase 312 units/L (30-135) H 01/05/17 04:40 CK-MB (CK-2) 10.8 ng/mL (0.0-4.0) H 12/31/16 06:58 CK-MB (CK-2) Rel Index 1.3 (0-4) 12/31/16 06:58 Troponin T 0.179 ng/mL (0.00-0.029) H* D 12/31/16 06:58 Total Protein 5.6 g/dL (6.3-8.2) L 01/04/17 04:45 Albumin 2.7 g/dL (3.9-5) L 01/04/17 04:45 Albumin/Globulin Ratio 0.9 % 01/04/17 04:45 Triglycerides 298 mg/dL (2-149) H 12/30/16 23:34 Cholesterol 355 mg/dL (50-199) H 12/30/16 23:34 LDL Cholesterol Direct 251 mg/dL (50-130) H 12/30/16 23:34 HDL Cholesterol 45 mg/dL (40-59) 12/30/16 23:34 Cholesterol/HDL Ratio 7.88 % 12/30/16 23:34 TSH 1.320 mlU/mL (0.270-4.200) 12/30/16 21:29 PTH Intact 124.4 pg/mL (15-65) H 12/31/16 03:42 Urine Color Yellow (Yellow) 12/30/16 20:47 Urine Turbidity Clear (Clear) 12/30/16 20:47 Urine pH 5.0 (5.0-7.0) 12/30/16 20:47 Ur Specific [place] 1.023 (1.003-1.030) 12/30/16 20:47 Urine Protein 100 mg/dl mg/dL (Negative) 12/30/16 20:47 Urine Glucose (UA) Neg mg/dL (Negative) 12/30/16 20:47 Urine Ketones Tr mg/dL (Negative) 12/30/16 20:47 Urine Blood Neg (Negative) 12/30/16 20:47 Urine Nitrite Neg (Negative) 12/30/16 20:47 Urine Bilirubin Neg (Negative) 12/30/16 20:47 Urine Urobilinogen 2.0 mg/dL (<2.0) 12/30/16 20:47 Ur Leukocyte Esterase Neg (Negative) 12/30/16 20:47 Urine WBC (Auto) < 1.0 /HPF (0.0-6.0) 12/30/16 20:47 Urine RBC (Auto) 1.0 /HPF (0.0-6.0) 12/30/16 20:47 U Epithel Cells (Auto) 1.0 /HPF (0-13.0) 12/30/16 20:47 Urine Bacteria (Auto) 1+ /HPF (Negative) 12/30/16 20:47 Salicylates < 0.3 mg/dL (2.8-20.0) L 12/30/16 21:29 Urine Opiates Screen Presumptive negative 12/30/16 20:47 Urine Methadone Screen Presumptive negative 12/30/16 20:47 Acetaminophen < 15.0 ug/mL (10.0-30.0) 12/30/16 21:29 Ur Barbiturates Screen Presumptive negative 12/30/16 20:47 Ur Phencyclidine Scrn Presumptive negative 12/30/16 20:47 Ur Amphetamines Screen Presumptive negative 12/30/16 20:47 U Benzodiazepines Scrn Presumptive negative 12/30/16 20:47 Urine Cocaine Screen Presumptive negative 12/30/16 20:47 U Marijuana (THC) Screen Presumptive positive 12/30/16 20:47 Drugs of Abuse Note Disclamer 12/30/16 20:47 Plasma/Serum Alcohol < 0.01 gm% (0-0.07) 12/30/16 21:29 Hepatitis A IgM Ab Non-reactive (NonReactive) 01/08/17 15:21 Hep Bs Antigen Non-reactive (Negative) 01/08/17 15:21 Hep B Core IgM Ab Non-reactive (NonReactive) 01/08/17 15:21 Hepatitis C Antibody Non-reactive (NonReactive) 01/08/17 15:21 Blood Type O NEGATIVE 01/06/17 19:00 Antibody Screen Negative 01/06/17 19:00 Crossmatch See Detail 01/06/17 19:00
[2017-01-11] MEDS: HEPARIN IV PRN (13:39)
[2017-01-11] MEDS: HEPARIN/ 0.45% NACL-25,000 UNIT/500 ML 25,000 UNIT/500 ML BAG IV SCH (18:33)
[2017-01-12] MEDS: NOVOLOG SUB-Q SCH ×4 (00:09→19:01)
[2017-01-12 04:11] LABS: Hematocrit 24.3 % (30.3-42.9); Hemoglobin 7.8 gm/dl (10.1-14.3)
[2017-01-12 04:38] LABS: BUN/Creatinine Ratio 10.57; Calcium 9.3 mg/dL (8.4-10.2); Chloride 92.3 mmol/L (98-107); Potassium 3.8 mmol/L (3.6-5.0)
[2017-01-12] MEDS: APRESOLINE IV PRN ×2 (04:57→22:10)
--- NOTE | 2017-01-12 08:08 | Progress Note ---
Assessment and Plan - Patient Problems (1) ARF (acute renal failure) Current Visit: Yes Status: Acute Qualifiers: Acute renal failure type: A Plan to address problem: Acute kidney injury superimposed on CKD stage 3 in the setting of uncontrolled HTN. Patient is hemodialysis dependent and was last dialyzed yesterday. No improvement in the renal function so far. Monitor for [employer] needs and continue hemodialysis three times a week for now. Renal prognosis is guarded. (2) Hyperkalemia Current Visit: Yes Status: Acute Plan to address problem: Hyperkalemia in the setting of Acute kidney injury. Improved with hemodialysis. (3) Metabolic acidosis Current Visit: Yes Status: Acute Plan to address problem: Improved. (4) Hypertensive encephalopathy Current Visit: Yes Status: Acute Plan to address problem: BP is better. (5) Respiratory failure Current Visit: Yes Status: Acute Qualifiers: Chronicity: C Respiratory failure complication: R Plan to address problem: On Vent. (6) Anemia Current Visit: Yes Status: Acute Qualifiers: Anemia type: A Iron deficiency anemia type: I Vitamin B12 deficiency anemia type: V Folate deficiency anemia type: F Bone marrow failure anemia type: B Hemolytic anemia type: H Other causes of anemia: O Chronic kidney disease stage: C Plan to address problem: Epogen. Monitor Hb. Subjective Date of service: 01/12/17 Principal diagnosis: Acute CVA; Acute Respiratory Failure Interval history: Patient remain on the vent. Objective - Vital Signs Vital signs: Vital Signs - 12hr 01/11/17 01/11/17 01/11/17 20:28 21:00 21:17 Temperature Pulse Rate 76 76 78 Respiratory 21 24 Rate Blood Pressure 159/65 165/68 166/69 O2 Sat by Pulse 97 97 Oximetry 01/11/17 01/11/17 01/11/17 22:00 23:00 23:09 Temperature Pulse Rate 73 71 70 Respiratory 23 20 Rate Blood Pressure 162/71 156/68 156/68 O2 Sat by Pulse 97 96 97 Oximetry 01/12/17 01/12/17 01/12/17 00:00 01:00 02:00 Temperature 99.1 F Pulse Rate 74 73 77 Respiratory 21 25 H 35 H Rate Blood Pressure 164/69 162/66 161/68 O2 Sat by Pulse 97 97 98 Oximetry 01/12/17 01/12/17 01/12/17 03:00 03:13 04:00 Temperature 98.7 F Pulse Rate 77 76 77 Respiratory 29 H 27 H Rate Blood Pressure 172/71 172/71 170/71 O2 Sat by Pulse 96 97 96 Oximetry 01/12/17 01/12/17 01/12/17 04:57 05:00 06:00 Temperature Pulse Rate 76 77 82 Respiratory 30 H 17 Rate Blood Pressure 185/78 168/66 163/71 O2 Sat by Pulse 94 98 Oximetry 01/12/17 07:00 Temperature Pulse Rate 85 Respiratory 31 H Rate Blood Pressure 171/68 O2 Sat by Pulse 96 Oximetry - General Appearance General appearance: well-developed, appears stated age, intubated (FiO2 30%), other (right groin hemodialysis catheter) EENT: ATNC, PERRL Neck: supple Respiratory: Present: Other (coarse breath sounds) Cardiology: regular, S1S2, no murmurs Gastrointestinal: normoactive bowel sounds, no tenderness, no distended Integumentary: no rash Neurologic: other (minimal response) Musculoskeletal: other (no edema, left TMA) - Lab 01/12/17 04:00 01/12/17 04:00 Most recent lab results Calcium 9.3 mg/dL (8.4-10.2) 01/12/17 04:00 Phosphorus 4.40 mg/dL (2.5-4.5) 01/11/17 04:13 Magnesium 1.90 mg/dL (1.7-2.3) 01/04/17 04:45
--- NOTE | 2017-01-12 08:57 | Progress Note ---
Assessment and Plan Assessment and plan: Patient is a 61 yo woman with multiple medical comorbidities including hypertension, diabetes, hyperlipidemia, peripheral vascular disease status post bypass, medical noncompliance and not taking her medications for months, found down by family and brought to ER unresponsive with blood pressure 255/135 - Malignant hypertension/hypertensive emergency CT head showed chronic ischemic microvascular changes, with no acute infarct or hemorrhage Weaned off of Cardene drip; now on amlodipine and labetalol. Blood pressure still uncontrolled. Will add hydralazine 50 mg 3 times a day - Acute ischemic stroke Brain MRI showing multiple acute ischemic areas Started on antiplatelet and statin therapy Cardiology consulted, JOSE done on 01/06/17. Extensive mobile plaque in descending aorta. On heparin drip - Acute toxic metabolic encephalopathy Likely due to combination of hypertensive encephalopathy/multiple brain infarction areas/ renal failure with uremia/acidosis/electrolytes abnormalities / drug use Treat underlying conditions -Acute respiratory failure On mechanical ventilation Unable to be extubated due to mental status Pulmonary following - Acute renal failure likely superimposed on chronic kidney disease Significantly elevated BUN/Cr with marked hyperkalemia and metabolic acidosis on admission Nephrology consulted and acute HD initiated Assessing HD need daily -Hyperkalemia On admission K+ 6.9; received Kayexalate, insulin/D50, bicarbonate Now on HD Continue to closely monitor -Rhabdomyolysis Continue IV fluids CPK trending down -Elevated troponin Most likely secondary to hypertensive emergency/renal failure Echocardiogram ordered -Anemia Likely multifactorial Iron deficient, so started on supplementation -Hyperlipidemia - mixed Total cholesterol 355, LDL 251, TG 298 On Lipitor - Peripheral vascular disease Status post bypass Discontinued anticoagulant therapy on her own months ago - Drug abuse UDS positive for marijuana For counseling when stable - DVT prophylaxis. She is on Heparin drip Poor prognosis History Interval history: No new events overnight still intubated , on ventilator Hospitalist Physical - Physical exam Narrative exam: Gen Appearance: Not in acute distress, intubated HEENT: normocephalic, atraumatic Neck:supple, no JVD Lungs: clear to auscultation bilaterally, no crackles or wheezes Heart: S1 and S2 regular, no murmurs or gallop Abdomen: Soft, non-tender, non-distended, normal bowel sounds Extremity: No edema, clubbing or cyanosis Neuro : Obtunded,opens eyes, does not follow commands - Constitutional Vitals: Temp Pulse Resp BP Pulse Ox 99.2 F 85 31 H 171/68 96 01/12/17 08:00 01/12/17 07:00 01/12/17 07:00 01/12/17 07:00 01/12/17 07:00 General appearance: Present: other (intubated on the vent) Results - Labs CBC & Chem 7: 01/12/17 04:00 01/12/17 04:00 Labs: Laboratory Last Values WBC 12.3 K/mm3 (4.5-11.0) H 01/09/17 04:00 RBC 2.87 M/mm3 (3.65-5.03) L 01/09/17 04:00 Hgb 7.8 gm/dl (10.1-14.3) L 01/12/17 04:00 Hct 24.3 % (30.3-42.9) L 01/12/17 04:00 MCV 92 fl (79-97) 01/09/17 04:00 MCH 29 pg (28-32) 01/09/17 04:00 MCHC 32 % (30-34) 01/09/17 04:00 RDW 16.6 % (13.2-15.2) H 01/09/17 04:00 Plt Count 216 K/mm3 (140-440) 01/12/17 04:00 Lymph % (Auto) 20.7 % (13.4-35.0) 01/09/17 04:00 [place] % (Auto) 8.7 % (0.0-7.3) H 01/09/17 04:00 Eos % (Auto) 1.3 % (0.0-4.3) 01/09/17 04:00 Baso % (Auto) 0.8 % (0.0-1.8) 01/09/17 04:00 Lymph # 2.6 K/mm3 (1.2-5.4) 01/09/17 04:00 [place] # 1.1 K/mm3 (0.0-0.8) H 01/09/17 04:00 Eos # 0.2 K/mm3 (0.0-0.4) 01/09/17 04:00 Baso # 0.1 K/mm3 (0.0-0.1) 01/09/17 04:00 Seg Neutrophils % 68.5 % (40.0-70.0) 01/09/17 04:00 Seg Neutrophils # 8.4 K/mm3 (1.8-7.7) H 01/09/17 04:00 PT 13.2 Sec. (12.2-14.9) 01/08/17 19:10 INR 0.95 (0.87-1.13) 01/08/17 19:10 APTT < 20.0 Sec. (24.2-36.6) L 01/08/17 19:10 Heparin Anti-Xa Level 0.31 U.I./ml (0.3-0.7) 01/11/17 12:30 POC ABG pH 7.595 (7.35-7.45) H 01/11/17 04:47 POC ABG pCO2 29.4 (35-45) L 01/11/17 04:47 POC ABG pO2 139 (80-105) H 01/11/17 04:47 POC ABG HCO3 28.6 01/11/17 04:47 POC ABG Total CO2 29 01/11/17 04:47 POC ABG O2 Sat 100 01/11/17 04:47 POC ABG Base Excess 7 01/11/17 04:47 FiO2 30 % 01/11/17 04:47 Sodium 133 mmol/L (137-145) L 01/12/17 04:00 Potassium 3.8 mmol/L (3.6-5.0) 01/12/17 04:00 Chloride 92.3 mmol/L (98-107) L 01/12/17 04:00 Carbon Dioxide 25 mmol/L (22-30) 01/12/17 04:00 Anion Gap 20 mmol/L 01/12/17 04:00 BUN 37 mg/dL (7-17) H 01/12/17 04:00 Creatinine 3.5 mg/dL (0.7-1.2) H 01/12/17 04:00 Estimated GFR 16 ml/min 01/12/17 04:00 BUN/Creatinine Ratio 10.57 % 01/12/17 04:00 Glucose 137 mg/dL (65-100) H 01/12/17 04:00 POC Glucose 176 (70-105) H 01/12/17 05:03 Lactic Acid 1.30 mmol/L (0.7-2.0) 01/01/17 06:35 Calcium 9.3 mg/dL (8.4-10.2) 01/12/17 04:00 Phosphorus 4.40 mg/dL (2.5-4.5) 01/11/17 04:13 Magnesium 1.90 mg/dL (1.7-2.3) 01/04/17 04:45 Iron 22 ug/dL (37-170) L 01/05/17 04:40 TIBC 183 mcg/dL (250-450) L 01/05/17 04:40 Ferritin 283.6 ng/mL (13.0-400.0) 01/05/17 04:40 Total Bilirubin 0.40 mg/dL (0.1-1.2) 01/04/17 04:45 Direct Bilirubin < 0.2 mg/dL (0-0.2) 12/31/16 15:40 Indirect Bilirubin 0.1 mg/dL 12/31/16 15:40 AST 25 units/L (5-40) 01/04/17 04:45 ALT 16 units/L (7-56) 01/04/17 04:45 Alkaline Phosphatase 75 units/L (35-129) 01/04/17 04:45 Total Creatine Kinase 312 units/L (30-135) H 01/05/17 04:40 CK-MB (CK-2) 10.8 ng/mL (0.0-4.0) H 12/31/16 06:58 CK-MB (CK-2) Rel Index 1.3 (0-4) 12/31/16 06:58 Troponin T 0.179 ng/mL (0.00-0.029) H* D 12/31/16 06:58 Total Protein 5.6 g/dL (6.3-8.2) L 01/04/17 04:45 Albumin 2.7 g/dL (3.9-5) L 01/04/17 04:45 Albumin/Globulin Ratio 0.9 % 01/04/17 04:45 Triglycerides 298 mg/dL (2-149) H 12/30/16 23:34 Cholesterol 355 mg/dL (50-199) H 12/30/16 23:34 LDL Cholesterol Direct 251 mg/dL (50-130) H 12/30/16 23:34 HDL Cholesterol 45 mg/dL (40-59) 12/30/16 23:34 Cholesterol/HDL Ratio 7.88 % 12/30/16 23:34 TSH 1.320 mlU/mL (0.270-4.200) 12/30/16 21:29 PTH Intact 124.4 pg/mL (15-65) H 12/31/16 03:42 Urine Color Yellow (Yellow) 12/30/16 20:47 Urine Turbidity Clear (Clear) 12/30/16 20:47 Urine pH 5.0 (5.0-7.0) 12/30/16 20:47 Ur Specific [place] 1.023 (1.003-1.030) 12/30/16 20:47 Urine Protein 100 mg/dl mg/dL (Negative) 12/30/16 20:47 Urine Glucose (UA) Neg mg/dL (Negative) 12/30/16 20:47 Urine Ketones Tr mg/dL (Negative) 12/30/16 20:47 Urine Blood Neg (Negative) 12/30/16 20:47 Urine Nitrite Neg (Negative) 12/30/16 20:47 Urine Bilirubin Neg (Negative) 12/30/16 20:47 Urine Urobilinogen 2.0 mg/dL (<2.0) 12/30/16 20:47 Ur Leukocyte Esterase Neg (Negative) 12/30/16 20:47 Urine WBC (Auto) < 1.0 /HPF (0.0-6.0) 12/30/16 20:47 Urine RBC (Auto) 1.0 /HPF (0.0-6.0) 12/30/16 20:47 U Epithel Cells (Auto) 1.0 /HPF (0-13.0) 12/30/16 20:47 Urine Bacteria (Auto) 1+ /HPF (Negative) 12/30/16 20:47 Salicylates < 0.3 mg/dL (2.8-20.0) L 12/30/16 21:29 Urine Opiates Screen Presumptive negative 12/30/16 20:47 Urine Methadone Screen Presumptive negative 12/30/16 20:47 Acetaminophen < 15.0 ug/mL (10.0-30.0) 12/30/16 21:29 Ur Barbiturates Screen Presumptive negative 12/30/16 20:47 Ur Phencyclidine Scrn Presumptive negative 12/30/16 20:47 Ur Amphetamines Screen Presumptive negative 12/30/16 20:47 U Benzodiazepines Scrn Presumptive negative 12/30/16 20:47 Urine Cocaine Screen Presumptive negative 12/30/16 20:47 U Marijuana (THC) Screen Presumptive positive 12/30/16 20:47 Drugs of Abuse Note Disclamer 12/30/16 20:47 Plasma/Serum Alcohol < 0.01 gm% (0-0.07) 12/30/16 21:29 Hepatitis A IgM Ab Non-reactive (NonReactive) 01/08/17 15:21 Hep Bs Antigen Non-reactive (Negative) 01/08/17 15:21 Hep B Core IgM Ab Non-reactive (NonReactive) 01/08/17 15:21 Hepatitis C Antibody Non-reactive (NonReactive) 01/08/17 15:21 Blood Type O NEGATIVE 01/06/17 19:00 Antibody Screen Negative 01/06/17 19:00 Crossmatch See Detail 01/06/17 19:00
[2017-01-12] MEDS: LEVEMIR SUB-Q SCH (09:50)
[2017-01-12] MEDS: NORVASC PO SCH (09:51)
[2017-01-12] MEDS: PEPCID PO SCH (09:51)
[2017-01-12] MEDS: ASPIRIN PO SCH (09:51)
[2017-01-12] MEDS: APRESOLINE FEEDTUBE SCH ×3 (09:52→22:10)
[2017-01-12] MEDS: NORMODYNE PO SCH ×2 (09:52→22:10)
[2017-01-12] MEDS: KEPPRA PO SCH ×2 (09:52→22:11)
--- NOTE | 2017-01-12 10:59 | Progress Note ---
Subjective Narrative: [facility] [place] - consult dictated Imp - resp failure, anoxic brain injury, Mult medical problems - Htn ARF on dialysis Plan - sister will consent for Trach/PEg Will sched on a non dialysis day Thanks you will follow Objective Vital Signs - 12hr 01/11/17 01/11/17 01/12/17 23:00 23:09 00:00 Temperature 99.1 F Pulse Rate 71 70 74 Respiratory 20 21 Rate Blood Pressure 156/68 156/68 164/69 O2 Sat by Pulse 96 97 97 Oximetry 01/12/17 01/12/17 01/12/17 01:00 02:00 03:00 Temperature Pulse Rate 73 77 77 Respiratory 25 H 35 H 29 H Rate Blood Pressure 162/66 161/68 172/71 O2 Sat by Pulse 97 98 96 Oximetry 01/12/17 01/12/17 01/12/17 03:13 04:00 04:57 Temperature 98.7 F Pulse Rate 76 77 76 Respiratory 27 H Rate Blood Pressure 172/71 170/71 185/78 O2 Sat by Pulse 97 96 Oximetry 01/12/17 01/12/17 01/12/17 05:00 06:00 07:00 Temperature Pulse Rate 77 82 85 Respiratory 30 H 17 31 H Rate Blood Pressure 168/66 163/71 171/68 O2 Sat by Pulse 94 98 96 Oximetry 01/12/17 01/12/17 01/12/17 08:00 08:01 09:01 Temperature 99.2 F Pulse Rate 87 88 Respiratory 18 38 H Rate Blood Pressure 168/67 179/74 O2 Sat by Pulse 96 95 96 Oximetry 01/12/17 01/12/17 01/12/17 09:11 09:23 09:51 Temperature Pulse Rate 87 85 85 Respiratory 30 H Rate Blood Pressure 189/72 189/72 171/69 O2 Sat by Pulse 96 94 Oximetry 01/12/17 01/12/17 09:52 10:01 Temperature Pulse Rate 85 86 Respiratory 36 H Rate Blood Pressure 171/69 179/71 O2 Sat by Pulse 94 Oximetry - Labs 01/12/17 04:00 01/12/17 04:00 Diabetes panel 01/12/17 Range/Units 04:00 Sodium 133 L (137-145) mmol/L Potassium 3.8 (3.6-5.0) mmol/L Chloride 92.3 L (98-107) mmol/L Carbon Dioxide 25 (22-30) mmol/L BUN 37 H (7-17) mg/dL Creatinine 3.5 H (0.7-1.2) mg/dL Glucose 137 H (65-100) mg/dL Calcium 9.3 (8.4-10.2) mg/dL Calcium panel 01/12/17 Range/Units 04:00 Calcium 9.3 (8.4-10.2) mg/dL Pituitary panel 01/12/17 Range/Units 04:00 Sodium 133 L (137-145) mmol/L Potassium 3.8 (3.6-5.0) mmol/L Chloride 92.3 L (98-107) mmol/L Carbon Dioxide 25 (22-30) mmol/L BUN 37 H (7-17) mg/dL Creatinine 3.5 H (0.7-1.2) mg/dL Glucose 137 H (65-100) mg/dL Calcium 9.3 (8.4-10.2) mg/dL Adrenal panel 01/12/17 Range/Units 04:00 Sodium 133 L (137-145) mmol/L Potassium 3.8 (3.6-5.0) mmol/L Chloride 92.3 L (98-107) mmol/L Carbon Dioxide 25 (22-30) mmol/L BUN 37 H (7-17) mg/dL Creatinine 3.5 H (0.7-1.2) mg/dL Glucose 137 H (65-100) mg/dL Calcium 9.3 (8.4-10.2) mg/dL
--- NOTE | 2017-01-12 12:04 | Cat Scan Report ---
CT HEAD WITHOUT CONTRAST: HISTORY: Stroke. Multiple previous exams were reviewed. The multiple bilateral ischemic infarcts appear stable in size and number. There is no evidence for new mass effect or new hemorrhagic transformation. Ventricular size is stable. The posterior fossa remains unremarkable. Right sphenoid sinus disease is unchanged. The remaining sinuses and mastoid air cells are clear. IMPRESSION: No significant change since yesterday's exam. Evolving bilateral ischemic infarcts. No evidence for hemorrhagic change.
--- NOTE | 2017-01-12 12:27 | Progress Note ---
Assessment and Plan Acute respiratory failure intubated on the vent Acute embolic CVA Extensive plaque noted in the transverse and descending thoracic aorta, some plaques are mobile Normal LVEF on IV heparin Acute drop in HCT s/p transfusion of PRBCs Hypertension Diabetes mellitus PVD Hyperlipidemia Chronic Renal insufficiency requiring renal replacement Leukocytosis Conservative cardiac management. Subjective Date of service: 01/12/17 Principal diagnosis: Acute CVA; Acute Respiratory Failure Interval history: Remains intubated on the vent. Objective Vital Signs Temp Pulse Resp BP Pulse Ox Pulse Ox Pulse Ox 01/12/17 11:14 71 94 01/12/17 11:09 71 22 01/12/17 10:01 86 36 H 179/71 94 01/12/17 09:52 85 171/69 01/12/17 09:51 85 171/69 01/12/17 09:23 85 30 H 189/72 94 01/12/17 09:11 87 189/72 96 01/12/17 09:01 88 38 H 179/74 96 01/12/17 08:01 87 18 168/67 95 01/12/17 08:00 99.2 F 96 01/12/17 07:00 85 31 H 171/68 96 01/12/17 06:00 82 17 163/71 98 01/12/17 05:00 77 30 H 168/66 94 01/12/17 04:57 76 185/78 01/12/17 04:00 98.7 F 77 27 H 170/71 96 01/12/17 03:13 76 172/71 97 01/12/17 03:00 77 29 H 172/71 96 01/12/17 02:00 77 35 H 161/68 98 01/12/17 01:00 73 25 H 162/66 97 01/12/17 00:00 99.1 F 74 21 164/69 97 01/11/17 23:09 70 156/68 97 01/11/17 23:00 71 20 156/68 96 01/11/17 22:00 73 23 162/71 97 01/11/17 21:17 78 166/69 01/11/17 21:00 76 24 165/68 97 01/11/17 20:28 76 21 159/65 97 01/11/17 20:00 79 35 H 165/68 98 01/11/17 19:47 99.8 F H 01/11/17 19:21 75 167/72 98 01/11/17 19:00 77 27 H 159/70 98 01/11/17 18:00 74 25 H 147/60 98 01/11/17 17:48 76 156/70 98 01/11/17 17:00 76 29 H 156/69 98 01/11/17 16:00 99.3 F 74 25 H 156/63 98 01/11/17 15:00 74 28 H 152/63 98 01/11/17 14:44 74 159/65 99 01/11/17 14:00 77 27 H 160/63 97 01/11/17 13:30 98.0 F 74 25 H 156/61 98 97 97 01/11/17 13:20 72 156/64 01/11/17 13:05 72 161/66 01/11/17 13:00 73 24 161/66 98 01/11/17 12:50 69 146/62 01/11/17 12:35 69 151/63 - Physical Examination General: Other (intubated on the vent) Cardiac: Positive: Reg Rate and Rhythm - Labs and Meds CBC 01/12/17 Range/Units 04:00 Hgb 7.8 L (10.1-14.3) gm/dl Hct 24.3 L (30.3-42.9) % Plt Count 216 (140-440) K/mm3 Comprehensive Metabolic Panel 01/12/17 Range/Units 04:00 Sodium 133 L (137-145) mmol/L Potassium 3.8 (3.6-5.0) mmol/L Chloride 92.3 L (98-107) mmol/L Carbon Dioxide 25 (22-30) mmol/L BUN 37 H (7-17) mg/dL Creatinine 3.5 H (0.7-1.2) mg/dL Glucose 137 H (65-100) mg/dL Calcium 9.3 (8.4-10.2) mg/dL - Imaging and Cardiology EKG: image reviewed
--- NOTE | 2017-01-12 15:00 | Progress Note ---
Assessment and Plan - Patient Problems (1) Respiratory failure Current Visit: Yes Status: Acute Qualifiers: Chronicity: C Respiratory failure complication: R (2) Hypertensive encephalopathy Current Visit: Yes Status: Acute (3) ARF (acute renal failure) Current Visit: Yes Status: Acute Qualifiers: Acute renal failure type: A (4) Seizures Current Visit: Yes Status: Acute Subjective Date of service: 01/12/17 Principal diagnosis: Acute CVA; Acute Respiratory Failure Interval history: Patient seen and examined. Remains intubated, tolerating PSV trials. MRI shows evidence of ischemic areas suggestive of embolic strokes Had a lesion on the aortic valve suggestive of vegetation. Getting daily CT scans of the head for evaluation of hemorrhagic transformation while on therapeutic heparin infusion No hemorrhage, no mass, no new changes on CT head 01/12/2017 Vitals, labs, medications, chart reviewed. No acute overnight events Discussed on interdisciplinary rounds with RT and RN Objective Vital Signs - 12hr 01/12/17 01/12/17 01/12/17 03:00 03:13 04:00 Temperature 98.7 F Pulse Rate 77 76 77 Respiratory 29 H 27 H Rate Blood Pressure 172/71 172/71 170/71 O2 Sat by Pulse 96 97 96 Oximetry 01/12/17 01/12/17 01/12/17 04:57 05:00 06:00 Temperature Pulse Rate 76 77 82 Respiratory 30 H 17 Rate Blood Pressure 185/78 168/66 163/71 O2 Sat by Pulse 94 98 Oximetry 01/12/17 01/12/17 01/12/17 07:00 08:00 08:01 Temperature 99.2 F Pulse Rate 85 87 Respiratory 31 H 18 Rate Blood Pressure 171/68 168/67 O2 Sat by Pulse 96 96 95 Oximetry 01/12/17 01/12/17 01/12/17 09:01 09:11 09:23 Temperature Pulse Rate 88 87 85 Respiratory 38 H 30 H Rate Blood Pressure 179/74 189/72 189/72 O2 Sat by Pulse 96 96 94 Oximetry 01/12/17 01/12/17 01/12/17 09:51 09:52 10:01 Temperature Pulse Rate 85 85 86 Respiratory 36 H Rate Blood Pressure 171/69 171/69 179/71 O2 Sat by Pulse 94 Oximetry 01/12/17 01/12/17 01/12/17 11:09 11:14 12:00 Temperature 99 F Pulse Rate 71 71 Respiratory 22 Rate Blood Pressure O2 Sat by Pulse 94 Oximetry 01/12/17 01/12/17 01/12/17 12:01 13:01 14:00 Temperature Pulse Rate 71 73 73 Respiratory 25 H 20 28 H Rate Blood Pressure 137/57 144/64 148/64 O2 Sat by Pulse 95 95 95 Oximetry 01/12/17 14:32 Temperature Pulse Rate 73 Respiratory Rate Blood Pressure 148/64 O2 Sat by Pulse Oximetry Constitutional: no acute distress, other (opens eyes to stimulus; not tracking) Eyes: non-icteric ENT: oropharynx moist Neck: supple, no lymphadenopathy, no JVD Effort: mildly labored Ascultation: Bilateral: clear, diminished breath sounds, rhonchi (base) Cardiovascular: regular rate and rhythm Gastrointestinal: normoactive bowel sounds, soft, non-tender, non-distended Integumentary: normal Extremities: no cyanosis, no edema, pulses normal, no ischemia or petechiae, other (trans-metatarsal amputation) Neurologic: unable to assess Psychiatric: other (unable to access) CBC and BMP: 01/12/17 04:00 01/12/17 04:00 ABG, PT/INR, D-dimer: ABG POC ABG pH 7.595 (7.35-7.45) H 01/11/17 04:47 POC ABG pCO2 29.4 (35-45) L 01/11/17 04:47 POC ABG pO2 139 (80-105) H 01/11/17 04:47 POC ABG HCO3 28.6 01/11/17 04:47 POC ABG Total CO2 29 01/11/17 04:47 POC ABG O2 Sat 100 01/11/17 04:47 PT/INR, D-dimer PT 13.2 Sec. (12.2-14.9) 01/08/17 19:10 INR 0.95 (0.87-1.13) 01/08/17 19:10 Abnormal lab findings: Abnormal Labs 12/31/16 12/31/16 12/31/16 01:31 01:31 03:42 WBC RBC Hgb Hct RDW Plt Count [place] % (Auto) [place] # Seg Neutrophils % Seg Neutrophils # APTT Heparin Anti-Xa Level POC ABG pH POC ABG pCO2 POC ABG pO2 Sodium 146 H Potassium 5.6 H Chloride Carbon Dioxide 14 L BUN 77 H Creatinine 4.0 H Glucose 107 H POC Glucose Calcium Phosphorus Iron TIBC Total Creatine Kinase 678 H 711 H CK-MB (CK-2) 10.5 H Troponin T 0.136 H* D Total Protein Albumin PTH Intact Crossmatch 12/31/16 12/31/16 12/31/16 03:42 06:58 06:58 WBC RBC Hgb Hct RDW Plt Count [place] % (Auto) [place] # Seg Neutrophils % Seg Neutrophils # APTT Heparin Anti-Xa Level POC ABG pH POC ABG pCO2 POC ABG pO2 Sodium 147 H Potassium 6.0 H Chloride 107.5 H Carbon Dioxide 12 L BUN 81 H Creatinine 4.6 H Glucose 183 H POC Glucose Calcium Phosphorus Iron TIBC Total Creatine Kinase 787 H CK-MB (CK-2) 10.8 H Troponin T 0.179 H* D Total Protein Albumin PTH Intact 124.4 H Crossmatch 12/31/16 12/31/16 12/31/16 09:34 13:47 15:40 WBC RBC Hgb Hct RDW Plt Count [place] % (Auto) [place] # Seg Neutrophils % Seg Neutrophils # APTT Heparin Anti-Xa Level POC ABG pH 7.344 L POC ABG pCO2 33.0 L POC ABG pO2 340 H Sodium Potassium Chloride Carbon Dioxide BUN Creatinine Glucose POC Glucose 294 H Calcium Phosphorus Iron TIBC Total Creatine Kinase CK-MB (CK-2) Troponin T Total Protein 6.1 L D Albumin 3.6 L PTH Intact Crossmatch 12/31/16 12/31/16 12/31/16 16:49 18:05 18:23 WBC RBC Hgb Hct RDW Plt Count [place] % (Auto) [place] # Seg Neutrophils % Seg Neutrophils # APTT Heparin Anti-Xa Level POC ABG pH 7.651 H POC ABG pCO2 23.2 L POC ABG pO2 64 L Sodium Potassium Chloride Carbon Dioxide BUN Creatinine Glucose POC Glucose 287 H 259 H Calcium Phosphorus Iron TIBC Total Creatine Kinase CK-MB (CK-2) Troponin T Total Protein Albumin PTH Intact Crossmatch 12/31/16 01/01/17 01/01/17 23:52 05:40 06:35 WBC RBC Hgb Hct RDW Plt Count [place] % (Auto) [place] # Seg Neutrophils % Seg Neutrophils # APTT Heparin Anti-Xa Level POC ABG pH POC ABG pCO2 POC ABG pO2 Sodium Potassium Chloride 96.6 L Carbon Dioxide BUN 34 H Creatinine 3.4 H Glucose 142 H POC Glucose 182 H 168 H Calcium 7.6 L D Phosphorus Iron TIBC Total Creatine Kinase CK-MB (CK-2) Troponin T Total Protein Albumin PTH Intact Crossmatch 01/01/17 01/01/17 01/01/17 11:54 12:24 17:10 WBC RBC Hgb Hct RDW Plt Count [place] % (Auto) [place] # Seg Neutrophils % Seg Neutrophils # APTT Heparin Anti-Xa Level POC ABG pH 7.536 H POC ABG pCO2 POC ABG pO2 149 H Sodium Potassium Chloride Carbon Dioxide BUN Creatinine Glucose POC Glucose 166 H 160 H Calcium Phosphorus Iron TIBC Total Creatine Kinase CK-MB (CK-2) Troponin T Total Protein Albumin PTH Intact Crossmatch 01/01/17 01/02/17 01/02/17 23:31 03:35 04:01 WBC 12.0 H RBC 2.88 L Hgb 8.4 L D Hct 25.4 L D RDW 15.9 H Plt Count [place] % (Auto) [place] # Seg Neutrophils % 75.3 H Seg Neutrophils # 9.0 H APTT Heparin Anti-Xa Level POC ABG pH 7.551 H POC ABG pCO2 33.7 L POC ABG pO2 Sodium Potassium Chloride Carbon Dioxide BUN Creatinine Glucose POC Glucose 232 H Calcium Phosphorus Iron TIBC Total Creatine Kinase CK-MB (CK-2) Troponin T Total Protein Albumin PTH Intact Crossmatch 01/02/17 01/02/17 01/02/17 04:01 05:09 12:28 WBC RBC Hgb Hct RDW Plt Count [place] % (Auto) [place] # Seg Neutrophils % Seg Neutrophils # APTT Heparin Anti-Xa Level POC ABG pH POC ABG pCO2 POC ABG pO2 Sodium Potassium Chloride 93.3 L Carbon Dioxide BUN 44 H Creatinine 5.1 H Glucose 208 H POC Glucose 343 H 197 H Calcium 7.7 L Phosphorus Iron TIBC Total Creatine Kinase CK-MB (CK-2) Troponin T Total Protein 6.1 L Albumin 3.1 L PTH Intact Crossmatch 01/02/17 01/02/17 01/02/17 12:40 17:52 18:40 WBC RBC Hgb Hct RDW Plt Count [place] % (Auto) [place] # Seg Neutrophils % Seg Neutrophils # APTT Heparin Anti-Xa Level POC ABG pH POC ABG pCO2 POC ABG pO2 Sodium Potassium Chloride Carbon Dioxide BUN Creatinine Glucose POC Glucose 296 H 53 L 172 H Calcium Phosphorus Iron TIBC Total Creatine Kinase CK-MB (CK-2) Troponin T Total Protein Albumin PTH Intact Crossmatch 01/02/17 01/03/17 01/03/17 23:57 03:44 03:44 WBC RBC 2.52 L Hgb 7.6 L Hct 22.5 L RDW 15.4 H Plt Count [place] % (Auto) [place] # Seg Neutrophils % 70.5 H Seg Neutrophils # APTT Heparin Anti-Xa Level POC ABG pH POC ABG pCO2 POC ABG pO2 Sodium Potassium Chloride 92.2 L Carbon Dioxide BUN 58 H Creatinine 6.2 H Glucose 147 H POC Glucose 248 H Calcium 7.4 L Phosphorus 5.90 H Iron TIBC Total Creatine Kinase CK-MB (CK-2) Troponin T Total Protein Albumin PTH Intact Crossmatch 01/03/17 01/03/17 01/03/17 05:41 11:51 17:33 WBC RBC Hgb Hct RDW Plt Count [place] % (Auto) [place] # Seg Neutrophils % Seg Neutrophils # APTT Heparin Anti-Xa Level POC ABG pH POC ABG pCO2 POC ABG pO2 Sodium Potassium Chloride Carbon Dioxide BUN Creatinine Glucose POC Glucose 190 H 258 H 197 H Calcium Phosphorus Iron TIBC Total Creatine Kinase CK-MB (CK-2) Troponin T Total Protein Albumin PTH Intact Crossmatch 01/03/17 01/03/17 01/04/17 21:38 23:50 04:45 WBC 12.7 H RBC 2.48 L Hgb 7.2 L Hct 22.5 L RDW 15.5 H Plt Count [place] % (Auto) [place] # Seg Neutrophils % 74.0 H Seg Neutrophils # 9.4 H APTT Heparin Anti-Xa Level POC ABG pH 7.551 H POC ABG pCO2 34.0 L POC ABG pO2 74 L Sodium Potassium Chloride Carbon Dioxide BUN Creatinine Glucose POC Glucose 189 H Calcium Phosphorus Iron TIBC Total Creatine Kinase CK-MB (CK-2) Troponin T Total Protein Albumin PTH Intact Crossmatch 01/04/17 01/04/17 01/04/17 04:45 05:59 09:53 WBC RBC Hgb Hct RDW Plt Count [place] % (Auto) [place] # Seg Neutrophils % Seg Neutrophils # APTT Heparin Anti-Xa Level POC ABG pH 7.550 H POC ABG pCO2 32.9 L POC ABG pO2 64 L Sodium 136 L Potassium Chloride 91.2 L Carbon Dioxide BUN 71 H Creatinine 6.4 H Glucose 167 H POC Glucose 203 H Calcium 7.8 L Phosphorus 6.50 H Iron TIBC Total Creatine Kinase 547 H CK-MB (CK-2) Troponin T Total Protein 5.6 L Albumin 2.7 L PTH Intact Crossmatch 01/04/17 01/04/17 01/04/17 12:15 17:37 23:41 WBC RBC Hgb Hct RDW Plt Count [place] % (Auto) [place] # Seg Neutrophils % Seg Neutrophils # APTT Heparin Anti-Xa Level POC ABG pH POC ABG pCO2 POC ABG pO2 Sodium Potassium Chloride Carbon Dioxide BUN Creatinine Glucose POC Glucose 228 H 225 H 231 H Calcium Phosphorus Iron TIBC Total Creatine Kinase CK-MB (CK-2) Troponin T Total Protein Albumin PTH Intact Crossmatch 01/05/17 01/05/17 01/05/17 04:40 04:40 05:24 WBC 11.3 H RBC 2.41 L Hgb 7.1 L Hct 21.6 L RDW 15.7 H Plt Count 138 L [place] % (Auto) 7.7 H [place] # 0.9 H Seg Neutrophils % 71.2 H Seg Neutrophils # 8.0 H APTT Heparin Anti-Xa Level POC ABG pH POC ABG pCO2 POC ABG pO2 Sodium 133 L Potassium 3.5 L Chloride 88.7 L Carbon Dioxide BUN 82 H Creatinine 6.5 H Glucose 137 H POC Glucose 175 H Calcium 7.8 L Phosphorus Iron 22 L TIBC 183 L Total Creatine Kinase 312 H CK-MB (CK-2) Troponin T Total Protein Albumin PTH Intact Crossmatch 01/05/17 01/05/17 01/05/17 09:34 11:12 17:33 WBC RBC Hgb Hct RDW Plt Count [place] % (Auto) [place] # Seg Neutrophils % Seg Neutrophils # APTT Heparin Anti-Xa Level POC ABG pH 7.531 H POC ABG pCO2 34.4 L POC ABG pO2 57 L Sodium Potassium Chloride Carbon Dioxide BUN Creatinine Glucose POC Glucose 188 H 222 H Calcium Phosphorus Iron TIBC Total Creatine Kinase CK-MB (CK-2) Troponin T Total Protein Albumin PTH Intact Crossmatch 01/05/17 01/06/17 01/06/17 23:24 03:15 05:20 WBC 11.2 H RBC 2.28 L Hgb 6.9 L Hct 20.7 L RDW 15.6 H Plt Count [place] % (Auto) 7.7 H [place] # 0.9 H Seg Neutrophils % 78.2 H Seg Neutrophils # 8.7 H APTT Heparin Anti-Xa Level POC ABG pH 7.566 H POC ABG pCO2 31.9 L POC ABG pO2 60 L Sodium Potassium Chloride Carbon Dioxide BUN Creatinine Glucose POC Glucose 223 H Calcium Phosphorus Iron TIBC Total Creatine Kinase CK-MB (CK-2) Troponin T Total Protein Albumin PTH Intact Crossmatch 01/06/17 01/06/17 01/06/17 05:20 05:27 11:54 WBC RBC Hgb Hct RDW Plt Count [place] % (Auto) [place] # Seg Neutrophils % Seg Neutrophils # APTT Heparin Anti-Xa Level POC ABG pH POC ABG pCO2 POC ABG pO2 Sodium Potassium Chloride 93.7 L Carbon Dioxide BUN 40 H Creatinine 3.6 H Glucose 191 H POC Glucose 244 H 184 H Calcium Phosphorus Iron TIBC Total Creatine Kinase CK-MB (CK-2) Troponin T Total Protein Albumin PTH Intact Crossmatch 01/06/17 01/06/17 01/06/17 17:39 19:00 23:57 WBC RBC Hgb Hct RDW Plt Count [place] % (Auto) [place] # Seg Neutrophils % Seg Neutrophils # APTT Heparin Anti-Xa Level POC ABG pH POC ABG pCO2 POC ABG pO2 Sodium Potassium Chloride Carbon Dioxide BUN Creatinine Glucose POC Glucose 167 H 191 H Calcium Phosphorus Iron TIBC Total Creatine Kinase CK-MB (CK-2) Troponin T Total Protein Albumin PTH Intact Crossmatch See Detail 01/07/17 01/07/17 01/07/17 04:05 05:32 08:14 WBC 11.5 H RBC 2.98 L Hgb 8.8 L Hct 26.5 L RDW 16.3 H Plt Count [place] % (Auto) 8.8 H [place] # 1.0 H Seg Neutrophils % 70.4 H Seg Neutrophils # 8.1 H APTT Heparin Anti-Xa Level POC ABG pH 7.538 H POC ABG pCO2 34.7 L POC ABG pO2 60 L Sodium Potassium Chloride Carbon Dioxide BUN Creatinine Glucose POC Glucose 139 H Calcium Phosphorus Iron TIBC Total Creatine Kinase CK-MB (CK-2) Troponin T Total Protein Albumin PTH Intact Crossmatch 01/07/17 01/07/17 01/07/17 08:14 11:52 18:19 WBC RBC Hgb Hct RDW Plt Count [place] % (Auto) [place] # Seg Neutrophils % Seg Neutrophils # APTT Heparin Anti-Xa Level POC ABG pH POC ABG pCO2 POC ABG pO2 Sodium Potassium Chloride 93.8 L Carbon Dioxide BUN 55 H Creatinine 4.7 H Glucose 161 H POC Glucose 205 H 178 H Calcium Phosphorus 5.00 H Iron TIBC Total Creatine Kinase CK-MB (CK-2) Troponin T Total Protein Albumin PTH Intact Crossmatch 01/07/17 01/08/17 01/08/17 23:43 05:30 05:30 WBC 13.0 H RBC 2.90 L Hgb 8.8 L Hct 26.0 L RDW 16.5 H Plt Count 133 L [place] % (Auto) [place] # Seg Neutrophils % Seg Neutrophils # APTT Heparin Anti-Xa Level POC ABG pH POC ABG pCO2 POC ABG pO2 Sodium Potassium Chloride 96.8 L Carbon Dioxide BUN 65 H Creatinine 5.1 H Glucose 136 H POC Glucose 153 H Calcium 7.9 L Phosphorus Iron TIBC Total Creatine Kinase CK-MB (CK-2) Troponin T Total Protein Albumin PTH Intact Crossmatch 01/08/17 01/08/17 01/08/17 05:57 11:40 18:11 WBC RBC Hgb Hct RDW Plt Count [place] % (Auto) [place] # Seg Neutrophils % Seg Neutrophils # APTT Heparin Anti-Xa Level POC ABG pH POC ABG pCO2 POC ABG pO2 Sodium Potassium Chloride Carbon Dioxide BUN Creatinine Glucose POC Glucose 165 H 152 H 167 H Calcium Phosphorus Iron TIBC Total Creatine Kinase CK-MB (CK-2) Troponin T Total Protein Albumin PTH Intact Crossmatch 01/08/17 01/08/17 01/08/17 19:10 19:10 23:50 WBC RBC Hgb 8.6 L Hct 26.4 L RDW Plt Count [place] % (Auto) [place] # Seg Neutrophils % Seg Neutrophils # APTT < 20.0 L Heparin Anti-Xa Level POC ABG pH POC ABG pCO2 POC ABG pO2 Sodium Potassium Chloride Carbon Dioxide BUN Creatinine Glucose POC Glucose 136 H Calcium Phosphorus Iron TIBC Total Creatine Kinase CK-MB (CK-2) Troponin T Total Protein Albumin PTH Intact Crossmatch 01/09/17 01/09/17 01/09/17 04:00 04:00 04:00 WBC 12.3 H RBC 2.87 L Hgb 8.3 L Hct 26.3 L RDW 16.6 H Plt Count [place] % (Auto) 8.7 H [place] # 1.1 H Seg Neutrophils % Seg Neutrophils # 8.4 H APTT Heparin Anti-Xa Level 0.15 L POC ABG pH POC ABG pCO2 POC ABG pO2 Sodium 135 L Potassium Chloride 93.9 L Carbon Dioxide BUN 38 H Creatinine 3.4 H Glucose 158 H POC Glucose Calcium 8.2 L Phosphorus Iron TIBC Total Creatine Kinase CK-MB (CK-2) Troponin T Total Protein Albumin PTH Intact Crossmatch 01/09/17 01/09/17 01/09/17 05:21 11:35 17:43 WBC RBC Hgb Hct RDW Plt Count [place] % (Auto) [place] # Seg Neutrophils % Seg Neutrophils # APTT Heparin Anti-Xa Level POC ABG pH POC ABG pCO2 POC ABG pO2 Sodium Potassium Chloride Carbon Dioxide BUN Creatinine Glucose POC Glucose 190 H 182 H 157 H Calcium Phosphorus Iron TIBC Total Creatine Kinase CK-MB (CK-2) Troponin T Total Protein Albumin PTH Intact Crossmatch 01/09/17 01/10/17 01/10/17 23:38 04:00 04:00 WBC RBC Hgb 8.3 L Hct 25.9 L RDW Plt Count [place] % (Auto) [place] # Seg Neutrophils % Seg Neutrophils # APTT Heparin Anti-Xa Level POC ABG pH POC ABG pCO2 POC ABG pO2 Sodium 136 L Potassium Chloride 91.2 L Carbon Dioxide BUN 51 H Creatinine 4.4 H Glucose 181 H POC Glucose 165 H Calcium Phosphorus Iron TIBC Total Creatine Kinase CK-MB (CK-2) Troponin T Total Protein Albumin PTH Intact Crossmatch 01/10/17 01/10/17 01/10/17 05:02 12:14 12:15 WBC RBC Hgb Hct RDW Plt Count [place] % (Auto) [place] # Seg Neutrophils % Seg Neutrophils # APTT Heparin Anti-Xa Level 0.14 L POC ABG pH POC ABG pCO2 POC ABG pO2 Sodium Potassium Chloride Carbon Dioxide BUN Creatinine Glucose POC Glucose 211 H 158 H Calcium Phosphorus Iron TIBC Total Creatine Kinase CK-MB (CK-2) Troponin T Total Protein Albumin PTH Intact Crossmatch 01/10/17 01/10/17 01/11/17 17:43 23:34 02:00 WBC RBC Hgb Hct RDW Plt Count [place] % (Auto) [place] # Seg Neutrophils % Seg Neutrophils # APTT Heparin Anti-Xa Level POC ABG pH POC ABG pCO2 POC ABG pO2 Sodium Potassium Chloride Carbon Dioxide BUN Creatinine Glucose POC Glucose 178 H 164 H 166 H Calcium Phosphorus Iron TIBC Total Creatine Kinase CK-MB (CK-2) Troponin T Total Protein Albumin PTH Intact Crossmatch 01/11/17 01/11/17 01/11/17 04:13 04:47 05:33 WBC RBC Hgb Hct RDW Plt Count [place] % (Auto) [place] # Seg Neutrophils % Seg Neutrophils # APTT Heparin Anti-Xa Level POC ABG pH 7.595 H POC ABG pCO2 29.4 L POC ABG pO2 139 H Sodium 133 L Potassium Chloride 91.0 L Carbon Dioxide BUN 63 H Creatinine 5.1 H Glucose 147 H POC Glucose 166 H Calcium Phosphorus Iron TIBC Total Creatine Kinase CK-MB (CK-2) Troponin T Total Protein Albumin PTH Intact Crossmatch 01/11/17 01/11/17 01/12/17 11:45 17:40 00:08 WBC RBC Hgb Hct RDW Plt Count [place] % (Auto) [place] # Seg Neutrophils % Seg Neutrophils # APTT Heparin Anti-Xa Level POC ABG pH POC ABG pCO2 POC ABG pO2 Sodium Potassium Chloride Carbon Dioxide BUN Creatinine Glucose POC Glucose 173 H 134 H 174 H Calcium Phosphorus Iron TIBC Total Creatine Kinase CK-MB (CK-2) Troponin T Total Protein Albumin PTH Intact Crossmatch 01/12/17 01/12/17 01/12/17 04:00 04:00 05:03 WBC RBC Hgb 7.8 L Hct 24.3 L RDW Plt Count [place] % (Auto) [place] # Seg Neutrophils % Seg Neutrophils # APTT Heparin Anti-Xa Level POC ABG pH POC ABG pCO2 POC ABG pO2 Sodium 133 L Potassium Chloride 92.3 L Carbon Dioxide BUN 37 H Creatinine 3.5 H Glucose 137 H POC Glucose 176 H Calcium Phosphorus Iron TIBC Total Creatine Kinase CK-MB (CK-2) Troponin T Total Protein Albumin PTH Intact Crossmatch 01/12/17 01/12/17 11:53 13:21 WBC RBC Hgb Hct RDW Plt Count [place] % (Auto) [place] # Seg Neutrophils % Seg Neutrophils # APTT Heparin Anti-Xa Level < 0.10 L POC ABG pH POC ABG pCO2 POC ABG pO2 Sodium Potassium Chloride Carbon Dioxide BUN Creatinine Glucose POC Glucose 152 H Calcium Phosphorus Iron TIBC Total Creatine Kinase CK-MB (CK-2) Troponin T Total Protein Albumin PTH Intact Crossmatch
[2017-01-12] MEDS: HEPARIN/ 0.45% NACL-25,000 UNIT/500 ML 25,000 UNIT/500 ML BAG IV SCH (18:29)
[2017-01-12] MEDS: ATIVAN IV PRN (22:35)
--- NOTE | 2017-01-12 23:45 | Consultation ---
REQUESTING PHYSICIAN: Sha Costa MD. hospitalist service and outside cutter hand REASON FOR SURGICAL CONSULTATION: Evaluation for placement of tracheostomy and endoscopic gastrostomy tube placement. HISTORY OF PRESENT ILLNESS: A 61-year-old female patient with multiple medical problems including diabetes, hypertension, chronic kidney disease, and multiple transient ischemic attacks in the past. She was brought to the Emergency Room on 12/30/2016, in an unresponsive state. She has been intubated on a ventilator and has been begun on hemodialysis 3 times a week. For long term care administrator maintenance purposes, we are asked to evaluate her for tracheostomy and percutaneous endoscopic gastrostomy tube placement. PAST MEDICAL HISTORY: Multiple as documented in the chart and as per her sister Ms. Moss she is totally noncompliant about taking medications and visiting the doctors. PAST SURGICAL HISTORY: She had left forefoot amputation a few years ago. She has undergone an abdominal hysterectomy for nonmalignant condition more than 20 years ago. ALLERGIES: As listed in the chart. SYSTEM REVIEW: As listed in the chart. PHYSICAL EXAMINATION: GENERAL: Examination reveals moderately-nourished female appears older for her age and she was having a decerebrate posture earlier. Currently, she does not appear to have that. She appears to be responding to name calling, but not responding to commands. NECK: Reveals no adenopathy or thyromegaly. LUNGS: Lungs have decreased air entry in both bases. ABDOMEN: Reveals an infraumbilical midline scar and she has a Dobhoff tube in place and tolerated tube feedings well so far. Bowel sounds are active. EXTREMITIES: Left foot has the amputation that is evident. LABORATORY DATA: Show leukocytosis and elevated BUN and creatinine. Respiratory edwards, currently she is on 30% oxygen. IMPRESSION: 1. Respiratory failure. 2. Anoxic brain injury with multiple infarcts in the past. 3. Multiple medical problems including diabetes, hypertension, and renal failure. PLAN: Discussed with her sister Ms. Moss who has the power of patent prosecution attorney. I explained the need for tracheostomy and PEG placement. She has signed consent this afternoon and procedure will be done when the schedule permits us. Thank you, Dr. Costa for asking us to see the patient. JOB# [id number]
--- NOTE | 2017-01-13 02:03 | XRay Report ---
FINAL REPORT PROCEDURE: XR ABDOMEN 1V AP TECHNIQUE: AP supine portable radiograph of the abdomen was obtained at 01/12/2017 23:56 (EST) . HISTORY: Confirm new dobhoff tube placement. COMPARISON: No prior studies are available for comparison. FINDINGS: Bowel gas pattern: Nonobstructive. Masses or calcifications: None. Bony structures: Normal. Other: NG tube is in the stomach per. IMPRESSION: The NG tube is in the stomach.
[2017-01-13] MEDS: NORMODYNE PO SCH ×3 (03:01→22:10)
[2017-01-13] MEDS: APRESOLINE FEEDTUBE SCH ×4 (03:02→22:09)
[2017-01-13] MEDS: KEPPRA PO SCH ×3 (03:03→22:11)
[2017-01-13] MEDS: NOVOLOG SUB-Q SCH ×4 (06:40→18:57)
[2017-01-13 06:59] LABS: Hematocrit 23.1 % (30.3-42.9); Hemoglobin 7.5 gm/dl (10.1-14.3); Mean Corpuscular HGB Conc 32 % (30-34); Mean Corpuscular Hemoglobin 30 pg (28-32); Mean Corpuscular Volume 91 fl (79-97); Platelet Count 202 K/mm3 (140-440); Red Blood Count 2.54 M/mm3 (3.65-5.03); Red Cell Distribution Width 16.7 % (13.2-15.2); White Blood Count 12.5 K/mm3 (4.5-11.0)
[2017-01-13 07:24] LABS: BUN/Creatinine Ratio 11.89; Calcium 6.6 mg/dL (8.4-10.2); Chloride 104.3 mmol/L (98-107); Potassium 3.5 mmol/L (3.6-5.0)
--- NOTE | 2017-01-13 08:56 | Progress Note ---
Assessment and Plan Assessment and plan: Patient is a 61 yo woman with multiple medical comorbidities including hypertension, diabetes, hyperlipidemia, peripheral vascular disease status post bypass, medical noncompliance and not taking her medications for months, found down by family and brought to ER unresponsive with blood pressure 255/135 - Malignant hypertension/hypertensive emergency CT head showed chronic ischemic microvascular changes, with no acute infarct or hemorrhage Weaned off of Cardene drip; now on amlodipine and labetalol. Blood pressure still uncontrolled. Will add hydralazine 50 mg 3 times a day - Acute ischemic stroke Brain MRI showing multiple acute ischemic areas Started on antiplatelet and statin therapy Cardiology consulted, JOSE done on 01/06/17. Extensive mobile plaque in descending aorta. On heparin drip - Acute toxic metabolic encephalopathy Likely due to combination of hypertensive encephalopathy/multiple brain infarction areas/ renal failure with uremia/acidosis/electrolytes abnormalities / drug use Treat underlying conditions -Acute respiratory failure On mechanical ventilation Unable to be extubated due to mental status Pulmonary following For Tracheostomy and PEG placement - Acute renal failure likely superimposed on chronic kidney disease Significantly elevated BUN/Cr with marked hyperkalemia and metabolic acidosis on admission Nephrology consulted and acute HD initiated Assessing HD need daily -Hyperkalemia On admission K+ 6.9; received Kayexalate, insulin/D50, bicarbonate Now on HD Continue to closely monitor -Rhabdomyolysis Continue IV fluids CPK trending down -Elevated troponin Most likely secondary to hypertensive emergency/renal failure Echocardiogram ordered -Anemia. Hgb 7.5 today Likely multifactorial Iron deficient, so started on supplementation -Hyperlipidemia - mixed On Lipitor - Peripheral vascular disease Status post bypass Discontinued anticoagulant therapy on her own months ago - Drug abuse UDS positive for marijuana For counseling when stable - DVT prophylaxis. She is on Heparin drip Poor prognosis History Interval history: No new events overnight still intubated , on ventilator Hospitalist Physical - Physical exam Narrative exam: Gen Appearance: Not in acute distress, intubated HEENT: normocephalic, atraumatic Neck:supple, no JVD Lungs: clear to auscultation bilaterally, no crackles or wheezes Heart: S1 and S2 regular, no murmurs or gallop Abdomen: Soft, non-tender, non-distended, normal bowel sounds Extremity: No edema, clubbing or cyanosis Neuro : Obtunded,opens eyes, does not follow commands - Constitutional Vitals: Temp Pulse Resp BP Pulse Ox 98.0 F 77 19 163/73 98 01/13/17 08:00 01/13/17 08:01 01/13/17 08:01 01/13/17 08:01 01/13/17 08:01 General appearance: Present: other (intubated on the vent) Results - Labs CBC & Chem 7: 01/13/17 05:00 01/13/17 05:00 Labs: Laboratory Last Values WBC 12.5 K/mm3 (4.5-11.0) H 01/13/17 05:00 RBC 2.54 M/mm3 (3.65-5.03) L 01/13/17 05:00 Hgb 7.5 gm/dl (10.1-14.3) L 01/13/17 05:00 Hct 23.1 % (30.3-42.9) L 01/13/17 05:00 MCV 91 fl (79-97) 01/13/17 05:00 MCH 30 pg (28-32) 01/13/17 05:00 MCHC 32 % (30-34) 01/13/17 05:00 RDW 16.7 % (13.2-15.2) H 01/13/17 05:00 Plt Count 202 K/mm3 (140-440) 01/13/17 05:00 Lymph % (Auto) 20.7 % (13.4-35.0) 01/09/17 04:00 [place] % (Auto) 8.7 % (0.0-7.3) H 01/09/17 04:00 Eos % (Auto) 1.3 % (0.0-4.3) 01/09/17 04:00 Baso % (Auto) 0.8 % (0.0-1.8) 01/09/17 04:00 Lymph # 2.6 K/mm3 (1.2-5.4) 01/09/17 04:00 [place] # 1.1 K/mm3 (0.0-0.8) H 01/09/17 04:00 Eos # 0.2 K/mm3 (0.0-0.4) 01/09/17 04:00 Baso # 0.1 K/mm3 (0.0-0.1) 01/09/17 04:00 Seg Neutrophils % 68.5 % (40.0-70.0) 01/09/17 04:00 Seg Neutrophils # 8.4 K/mm3 (1.8-7.7) H 01/09/17 04:00 PT 13.2 Sec. (12.2-14.9) 01/08/17 19:10 INR 0.95 (0.87-1.13) 01/08/17 19:10 APTT < 20.0 Sec. (24.2-36.6) L 01/08/17 19:10 Heparin Anti-Xa Level 0.14 U.I./ml (0.3-0.7) L 01/12/17 20:55 POC ABG pH 7.595 (7.35-7.45) H 01/11/17 04:47 POC ABG pCO2 29.4 (35-45) L 01/11/17 04:47 POC ABG pO2 139 (80-105) H 01/11/17 04:47 POC ABG HCO3 28.6 01/11/17 04:47 POC ABG Total CO2 29 01/11/17 04:47 POC ABG O2 Sat 100 01/11/17 04:47 POC ABG Base Excess 7 01/11/17 04:47 FiO2 30 % 01/11/17 04:47 Sodium 139 mmol/L (137-145) 01/13/17 05:00 Potassium 3.5 mmol/L (3.6-5.0) L 01/13/17 05:00 Chloride 104.3 mmol/L (98-107) 01/13/17 05:00 Carbon Dioxide 19 mmol/L (22-30) L 01/13/17 05:00 Anion Gap 19 mmol/L 01/13/17 05:00 BUN 44 mg/dL (7-17) H 01/13/17 05:00 Creatinine 3.7 mg/dL (0.7-1.2) H 01/13/17 05:00 Estimated GFR 15 ml/min 01/13/17 05:00 BUN/Creatinine Ratio 11.89 % 01/13/17 05:00 Glucose 124 mg/dL (65-100) H 01/13/17 05:00 POC Glucose 160 (70-105) H 01/13/17 04:56 Lactic Acid 1.30 mmol/L (0.7-2.0) 01/01/17 06:35 Calcium 6.6 mg/dL (8.4-10.2) L D 01/13/17 05:00 Phosphorus 4.40 mg/dL (2.5-4.5) 01/11/17 04:13 Magnesium 1.90 mg/dL (1.7-2.3) 01/04/17 04:45 Iron 22 ug/dL (37-170) L 01/05/17 04:40 TIBC 183 mcg/dL (250-450) L 01/05/17 04:40 Ferritin 283.6 ng/mL (13.0-400.0) 01/05/17 04:40 Total Bilirubin 0.40 mg/dL (0.1-1.2) 01/04/17 04:45 Direct Bilirubin < 0.2 mg/dL (0-0.2) 12/31/16 15:40 Indirect Bilirubin 0.1 mg/dL 12/31/16 15:40 AST 25 units/L (5-40) 01/04/17 04:45 ALT 16 units/L (7-56) 01/04/17 04:45 Alkaline Phosphatase 75 units/L (35-129) 01/04/17 04:45 Total Creatine Kinase 312 units/L (30-135) H 01/05/17 04:40 CK-MB (CK-2) 10.8 ng/mL (0.0-4.0) H 12/31/16 06:58 CK-MB (CK-2) Rel Index 1.3 (0-4) 12/31/16 06:58 Troponin T 0.179 ng/mL (0.00-0.029) H* D 12/31/16 06:58 Total Protein 5.6 g/dL (6.3-8.2) L 01/04/17 04:45 Albumin 2.7 g/dL (3.9-5) L 01/04/17 04:45 Albumin/Globulin Ratio 0.9 % 01/04/17 04:45 Triglycerides 298 mg/dL (2-149) H 12/30/16 23:34 Cholesterol 355 mg/dL (50-199) H 12/30/16 23:34 LDL Cholesterol Direct 251 mg/dL (50-130) H 12/30/16 23:34 HDL Cholesterol 45 mg/dL (40-59) 12/30/16 23:34 Cholesterol/HDL Ratio 7.88 % 12/30/16 23:34 TSH 1.320 mlU/mL (0.270-4.200) 12/30/16 21:29 PTH Intact 124.4 pg/mL (15-65) H 12/31/16 03:42 Urine Color Yellow (Yellow) 12/30/16 20:47 Urine Turbidity Clear (Clear) 12/30/16 20:47 Urine pH 5.0 (5.0-7.0) 12/30/16 20:47 Ur Specific [place] 1.023 (1.003-1.030) 12/30/16 20:47 Urine Protein 100 mg/dl mg/dL (Negative) 12/30/16 20:47 Urine Glucose (UA) Neg mg/dL (Negative) 12/30/16 20:47 Urine Ketones Tr mg/dL (Negative) 12/30/16 20:47 Urine Blood Neg (Negative) 12/30/16 20:47 Urine Nitrite Neg (Negative) 12/30/16 20:47 Urine Bilirubin Neg (Negative) 12/30/16 20:47 Urine Urobilinogen 2.0 mg/dL (<2.0) 12/30/16 20:47 Ur Leukocyte Esterase Neg (Negative) 12/30/16 20:47 Urine WBC (Auto) < 1.0 /HPF (0.0-6.0) 12/30/16 20:47 Urine RBC (Auto) 1.0 /HPF (0.0-6.0) 12/30/16 20:47 U Epithel Cells (Auto) 1.0 /HPF (0-13.0) 12/30/16 20:47 Urine Bacteria (Auto) 1+ /HPF (Negative) 12/30/16 20:47 Salicylates < 0.3 mg/dL (2.8-20.0) L 12/30/16 21:29 Urine Opiates Screen Presumptive negative 12/30/16 20:47 Urine Methadone Screen Presumptive negative 12/30/16 20:47 Acetaminophen < 15.0 ug/mL (10.0-30.0) 12/30/16 21:29 Ur Barbiturates Screen Presumptive negative 12/30/16 20:47 Ur Phencyclidine Scrn Presumptive negative 12/30/16 20:47 Ur Amphetamines Screen Presumptive negative 12/30/16 20:47 U Benzodiazepines Scrn Presumptive negative 12/30/16 20:47 Urine Cocaine Screen Presumptive negative 12/30/16 20:47 U Marijuana (THC) Screen Presumptive positive 12/30/16 20:47 Drugs of Abuse Note Disclamer 12/30/16 20:47 Plasma/Serum Alcohol < 0.01 gm% (0-0.07) 12/30/16 21:29 Hepatitis A IgM Ab Non-reactive (NonReactive) 01/08/17 15:21 Hep Bs Antigen Non-reactive (Negative) 01/08/17 15:21 Hep B Core IgM Ab Non-reactive (NonReactive) 01/08/17 15:21 Hepatitis C Antibody Non-reactive (NonReactive) 01/08/17 15:21 Blood Type O NEGATIVE 01/06/17 19:00 Antibody Screen Negative 01/06/17 19:00 Crossmatch See Detail 01/06/17 19:00
[2017-01-13] MEDS: NORVASC PO SCH (09:27)
[2017-01-13] MEDS: PEPCID PO SCH (09:27)
[2017-01-13] MEDS: ASPIRIN PO SCH (09:27)
[2017-01-13] MEDS: LEVEMIR SUB-Q SCH (09:31)
--- NOTE | 2017-01-13 10:36 | Progress Note ---
Assessment and Plan - Patient Problems (1) ARF (acute renal failure) Current Visit: Yes Status: Acute Qualifiers: Acute renal failure type: A Plan to address problem: Acute kidney injury superimposed on CKD stage 3 in the setting of uncontrolled HTN. Patient is hemodialysis dependent and was last dialyzed 2 days ago. No improvement in the renal function so far. Monitor for [employer] needs and continue hemodialysis three times a week for now. HD today. Renal prognosis is guarded. (2) Hyperkalemia Current Visit: Yes Status: Acute Plan to address problem: Hyperkalemia in the setting of Acute kidney injury. Improved with hemodialysis. (3) Metabolic acidosis Current Visit: Yes Status: Acute Plan to address problem: Improved. (4) Hypertensive encephalopathy Current Visit: Yes Status: Acute Plan to address problem: BP is better. (5) Respiratory failure Current Visit: Yes Status: Acute Qualifiers: Chronicity: C Respiratory failure complication: R Plan to address problem: On Vent. (6) Anemia Current Visit: Yes Status: Acute Qualifiers: Anemia type: A Iron deficiency anemia type: I Vitamin B12 deficiency anemia type: V Folate deficiency anemia type: F Bone marrow failure anemia type: B Hemolytic anemia type: H Other causes of anemia: O Chronic kidney disease stage: C Plan to address problem: Epogen. Monitor Hb. Subjective Date of service: 01/13/17 Principal diagnosis: Acute CVA; Acute Respiratory Failure Interval history: Patient remain on the vent. Objective - Vital Signs Vital signs: Vital Signs - 12hr 01/12/17 01/12/17 01/13/17 23:01 23:15 00:00 Temperature 99.4 F Pulse Rate 90 Pulse Rate [ Right Brachial] Respiratory 31 H 31 H Rate Blood Pressure 172/71 O2 Sat by Pulse 99 100 Oximetry 01/13/17 01/13/17 01/13/17 00:01 00:05 01:01 Temperature Pulse Rate 82 81 82 Pulse Rate [ Right Brachial] Respiratory 28 H 29 H Rate Blood Pressure 163/77 167/77 177/76 O2 Sat by Pulse 100 99 98 Oximetry 01/13/17 01/13/17 01/13/17 02:01 03:01 03:02 Temperature Pulse Rate 82 82 81 Pulse Rate [ Right Brachial] Respiratory 29 H 29 H Rate Blood Pressure 173/80 173/78 173/78 O2 Sat by Pulse 98 99 Oximetry 01/13/17 01/13/17 01/13/17 03:30 04:00 04:01 Temperature 99.4 F Pulse Rate Pulse Rate [ Right Brachial] Respiratory 23 Rate Blood Pressure 152/68 O2 Sat by Pulse 100 99 Oximetry 01/13/17 01/13/17 01/13/17 04:24 05:01 06:01 Temperature Pulse Rate 72 70 75 Pulse Rate [ Right Brachial] Respiratory 23 33 H Rate Blood Pressure 142/62 142/65 158/70 O2 Sat by Pulse 99 99 99 Oximetry 01/13/17 01/13/17 01/13/17 06:05 07:01 08:00 Temperature 98.0 F Pulse Rate 74 75 Pulse Rate [ 77 Right Brachial] Respiratory 24 26 H Rate Blood Pressure 158/70 160/71 160/68 O2 Sat by Pulse 98 98 Oximetry 01/13/17 01/13/17 01/13/17 08:01 08:55 09:01 Temperature Pulse Rate 77 71 77 Pulse Rate [ Right Brachial] Respiratory 19 20 Rate Blood Pressure 163/73 162/73 167/76 O2 Sat by Pulse 98 98 98 Oximetry 01/13/17 01/13/17 09:27 09:28 Temperature Pulse Rate 77 78 Pulse Rate [ Right Brachial] Respiratory Rate Blood Pressure 167/76 167/76 O2 Sat by Pulse Oximetry - General Appearance General appearance: well-developed, appears stated age, intubated (FiO2 30%) EENT: ATNC, PERRL Neck: supple Respiratory: Present: Other (coarse breath sounds) Cardiology: regular, S1S2, no murmurs Gastrointestinal: normoactive bowel sounds, no tenderness Integumentary: no rash Neurologic: obtunded Musculoskeletal: prevertebral tenderness, other (no edema, right groin hemodialysis catheter) - Lab 01/14/17 05:00 01/14/17 05:00 Most recent lab results Calcium 6.6 mg/dL (8.4-10.2) L D 01/13/17 05:00 Phosphorus 4.40 mg/dL (2.5-4.5) 01/11/17 04:13 Magnesium 1.90 mg/dL (1.7-2.3) 01/04/17 04:45
--- NOTE | 2017-01-13 10:37 | Progress Note ---
Assessment and Plan - Patient Problems (1) Respiratory failure Current Visit: Yes Status: Acute Qualifiers: Chronicity: C Respiratory failure complication: R (2) Hypertensive encephalopathy Current Visit: Yes Status: Acute (3) ARF (acute renal failure) Current Visit: Yes Status: Acute Qualifiers: Acute renal failure type: A (4) Seizures Current Visit: Yes Status: Acute Subjective Date of service: 01/13/17 Principal diagnosis: Acute CVA; Acute Respiratory Failure Interval history: Patient seen and examined. Remains intubated, tolerating PSV trials. MRI shows evidence of ischemic areas suggestive of embolic strokes Had a lesion on the aortic valve suggestive of vegetation. No hemorrhage, no mass, no new changes on CT head 01/12/2017 Vitals, labs, medications, chart reviewed. For PEG and trach placement on 01/14/2017 No acute overnight events Discussed on interdisciplinary rounds with RT and RN Objective Vital Signs - 12hr 01/12/17 01/12/17 01/13/17 23:01 23:15 00:00 Temperature 99.4 F Pulse Rate 90 Pulse Rate [ Right Brachial] Respiratory 31 H 31 H Rate Blood Pressure 172/71 O2 Sat by Pulse 99 100 Oximetry 01/13/17 01/13/17 01/13/17 00:01 00:05 01:01 Temperature Pulse Rate 82 81 82 Pulse Rate [ Right Brachial] Respiratory 28 H 29 H Rate Blood Pressure 163/77 167/77 177/76 O2 Sat by Pulse 100 99 98 Oximetry 01/13/17 01/13/17 01/13/17 02:01 03:01 03:02 Temperature Pulse Rate 82 82 81 Pulse Rate [ Right Brachial] Respiratory 29 H 29 H Rate Blood Pressure 173/80 173/78 173/78 O2 Sat by Pulse 98 99 Oximetry 01/13/17 01/13/17 01/13/17 03:30 04:00 04:01 Temperature 99.4 F Pulse Rate Pulse Rate [ Right Brachial] Respiratory 23 Rate Blood Pressure 152/68 O2 Sat by Pulse 100 99 Oximetry 01/13/17 01/13/17 01/13/17 04:24 05:01 06:01 Temperature Pulse Rate 72 70 75 Pulse Rate [ Right Brachial] Respiratory 23 33 H Rate Blood Pressure 142/62 142/65 158/70 O2 Sat by Pulse 99 99 99 Oximetry 01/13/17 01/13/17 01/13/17 06:05 07:01 08:00 Temperature 98.0 F Pulse Rate 74 75 Pulse Rate [ 77 Right Brachial] Respiratory 24 26 H Rate Blood Pressure 158/70 160/71 160/68 O2 Sat by Pulse 98 98 Oximetry 01/13/17 01/13/17 01/13/17 08:01 08:55 09:01 Temperature Pulse Rate 77 71 77 Pulse Rate [ Right Brachial] Respiratory 19 20 Rate Blood Pressure 163/73 162/73 167/76 O2 Sat by Pulse 98 98 98 Oximetry 01/13/17 01/13/17 09:27 09:28 Temperature Pulse Rate 77 78 Pulse Rate [ Right Brachial] Respiratory Rate Blood Pressure 167/76 167/76 O2 Sat by Pulse Oximetry Constitutional: no acute distress, other (opens eyes to stimulus; not tracking) Eyes: non-icteric ENT: oropharynx moist Neck: supple, no lymphadenopathy, no JVD Effort: mildly labored Ascultation: Bilateral: clear, diminished breath sounds, rhonchi (base) Cardiovascular: regular rate and rhythm Gastrointestinal: normoactive bowel sounds, soft, non-tender, non-distended Integumentary: normal Extremities: no cyanosis, no edema, pulses normal, no ischemia or petechiae, other (trans-metatarsal amputation) Neurologic: unable to assess Psychiatric: other (unable to access) CBC and BMP: 01/13/17 05:00 01/13/17 05:00 ABG, PT/INR, D-dimer: ABG POC ABG pH 7.595 (7.35-7.45) H 01/11/17 04:47 POC ABG pCO2 29.4 (35-45) L 01/11/17 04:47 POC ABG pO2 139 (80-105) H 01/11/17 04:47 POC ABG HCO3 28.6 01/11/17 04:47 POC ABG Total CO2 29 01/11/17 04:47 POC ABG O2 Sat 100 01/11/17 04:47 PT/INR, D-dimer PT 13.2 Sec. (12.2-14.9) 01/08/17 19:10 INR 0.95 (0.87-1.13) 01/08/17 19:10 Abnormal lab findings: Abnormal Labs 12/31/16 12/31/16 12/31/16 01:31 01:31 03:42 WBC RBC Hgb Hct RDW Plt Count [place] % (Auto) [place] # Seg Neutrophils % Seg Neutrophils # APTT Heparin Anti-Xa Level POC ABG pH POC ABG pCO2 POC ABG pO2 Sodium 146 H Potassium 5.6 H Chloride Carbon Dioxide 14 L BUN 77 H Creatinine 4.0 H Glucose 107 H POC Glucose Calcium Phosphorus Iron TIBC Total Creatine Kinase 678 H 711 H CK-MB (CK-2) 10.5 H Troponin T 0.136 H* D Total Protein Albumin PTH Intact Crossmatch 12/31/16 12/31/16 12/31/16 03:42 06:58 06:58 WBC RBC Hgb Hct RDW Plt Count [place] % (Auto) [place] # Seg Neutrophils % Seg Neutrophils # APTT Heparin Anti-Xa Level POC ABG pH POC ABG pCO2 POC ABG pO2 Sodium 147 H Potassium 6.0 H Chloride 107.5 H Carbon Dioxide 12 L BUN 81 H Creatinine 4.6 H Glucose 183 H POC Glucose Calcium Phosphorus Iron TIBC Total Creatine Kinase 787 H CK-MB (CK-2) 10.8 H Troponin T 0.179 H* D Total Protein Albumin PTH Intact 124.4 H Crossmatch 12/31/16 12/31/16 12/31/16 09:34 13:47 15:40 WBC RBC Hgb Hct RDW Plt Count [place] % (Auto) [place] # Seg Neutrophils % Seg Neutrophils # APTT Heparin Anti-Xa Level POC ABG pH 7.344 L POC ABG pCO2 33.0 L POC ABG pO2 340 H Sodium Potassium Chloride Carbon Dioxide BUN Creatinine Glucose POC Glucose 294 H Calcium Phosphorus Iron TIBC Total Creatine Kinase CK-MB (CK-2) Troponin T Total Protein 6.1 L D Albumin 3.6 L PTH Intact Crossmatch 12/31/16 12/31/16 12/31/16 16:49 18:05 18:23 WBC RBC Hgb Hct RDW Plt Count [place] % (Auto) [place] # Seg Neutrophils % Seg Neutrophils # APTT Heparin Anti-Xa Level POC ABG pH 7.651 H POC ABG pCO2 23.2 L POC ABG pO2 64 L Sodium Potassium Chloride Carbon Dioxide BUN Creatinine Glucose POC Glucose 287 H 259 H Calcium Phosphorus Iron TIBC Total Creatine Kinase CK-MB (CK-2) Troponin T Total Protein Albumin PTH Intact Crossmatch 12/31/16 01/01/17 01/01/17 23:52 05:40 06:35 WBC RBC Hgb Hct RDW Plt Count [place] % (Auto) [place] # Seg Neutrophils % Seg Neutrophils # APTT Heparin Anti-Xa Level POC ABG pH POC ABG pCO2 POC ABG pO2 Sodium Potassium Chloride 96.6 L Carbon Dioxide BUN 34 H Creatinine 3.4 H Glucose 142 H POC Glucose 182 H 168 H Calcium 7.6 L D Phosphorus Iron TIBC Total Creatine Kinase CK-MB (CK-2) Troponin T Total Protein Albumin PTH Intact Crossmatch 01/01/17 01/01/17 01/01/17 11:54 12:24 17:10 WBC RBC Hgb Hct RDW Plt Count [place] % (Auto) [place] # Seg Neutrophils % Seg Neutrophils # APTT Heparin Anti-Xa Level POC ABG pH 7.536 H POC ABG pCO2 POC ABG pO2 149 H Sodium Potassium Chloride Carbon Dioxide BUN Creatinine Glucose POC Glucose 166 H 160 H Calcium Phosphorus Iron TIBC Total Creatine Kinase CK-MB (CK-2) Troponin T Total Protein Albumin PTH Intact Crossmatch 01/01/17 01/02/17 01/02/17 23:31 03:35 04:01 WBC 12.0 H RBC 2.88 L Hgb 8.4 L D Hct 25.4 L D RDW 15.9 H Plt Count [place] % (Auto) [place] # Seg Neutrophils % 75.3 H Seg Neutrophils # 9.0 H APTT Heparin Anti-Xa Level POC ABG pH 7.551 H POC ABG pCO2 33.7 L POC ABG pO2 Sodium Potassium Chloride Carbon Dioxide BUN Creatinine Glucose POC Glucose 232 H Calcium Phosphorus Iron TIBC Total Creatine Kinase CK-MB (CK-2) Troponin T Total Protein Albumin PTH Intact Crossmatch 01/02/17 01/02/17 01/02/17 04:01 05:09 12:28 WBC RBC Hgb Hct RDW Plt Count [place] % (Auto) [place] # Seg Neutrophils % Seg Neutrophils # APTT Heparin Anti-Xa Level POC ABG pH POC ABG pCO2 POC ABG pO2 Sodium Potassium Chloride 93.3 L Carbon Dioxide BUN 44 H Creatinine 5.1 H Glucose 208 H POC Glucose 343 H 197 H Calcium 7.7 L Phosphorus Iron TIBC Total Creatine Kinase CK-MB (CK-2) Troponin T Total Protein 6.1 L Albumin 3.1 L PTH Intact Crossmatch 0801/02/17 01/02/17 12:40 17:52 18:40 WBC RBC Hgb Hct RDW Plt Count [place] % (Auto) [place] # Seg Neutrophils % Seg Neutrophils # APTT Heparin Anti-Xa Level POC ABG pH POC ABG pCO2 POC ABG pO2 Sodium Potassium Chloride Carbon Dioxide BUN Creatinine Glucose POC Glucose 296 H 53 L 172 H Calcium Phosphorus Iron TIBC Total Creatine Kinase CK-MB (CK-2) Troponin T Total Protein Albumin PTH Intact Crossmatch 01/02/17 01/03/17 01/03/17 23:57 03:44 03:44 WBC RBC 2.52 L Hgb 7.6 L Hct 22.5 L RDW 15.4 H Plt Count [place] % (Auto) [place] # Seg Neutrophils % 70.5 H Seg Neutrophils # APTT Heparin Anti-Xa Level POC ABG pH POC ABG pCO2 POC ABG pO2 Sodium Potassium Chloride 92.2 L Carbon Dioxide BUN 58 H Creatinine 6.2 H Glucose 147 H POC Glucose 248 H Calcium 7.4 L Phosphorus 5.90 H Iron TIBC Total Creatine Kinase CK-MB (CK-2) Troponin T Total Protein Albumin PTH Intact Crossmatch 01/03/17 01/03/17 01/03/17 05:41 11:51 17:33 WBC RBC Hgb Hct RDW Plt Count [place] % (Auto) [place] # Seg Neutrophils % Seg Neutrophils # APTT Heparin Anti-Xa Level POC ABG pH POC ABG pCO2 POC ABG pO2 Sodium Potassium Chloride Carbon Dioxide BUN Creatinine Glucose POC Glucose 190 H 258 H 197 H Calcium Phosphorus Iron TIBC Total Creatine Kinase CK-MB (CK-2) Troponin T Total Protein Albumin PTH Intact Crossmatch 01/03/17 01/03/17 01/04/17 21:38 23:50 04:45 WBC 12.7 H RBC 2.48 L Hgb 7.2 L Hct 22.5 L RDW 15.5 H Plt Count [place] % (Auto) [place] # Seg Neutrophils % 74.0 H Seg Neutrophils # 9.4 H APTT Heparin Anti-Xa Level POC ABG pH 7.551 H POC ABG pCO2 34.0 L POC ABG pO2 74 L Sodium Potassium Chloride Carbon Dioxide BUN Creatinine Glucose POC Glucose 189 H Calcium Phosphorus Iron TIBC Total Creatine Kinase CK-MB (CK-2) Troponin T Total Protein Albumin PTH Intact Crossmatch 08/01/04/17 01/04/17 04:45 05:59 09:53 WBC RBC Hgb Hct RDW Plt Count [place] % (Auto) [place] # Seg Neutrophils % Seg Neutrophils # APTT Heparin Anti-Xa Level POC ABG pH 7.550 H POC ABG pCO2 32.9 L POC ABG pO2 64 L Sodium 136 L Potassium Chloride 91.2 L Carbon Dioxide BUN 71 H Creatinine 6.4 H Glucose 167 H POC Glucose 203 H Calcium 7.8 L Phosphorus 6.50 H Iron TIBC Total Creatine Kinase 547 H CK-MB (CK-2) Troponin T Total Protein 5.6 L Albumin 2.7 L PTH Intact Crossmatch 01/04/17 01/04/17 01/04/17 12:15 17:37 23:41 WBC RBC Hgb Hct RDW Plt Count [place] % (Auto) [place] # Seg Neutrophils % Seg Neutrophils # APTT Heparin Anti-Xa Level POC ABG pH POC ABG pCO2 POC ABG pO2 Sodium Potassium Chloride Carbon Dioxide BUN Creatinine Glucose POC Glucose 228 H 225 H 231 H Calcium Phosphorus Iron TIBC Total Creatine Kinase CK-MB (CK-2) Troponin T Total Protein Albumin PTH Intact Crossmatch 01/05/17 01/05/17 01/05/17 04:40 04:40 05:24 WBC 11.3 H RBC 2.41 L Hgb 7.1 L Hct 21.6 L RDW 15.7 H Plt Count 138 L [place] % (Auto) 7.7 H [place] # 0.9 H Seg Neutrophils % 71.2 H Seg Neutrophils # 8.0 H APTT Heparin Anti-Xa Level POC ABG pH POC ABG pCO2 POC ABG pO2 Sodium 133 L Potassium 3.5 L Chloride 88.7 L Carbon Dioxide BUN 82 H Creatinine 6.5 H Glucose 137 H POC Glucose 175 H Calcium 7.8 L Phosphorus Iron 22 L TIBC 183 L Total Creatine Kinase 312 H CK-MB (CK-2) Troponin T Total Protein Albumin PTH Intact Crossmatch 01/05/17 01/05/17 01/05/17 09:34 11:12 17:33 WBC RBC Hgb Hct RDW Plt Count [place] % (Auto) [place] # Seg Neutrophils % Seg Neutrophils # APTT Heparin Anti-Xa Level POC ABG pH 7.531 H POC ABG pCO2 34.4 L POC ABG pO2 57 L Sodium Potassium Chloride Carbon Dioxide BUN Creatinine Glucose POC Glucose 188 H 222 H Calcium Phosphorus Iron TIBC Total Creatine Kinase CK-MB (CK-2) Troponin T Total Protein Albumin PTH Intact Crossmatch 01/05/17 01/06/17 01/06/17 23:24 03:15 05:20 WBC 11.2 H RBC 2.28 L Hgb 6.9 L Hct 20.7 L RDW 15.6 H Plt Count [place] % (Auto) 7.7 H [place] # 0.9 H Seg Neutrophils % 78.2 H Seg Neutrophils # 8.7 H APTT Heparin Anti-Xa Level POC ABG pH 7.566 H POC ABG pCO2 31.9 L POC ABG pO2 60 L Sodium Potassium Chloride Carbon Dioxide BUN Creatinine Glucose POC Glucose 223 H Calcium Phosphorus Iron TIBC Total Creatine Kinase CK-MB (CK-2) Troponin T Total Protein Albumin PTH Intact Crossmatch 01/06/17 01/06/17 01/06/17 05:20 05:27 11:54 WBC RBC Hgb Hct RDW Plt Count [place] % (Auto) [place] # Seg Neutrophils % Seg Neutrophils # APTT Heparin Anti-Xa Level POC ABG pH POC ABG pCO2 POC ABG pO2 Sodium Potassium Chloride 93.7 L Carbon Dioxide BUN 40 H Creatinine 3.6 H Glucose 191 H POC Glucose 244 H 184 H Calcium Phosphorus Iron TIBC Total Creatine Kinase CK-MB (CK-2) Troponin T Total Protein Albumin PTH Intact Crossmatch 01/06/17 01/06/17 01/06/17 17:39 19:00 23:57 WBC RBC Hgb Hct RDW Plt Count [place] % (Auto) [place] # Seg Neutrophils % Seg Neutrophils # APTT Heparin Anti-Xa Level POC ABG pH POC ABG pCO2 POC ABG pO2 Sodium Potassium Chloride Carbon Dioxide BUN Creatinine Glucose POC Glucose 167 H 191 H Calcium Phosphorus Iron TIBC Total Creatine Kinase CK-MB (CK-2) Troponin T Total Protein Albumin PTH Intact Crossmatch See Detail 01/07/17 01/07/17 01/07/17 04:05 05:32 08:14 WBC 11.5 H RBC 2.98 L Hgb 8.8 L Hct 26.5 L RDW 16.3 H Plt Count [place] % (Auto) 8.8 H [place] # 1.0 H Seg Neutrophils % 70.4 H Seg Neutrophils # 8.1 H APTT Heparin Anti-Xa Level POC ABG pH 7.538 H POC ABG pCO2 34.7 L POC ABG pO2 60 L Sodium Potassium Chloride Carbon Dioxide BUN Creatinine Glucose POC Glucose 139 H Calcium Phosphorus Iron TIBC Total Creatine Kinase CK-MB (CK-2) Troponin T Total Protein Albumin PTH Intact Crossmatch 01/07/17 01/07/17 01/07/17 08:14 11:52 18:19 WBC RBC Hgb Hct RDW Plt Count [place] % (Auto) [place] # Seg Neutrophils % Seg Neutrophils # APTT Heparin Anti-Xa Level POC ABG pH POC ABG pCO2 POC ABG pO2 Sodium Potassium Chloride 93.8 L Carbon Dioxide BUN 55 H Creatinine 4.7 H Glucose 161 H POC Glucose 205 H 178 H Calcium Phosphorus 5.00 H Iron TIBC Total Creatine Kinase CK-MB (CK-2) Troponin T Total Protein Albumin PTH Intact Crossmatch 01/07/17 01/08/17 01/08/17 23:43 05:30 05:30 WBC 13.0 H RBC 2.90 L Hgb 8.8 L Hct 26.0 L RDW 16.5 H Plt Count 133 L [place] % (Auto) [place] # Seg Neutrophils % Seg Neutrophils # APTT Heparin Anti-Xa Level POC ABG pH POC ABG pCO2 POC ABG pO2 Sodium Potassium Chloride 96.8 L Carbon Dioxide BUN 65 H Creatinine 5.1 H Glucose 136 H POC Glucose 153 H Calcium 7.9 L Phosphorus Iron TIBC Total Creatine Kinase CK-MB (CK-2) Troponin T Total Protein Albumin PTH Intact Crossmatch 01/08/17 01/08/17 01/08/17 05:57 11:40 18:11 WBC RBC Hgb Hct RDW Plt Count [place] % (Auto) [place] # Seg Neutrophils % Seg Neutrophils # APTT Heparin Anti-Xa Level POC ABG pH POC ABG pCO2 POC ABG pO2 Sodium Potassium Chloride Carbon Dioxide BUN Creatinine Glucose POC Glucose 165 H 152 H 167 H Calcium Phosphorus Iron TIBC Total Creatine Kinase CK-MB (CK-2) Troponin T Total Protein Albumin PTH Intact Crossmatch 01/08/17 01/08/17 01/08/17 19:10 19:10 23:50 WBC RBC Hgb 8.6 L Hct 26.4 L RDW Plt Count [place] % (Auto) [place] # Seg Neutrophils % Seg Neutrophils # APTT < 20.0 L Heparin Anti-Xa Level POC ABG pH POC ABG pCO2 POC ABG pO2 Sodium Potassium Chloride Carbon Dioxide BUN Creatinine Glucose POC Glucose 136 H Calcium Phosphorus Iron TIBC Total Creatine Kinase CK-MB (CK-2) Troponin T Total Protein Albumin PTH Intact Crossmatch 01/09/17 01/09/17 01/09/17 04:00 04:00 04:00 WBC 12.3 H RBC 2.87 L Hgb 8.3 L Hct 26.3 L RDW 16.6 H Plt Count [place] % (Auto) 8.7 H [place] # 1.1 H Seg Neutrophils % Seg Neutrophils # 8.4 H APTT Heparin Anti-Xa Level 0.15 L POC ABG pH POC ABG pCO2 POC ABG pO2 Sodium 135 L Potassium Chloride 93.9 L Carbon Dioxide BUN 38 H Creatinine 3.4 H Glucose 158 H POC Glucose Calcium 8.2 L Phosphorus Iron TIBC Total Creatine Kinase CK-MB (CK-2) Troponin T Total Protein Albumin PTH Intact Crossmatch 01/09/17 01/09/17 01/09/17 05:21 11:35 17:43 WBC RBC Hgb Hct RDW Plt Count [place] % (Auto) [place] # Seg Neutrophils % Seg Neutrophils # APTT Heparin Anti-Xa Level POC ABG pH POC ABG pCO2 POC ABG pO2 Sodium Potassium Chloride Carbon Dioxide BUN Creatinine Glucose POC Glucose 190 H 182 H 157 H Calcium Phosphorus Iron TIBC Total Creatine Kinase CK-MB (CK-2) Troponin T Total Protein Albumin PTH Intact Crossmatch 01/09/17 01/10/17 01/10/17 23:38 04:00 04:00 WBC RBC Hgb 8.3 L Hct 25.9 L RDW Plt Count [place] % (Auto) [place] # Seg Neutrophils % Seg Neutrophils # APTT Heparin Anti-Xa Level POC ABG pH POC ABG pCO2 POC ABG pO2 Sodium 136 L Potassium Chloride 91.2 L Carbon Dioxide BUN 51 H Creatinine 4.4 H Glucose 181 H POC Glucose 165 H Calcium Phosphorus Iron TIBC Total Creatine Kinase CK-MB (CK-2) Troponin T Total Protein Albumin PTH Intact Crossmatch 01/10/17 01/10/17 01/10/17 05:02 12:14 12:15 WBC RBC Hgb Hct RDW Plt Count [place] % (Auto) [place] # Seg Neutrophils % Seg Neutrophils # APTT Heparin Anti-Xa Level 0.14 L POC ABG pH POC ABG pCO2 POC ABG pO2 Sodium Potassium Chloride Carbon Dioxide BUN Creatinine Glucose POC Glucose 211 H 158 H Calcium Phosphorus Iron TIBC Total Creatine Kinase CK-MB (CK-2) Troponin T Total Protein Albumin PTH Intact Crossmatch 01/10/17 01/10/17 01/11/17 17:43 23:34 02:00 WBC RBC Hgb Hct RDW Plt Count [place] % (Auto) [place] # Seg Neutrophils % Seg Neutrophils # APTT Heparin Anti-Xa Level POC ABG pH POC ABG pCO2 POC ABG pO2 Sodium Potassium Chloride Carbon Dioxide BUN Creatinine Glucose POC Glucose 178 H 164 H 166 H Calcium Phosphorus Iron TIBC Total Creatine Kinase CK-MB (CK-2) Troponin T Total Protein Albumin PTH Intact Crossmatch 01/11/17 01/11/17 01/11/17 04:13 04:47 05:33 WBC RBC Hgb Hct RDW Plt Count [place] % (Auto) [place] # Seg Neutrophils % Seg Neutrophils # APTT Heparin Anti-Xa Level POC ABG pH 7.595 H POC ABG pCO2 29.4 L POC ABG pO2 139 H Sodium 133 L Potassium Chloride 91.0 L Carbon Dioxide BUN 63 H Creatinine 5.1 H Glucose 147 H POC Glucose 166 H Calcium Phosphorus Iron TIBC Total Creatine Kinase CK-MB (CK-2) Troponin T Total Protein Albumin PTH Intact Crossmatch 01/11/17 01/11/17 01/12/17 11:45 17:40 00:08 WBC RBC Hgb Hct RDW Plt Count [place] % (Auto) [place] # Seg Neutrophils % Seg Neutrophils # APTT Heparin Anti-Xa Level POC ABG pH POC ABG pCO2 POC ABG pO2 Sodium Potassium Chloride Carbon Dioxide BUN Creatinine Glucose POC Glucose 173 H 134 H 174 H Calcium Phosphorus Iron TIBC Total Creatine Kinase CK-MB (CK-2) Troponin T Total Protein Albumin PTH Intact Crossmatch 01/12/17 01/12/17 01/12/17 04:00 04:00 05:03 WBC RBC Hgb 7.8 L Hct 24.3 L RDW Plt Count [place] % (Auto) [place] # Seg Neutrophils % Seg Neutrophils # APTT Heparin Anti-Xa Level POC ABG pH POC ABG pCO2 POC ABG pO2 Sodium 133 L Potassium Chloride 92.3 L Carbon Dioxide BUN 37 H Creatinine 3.5 H Glucose 137 H POC Glucose 176 H Calcium Phosphorus Iron TIBC Total Creatine Kinase CK-MB (CK-2) Troponin T Total Protein Albumin PTH Intact Crossmatch 01/12/17 01/12/17 01/12/17 11:53 13:21 17:19 WBC RBC Hgb Hct RDW Plt Count [place] % (Auto) [place] # Seg Neutrophils % Seg Neutrophils # APTT Heparin Anti-Xa Level < 0.10 L POC ABG pH POC ABG pCO2 POC ABG pO2 Sodium Potassium Chloride Carbon Dioxide BUN Creatinine Glucose POC Glucose 152 H 139 H Calcium Phosphorus Iron TIBC Total Creatine Kinase CK-MB (CK-2) Troponin T Total Protein Albumin PTH Intact Crossmatch 01/12/17 01/12/17 01/13/17 20:55 23:38 04:56 WBC RBC Hgb Hct RDW Plt Count [place] % (Auto) [place] # Seg Neutrophils % Seg Neutrophils # APTT Heparin Anti-Xa Level 0.14 L POC ABG pH POC ABG pCO2 POC ABG pO2 Sodium Potassium Chloride Carbon Dioxide BUN Creatinine Glucose POC Glucose 152 H 160 H Calcium Phosphorus Iron TIBC Total Creatine Kinase CK-MB (CK-2) Troponin T Total Protein Albumin PTH Intact Crossmatch 01/13/17 01/13/17 05:00 05:00 WBC 12.5 H RBC 2.54 L Hgb 7.5 L Hct 23.1 L RDW 16.7 H Plt Count [place] % (Auto) [place] # Seg Neutrophils % Seg Neutrophils # APTT Heparin Anti-Xa Level POC ABG pH POC ABG pCO2 POC ABG pO2 Sodium Potassium 3.5 L Chloride Carbon Dioxide 19 L BUN 44 H Creatinine 3.7 H Glucose 124 H POC Glucose Calcium 6.6 L D Phosphorus Iron TIBC Total Creatine Kinase CK-MB (CK-2) Troponin T Total Protein Albumin PTH Intact Crossmatch
--- NOTE | 2017-01-13 12:16 | Progress Note ---
Assessment and Plan Acute respiratory failure intubated on the vent Acute embolic CVA Extensive plaque noted in the transverse and descending thoracic aorta, some plaques are mobile Normal LVEF on IV heparin Acute drop in HCT s/p transfusion of PRBCs Hypertension Diabetes mellitus PVD Hyperlipidemia Chronic Renal insufficiency requiring renal replacement Leukocytosis Subjective Date of service: 01/13/17 Principal diagnosis: Acute CVA; Acute Respiratory Failure Interval history: Remains intubated on the vent. Continues on IV heparin drip. Noted H&H trending downwards. Objective Vital Signs Temp Pulse Pulse Resp BP Pulse Ox 01/13/17 11:01 73 30 H 165/80 100 01/13/17 10:57 78 167/76 98 01/13/17 10:01 74 29 H 162/73 98 01/13/17 09:28 78 167/76 01/13/17 09:27 77 167/76 01/13/17 09:01 77 20 167/76 98 01/13/17 08:55 71 162/73 98 01/13/17 08:01 77 19 163/73 98 01/13/17 08:00 98.0 F 77 26 H 160/68 98 01/13/17 07:01 75 24 160/71 98 01/13/17 06:05 74 158/70 01/13/17 06:01 75 33 H 158/70 99 01/13/17 05:01 70 23 142/65 99 01/13/17 04:24 72 142/62 99 01/13/17 04:01 152/68 99 01/13/17 04:00 23 100 01/13/17 03:30 99.4 F 01/13/17 03:02 81 173/78 01/13/17 03:01 82 29 H 173/78 99 01/13/17 02:01 82 29 H 173/80 98 01/13/17 01:01 82 29 H 177/76 98 01/13/17 00:05 81 167/77 99 01/13/17 00:01 82 28 H 163/77 100 01/13/17 00:00 31 H 100 01/12/17 23:15 99.4 F 01/12/17 23:01 90 31 H 172/71 99 01/12/17 22:22 82 30 H 199/80 100 01/12/17 22:10 84 190/80 01/12/17 22:01 85 33 H 195/92 94 01/12/17 22:00 85 01/12/17 21:01 79 28 H 165/62 95 01/12/17 20:01 78 21 156/58 95 01/12/17 20:00 29 H 97 01/12/17 19:59 99 F 01/12/17 19:05 77 158/65 97 01/12/17 19:01 78 31 H 158/65 97 01/12/17 18:01 76 25 H 149/61 94 01/12/17 17:00 74 34 H 150/64 96 01/12/17 16:00 98.8 F 74 33 H 150/64 96 01/12/17 15:10 72 151/64 97 01/12/17 15:00 74 32 H 151/64 97 01/12/17 14:32 73 148/64 01/12/17 14:00 73 28 H 148/64 95 01/12/17 13:01 73 20 144/64 95 - Physical Examination General: Other (intubated on the vent) Neck: Positive: trachea midline Cardiac: Positive: Reg Rate and Rhythm - Labs and Meds CBC 01/13/17 Range/Units 05:00 WBC 12.5 H (4.5-11.0) K/mm3 RBC 2.54 L (3.65-5.03) M/mm3 Hgb 7.5 L (10.1-14.3) gm/dl Hct 23.1 L (30.3-42.9) % Plt Count 202 (140-440) K/mm3 Comprehensive Metabolic Panel 01/13/17 Range/Units 05:00 Sodium 139 (137-145) mmol/L Potassium 3.5 L (3.6-5.0) mmol/L Chloride 104.3 (98-107) mmol/L Carbon Dioxide 19 L (22-30) mmol/L BUN 44 H (7-17) mg/dL Creatinine 3.7 H (0.7-1.2) mg/dL Glucose 124 H (65-100) mg/dL Calcium 6.6 L D (8.4-10.2) mg/dL - Imaging and Cardiology EKG: image reviewed
[2017-01-13] MEDS ORDERED: NACL 0.9% 100 ML IV PRN (13:13)
[2017-01-13] MEDS: HEPARIN/ 0.45% NACL-25,000 UNIT/500 ML 25,000 UNIT/500 ML BAG IV SCH (14:16)
--- NOTE | 2017-01-13 14:59 | Anesthesia Consultation ---
Anesthesia Consult and Med Hx Date of service: 01/13/17 - Pre-Operative Health Status ASA Pre-Surgery Classification: ASA4 Proposed Anesthetic Plan: General - Pre-Anesthesia Comment Pre-Anesthesia Comments: Patient admitted unresponsive with acute embolic stroke. Ventilated, 30% O2. anoxic brain - Pulmonary Hx Respiratory Symptoms: Yes (Respiratory Failure) - Cardiovascular System Hx Hypertension: Yes - Central Nervous System CVA: Yes - Endocrine Hx Renal Disease: Yes (chronic renal insuff) Hx Insulin Dependent Diabetes: Yes - Hematic Hx Anemia: Yes (s/p blood transfusion )
[2017-01-13] MEDS ORDERED: ANCEF/STERILE WATER 2 GM/20 ML 2 GM/20 ML SYRINGE IV NR (16:00)
--- NOTE | 2017-01-13 16:02 | Progress Note ---
Assessment and Plan Bedside Trach and PEG on 01/14/17 Hold IV heparin at 4am 01/14/17 Hold Tube feeds at 4am 01/14/17 Preop ATBx ordered Consent formed signed Subjective Date of service: 01/13/17 Patient Reports: Positive: other (Remains intubated on FiO2 30% and on Tube feeds) Objective Vital Signs - 12hr 01/13/17 01/13/17 01/13/17 04:24 05:01 06:01 Temperature Pulse Rate 72 70 75 Pulse Rate [ Right Brachial] Respiratory 23 33 H Rate Blood Pressure 142/62 142/65 158/70 O2 Sat by Pulse 99 99 99 Oximetry 01/13/17 01/13/17 01/13/17 06:05 07:01 08:00 Temperature 98.0 F Pulse Rate 74 75 Pulse Rate [ 77 Right Brachial] Respiratory 24 26 H Rate Blood Pressure 158/70 160/71 160/68 O2 Sat by Pulse 98 98 Oximetry 01/13/17 01/13/17 01/13/17 08:01 08:55 09:01 Temperature Pulse Rate 77 71 77 Pulse Rate [ Right Brachial] Respiratory 19 20 Rate Blood Pressure 163/73 162/73 167/76 O2 Sat by Pulse 98 98 98 Oximetry 01/13/17 01/13/17 01/13/17 09:27 09:28 10:01 Temperature Pulse Rate 77 78 74 Pulse Rate [ Right Brachial] Respiratory 29 H Rate Blood Pressure 167/76 167/76 162/73 O2 Sat by Pulse 98 Oximetry 01/13/17 01/13/17 01/13/17 10:57 11:01 12:00 Temperature 98.2 F Pulse Rate 78 73 Pulse Rate [ Right Brachial] Respiratory 30 H 24 Rate Blood Pressure 167/76 165/80 144/60 O2 Sat by Pulse 98 100 93 Oximetry 01/13/17 01/13/17 01/13/17 12:01 13:00 14:01 Temperature Pulse Rate 69 68 70 Pulse Rate [ Right Brachial] Respiratory 26 H 24 28 H Rate Blood Pressure 144/60 135/63 150/66 O2 Sat by Pulse 91 93 95 Oximetry 01/13/17 01/13/17 01/13/17 14:15 15:01 15:40 Temperature 98.2 F Pulse Rate 68 73 Pulse Rate [ Right Brachial] Respiratory 20 Rate Blood Pressure 150/66 150/66 O2 Sat by Pulse 100 Oximetry 01/13/17 15:52 Temperature Pulse Rate 72 Pulse Rate [ Right Brachial] Respiratory 20 Rate Blood Pressure 154/65 O2 Sat by Pulse 92 Oximetry - Neck trachea midline - Abdomen not distended - Labs 01/13/17 05:00 01/13/17 05:00 Diabetes panel 01/13/17 Range/Units 05:00 Sodium 139 (137-145) mmol/L Potassium 3.5 L (3.6-5.0) mmol/L Chloride 104.3 (98-107) mmol/L Carbon Dioxide 19 L (22-30) mmol/L BUN 44 H (7-17) mg/dL Creatinine 3.7 H (0.7-1.2) mg/dL Glucose 124 H (65-100) mg/dL Calcium 6.6 L D (8.4-10.2) mg/dL Calcium panel 01/13/17 Range/Units 05:00 Calcium 6.6 L D (8.4-10.2) mg/dL Pituitary panel 01/13/17 Range/Units 05:00 Sodium 139 (137-145) mmol/L Potassium 3.5 L (3.6-5.0) mmol/L Chloride 104.3 (98-107) mmol/L Carbon Dioxide 19 L (22-30) mmol/L BUN 44 H (7-17) mg/dL Creatinine 3.7 H (0.7-1.2) mg/dL Glucose 124 H (65-100) mg/dL Calcium 6.6 L D (8.4-10.2) mg/dL Adrenal panel 01/13/17 Range/Units 05:00 Sodium 139 (137-145) mmol/L Potassium 3.5 L (3.6-5.0) mmol/L Chloride 104.3 (98-107) mmol/L Carbon Dioxide 19 L (22-30) mmol/L BUN 44 H (7-17) mg/dL Creatinine 3.7 H (0.7-1.2) mg/dL Glucose 124 H (65-100) mg/dL Calcium 6.6 L D (8.4-10.2) mg/dL
[2017-01-13] MEDS: HEPARIN IV PRN (18:46)
[2017-01-14] MEDS: NOVOLOG SUB-Q SCH ×4 (00:23→18:17)
[2017-01-14 05:47] LABS: Hematocrit 23.5 % (30.3-42.9); Hemoglobin 7.7 gm/dl (10.1-14.3); Mean Corpuscular HGB Conc 33 % (30-34); Mean Corpuscular Hemoglobin 30 pg (28-32); Mean Corpuscular Volume 91 fl (79-97); Platelet Count 204 K/mm3 (140-440); Red Blood Count 2.58 M/mm3 (3.65-5.03); Red Cell Distribution Width 16.8 % (13.2-15.2)
[2017-01-14 06:04] LABS: BUN/Creatinine Ratio 10.57; Calcium 9.3 mg/dL (8.4-10.2); Chloride 93.4 mmol/L (98-107)
[2017-01-14] MEDS: APRESOLINE FEEDTUBE SCH ×3 (06:48→22:26)
[2017-01-14] MEDS ORDERED: ANCEF/STERILE WATER 2 GM/20 ML 2 GM/20 ML SYRINGE IV NR (08:00)
--- NOTE | 2017-01-14 09:40 | Progress Note ---
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 - continue supportive care - get neurology evaluation - continue secondary prevention with anti-lipid, anti-platelet, BP control therapies - for repeat MRI in am - unstable artheroma seen on JOSE likely embolic source - repeat MRI reveals new embolic stroke likely - risk-benefits weighed and started on IV heparin without bolus - repeat CT brain without hemorhagic extension / conversion - following clinically (3) ARF (acute renal failure) Current Visit: Yes Status: Acute Qualifiers: Acute renal failure type: A Plan to address problem: - seen by nephrology - making urine - started on dialysis - prescription per nephrology but still giving her a chance for renal recovery - continue supportive [employer] - will defer to news producer (4) Hyperkalemia Current Visit: Yes Status: Acute Plan to address problem: - corrected - continue to trend and address (5) Hypertensive encephalopathy Current Visit: Yes Status: Acute Plan to address problem: - better BP control - will target pseudo-normal / permissive HTN in short course - prn IV meds for SBP > 170mmHg (6) Seizures Current Visit: Yes Status: Acute Plan to address problem: - per sister no prior history - will continue empiric keppra (7) Anemia Current Visit: Yes Status: Acute Qualifiers: Anemia type: A Iron deficiency anemia type: I Vitamin B12 deficiency anemia type: V Folate deficiency anemia type: F Bone marrow failure anemia type: B Hemolytic anemia type: H Other causes of anemia: O Chronic kidney disease stage: C Plan to address problem: - likely dilutional element - still suspect ABLA component - sent stool guaiac (pending) - seen by GI team - continue GI prophylaxis - stable H&H (8) Healthcare maintenance Current Visit: Yes Status: Acute Plan to address problem: - on GI prophylaxis - on VTE prophylaxis - catheterr in place re: SIVA and for CCM issues acutely - glycemic control for target BG < 180mg/dl (9) NSTEMI (non-ST elevated myocardial infarction) Current Visit: Yes Status: Acute Plan to address problem: - cardiology evaluation pngoing - s/p JOSE with unstable aortic artheroma seen (10) Discharge planning issues Current Visit: Yes Status: Acute Plan to address problem: - care plan discussed at length with sister prior - LTAC evaluation ongoing ...she remains critically ill on life sustaining interventions including MVS and at risk for further deterioration including ...30' CCT Subjective Date of service: 01/14/17 Principal diagnosis: Acute CVA; Acute Respiratory Failure Interval history: Seen and examined at bedside; 24 hour events reviewed; nursing and respiratory care staff consulted; no adverse overnight events reported to me; for trach and PEG today; AMS is persistent; remains on MVS; tolerating daytime PSV trials Objective Vital Signs - 12hr 01/13/17 01/13/17 01/13/17 22:01 22:09 22:41 Temperature Pulse Rate 91 H 89 83 Respiratory 44 H 31 H Rate Blood Pressure 179/77 179/77 174/76 O2 Sat by Pulse 96 97 Oximetry 01/13/17 01/13/17 01/13/17 23:01 23:25 23:44 Temperature 99.9 F H Pulse Rate 82 83 Respiratory 30 H Rate Blood Pressure 136/60 136/60 O2 Sat by Pulse 97 98 Oximetry 01/14/17 01/14/17 01/14/17 00:00 00:01 01:01 Temperature Pulse Rate 81 81 Respiratory 29 H 37 H Rate Blood Pressure 140/61 147/63 O2 Sat by Pulse 98 98 99 Oximetry 01/14/17 01/14/17 01/14/17 02:01 03:01 03:39 Temperature Pulse Rate 81 82 82 Respiratory 37 H 26 H Rate Blood Pressure 151/65 159/67 159/67 O2 Sat by Pulse 98 99 99 Oximetry 01/14/17 01/14/17 01/14/17 03:48 04:00 04:01 Temperature 99.7 F H Pulse Rate 84 Respiratory 32 H Rate Blood Pressure 159/67 O2 Sat by Pulse 99 99 Oximetry 01/14/17 01/14/17 01/14/17 05:01 05:32 06:01 Temperature Pulse Rate 84 82 82 Respiratory 24 34 H Rate Blood Pressure 162/77 162/77 163/71 O2 Sat by Pulse 99 99 99 Oximetry 01/14/17 01/14/17 01/14/17 06:48 07:01 07:39 Temperature 98.9 F Pulse Rate 83 84 Respiratory 36 H Rate Blood Pressure 163/71 176/73 O2 Sat by Pulse 99 Oximetry 01/14/17 01/14/17 01/14/17 08:00 08:01 08:47 Temperature Pulse Rate 83 82 Respiratory 19 32 H Rate Blood Pressure 172/76 172/76 O2 Sat by Pulse 99 99 98 Oximetry Constitutional: no acute distress, other (opens eyes to stimulus; not tracking) Eyes: non-icteric ENT: oropharynx moist Neck: supple, no lymphadenopathy, no JVD Effort: mildly labored Ascultation: Bilateral: diminished breath sounds, rhonchi (base) Cardiovascular: regular rate and rhythm Gastrointestinal: normoactive bowel sounds, soft, non-tender, non-distended Integumentary: normal Extremities: no cyanosis, no edema, pulses normal, no ischemia or petechiae, other (trans-metatarsal amputation) Neurologic: unable to assess Psychiatric: other (unable to access) CBC and BMP: 01/15/17 04:36 01/15/17 04:36 ABG, PT/INR, D-dimer: ABG POC ABG pH 7.595 (7.35-7.45) H 01/11/17 04:47 POC ABG pCO2 29.4 (35-45) L 01/11/17 04:47 POC ABG pO2 139 (80-105) H 01/11/17 04:47 POC ABG HCO3 28.6 01/11/17 04:47 POC ABG Total CO2 29 01/11/17 04:47 POC ABG O2 Sat 100 01/11/17 04:47 PT/INR, D-dimer PT 13.2 Sec. (12.2-14.9) 01/08/17 19:10 INR 0.95 (0.87-1.13) 01/08/17 19:10 Abnormal lab findings: Abnormal Labs 12/31/16 12/31/16 12/31/16 01:31 01:31 03:42 WBC RBC Hgb Hct RDW Plt Count [place] % (Auto) [place] # Seg Neutrophils % Seg Neutrophils # APTT Heparin Anti-Xa Level POC ABG pH POC ABG pCO2 POC ABG pO2 Sodium 146 H Potassium 5.6 H Chloride Carbon Dioxide 14 L BUN 77 H Creatinine 4.0 H Glucose 107 H POC Glucose Calcium Phosphorus Iron TIBC Total Creatine Kinase 678 H 711 H CK-MB (CK-2) 10.5 H Troponin T 0.136 H* D Total Protein Albumin PTH Intact Crossmatch 12/31/16 12/31/16 12/31/16 03:42 06:58 06:58 WBC RBC Hgb Hct RDW Plt Count [place] % (Auto) [place] # Seg Neutrophils % Seg Neutrophils # APTT Heparin Anti-Xa Level POC ABG pH POC ABG pCO2 POC ABG pO2 Sodium 147 H Potassium 6.0 H Chloride 107.5 H Carbon Dioxide 12 L BUN 81 H Creatinine 4.6 H Glucose 183 H POC Glucose Calcium Phosphorus Iron TIBC Total Creatine Kinase 787 H CK-MB (CK-2) 10.8 H Troponin T 0.179 H* D Total Protein Albumin PTH Intact 124.4 H Crossmatch 12/31/16 12/31/16 12/31/16 09:34 13:47 15:40 WBC RBC Hgb Hct RDW Plt Count [place] % (Auto) [place] # Seg Neutrophils % Seg Neutrophils # APTT Heparin Anti-Xa Level POC ABG pH 7.344 L POC ABG pCO2 33.0 L POC ABG pO2 340 H Sodium Potassium Chloride Carbon Dioxide BUN Creatinine Glucose POC Glucose 294 H Calcium Phosphorus Iron TIBC Total Creatine Kinase CK-MB (CK-2) Troponin T Total Protein 6.1 L D Albumin 3.6 L PTH Intact Crossmatch 12/31/16 12/31/16 12/31/16 16:49 18:05 18:23 WBC RBC Hgb Hct RDW Plt Count [place] % (Auto) [place] # Seg Neutrophils % Seg Neutrophils # APTT Heparin Anti-Xa Level POC ABG pH 7.651 H POC ABG pCO2 23.2 L POC ABG pO2 64 L Sodium Potassium Chloride Carbon Dioxide BUN Creatinine Glucose POC Glucose 287 H 259 H Calcium Phosphorus Iron TIBC Total Creatine Kinase CK-MB (CK-2) Troponin T Total Protein Albumin PTH Intact Crossmatch 12/31/16 01/01/17 01/01/17 23:52 05:40 06:35 WBC RBC Hgb Hct RDW Plt Count [place] % (Auto) [place] # Seg Neutrophils % Seg Neutrophils # APTT Heparin Anti-Xa Level POC ABG pH POC ABG pCO2 POC ABG pO2 Sodium Potassium Chloride 96.6 L Carbon Dioxide BUN 34 H Creatinine 3.4 H Glucose 142 H POC Glucose 182 H 168 H Calcium 7.6 L D Phosphorus Iron TIBC Total Creatine Kinase CK-MB (CK-2) Troponin T Total Protein Albumin PTH Intact Crossmatch 01/01/17 01/01/17 01/01/17 11:54 12:24 17:10 WBC RBC Hgb Hct RDW Plt Count [place] % (Auto) [place] # Seg Neutrophils % Seg Neutrophils # APTT Heparin Anti-Xa Level POC ABG pH 7.536 H POC ABG pCO2 POC ABG pO2 149 H Sodium Potassium Chloride Carbon Dioxide BUN Creatinine Glucose POC Glucose 166 H 160 H Calcium Phosphorus Iron TIBC Total Creatine Kinase CK-MB (CK-2) Troponin T Total Protein Albumin PTH Intact Crossmatch 01/01/17 01/02/17 01/02/17 23:31 03:35 04:01 WBC 12.0 H RBC 2.88 L Hgb 8.4 L D Hct 25.4 L D RDW 15.9 H Plt Count [place] % (Auto) [place] # Seg Neutrophils % 75.3 H Seg Neutrophils # 9.0 H APTT Heparin Anti-Xa Level POC ABG pH 7.551 H POC ABG pCO2 33.7 L POC ABG pO2 Sodium Potassium Chloride Carbon Dioxide BUN Creatinine Glucose POC Glucose 232 H Calcium Phosphorus Iron TIBC Total Creatine Kinase CK-MB (CK-2) Troponin T Total Protein Albumin PTH Intact Crossmatch 01/02/17 01/02/17 01/02/17 04:01 05:09 12:28 WBC RBC Hgb Hct RDW Plt Count [place] % (Auto) [place] # Seg Neutrophils % Seg Neutrophils # APTT Heparin Anti-Xa Level POC ABG pH POC ABG pCO2 POC ABG pO2 Sodium Potassium Chloride 93.3 L Carbon Dioxide BUN 44 H Creatinine 5.1 H Glucose 208 H POC Glucose 343 H 197 H Calcium 7.7 L Phosphorus Iron TIBC Total Creatine Kinase CK-MB (CK-2) Troponin T Total Protein 6.1 L Albumin 3.1 L PTH Intact Crossmatch 01/02/17 01/02/17 01/02/17 12:40 17:52 18:40 WBC RBC Hgb Hct RDW Plt Count [place] % (Auto) [place] # Seg Neutrophils % Seg Neutrophils # APTT Heparin Anti-Xa Level POC ABG pH POC ABG pCO2 POC ABG pO2 Sodium Potassium Chloride Carbon Dioxide BUN Creatinine Glucose POC Glucose 296 H 53 L 172 H Calcium Phosphorus Iron TIBC Total Creatine Kinase CK-MB (CK-2) Troponin T Total Protein Albumin PTH Intact Crossmatch 01/02/17 01/03/17 01/03/17 23:57 03:44 03:44 WBC RBC 2.52 L Hgb 7.6 L Hct 22.5 L RDW 15.4 H Plt Count [place] % (Auto) [place] # Seg Neutrophils % 70.5 H Seg Neutrophils # APTT Heparin Anti-Xa Level POC ABG pH POC ABG pCO2 POC ABG pO2 Sodium Potassium Chloride 92.2 L Carbon Dioxide BUN 58 H Creatinine 6.2 H Glucose 147 H POC Glucose 248 H Calcium 7.4 L Phosphorus 5.90 H Iron TIBC Total Creatine Kinase CK-MB (CK-2) Troponin T Total Protein Albumin PTH Intact Crossmatch 01/03/17 01/03/17 01/03/17 05:41 11:51 17:33 WBC RBC Hgb Hct RDW Plt Count [place] % (Auto) [place] # Seg Neutrophils % Seg Neutrophils # APTT Heparin Anti-Xa Level POC ABG pH POC ABG pCO2 POC ABG pO2 Sodium Potassium Chloride Carbon Dioxide BUN Creatinine Glucose POC Glucose 190 H 258 H 197 H Calcium Phosphorus Iron TIBC Total Creatine Kinase CK-MB (CK-2) Troponin T Total Protein Albumin PTH Intact Crossmatch 01/03/17 01/03/17 01/04/17 21:38 23:50 04:45 WBC 12.7 H RBC 2.48 L Hgb 7.2 L Hct 22.5 L RDW 15.5 H Plt Count [place] % (Auto) [place] # Seg Neutrophils % 74.0 H Seg Neutrophils # 9.4 H APTT Heparin Anti-Xa Level POC ABG pH 7.551 H POC ABG pCO2 34.0 L POC ABG pO2 74 L Sodium Potassium Chloride Carbon Dioxide BUN Creatinine Glucose POC Glucose 189 H Calcium Phosphorus Iron TIBC Total Creatine Kinase CK-MB (CK-2) Troponin T Total Protein Albumin PTH Intact Crossmatch 01/04/17 01/04/17 01/04/17 04:45 05:59 09:53 WBC RBC Hgb Hct RDW Plt Count [place] % (Auto) [place] # Seg Neutrophils % Seg Neutrophils # APTT Heparin Anti-Xa Level POC ABG pH 7.550 H POC ABG pCO2 32.9 L POC ABG pO2 64 L Sodium 136 L Potassium Chloride 91.2 L Carbon Dioxide BUN 71 H Creatinine 6.4 H Glucose 167 H POC Glucose 203 H Calcium 7.8 L Phosphorus 6.50 H Iron TIBC Total Creatine Kinase 547 H CK-MB (CK-2) Troponin T Total Protein 5.6 L Albumin 2.7 L PTH Intact Crossmatch 01/04/17 01/04/17 01/04/17 12:15 17:37 23:41 WBC RBC Hgb Hct RDW Plt Count [place] % (Auto) [place] # Seg Neutrophils % Seg Neutrophils # APTT Heparin Anti-Xa Level POC ABG pH POC ABG pCO2 POC ABG pO2 Sodium Potassium Chloride Carbon Dioxide BUN Creatinine Glucose POC Glucose 228 H 225 H 231 H Calcium Phosphorus Iron TIBC Total Creatine Kinase CK-MB (CK-2) Troponin T Total Protein Albumin PTH Intact Crossmatch 01/05/17 01/05/17 01/05/17 04:40 04:40 05:24 WBC 11.3 H RBC 2.41 L Hgb 7.1 L Hct 21.6 L RDW 15.7 H Plt Count 138 L [place] % (Auto) 7.7 H [place] # 0.9 H Seg Neutrophils % 71.2 H Seg Neutrophils # 8.0 H APTT Heparin Anti-Xa Level POC ABG pH POC ABG pCO2 POC ABG pO2 Sodium 133 L Potassium 3.5 L Chloride 88.7 L Carbon Dioxide BUN 82 H Creatinine 6.5 H Glucose 137 H POC Glucose 175 H Calcium 7.8 L Phosphorus Iron 22 L TIBC 183 L Total Creatine Kinase 312 H CK-MB (CK-2) Troponin T Total Protein Albumin PTH Intact Crossmatch 01/05/17 01/05/17 01/05/17 09:34 11:12 17:33 WBC RBC Hgb Hct RDW Plt Count [place] % (Auto) [place] # Seg Neutrophils % Seg Neutrophils # APTT Heparin Anti-Xa Level POC ABG pH 7.531 H POC ABG pCO2 34.4 L POC ABG pO2 57 L Sodium Potassium Chloride Carbon Dioxide BUN Creatinine Glucose POC Glucose 188 H 222 H Calcium Phosphorus Iron TIBC Total Creatine Kinase CK-MB (CK-2) Troponin T Total Protein Albumin PTH Intact Crossmatch 01/05/17 01/06/17 01/06/17 23:24 03:15 05:20 WBC 11.2 H RBC 2.28 L Hgb 6.9 L Hct 20.7 L RDW 15.6 H Plt Count [place] % (Auto) 7.7 H [place] # 0.9 H Seg Neutrophils % 78.2 H Seg Neutrophils # 8.7 H APTT Heparin Anti-Xa Level POC ABG pH 7.566 H POC ABG pCO2 31.9 L POC ABG pO2 60 L Sodium Potassium Chloride Carbon Dioxide BUN Creatinine Glucose POC Glucose 223 H Calcium Phosphorus Iron TIBC Total Creatine Kinase CK-MB (CK-2) Troponin T Total Protein Albumin PTH Intact Crossmatch 01/06/17 01/06/17 01/06/17 05:20 05:27 11:54 WBC RBC Hgb Hct RDW Plt Count [place] % (Auto) [place] # Seg Neutrophils % Seg Neutrophils # APTT Heparin Anti-Xa Level POC ABG pH POC ABG pCO2 POC ABG pO2 Sodium Potassium Chloride 93.7 L Carbon Dioxide BUN 40 H Creatinine 3.6 H Glucose 191 H POC Glucose 244 H 184 H Calcium Phosphorus Iron TIBC Total Creatine Kinase CK-MB (CK-2) Troponin T Total Protein Albumin PTH Intact Crossmatch 01/06/17 01/06/17 01/06/17 17:39 19:00 23:57 WBC RBC Hgb Hct RDW Plt Count [place] % (Auto) [place] # Seg Neutrophils % Seg Neutrophils # APTT Heparin Anti-Xa Level POC ABG pH POC ABG pCO2 POC ABG pO2 Sodium Potassium Chloride Carbon Dioxide BUN Creatinine Glucose POC Glucose 167 H 191 H Calcium Phosphorus Iron TIBC Total Creatine Kinase CK-MB (CK-2) Troponin T Total Protein Albumin PTH Intact Crossmatch See Detail 01/07/17 01/07/17 01/07/17 04:05 05:32 08:14 WBC 11.5 H RBC 2.98 L Hgb 8.8 L Hct 26.5 L RDW 16.3 H Plt Count [place] % (Auto) 8.8 H [place] # 1.0 H Seg Neutrophils % 70.4 H Seg Neutrophils # 8.1 H APTT Heparin Anti-Xa Level POC ABG pH 7.538 H POC ABG pCO2 34.7 L POC ABG pO2 60 L Sodium Potassium Chloride Carbon Dioxide BUN Creatinine Glucose POC Glucose 139 H Calcium Phosphorus Iron TIBC Total Creatine Kinase CK-MB (CK-2) Troponin T Total Protein Albumin PTH Intact Crossmatch 01/07/17 01/07/17 01/07/17 08:14 11:52 18:19 WBC RBC Hgb Hct RDW Plt Count [place] % (Auto) [place] # Seg Neutrophils % Seg Neutrophils # APTT Heparin Anti-Xa Level POC ABG pH POC ABG pCO2 POC ABG pO2 Sodium Potassium Chloride 93.8 L Carbon Dioxide BUN 55 H Creatinine 4.7 H Glucose 161 H POC Glucose 205 H 178 H Calcium Phosphorus 5.00 H Iron TIBC Total Creatine Kinase CK-MB (CK-2) Troponin T Total Protein Albumin PTH Intact Crossmatch 01/07/17 01/08/17 01/08/17 23:43 05:30 05:30 WBC 13.0 H RBC 2.90 L Hgb 8.8 L Hct 26.0 L RDW 16.5 H Plt Count 133 L [place] % (Auto) [place] # Seg Neutrophils % Seg Neutrophils # APTT Heparin Anti-Xa Level POC ABG pH POC ABG pCO2 POC ABG pO2 Sodium Potassium Chloride 96.8 L Carbon Dioxide BUN 65 H Creatinine 5.1 H Glucose 136 H POC Glucose 153 H Calcium 7.9 L Phosphorus Iron TIBC Total Creatine Kinase CK-MB (CK-2) Troponin T Total Protein Albumin PTH Intact Crossmatch 01/08/17 01/08/17 01/08/17 05:57 11:40 18:11 WBC RBC Hgb Hct RDW Plt Count [place] % (Auto) [place] # Seg Neutrophils % Seg Neutrophils # APTT Heparin Anti-Xa Level POC ABG pH POC ABG pCO2 POC ABG pO2 Sodium Potassium Chloride Carbon Dioxide BUN Creatinine Glucose POC Glucose 165 H 152 H 167 H Calcium Phosphorus Iron TIBC Total Creatine Kinase CK-MB (CK-2) Troponin T Total Protein Albumin PTH Intact Crossmatch 01/08/17 01/08/17 01/08/17 19:10 19:10 23:50 WBC RBC Hgb 8.6 L Hct 26.4 L RDW Plt Count [place] % (Auto) [place] # Seg Neutrophils % Seg Neutrophils # APTT < 20.0 L Heparin Anti-Xa Level POC ABG pH POC ABG pCO2 POC ABG pO2 Sodium Potassium Chloride Carbon Dioxide BUN Creatinine Glucose POC Glucose 136 H Calcium Phosphorus Iron TIBC Total Creatine Kinase CK-MB (CK-2) Troponin T Total Protein Albumin PTH Intact Crossmatch 01/09/17 01/09/17 01/09/17 04:00 04:00 04:00 WBC 12.3 H RBC 2.87 L Hgb 8.3 L Hct 26.3 L RDW 16.6 H Plt Count [place] % (Auto) 8.7 H [place] # 1.1 H Seg Neutrophils % Seg Neutrophils # 8.4 H APTT Heparin Anti-Xa Level 0.15 L POC ABG pH POC ABG pCO2 POC ABG pO2 Sodium 135 L Potassium Chloride 93.9 L Carbon Dioxide BUN 38 H Creatinine 3.4 H Glucose 158 H POC Glucose Calcium 8.2 L Phosphorus Iron TIBC Total Creatine Kinase CK-MB (CK-2) Troponin T Total Protein Albumin PTH Intact Crossmatch 01/09/17 01/09/17 01/09/17 05:21 11:35 17:43 WBC RBC Hgb Hct RDW Plt Count [place] % (Auto) [place] # Seg Neutrophils % Seg Neutrophils # APTT Heparin Anti-Xa Level POC ABG pH POC ABG pCO2 POC ABG pO2 Sodium Potassium Chloride Carbon Dioxide BUN Creatinine Glucose POC Glucose 190 H 182 H 157 H Calcium Phosphorus Iron TIBC Total Creatine Kinase CK-MB (CK-2) Troponin T Total Protein Albumin PTH Intact Crossmatch 01/09/17 01/10/17 01/10/17 23:38 04:00 04:00 WBC RBC Hgb 8.3 L Hct 25.9 L RDW Plt Count [place] % (Auto) [place] # Seg Neutrophils % Seg Neutrophils # APTT Heparin Anti-Xa Level POC ABG pH POC ABG pCO2 POC ABG pO2 Sodium 136 L Potassium Chloride 91.2 L Carbon Dioxide BUN 51 H Creatinine 4.4 H Glucose 181 H POC Glucose 165 H Calcium Phosphorus Iron TIBC Total Creatine Kinase CK-MB (CK-2) Troponin T Total Protein Albumin PTH Intact Crossmatch 01/10/17 01/10/17 01/10/17 05:02 12:14 12:15 WBC RBC Hgb Hct RDW Plt Count [place] % (Auto) [place] # Seg Neutrophils % Seg Neutrophils # APTT Heparin Anti-Xa Level 0.14 L POC ABG pH POC ABG pCO2 POC ABG pO2 Sodium Potassium Chloride Carbon Dioxide BUN Creatinine Glucose POC Glucose 211 H 158 H Calcium Phosphorus Iron TIBC Total Creatine Kinase CK-MB (CK-2) Troponin T Total Protein Albumin PTH Intact Crossmatch 09/07/2401/10/17 01/11/17 17:43 23:34 02:00 WBC RBC Hgb Hct RDW Plt Count [place] % (Auto) [place] # Seg Neutrophils % Seg Neutrophils # APTT Heparin Anti-Xa Level POC ABG pH POC ABG pCO2 POC ABG pO2 Sodium Potassium Chloride Carbon Dioxide BUN Creatinine Glucose POC Glucose 178 H 164 H 166 H Calcium Phosphorus Iron TIBC Total Creatine Kinase CK-MB (CK-2) Troponin T Total Protein Albumin PTH Intact Crossmatch 01/11/17 01/11/17 01/11/17 04:13 04:47 05:33 WBC RBC Hgb Hct RDW Plt Count [place] % (Auto) [place] # Seg Neutrophils % Seg Neutrophils # APTT Heparin Anti-Xa Level POC ABG pH 7.595 H POC ABG pCO2 29.4 L POC ABG pO2 139 H Sodium 133 L Potassium Chloride 91.0 L Carbon Dioxide BUN 63 H Creatinine 5.1 H Glucose 147 H POC Glucose 166 H Calcium Phosphorus Iron TIBC Total Creatine Kinase CK-MB (CK-2) Troponin T Total Protein Albumin PTH Intact Crossmatch 01/11/17 01/11/17 01/12/17 11:45 17:40 00:08 WBC RBC Hgb Hct RDW Plt Count [place] % (Auto) [place] # Seg Neutrophils % Seg Neutrophils # APTT Heparin Anti-Xa Level POC ABG pH POC ABG pCO2 POC ABG pO2 Sodium Potassium Chloride Carbon Dioxide BUN Creatinine Glucose POC Glucose 173 H 134 H 174 H Calcium Phosphorus Iron TIBC Total Creatine Kinase CK-MB (CK-2) Troponin T Total Protein Albumin PTH Intact Crossmatch 01/12/17 01/12/17 01/12/17 04:00 04:00 05:03 WBC RBC Hgb 7.8 L Hct 24.3 L RDW Plt Count [place] % (Auto) [place] # Seg Neutrophils % Seg Neutrophils # APTT Heparin Anti-Xa Level POC ABG pH POC ABG pCO2 POC ABG pO2 Sodium 133 L Potassium Chloride 92.3 L Carbon Dioxide BUN 37 H Creatinine 3.5 H Glucose 137 H POC Glucose 176 H Calcium Phosphorus Iron TIBC Total Creatine Kinase CK-MB (CK-2) Troponin T Total Protein Albumin PTH Intact Crossmatch 01/12/17 01/12/17 01/12/17 11:53 13:21 17:19 WBC RBC Hgb Hct RDW Plt Count [place] % (Auto) [place] # Seg Neutrophils % Seg Neutrophils # APTT Heparin Anti-Xa Level < 0.10 L POC ABG pH POC ABG pCO2 POC ABG pO2 Sodium Potassium Chloride Carbon Dioxide BUN Creatinine Glucose POC Glucose 152 H 139 H Calcium Phosphorus Iron TIBC Total Creatine Kinase CK-MB (CK-2) Troponin T Total Protein Albumin PTH Intact Crossmatch 01/12/17 01/12/17 01/13/17 20:55 23:38 04:56 WBC RBC Hgb Hct RDW Plt Count [place] % (Auto) [place] # Seg Neutrophils % Seg Neutrophils # APTT Heparin Anti-Xa Level 0.14 L POC ABG pH POC ABG pCO2 POC ABG pO2 Sodium Potassium Chloride Carbon Dioxide BUN Creatinine Glucose POC Glucose 152 H 160 H Calcium Phosphorus Iron TIBC Total Creatine Kinase CK-MB (CK-2) Troponin T Total Protein Albumin PTH Intact Crossmatch 01/13/17 01/13/17 01/13/17 05:00 05:00 12:06 WBC 12.5 H RBC 2.54 L Hgb 7.5 L Hct 23.1 L RDW 16.7 H Plt Count [place] % (Auto) [place] # Seg Neutrophils % Seg Neutrophils # APTT Heparin Anti-Xa Level POC ABG pH POC ABG pCO2 POC ABG pO2 Sodium Potassium 3.5 L Chloride Carbon Dioxide 19 L BUN 44 H Creatinine 3.7 H Glucose 124 H POC Glucose 142 H Calcium 6.6 L D Phosphorus Iron TIBC Total Creatine Kinase CK-MB (CK-2) Troponin T Total Protein Albumin PTH Intact Crossmatch 01/13/17 01/13/17 01/13/17 17:24 20:00 23:44 WBC RBC Hgb Hct RDW Plt Count [place] % (Auto) [place] # Seg Neutrophils % Seg Neutrophils # APTT Heparin Anti-Xa Level 0.19 L POC ABG pH POC ABG pCO2 POC ABG pO2 Sodium Potassium Chloride Carbon Dioxide BUN Creatinine Glucose POC Glucose 193 H 204 H Calcium Phosphorus Iron TIBC Total Creatine Kinase CK-MB (CK-2) Troponin T Total Protein Albumin PTH Intact Crossmatch 01/14/17 01/14/17 01/14/17 05:00 05:00 05:06 WBC 17.0 H RBC 2.58 L Hgb 7.7 L Hct 23.5 L RDW 16.8 H Plt Count [place] % (Auto) [place] # Seg Neutrophils % Seg Neutrophils # APTT Heparin Anti-Xa Level POC ABG pH POC ABG pCO2 POC ABG pO2 Sodium 135 L Potassium Chloride 93.4 L Carbon Dioxide BUN 37 H Creatinine 3.5 H Glucose 180 H POC Glucose 197 H Calcium Phosphorus Iron TIBC Total Creatine Kinase CK-MB (CK-2) Troponin T Total Protein Albumin PTH Intact Crossmatch
[2017-01-14] MEDS: KEPPRA PO SCH ×2 (09:42→22:29)
[2017-01-14] MEDS: NORVASC PO SCH (09:42)
[2017-01-14] MEDS: NORMODYNE PO SCH ×2 (09:42→22:29)
[2017-01-14] MEDS: PEPCID PO SCH (09:42)
[2017-01-14] MEDS: LEVEMIR SUB-Q SCH (10:00)
--- NOTE | 2017-01-14 10:14 | Progress Note ---
Assessment and Plan Assessment and plan: Patient is a 61 yo woman with multiple medical comorbidities including hypertension, diabetes, hyperlipidemia, peripheral vascular disease status post bypass, medical noncompliance and not taking her medications for months, found down by family and brought to ER unresponsive with blood pressure 255/135 - Malignant hypertension/hypertensive emergency Weaned off of Cardene drip; now on amlodipine and labetalol. Blood pressure snow improved after adding Hydralazine 50 mg 3 times a day - Acute ischemic stroke Brain MRI showing multiple acute ischemic areas Started on antiplatelet and statin therapy Cardiology consulted, JOSE done on 01/06/17. Extensive mobile plaque in descending aorta. On heparin drip - Acute toxic metabolic encephalopathy Likely due to combination of hypertensive encephalopathy/multiple brain infarction areas/ renal failure with uremia/acidosis/electrolytes abnormalities / drug use Treat underlying conditions -Acute respiratory failure On mechanical ventilation Unable to be extubated due to mental status Pulmonary following For Tracheostomy and PEG placement today - Acute renal failure likely superimposed on chronic kidney disease Significantly elevated BUN/Cr with marked hyperkalemia and metabolic acidosis on admission Nephrology consulted and acute HD initiated Assessing HD need daily -Hyperkalemia On admission K+ 6.9; received Kayexalate, insulin/D50, bicarbonate Now on HD Continue to closely monitor -Rhabdomyolysis Continue IV fluids CPK trending down -Elevated troponin Most likely secondary to hypertensive emergency/renal failure Echocardiogram ordered -Anemia. Hgb 7.5 today Likely multifactorial Iron deficient, so started on supplementation -Hyperlipidemia - mixed On Lipitor - Peripheral vascular disease Status post bypass Discontinued anticoagulant therapy on her own months ago - Drug abuse UDS positive for marijuana For counseling when stable - DVT prophylaxis. She is on Heparin drip Poor prognosis History Interval history: still intubated , on ventilator no fever For PEG and Trach today Hospitalist Physical - Physical exam Narrative exam: Gen Appearance: Not in acute distress, intubated HEENT: normocephalic, atraumatic Neck:supple, no JVD Lungs: clear to auscultation bilaterally, no crackles or wheezes Heart: S1 and S2 regular, no murmurs or gallop Abdomen: Soft, non-tender, non-distended, normal bowel sounds Extremity: No edema, clubbing or cyanosis Neuro : Obtunded, does not follow commands - Constitutional Vitals: Temp Pulse Resp BP Pulse Ox 98.9 F 85 32 H 172/70 98 01/14/17 07:39 01/14/17 09:42 01/14/17 08:47 01/14/17 09:42 01/14/17 08:47 General appearance: Present: other (intubated on the vent) Results - Labs CBC & Chem 7: 01/14/17 05:00 01/14/17 05:00 Labs: Laboratory Last Values WBC 17.0 K/mm3 (4.5-11.0) H 01/14/17 05:00 RBC 2.58 M/mm3 (3.65-5.03) L 01/14/17 05:00 Hgb 7.7 gm/dl (10.1-14.3) L 01/14/17 05:00 Hct 23.5 % (30.3-42.9) L 01/14/17 05:00 MCV 91 fl (79-97) 01/14/17 05:00 MCH 30 pg (28-32) 01/14/17 05:00 MCHC 33 % (30-34) 01/14/17 05:00 RDW 16.8 % (13.2-15.2) H 01/14/17 05:00 Plt Count 204 K/mm3 (140-440) 01/14/17 05:00 Lymph % (Auto) 20.7 % (13.4-35.0) 01/09/17 04:00 Foard % (Auto) 8.7 % (0.0-7.3) H 01/09/17 04:00 Eos % (Auto) 1.3 % (0.0-4.3) 01/09/17 04:00 Baso % (Auto) 0.8 % (0.0-1.8) 01/09/17 04:00 Lymph # 2.6 K/mm3 (1.2-5.4) 01/09/17 04:00 Foard # 1.1 K/mm3 (0.0-0.8) H 01/09/17 04:00 Eos # 0.2 K/mm3 (0.0-0.4) 01/09/17 04:00 Baso # 0.1 K/mm3 (0.0-0.1) 01/09/17 04:00 Seg Neutrophils % 68.5 % (40.0-70.0) 01/09/17 04:00 Seg Neutrophils # 8.4 K/mm3 (1.8-7.7) H 01/09/17 04:00 PT 13.2 Sec. (12.2-14.9) 01/08/17 19:10 INR 0.95 (0.87-1.13) 01/08/17 19:10 APTT < 20.0 Sec. (24.2-36.6) L 01/08/17 19:10 Heparin Anti-Xa Level 0.19 U.I./ml (0.3-0.7) L 01/13/17 20:00 POC ABG pH 7.595 (7.35-7.45) H 01/11/17 04:47 POC ABG pCO2 29.4 (35-45) L 01/11/17 04:47 POC ABG pO2 139 (80-105) H 01/11/17 04:47 POC ABG HCO3 28.6 01/11/17 04:47 POC ABG Total CO2 29 01/11/17 04:47 POC ABG O2 Sat 100 01/11/17 04:47 POC ABG Base Excess 7 01/11/17 04:47 FiO2 30 % 01/11/17 04:47 Sodium 135 mmol/L (137-145) L 01/14/17 05:00 Potassium 4.0 mmol/L (3.6-5.0) 01/14/17 05:00 Chloride 93.4 mmol/L (98-107) L 01/14/17 05:00 Carbon Dioxide 24 mmol/L (22-30) 01/14/17 05:00 Anion Gap 22 mmol/L 01/14/17 05:00 BUN 37 mg/dL (7-17) H 01/14/17 05:00 Creatinine 3.5 mg/dL (0.7-1.2) H 01/14/17 05:00 Estimated GFR 16 ml/min 01/14/17 05:00 BUN/Creatinine Ratio 10.57 % 01/14/17 05:00 Glucose 180 mg/dL (65-100) H 01/14/17 05:00 POC Glucose 197 (70-105) H 01/14/17 05:06 Lactic Acid 1.30 mmol/L (0.7-2.0) 01/01/17 06:35 Calcium 9.3 mg/dL (8.4-10.2) D 01/14/17 05:00 Phosphorus 4.40 mg/dL (2.5-4.5) 01/11/17 04:13 Magnesium 1.90 mg/dL (1.7-2.3) 01/04/17 04:45 Iron 22 ug/dL (37-170) L 01/05/17 04:40 TIBC 183 mcg/dL (250-450) L 01/05/17 04:40 Ferritin 283.6 ng/mL (13.0-400.0) 01/05/17 04:40 Total Bilirubin 0.40 mg/dL (0.1-1.2) 01/04/17 04:45 Direct Bilirubin < 0.2 mg/dL (0-0.2) 12/31/16 15:40 Indirect Bilirubin 0.1 mg/dL 12/31/16 15:40 AST 25 units/L (5-40) 01/04/17 04:45 ALT 16 units/L (7-56) 01/04/17 04:45 Alkaline Phosphatase 75 units/L (35-129) 01/04/17 04:45 Total Creatine Kinase 312 units/L (30-135) H 01/05/17 04:40 CK-MB (CK-2) 10.8 ng/mL (0.0-4.0) H 12/31/16 06:58 CK-MB (CK-2) Rel Index 1.3 (0-4) 12/31/16 06:58 Troponin T 0.179 ng/mL (0.00-0.029) H* D 12/31/16 06:58 Total Protein 5.6 g/dL (6.3-8.2) L 01/04/17 04:45 Albumin 2.7 g/dL (3.9-5) L 01/04/17 04:45 Albumin/Globulin Ratio 0.9 % 01/04/17 04:45 Triglycerides 298 mg/dL (2-149) H 12/30/16 23:34 Cholesterol 355 mg/dL (50-199) H 12/30/16 23:34 LDL Cholesterol Direct 251 mg/dL (50-130) H 12/30/16 23:34 HDL Cholesterol 45 mg/dL (40-59) 12/30/16 23:34 Cholesterol/HDL Ratio 7.88 % 12/30/16 23:34 TSH 1.320 mlU/mL (0.270-4.200) 12/30/16 21:29 PTH Intact 124.4 pg/mL (15-65) H 12/31/16 03:42 Urine Color Yellow (Yellow) 12/30/16 20:47 Urine Turbidity Clear (Clear) 12/30/16 20:47 Urine pH 5.0 (5.0-7.0) 12/30/16 20:47 Ur Specific [place] 1.023 (1.003-1.030) 12/30/16 20:47 Urine Protein 100 mg/dl mg/dL (Negative) 12/30/16 20:47 Urine Glucose (UA) Neg mg/dL (Negative) 12/30/16 20:47 Urine Ketones Tr mg/dL (Negative) 12/30/16 20:47 Urine Blood Neg (Negative) 12/30/16 20:47 Urine Nitrite Neg (Negative) 12/30/16 20:47 Urine Bilirubin Neg (Negative) 12/30/16 20:47 Urine Urobilinogen 2.0 mg/dL (<2.0) 12/30/16 20:47 Ur Leukocyte Esterase Neg (Negative) 12/30/16 20:47 Urine WBC (Auto) < 1.0 /HPF (0.0-6.0) 12/30/16 20:47 Urine RBC (Auto) 1.0 /HPF (0.0-6.0) 12/30/16 20:47 U Epithel Cells (Auto) 1.0 /HPF (0-13.0) 12/30/16 20:47 Urine Bacteria (Auto) 1+ /HPF (Negative) 12/30/16 20:47 Salicylates < 0.3 mg/dL (2.8-20.0) L 12/30/16 21:29 Urine Opiates Screen Presumptive negative 12/30/16 20:47 Urine Methadone Screen Presumptive negative 12/30/16 20:47 Acetaminophen < 15.0 ug/mL (10.0-30.0) 12/30/16 21:29 Ur Barbiturates Screen Presumptive negative 12/30/16 20:47 Ur Phencyclidine Scrn Presumptive negative 12/30/16 20:47 Ur Amphetamines Screen Presumptive negative 12/30/16 20:47 U Benzodiazepines Scrn Presumptive negative 12/30/16 20:47 Urine Cocaine Screen Presumptive negative 12/30/16 20:47 U Marijuana (THC) Screen Presumptive positive 12/30/16 20:47 Drugs of Abuse Note Disclamer 12/30/16 20:47 Plasma/Serum Alcohol < 0.01 gm% (0-0.07) 12/30/16 21:29 Hepatitis A IgM Ab Non-reactive (NonReactive) 01/08/17 15:21 Hep Bs Antigen Non-reactive (Negative) 01/08/17 15:21 Hep B Core IgM Ab Non-reactive (NonReactive) 01/08/17 15:21 Hepatitis C Antibody Non-reactive (NonReactive) 01/08/17 15:21 Blood Type O NEGATIVE 01/06/17 19:00 Antibody Screen Negative 01/06/17 19:00 Crossmatch See Detail 01/06/17 19:00
[2017-01-14] MEDS: ASPIRIN PO SCH (10:30)
--- NOTE | 2017-01-14 10:49 | Progress Note ---
Assessment and Plan - Patient Problems (1) ARF (acute renal failure) Current Visit: Yes Status: Acute Qualifiers: Acute renal failure type: A Plan to address problem: Acute kidney injury superimposed on CKD stage 3 in the setting of uncontrolled HTN. Patient is hemodialysis dependent and was last dialyzed yesterday. No improvement in the renal function so far. Patient remain oliguric. Monitor for [employer] needs and continue hemodialysis three times a week for now. Renal prognosis is guarded. (2) Hyperkalemia Current Visit: Yes Status: Acute Plan to address problem: Hyperkalemia in the setting of Acute kidney injury. Improved with hemodialysis. (3) Metabolic acidosis Current Visit: Yes Status: Acute Plan to address problem: Improved. (4) Hypertensive encephalopathy Current Visit: Yes Status: Acute (5) Respiratory failure Current Visit: Yes Status: Acute Qualifiers: Chronicity: C Respiratory failure complication: R Plan to address problem: On Vent. (6) Anemia Current Visit: Yes Status: Acute Qualifiers: Anemia type: A Iron deficiency anemia type: I Vitamin B12 deficiency anemia type: V Folate deficiency anemia type: F Bone marrow failure anemia type: B Hemolytic anemia type: H Other causes of anemia: O Chronic kidney disease stage: C Plan to address problem: Epogen. Monitor Hb. Subjective Date of service: 01/14/17 Principal diagnosis: Acute CVA; Acute Respiratory Failure Interval history: Patient remain on the vent. Objective - Vital Signs Vital signs: Vital Signs - 12hr 01/13/17 01/13/17 01/13/17 23:01 23:25 23:44 Temperature 99.9 F H Pulse Rate 82 83 Respiratory 30 H Rate Blood Pressure 136/60 136/60 O2 Sat by Pulse 97 98 Oximetry 01/14/17 01/14/17 01/14/17 00:00 00:01 01:01 Temperature Pulse Rate 81 81 Respiratory 29 H 37 H Rate Blood Pressure 140/61 147/63 O2 Sat by Pulse 98 98 99 Oximetry 01/14/17 01/14/17 01/14/17 02:01 03:01 03:39 Temperature Pulse Rate 81 82 82 Respiratory 37 H 26 H Rate Blood Pressure 151/65 159/67 159/67 O2 Sat by Pulse 98 99 99 Oximetry 01/14/17 01/14/17 01/14/17 03:48 04:00 04:01 Temperature 99.7 F H Pulse Rate 84 Respiratory 32 H Rate Blood Pressure 159/67 O2 Sat by Pulse 99 99 Oximetry 01/14/17 01/14/17 01/14/17 05:01 05:32 06:01 Temperature Pulse Rate 84 82 82 Respiratory 24 34 H Rate Blood Pressure 162/77 162/77 163/71 O2 Sat by Pulse 99 99 99 Oximetry 01/14/17 01/14/17 01/14/17 06:48 07:01 07:39 Temperature 98.9 F Pulse Rate 83 84 Respiratory 36 H Rate Blood Pressure 163/71 176/73 O2 Sat by Pulse 99 Oximetry 01/14/17 01/14/17 01/14/17 08:00 08:01 08:47 Temperature Pulse Rate 83 82 Respiratory 19 32 H Rate Blood Pressure 172/76 172/76 O2 Sat by Pulse 99 99 98 Oximetry 01/14/17 01/14/17 01/14/17 09:00 09:42 10:00 Temperature Pulse Rate 83 85 81 Respiratory 30 H 21 Rate Blood Pressure 172/70 172/70 173/78 O2 Sat by Pulse 98 99 Oximetry - General Appearance General appearance: well-developed, appears stated age, intubated (on vent, FiO2 30%) EENT: ATNC, PERRL Neck: supple Respiratory: Present: Other (coarse breath sounds) Cardiology: regular, S1S2, no murmurs Gastrointestinal: normoactive bowel sounds Integumentary: no rash Neurologic: obtunded Musculoskeletal: other (no edema, right groin hemodialysis catheter) - Lab 01/14/17 05:00 01/14/17 05:00 Most recent lab results Calcium 9.3 mg/dL (8.4-10.2) D 01/14/17 05:00 Phosphorus 4.40 mg/dL (2.5-4.5) 01/11/17 04:13 Magnesium 1.90 mg/dL (1.7-2.3) 01/04/17 04:45
--- NOTE | 2017-01-14 11:17 | Operative Report ---
Operative Report Operative Report: Procedure: Placement of a right common femoral vein temporary dialysis catheter. Date of Procedure: 12/31/16 History/Indication: This is a 61 year old female with renal failure. Impression: Successful placement of a temporary dialysis catheter via the right common femoral vein. Physician: Yulissa Mckeon MD Technique/Procedural Details: Informed consent was obtained. The patient's right groin was prepped and draped in the usual sterile fashion. After administration of local anesthetic, the right common femoral vein was accessed under continuous ultrasound guidance , with an 18-gauge needle. A J-wire was advanced through the needle, and the needle was exchanged for a tissue dilator. After tissue dilation, the temporary dialysis catheter was advanced over the wire. The wire was removed. All 3 lumens were aspirated and flushed. A heparin lock was instilled in each of the 2 larger lumens. A sterile dressing was placed. There were no complications. Discussion: A temporary dialysis catheter was successfully placed. The right common femoral vein is patent and compressible. Specimen: None EBL: <5 cc
--- NOTE | 2017-01-14 13:33 | Progress Note ---
Assessment and Plan Acute respiratory failure intubated on the vent Acute embolic CVA Extensive plaque noted in the transverse and descending thoracic aorta, some plaques are mobile Normal LVEF on IV heparin -stable H&H Acute drop in HCT s/p transfusion of PRBCs Hypertension Diabetes mellitus PVD Hyperlipidemia Chronic Renal insufficiency requiring renal replacement Leukocytosis Conservative cardiac management. Subjective Date of service: 01/14/17 Principal diagnosis: Acute CVA; Acute Respiratory Failure Interval history: Remains intubated on the vent. Objective Vital Signs Temp Pulse Resp BP Pulse Ox Pulse Ox 01/14/17 12:00 73 25 H 134/56 100 01/14/17 11:46 99.0 F 01/14/17 11:00 73 26 H 134/54 100 01/14/17 10:00 81 21 173/78 99 01/14/17 09:42 85 172/70 01/14/17 09:00 83 30 H 172/70 98 01/14/17 08:47 82 32 H 172/76 98 01/14/17 08:01 83 19 172/76 99 01/14/17 08:00 99 01/14/17 07:39 98.9 F 01/14/17 07:01 84 36 H 176/73 99 01/14/17 06:48 83 163/71 01/14/17 06:01 82 34 H 163/71 99 01/14/17 05:32 82 162/77 99 01/14/17 05:01 84 24 162/77 99 01/14/17 04:01 84 32 H 159/67 99 01/14/17 04:00 99 01/14/17 03:48 99.7 F H 01/14/17 03:39 82 159/67 99 01/14/17 03:01 82 26 H 159/67 99 01/14/17 02:01 81 37 H 151/65 98 01/14/17 01:01 81 37 H 147/63 99 01/14/17 00:01 81 29 H 140/61 98 01/14/17 00:00 98 01/13/17 23:44 83 136/60 98 01/13/17 23:25 99.9 F H 01/13/17 23:01 82 30 H 136/60 97 01/13/17 22:41 83 31 H 174/76 97 01/13/17 22:09 89 179/77 01/13/17 22:01 91 H 44 H 179/77 96 01/13/17 21:01 89 38 H 170/80 95 01/13/17 20:01 87 24 183/72 92 01/13/17 20:00 93 01/13/17 19:42 91 H 197/83 95 01/13/17 19:35 99.2 F 01/13/17 19:15 99.2 F 88 20 157/69 95 01/13/17 19:01 90 27 H 164/65 94 01/13/17 19:00 90 164/65 01/13/17 18:45 87 160/63 01/13/17 18:30 88 163/68 01/13/17 18:15 88 160/68 01/13/17 18:01 88 32 H 167/72 98 01/13/17 18:00 89 167/72 01/13/17 17:45 88 160/68 01/13/17 17:30 88 162/68 01/13/17 17:15 85 169/67 01/13/17 17:01 83 39 H 170/74 87 01/13/17 17:00 84 170/74 01/13/17 16:45 82 165/66 01/13/17 16:30 76 156/66 01/13/17 16:15 75 151/63 01/13/17 16:01 72 31 H 150/67 89 01/13/17 16:00 72 150/67 93 01/13/17 15:52 72 20 154/65 92 01/13/17 15:45 98.3 F 72 36 H 154/65 92 01/13/17 15:40 98.2 F 01/13/17 15:01 73 20 150/66 100 01/13/17 14:15 68 150/66 01/13/17 14:01 70 28 H 150/66 95 - Physical Examination General: Other (intubated on the vent) Cardiac: Positive: Reg Rate and Rhythm - Labs and Meds CBC 01/14/17 Range/Units 05:00 WBC 17.0 H (4.5-11.0) K/mm3 RBC 2.58 L (3.65-5.03) M/mm3 Hgb 7.7 L (10.1-14.3) gm/dl Hct 23.5 L (30.3-42.9) % Plt Count 204 (140-440) K/mm3 Comprehensive Metabolic Panel 01/14/17 Range/Units 05:00 Sodium 135 L (137-145) mmol/L Potassium 4.0 (3.6-5.0) mmol/L Chloride 93.4 L (98-107) mmol/L Carbon Dioxide 24 (22-30) mmol/L BUN 37 H (7-17) mg/dL Creatinine 3.5 H (0.7-1.2) mg/dL Glucose 180 H (65-100) mg/dL Calcium 9.3 D (8.4-10.2) mg/dL - Imaging and Cardiology EKG: image reviewed
[2017-01-14] MEDS ORDERED: WATER FOR IRRIG STERILE IR ONE (15:18)
[2017-01-14] MEDS ORDERED: NACL 0.9% 1000 ML 1,000 ML ONE (15:18)
[2017-01-14] MEDS ORDERED: ZEMURON IV ONE (15:20)
[2017-01-14] MEDS ORDERED: DIPRIVAN 10 MG/ML IV ONE ×2 (15:21→15:27)
[2017-01-14] MEDS ORDERED: AMIDATE IV ONE (15:21)
[2017-01-14] MEDS ORDERED: XYLOCAINE MPF 2% ONE (15:24)
--- NOTE | 2017-01-14 16:27 | Operative Report ---
Operative Report Operative Report: Date of procedure: 01/14/2017 Pre-operative diagnosis: Respiratory failure with vent dependence Post-operative diagnosis: Same Procedure name(s): Percutaneous tracheostomy Surgeon: Richy Gastelum MD Chipper Machine Operator: Ke Andrea M.D. Anesthesia: General, 1% lidocaine EBL: Minimal Complications: None Instrument Count: correct Indications: This is a 61-year-old female with a history respiratory failure and prolonged vent dependence in need of long-term management. The family was offered the above-named procedure the possible treatment modality to risks and benefits were discussed until all questions answered. The patient was set up for the procedure. Findings: Nonsignificant Procedure: We reviewed informed consent. The patient was then positioned in a semi-follow position the neck slightly extended. After infiltration of local anesthetic. Minimal small incision proximally one centimeter in size vertically 2 cm above the sternal notch in the neck. At this time anesthesia was prompted to partially withdraw the endotracheal tube to 16 cm at the teeth. Using a introducer needle on the syringe on gentle suction, we cannulated the trachea which was verified by a release of the suction. We placed a guidewire through the introducer needle and removed the needle we assured that we had not entrapped the endotracheal tube. We then dilated the tract using a 14 Green[place]ic skin dilator. This was substituted for a stiff catheter and Blue Rhino dilator combination. A 8 Shiley endotracheal tube was then placed over the stiff catheter and guidewire into the trachea. We removed the dilator catheter and guidewire and inserted the inner cannula. We then verified end tidal CO2. We secured the wings of the tracheostomy tube to the skin using a 2-0 Prolene. A tracheostomy collar was then applied and attached to the tracheostomy tube. The patient tolerated the procedure well. She was maintained on a ventilator in no apparent distress.
--- NOTE | 2017-01-14 16:29 | Operative Report ---
Operative Report Operative Report: Date of procedure: 01/14/2017 Pre-operative diagnosis: Malnutrition with need for nutritional support, prolonged vent dependence Post-operative diagnosis: Same Procedure name(s): Percutaneous endoscopic gastrostomy tube placement Surgeon: Richy Gastelum MD Auto Glass Installer: Ke Andrea M.D. Anesthesia: General, 1% lidocaine EBL: Minimal Complications: None Instrument Count: Correct Indications: This is a 61-year-old female with a history of respiratory failure and prolonged vent dependence in need of nutritional support. Family was offered the above-named procedure the possible treatment modality. The risks and benefits to discuss until all questions were answered. She subsequently set up for the procedure. Findings: None significant Procedure: We reviewed the informed consent. The patient was then positioned with the head up. After adequate anesthesia was reached, we inserted the endoscope of the oral cavity into the stomach. The stomach was then insufflated to maximal capacity until the rugae flattened. At this time we applied gentle palpation externally and observed this visually through the endoscope, choosing a position approximately 2 fingerbreadths below the left costal margin. This was further verified using transillumination seen externally. We infiltrated local anesthetic at the site chosen. We then made a 5 mm incision at the site, and placed Angiocath through the incision. The needle was removed, and a guidewire was placed through the Angiocath. The guidewire was grasped using an endoscopic snare and brought through the oral cavity. This was attached to a 20 Faroese pull-through gastrostomy tube. We then retracted the guidewire through the abdominal wall, bringing the gastrostomy tube through the oral cavity. We secured the external portion of the tube. Using the endoscope we verified placement within the stomach cavity. The tube was then secured to the abdominal wall sterilely. The patient tolerated this well and was maintained in no apparent distress
--- NOTE | 2017-01-14 17:33 | Post Anesthesia Evaluation ---
- Post Anesthesia Evaluation Patient Participated: Yes Airway Patent: Yes Stable Respiratory Function: Yes Nausea/Vomiting: No Temp > 96.8F: Yes Pain Manageable: Yes Adequeate Hydration: Yes Anesthesia Complications: No
--- NOTE | 2017-01-14 18:31 | XRay Report ---
FINAL REPORT PROCEDURE: XR CHEST 1V AP TECHNIQUE: Chest radiograph anteroposterior view. CPT 67358 HISTORY: pneumonia COMPARISON: No prior studies are available for comparison. FINDINGS: Heart: Cardiac silhouette is obscured by pleural fluid Mediastinum/Vessels: Prominent contour. Lungs/Pleural space: There is a right pleural effusion. There is near complete opacification of the left hemithorax, which may be related to a combination of pleural fluid and airspace opacities. No pneumothorax is seen. Bony thorax: No acute osseous abnormality. Life support devices: Tracheostomy tube is present. IMPRESSION: Right pleural effusion. Opacification of the left hemithorax is likely related to a combination of pleural fluid and airspace opacities.
[2017-01-14] MEDS: HEPARIN/ 0.45% NACL-25,000 UNIT/500 ML 25,000 UNIT/500 ML BAG IV SCH (23:34)
[2017-01-15] MEDS: NOVOLOG SUB-Q SCH ×4 (00:56→19:08)
[2017-01-15 05:18] LABS: Hematocrit 21.9 % (30.3-42.9); Mean Corpuscular HGB Conc 32 % (30-34); Mean Corpuscular Hemoglobin 29 pg (28-32); Mean Corpuscular Volume 92 fl (79-97); Platelet Count 190 K/mm3 (140-440); Red Cell Distribution Width 17.1 % (13.2-15.2); White Blood Count 12.2 K/mm3 (4.5-11.0)
[2017-01-15 05:41] LABS: BUN/Creatinine Ratio 10.19; Calcium 8.9 mg/dL (8.4-10.2); Chloride 94.6 mmol/L (98-107); Potassium 4.2 mmol/L (3.6-5.0)
[2017-01-15] MEDS: HEPARIN/ 0.45% NACL-25,000 UNIT/500 ML 25,000 UNIT/500 ML BAG IV SCH (05:55)
[2017-01-15] MEDS: APRESOLINE FEEDTUBE SCH (05:57)
[2017-01-15] MEDS ORDERED: NACL 0.9% 500 ML 500 ML IV NR (08:00)
--- NOTE | 2017-01-15 08:54 | Progress Note ---
Assessment and Plan Assessment and plan: Patient is a 61 yo woman with multiple medical comorbidities including hypertension, diabetes, hyperlipidemia, peripheral vascular disease status post bypass, medical noncompliance and not taking her medications for months, found down by family and brought to ER unresponsive with blood pressure 255/135 - Malignant hypertension/hypertensive emergency Weaned off of Cardene drip; now on amlodipine and labetalol. Blood pressure snow improved after adding Hydralazine 50 mg 3 times a day - Acute ischemic stroke Brain MRI showing multiple acute ischemic areas Started on antiplatelet and statin therapy Cardiology consulted, JOSE done on 01/06/17. Extensive mobile plaque in descending aorta. On heparin drip Comatose. Supportive ccare. - Acute toxic metabolic encephalopathy Likely due to combination of hypertensive encephalopathy/multiple brain infarction areas/ renal failure with uremia/acidosis/electrolytes abnormalities / drug use Treat underlying conditions -Acute respiratory failure On mechanical ventilation Unable to be extubated due to mental status Pulmonary following For Tracheostomy and PEG placement today - Acute renal failure likely superimposed on chronic kidney disease Significantly elevated BUN/Cr with marked hyperkalemia and metabolic acidosis on admission Nephrology consulted and acute HD initiated Assessing HD need daily -Hyperkalemia On admission K+ 6.9; received Kayexalate, insulin/D50, bicarbonate Now on HD Potassium 4.2 today Continue to closely monitor -Rhabdomyolysis Continue IV fluids CPK trending down -Elevated troponin Most likely secondary to hypertensive emergency/renal failure Echocardiogram ordered -Anemia. Hgb 7.0 today multifactorial Will transfuse 1 unit PRBC today. Iron deficient, so started on supplementation -Hyperlipidemia - mixed On Lipitor - Peripheral vascular disease Status post bypass Discontinued anticoagulant therapy on her own months ago - Drug abuse UDS positive for marijuana For counseling when stable - DVT prophylaxis. She is on Heparin drip Poor prognosis History Interval history: no fever Had PEG and Trach done yesterday Hospitalist Physical - Physical exam Narrative exam: Gen Appearance: Not in acute distress HEENT: normocephalic, atraumatic Neck:supple, no JVD, Tracheostomy Lungs: clear to auscultation bilaterally, no crackles or wheezes Heart: S1 and S2 regular, no murmurs or gallop Abdomen: Soft, non-tender, non-distended, normal bowel sounds, PEG Extremity: No edema, clubbing or cyanosis Neuro : Obtunded, does not follow commands - Constitutional Vitals: Temp Pulse Resp BP Pulse Ox 99.3 F 82 34 H 151/58 99 01/15/17 04:00 01/15/17 06:00 01/15/17 06:00 01/15/17 06:00 01/15/17 06:00 General appearance: Present: other (intubated on the vent) Results - Labs CBC & Chem 7: 01/15/17 04:36 01/15/17 04:36 Labs: Laboratory Last Values WBC 12.2 K/mm3 (4.5-11.0) H 01/15/17 04:36 RBC 2.40 M/mm3 (3.65-5.03) L 01/15/17 04:36 Hgb 7.0 gm/dl (10.1-14.3) L 01/15/17 04:36 Hct 21.9 % (30.3-42.9) L 01/15/17 04:36 MCV 92 fl (79-97) 01/15/17 04:36 MCH 29 pg (28-32) 01/15/17 04:36 MCHC 32 % (30-34) 01/15/17 04:36 RDW 17.1 % (13.2-15.2) H 01/15/17 04:36 Plt Count 190 K/mm3 (140-440) 01/15/17 04:36 Lymph % (Auto) 20.7 % (13.4-35.0) 01/09/17 04:00 [place] % (Auto) 8.7 % (0.0-7.3) H 01/09/17 04:00 Eos % (Auto) 1.3 % (0.0-4.3) 01/09/17 04:00 Baso % (Auto) 0.8 % (0.0-1.8) 01/09/17 04:00 Lymph # 2.6 K/mm3 (1.2-5.4) 01/09/17 04:00 [place] # 1.1 K/mm3 (0.0-0.8) H 01/09/17 04:00 Eos # 0.2 K/mm3 (0.0-0.4) 01/09/17 04:00 Baso # 0.1 K/mm3 (0.0-0.1) 01/09/17 04:00 Seg Neutrophils % 68.5 % (40.0-70.0) 01/09/17 04:00 Seg Neutrophils # 8.4 K/mm3 (1.8-7.7) H 01/09/17 04:00 PT 13.2 Sec. (12.2-14.9) 01/08/17 19:10 INR 0.95 (0.87-1.13) 01/08/17 19:10 APTT < 20.0 Sec. (24.2-36.6) L 01/08/17 19:10 Heparin Anti-Xa Level < 0.10 U.I./ml (0.3-0.7) L 01/15/17 04:36 POC ABG pH 7.595 (7.35-7.45) H 01/11/17 04:47 POC ABG pCO2 29.4 (35-45) L 01/11/17 04:47 POC ABG pO2 139 (80-105) H 01/11/17 04:47 POC ABG HCO3 28.6 01/11/17 04:47 POC ABG Total CO2 29 01/11/17 04:47 POC ABG O2 Sat 100 01/11/17 04:47 POC ABG Base Excess 7 01/11/17 04:47 FiO2 30 % 01/11/17 04:47 Sodium 138 mmol/L (137-145) 01/15/17 04:36 Potassium 4.2 mmol/L (3.6-5.0) 01/15/17 04:36 Chloride 94.6 mmol/L (98-107) L 01/15/17 04:36 Carbon Dioxide 23 mmol/L (22-30) 01/15/17 04:36 Anion Gap 25 mmol/L 01/15/17 04:36 BUN 53 mg/dL (7-17) H 01/15/17 04:36 Creatinine 5.2 mg/dL (0.7-1.2) H 01/15/17 04:36 Estimated GFR 10 ml/min 01/15/17 04:36 BUN/Creatinine Ratio 10.19 % 01/15/17 04:36 Glucose 183 mg/dL (65-100) H 01/15/17 04:36 POC Glucose 164 (70-105) H 01/15/17 05:52 Lactic Acid 0.80 mmol/L (0.7-2.0) 01/14/17 16:39 Calcium 8.9 mg/dL (8.4-10.2) 01/15/17 04:36 Phosphorus 4.40 mg/dL (2.5-4.5) 01/11/17 04:13 Magnesium 1.90 mg/dL (1.7-2.3) 01/04/17 04:45 Iron 22 ug/dL (37-170) L 01/05/17 04:40 TIBC 183 mcg/dL (250-450) L 01/05/17 04:40 Ferritin 283.6 ng/mL (13.0-400.0) 01/05/17 04:40 Total Bilirubin 0.40 mg/dL (0.1-1.2) 01/04/17 04:45 Direct Bilirubin < 0.2 mg/dL (0-0.2) 12/31/16 15:40 Indirect Bilirubin 0.1 mg/dL 12/31/16 15:40 AST 25 units/L (5-40) 01/04/17 04:45 ALT 16 units/L (7-56) 01/04/17 04:45 Alkaline Phosphatase 75 units/L (35-129) 01/04/17 04:45 Total Creatine Kinase 233 units/L (30-135) H 01/15/17 04:36 CK-MB (CK-2) 10.8 ng/mL (0.0-4.0) H 12/31/16 06:58 CK-MB (CK-2) Rel Index 1.3 (0-4) 12/31/16 06:58 Troponin T 0.179 ng/mL (0.00-0.029) H* D 12/31/16 06:58 C-Reactive Protein 25.60 mg/dL (0.00-1.30) H 01/14/17 16:39 Total Protein 5.6 g/dL (6.3-8.2) L 01/04/17 04:45 Albumin 2.7 g/dL (3.9-5) L 01/04/17 04:45 Albumin/Globulin Ratio 0.9 % 01/04/17 04:45 Triglycerides 298 mg/dL (2-149) H 12/30/16 23:34 Cholesterol 355 mg/dL (50-199) H 12/30/16 23:34 LDL Cholesterol Direct 251 mg/dL (50-130) H 12/30/16 23:34 HDL Cholesterol 45 mg/dL (40-59) 12/30/16 23:34 Cholesterol/HDL Ratio 7.88 % 12/30/16 23:34 TSH 1.320 mlU/mL (0.270-4.200) 12/30/16 21:29 PTH Intact 124.4 pg/mL (15-65) H 12/31/16 03:42 Urine Color Yellow (Yellow) 12/30/16 20:47 Urine Turbidity Clear (Clear) 12/30/16 20:47 Urine pH 5.0 (5.0-7.0) 12/30/16 20:47 Ur Specific [place] 1.023 (1.003-1.030) 12/30/16 20:47 Urine Protein 100 mg/dl mg/dL (Negative) 12/30/16 20:47 Urine Glucose (UA) Neg mg/dL (Negative) 12/30/16 20:47 Urine Ketones Tr mg/dL (Negative) 12/30/16 20:47 Urine Blood Neg (Negative) 12/30/16 20:47 Urine Nitrite Neg (Negative) 12/30/16 20:47 Urine Bilirubin Neg (Negative) 12/30/16 20:47 Urine Urobilinogen 2.0 mg/dL (<2.0) 12/30/16 20:47 Ur Leukocyte Esterase Neg (Negative) 12/30/16 20:47 Urine WBC (Auto) < 1.0 /HPF (0.0-6.0) 12/30/16 20:47 Urine RBC (Auto) 1.0 /HPF (0.0-6.0) 12/30/16 20:47 U Epithel Cells (Auto) 1.0 /HPF (0-13.0) 12/30/16 20:47 Urine Bacteria (Auto) 1+ /HPF (Negative) 12/30/16 20:47 Salicylates < 0.3 mg/dL (2.8-20.0) L 12/30/16 21:29 Urine Opiates Screen Presumptive negative 12/30/16 20:47 Urine Methadone Screen Presumptive negative 12/30/16 20:47 Acetaminophen < 15.0 ug/mL (10.0-30.0) 12/30/16 21:29 Ur Barbiturates Screen Presumptive negative 12/30/16 20:47 Ur Phencyclidine Scrn Presumptive negative 12/30/16 20:47 Ur Amphetamines Screen Presumptive negative 12/30/16 20:47 U Benzodiazepines Scrn Presumptive negative 12/30/16 20:47 Urine Cocaine Screen Presumptive negative 12/30/16 20:47 U Marijuana (THC) Screen Presumptive positive 12/30/16 20:47 Drugs of Abuse Note Disclamer 12/30/16 20:47 Plasma/Serum Alcohol < 0.01 gm% (0-0.07) 12/30/16 21:29 Hepatitis A IgM Ab Non-reactive (NonReactive) 01/08/17 15:21 Hep Bs Antigen Non-reactive (Negative) 01/08/17 15:21 Hep B Core IgM Ab Non-reactive (NonReactive) 01/08/17 15:21 Hepatitis C Antibody Non-reactive (NonReactive) 01/08/17 15:21 Blood Type O NEGATIVE 01/15/17 08:04 Antibody Screen Negative 01/15/17 08:04 Crossmatch See Detail 01/15/17 08:04
[2017-01-15] MEDS ORDERED: NACL 0.9% 100 ML IV PRN (09:11)
--- NOTE | 2017-01-15 09:47 | Progress Note ---
Assessment and Plan Acute respiratory failure ventilated via trach Acute embolic CVA Extensive plaque noted in the transverse and descending thoracic aorta, some plaques are mobile Normal LVEF on IV heparin Acute drop in HCT s/p transfusion of PRBCs Hypertension Diabetes mellitus PVD Hyperlipidemia Chronic Renal insufficiency requiring renal replacement Leukocytosis Subjective Date of service: 01/15/17 Principal diagnosis: Acute CVA; Acute Respiratory Failure Interval history: s/p PEG/trach placed on 01/14. Undergoing dialysis Objective Vital Signs Temp Pulse Resp BP Pulse Ox Pulse Ox Pulse Ox 01/15/17 09:30 78 168/71 01/15/17 09:15 79 166/86 01/15/17 09:00 79 166/75 01/15/17 08:50 79 166/75 01/15/17 08:40 99.6 F 79 28 H 166/75 98 01/15/17 08:00 99 F 01/15/17 06:00 82 34 H 151/58 99 01/15/17 05:57 84 161/71 01/15/17 05:00 82 29 H 154/67 97 01/15/17 04:17 81 147/64 97 01/15/17 04:00 99.3 F 82 28 H 147/64 99 01/15/17 03:00 80 31 H 151/66 97 01/15/17 02:00 78 30 H 140/62 96 01/15/17 01:00 74 25 H 136/58 96 01/15/17 00:20 97 01/15/17 00:18 73 140/65 97 01/15/17 00:00 98.8 F 72 24 140/65 97 01/14/17 23:00 82 27 H 167/69 97 01/14/17 22:36 83 22 164/70 96 01/14/17 22:29 80 162/69 01/14/17 22:26 81 162/69 01/14/17 22:00 80 26 H 159/68 96 01/14/17 21:00 78 23 157/67 96 01/14/17 20:38 79 158/73 97 01/14/17 20:00 98.4 F 77 24 140/63 95 01/14/17 19:00 76 24 150/64 96 01/14/17 18:00 74 22 156/71 94 01/14/17 17:53 97.9 F 79 27 H 155/68 96 01/14/17 17:40 74 156/71 98 01/14/17 17:00 73 20 160/68 100 01/14/17 16:00 99.1 F 78 18 155/68 100 01/14/17 15:29 79 155/68 01/14/17 15:00 79 30 H 155/68 97 01/14/17 14:00 76 27 H 149/62 98 01/14/17 13:55 76 24 139/57 99 01/14/17 13:00 75 22 139/57 100 01/14/17 12:00 73 25 H 134/56 100 01/14/17 11:46 99.0 F 01/14/17 11:00 73 26 H 134/54 100 01/14/17 10:00 81 21 173/78 99 - Physical Examination General: Other (ventilated via trach) Cardiac: Positive: Reg Rate and Rhythm - Labs and Meds CBC 01/15/17 Range/Units 04:36 WBC 12.2 H (4.5-11.0) K/mm3 RBC 2.40 L (3.65-5.03) M/mm3 Hgb 7.0 L (10.1-14.3) gm/dl Hct 21.9 L (30.3-42.9) % Plt Count 190 (140-440) K/mm3 Comprehensive Metabolic Panel 01/15/17 Range/Units 04:36 Sodium 138 (137-145) mmol/L Potassium 4.2 (3.6-5.0) mmol/L Chloride 94.6 L (98-107) mmol/L Carbon Dioxide 23 (22-30) mmol/L BUN 53 H (7-17) mg/dL Creatinine 5.2 H (0.7-1.2) mg/dL Glucose 183 H (65-100) mg/dL Calcium 8.9 (8.4-10.2) mg/dL - Imaging and Cardiology EKG: image reviewed
--- NOTE | 2017-01-15 10:08 | Progress Note ---
Assessment and Plan - Patient Problems (1) ARF (acute renal failure) Current Visit: Yes Status: Acute Qualifiers: Acute renal failure type: A Plan to address problem: Acute kidney injury superimposed on CKD stage 3. Patient is hemodialysis dependent. No improvement in the renal function so far and patient remain oliguric. Monitor for [employer] needs and continue hemodialysis three times a week for now. Renal prognosis is guarded. (2) Hyperkalemia Current Visit: Yes Status: Acute Plan to address problem: Hyperkalemia in the setting of Acute kidney injury. Improved with hemodialysis. (3) Metabolic acidosis Current Visit: Yes Status: Acute Plan to address problem: Improved. (4) Hypertensive encephalopathy Current Visit: Yes Status: Acute (5) Respiratory failure Current Visit: Yes Status: Acute Qualifiers: Chronicity: C Respiratory failure complication: R Plan to address problem: On Vent. (6) Anemia Current Visit: Yes Status: Acute Qualifiers: Anemia type: A Iron deficiency anemia type: I Vitamin B12 deficiency anemia type: V Folate deficiency anemia type: F Bone marrow failure anemia type: B Hemolytic anemia type: H Other causes of anemia: O Chronic kidney disease stage: C Plan to address problem: Epogen. Monitor Hb. (7) Acute respiratory failure Current Visit: Yes Status: Acute Qualifiers: Respiratory failure complication: R Subjective Date of service: 01/15/17 Principal diagnosis: Acute CVA; Acute Respiratory Failure Interval history: Patient remain on the vent. Objective - Vital Signs Vital signs: Vital Signs - 12hr 01/14/17 01/14/17 01/14/17 22:26 22:29 22:36 Temperature Pulse Rate 81 80 83 Respiratory 22 Rate Blood Pressure 162/69 162/69 164/70 O2 Sat by Pulse 96 Oximetry O2 Sat by Pulse Oximetry [ Anterior Bilateral Throughout] O2 Sat by Pulse Oximetry [ Assessment] 01/14/17 01/15/17 01/15/17 23:00 00:00 00:18 Temperature 98.8 F Pulse Rate 82 72 73 Respiratory 27 H 24 Rate Blood Pressure 167/69 140/65 140/65 O2 Sat by Pulse 97 97 97 Oximetry O2 Sat by Pulse Oximetry [ Anterior Bilateral Throughout] O2 Sat by Pulse Oximetry [ Assessment] 01/15/17 01/15/17 01/15/17 00:20 01:00 02:00 Temperature Pulse Rate 74 78 Respiratory 25 H 30 H Rate Blood Pressure 136/58 140/62 O2 Sat by Pulse 96 96 Oximetry O2 Sat by Pulse Oximetry [ Anterior Bilateral Throughout] O2 Sat by Pulse 97 Oximetry [ Assessment] 01/15/17 01/15/17 01/15/17 03:00 04:00 04:17 Temperature 99.3 F Pulse Rate 80 82 81 Respiratory 31 H 28 H Rate Blood Pressure 151/66 147/64 147/64 O2 Sat by Pulse 97 99 97 Oximetry O2 Sat by Pulse Oximetry [ Anterior Bilateral Throughout] O2 Sat by Pulse Oximetry [ Assessment] 01/15/17 01/15/17 01/15/17 05:00 05:57 06:00 Temperature Pulse Rate 82 84 82 Respiratory 29 H 34 H Rate Blood Pressure 154/67 161/71 151/58 O2 Sat by Pulse 97 99 Oximetry O2 Sat by Pulse Oximetry [ Anterior Bilateral Throughout] O2 Sat by Pulse Oximetry [ Assessment] 01/15/17 01/15/17 01/15/17 08:00 08:40 08:50 Temperature 99 F 99.6 F Pulse Rate 79 79 Respiratory 28 H Rate Blood Pressure 166/75 166/75 O2 Sat by Pulse Oximetry O2 Sat by Pulse 98 Oximetry [ Anterior Bilateral Throughout] O2 Sat by Pulse Oximetry [ Assessment] 01/15/17 01/15/17 01/15/17 09:00 09:15 09:30 Temperature Pulse Rate 79 79 78 Respiratory Rate Blood Pressure 166/75 166/86 168/71 O2 Sat by Pulse Oximetry O2 Sat by Pulse Oximetry [ Anterior Bilateral Throughout] O2 Sat by Pulse Oximetry [ Assessment] - General Appearance General appearance: well-developed, appears stated age, intubated (on vent, FiO2 30%), other (right groin hemodialysis catheter noted) EENT: ATNC, PERRL Neck: supple Respiratory: Present: Clear to Ascultation Cardiology: regular, S1S2, no murmurs Gastrointestinal: normoactive bowel sounds, no tenderness, no distended Integumentary: no rash Neurologic: obtunded Musculoskeletal: other (no edema) - Lab 01/15/17 04:36 01/15/17 04:36 Most recent lab results Calcium 8.9 mg/dL (8.4-10.2) 01/15/17 04:36 Phosphorus 4.40 mg/dL (2.5-4.5) 01/11/17 04:13 Magnesium 1.90 mg/dL (1.7-2.3) 01/04/17 04:45
[2017-01-15] MEDS ORDERED: APRESOLINE FEEDTUBE SCH (10:09)
[2017-01-15] MEDS: ASPIRIN PO SCH (10:31)
[2017-01-15] MEDS: PEPCID PO SCH (10:32)
[2017-01-15] MEDS: KEPPRA PO SCH (10:32)
[2017-01-15] MEDS: LEVEMIR SUB-Q SCH (10:32)
[2017-01-15] MEDS: NORVASC PO SCH (11:30)
--- NOTE | 2017-01-15 11:33 | Progress Note ---
Assessment and Plan (1) Acute respiratory failure Current Visit: Yes Status: Acute Qualifiers: Respiratory failure complication: R Plan to address problem: - remains on MVS - tolerating daily PSV trials well however AMS is rate limiting factor to extubation - continue aspiration precautions / addressed VAP bundle - continue to wean oxygen to keep sats >/= 92% - continue GI & VTE prophylaxis - s/p trach - resumed weaning trials - will get right thoracentesis to aid weaning (2) Acute encephalopathy Current Visit: Yes Status: Acute Plan to address problem: - Hypertensive emergency component at presentation - 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 - continue supportive care - get neurology evaluation - continue secondary prevention with anti-lipid, anti-platelet, BP control therapies - for repeat MRI in am - unstable artheroma seen on JOSE likely embolic source - repeat MRI reveals new embolic stroke likely - risk-benefits weighed and started on IV heparin without bolus - repeat CT brain without hemorhagic extension / conversion - following clinically (3) ARF (acute renal failure) Current Visit: Yes Status: Acute Qualifiers: Acute renal failure type: A Plan to address problem: - seen by nephrology - making urine - started on dialysis - prescription per nephrology but still giving her a chance for renal recovery - 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 (4) Hyperkalemia Current Visit: Yes Status: Acute Plan to address problem: - corrected - continue to trend and address (5) Hypertensive encephalopathy Current Visit: Yes Status: Acute Plan to address problem: - better BP control - will target pseudo-normal / permissive HTN in short course - prn IV meds for SBP > 170mmHg (6) Seizures Current Visit: Yes Status: Acute Plan to address problem: - per sister no prior history - will continue empiric keppra (7) Anemia Current Visit: Yes Status: Acute Qualifiers: Anemia type: A Iron deficiency anemia type: I Vitamin B12 deficiency anemia type: V Folate deficiency anemia type: F Bone marrow failure anemia type: B Hemolytic anemia type: H Other causes of anemia: O Chronic kidney disease stage: C Plan to address problem: - likely dilutional element - still suspect ABLA component - sent stool guaiac (pending) - seen by GI team - continue GI prophylaxis - stable H&H (8) Healthcare maintenance Current Visit: Yes Status: Acute Plan to address problem: - on GI prophylaxis - on VTE prophylaxis - catheterr in place re: SIVA and for CCM issues acutely - glycemic control for target BG < 180mg/dl (9) NSTEMI (non-ST elevated myocardial infarction) Current Visit: Yes Status: Acute Plan to address problem: - cardiology evaluation pngoing - s/p JOSE with unstable aortic artheroma seen (10) Discharge planning issues Current Visit: Yes Status: Acute Plan to address problem: - care plan discussed at length with sister prior - to transfer to LTAC ...she remains critically ill on life sustaining interventions including MVS and at risk for further deterioration including ...30' CCT Subjective Date of service: 01/15/17 Principal diagnosis: Acute CVA; Acute Respiratory Failure Interval history: Seen and examined at bedside; 24 hour events reviewed; nursing and respiratory care staff consulted; no adverse overnight events reported to me; s/p trach and PEG; back on PSV now and tolerating well; accepted at LTAC Objective Vital Signs - 12hr 01/15/17 01/15/17 01/15/17 00:00 00:18 00:20 Temperature 98.8 F Pulse Rate 72 73 Respiratory 24 Rate Blood Pressure 140/65 140/65 O2 Sat by Pulse 97 97 Oximetry O2 Sat by Pulse Oximetry [ Anterior Bilateral Throughout] O2 Sat by Pulse 97 Oximetry [ Assessment] 01/15/17 01/15/17 01/15/17 01:00 02:00 03:00 Temperature Pulse Rate 74 78 80 Respiratory 25 H 30 H 31 H Rate Blood Pressure 136/58 140/62 151/66 O2 Sat by Pulse 96 96 97 Oximetry O2 Sat by Pulse Oximetry [ Anterior Bilateral Throughout] O2 Sat by Pulse Oximetry [ Assessment] 01/15/17 01/15/17 01/15/17 04:00 04:17 05:00 Temperature 99.3 F Pulse Rate 82 81 82 Respiratory 28 H 29 H Rate Blood Pressure 147/64 147/64 154/67 O2 Sat by Pulse 99 97 97 Oximetry O2 Sat by Pulse Oximetry [ Anterior Bilateral Throughout] O2 Sat by Pulse Oximetry [ Assessment] 01/15/17 01/15/17 01/15/17 05:57 06:00 07:00 Temperature Pulse Rate 84 82 77 Respiratory 34 H 26 H Rate Blood Pressure 161/71 151/58 148/60 O2 Sat by Pulse 99 99 Oximetry O2 Sat by Pulse Oximetry [ Anterior Bilateral Throughout] O2 Sat by Pulse Oximetry [ Assessment] 01/15/17 01/15/17 01/15/17 08:00 08:40 08:50 Temperature 99 F 99.6 F Pulse Rate 82 79 79 Respiratory 30 H 28 H Rate Blood Pressure 160/66 166/75 166/75 O2 Sat by Pulse 100 Oximetry O2 Sat by Pulse 98 Oximetry [ Anterior Bilateral Throughout] O2 Sat by Pulse Oximetry [ Assessment] 01/15/17 01/15/17 01/15/17 09:00 09:15 09:30 Temperature Pulse Rate 78 79 78 Respiratory 30 H Rate Blood Pressure 168/66 166/86 168/71 O2 Sat by Pulse 98 Oximetry O2 Sat by Pulse Oximetry [ Anterior Bilateral Throughout] O2 Sat by Pulse Oximetry [ Assessment] 01/15/17 01/15/17 01/15/17 09:45 09:50 10:00 Temperature Pulse Rate 79 77 80 Respiratory 31 H 32 H Rate Blood Pressure 162/70 179/71 173/67 O2 Sat by Pulse 98 99 Oximetry O2 Sat by Pulse Oximetry [ Anterior Bilateral Throughout] O2 Sat by Pulse Oximetry [ Assessment] 01/15/17 01/15/17 01/15/17 10:15 10:20 10:27 Temperature 99.6 F Pulse Rate 78 78 78 Respiratory 28 H Rate Blood Pressure 170/66 179/71 169/65 O2 Sat by Pulse 97 Oximetry O2 Sat by Pulse Oximetry [ Anterior Bilateral Throughout] O2 Sat by Pulse Oximetry [ Assessment] 01/15/17 01/15/17 01/15/17 10:30 10:35 10:45 Temperature 99.0 F Pulse Rate 80 78 78 Respiratory 30 H Rate Blood Pressure 179/71 178/69 178/69 O2 Sat by Pulse 98 Oximetry O2 Sat by Pulse Oximetry [ Anterior Bilateral Throughout] O2 Sat by Pulse Oximetry [ Assessment] 01/15/17 01/15/17 01/15/17 11:03 11:04 11:15 Temperature 99.0 F Pulse Rate 79 79 78 Respiratory 31 H Rate Blood Pressure 181/73 181/73 184/69 O2 Sat by Pulse 98 Oximetry O2 Sat by Pulse Oximetry [ Anterior Bilateral Throughout] O2 Sat by Pulse Oximetry [ Assessment] Constitutional: no acute distress, other (opens eyes to stimulus; not tracking) Eyes: non-icteric ENT: oropharynx moist Neck: supple, no lymphadenopathy, no JVD Effort: mildly labored Ascultation: Bilateral: diminished breath sounds, rhonchi (base) Cardiovascular: regular rate and rhythm Gastrointestinal: normoactive bowel sounds, soft, non-tender, non-distended Integumentary: normal Extremities: no cyanosis, no edema, pulses normal, no ischemia or petechiae, other (trans-metatarsal amputation) Neurologic: unable to assess Psychiatric: other (unable to access) CBC and BMP: 01/15/17 04:36 01/15/17 04:36 ABG, PT/INR, D-dimer: ABG POC ABG pH 7.595 (7.35-7.45) H 01/11/17 04:47 POC ABG pCO2 29.4 (35-45) L 01/11/17 04:47 POC ABG pO2 139 (80-105) H 01/11/17 04:47 POC ABG HCO3 28.6 01/11/17 04:47 POC ABG Total CO2 29 01/11/17 04:47 POC ABG O2 Sat 100 01/11/17 04:47 PT/INR, D-dimer PT 13.2 Sec. (12.2-14.9) 01/08/17 19:10 INR 0.95 (0.87-1.13) 01/08/17 19:10 Abnormal lab findings: Abnormal Labs 12/31/16 12/31/16 12/31/16 01:31 01:31 03:42 WBC RBC Hgb Hct RDW Plt Count Camp % (Auto) Camp # Seg Neutrophils % Seg Neutrophils # APTT Heparin Anti-Xa Level POC ABG pH POC ABG pCO2 POC ABG pO2 Sodium 146 H Potassium 5.6 H Chloride Carbon Dioxide 14 L BUN 77 H Creatinine 4.0 H Glucose 107 H POC Glucose Calcium Phosphorus Iron TIBC Total Creatine Kinase 678 H 711 H CK-MB (CK-2) 10.5 H Troponin T 0.136 H* D C-Reactive Protein Total Protein Albumin PTH Intact Crossmatch 12/31/16 12/31/16 12/31/16 03:42 06:58 06:58 WBC RBC Hgb Hct RDW Plt Count Camp % (Auto) Camp # Seg Neutrophils % Seg Neutrophils # APTT Heparin Anti-Xa Level POC ABG pH POC ABG pCO2 POC ABG pO2 Sodium 147 H Potassium 6.0 H Chloride 107.5 H Carbon Dioxide 12 L BUN 81 H Creatinine 4.6 H Glucose 183 H POC Glucose Calcium Phosphorus Iron TIBC Total Creatine Kinase 787 H CK-MB (CK-2) 10.8 H Troponin T 0.179 H* D C-Reactive Protein Total Protein Albumin PTH Intact 124.4 H Crossmatch 12/31/16 12/31/16 12/31/16 09:34 13:47 15:40 WBC RBC Hgb Hct RDW Plt Count Camp % (Auto) Camp # Seg Neutrophils % Seg Neutrophils # APTT Heparin Anti-Xa Level POC ABG pH 7.344 L POC ABG pCO2 33.0 L POC ABG pO2 340 H Sodium Potassium Chloride Carbon Dioxide BUN Creatinine Glucose POC Glucose 294 H Calcium Phosphorus Iron TIBC Total Creatine Kinase CK-MB (CK-2) Troponin T C-Reactive Protein Total Protein 6.1 L D Albumin 3.6 L PTH Intact Crossmatch 12/31/16 12/31/16 12/31/16 16:49 18:05 18:23 WBC RBC Hgb Hct RDW Plt Count Camp % (Auto) Camp # Seg Neutrophils % Seg Neutrophils # APTT Heparin Anti-Xa Level POC ABG pH 7.651 H POC ABG pCO2 23.2 L POC ABG pO2 64 L Sodium Potassium Chloride Carbon Dioxide BUN Creatinine Glucose POC Glucose 287 H 259 H Calcium Phosphorus Iron TIBC Total Creatine Kinase CK-MB (CK-2) Troponin T C-Reactive Protein Total Protein Albumin PTH Intact Crossmatch 12/31/16 01/01/17 01/01/17 23:52 05:40 06:35 WBC RBC Hgb Hct RDW Plt Count Camp % (Auto) Camp # Seg Neutrophils % Seg Neutrophils # APTT Heparin Anti-Xa Level POC ABG pH POC ABG pCO2 POC ABG pO2 Sodium Potassium Chloride 96.6 L Carbon Dioxide BUN 34 H Creatinine 3.4 H Glucose 142 H POC Glucose 182 H 168 H Calcium 7.6 L D Phosphorus Iron TIBC Total Creatine Kinase CK-MB (CK-2) Troponin T C-Reactive Protein Total Protein Albumin PTH Intact Crossmatch 01/01/17 01/01/17 01/01/17 11:54 12:24 17:10 WBC RBC Hgb Hct RDW Plt Count Camp % (Auto) Camp # Seg Neutrophils % Seg Neutrophils # APTT Heparin Anti-Xa Level POC ABG pH 7.536 H POC ABG pCO2 POC ABG pO2 149 H Sodium Potassium Chloride Carbon Dioxide BUN Creatinine Glucose POC Glucose 166 H 160 H Calcium Phosphorus Iron TIBC Total Creatine Kinase CK-MB (CK-2) Troponin T C-Reactive Protein Total Protein Albumin PTH Intact Crossmatch 01/01/17 01/02/17 01/02/17 23:31 03:35 04:01 WBC 12.0 H RBC 2.88 L Hgb 8.4 L D Hct 25.4 L D RDW 15.9 H Plt Count Camp % (Auto) Camp # Seg Neutrophils % 75.3 H Seg Neutrophils # 9.0 H APTT Heparin Anti-Xa Level POC ABG pH 7.551 H POC ABG pCO2 33.7 L POC ABG pO2 Sodium Potassium Chloride Carbon Dioxide BUN Creatinine Glucose POC Glucose 232 H Calcium Phosphorus Iron TIBC Total Creatine Kinase CK-MB (CK-2) Troponin T C-Reactive Protein Total Protein Albumin PTH Intact Crossmatch 01/02/17 01/02/17 01/02/17 04:01 05:09 12:28 WBC RBC Hgb Hct RDW Plt Count Camp % (Auto) Camp # Seg Neutrophils % Seg Neutrophils # APTT Heparin Anti-Xa Level POC ABG pH POC ABG pCO2 POC ABG pO2 Sodium Potassium Chloride 93.3 L Carbon Dioxide BUN 44 H Creatinine 5.1 H Glucose 208 H POC Glucose 343 H 197 H Calcium 7.7 L Phosphorus Iron TIBC Total Creatine Kinase CK-MB (CK-2) Troponin T C-Reactive Protein Total Protein 6.1 L Albumin 3.1 L PTH Intact Crossmatch 01/02/17 01/02/17 01/02/17 12:40 17:52 18:40 WBC RBC Hgb Hct RDW Plt Count Camp % (Auto) Camp # Seg Neutrophils % Seg Neutrophils # APTT Heparin Anti-Xa Level POC ABG pH POC ABG pCO2 POC ABG pO2 Sodium Potassium Chloride Carbon Dioxide BUN Creatinine Glucose POC Glucose 296 H 53 L 172 H Calcium Phosphorus Iron TIBC Total Creatine Kinase CK-MB (CK-2) Troponin T C-Reactive Protein Total Protein Albumin PTH Intact Crossmatch 01/02/17 01/03/17 01/03/17 23:57 03:44 03:44 WBC RBC 2.52 L Hgb 7.6 L Hct 22.5 L RDW 15.4 H Plt Count Camp % (Auto) Camp # Seg Neutrophils % 70.5 H Seg Neutrophils # APTT Heparin Anti-Xa Level POC ABG pH POC ABG pCO2 POC ABG pO2 Sodium Potassium Chloride 92.2 L Carbon Dioxide BUN 58 H Creatinine 6.2 H Glucose 147 H POC Glucose 248 H Calcium 7.4 L Phosphorus 5.90 H Iron TIBC Total Creatine Kinase CK-MB (CK-2) Troponin T C-Reactive Protein Total Protein Albumin PTH Intact Crossmatch 01/03/17 01/03/17 01/03/17 05:41 11:51 17:33 WBC RBC Hgb Hct RDW Plt Count Camp % (Auto) Camp # Seg Neutrophils % Seg Neutrophils # APTT Heparin Anti-Xa Level POC ABG pH POC ABG pCO2 POC ABG pO2 Sodium Potassium Chloride Carbon Dioxide BUN Creatinine Glucose POC Glucose 190 H 258 H 197 H Calcium Phosphorus Iron TIBC Total Creatine Kinase CK-MB (CK-2) Troponin T C-Reactive Protein Total Protein Albumin PTH Intact Crossmatch 01/03/17 01/03/17 01/04/17 21:38 23:50 04:45 WBC 12.7 H RBC 2.48 L Hgb 7.2 L Hct 22.5 L RDW 15.5 H Plt Count Camp % (Auto) Camp # Seg Neutrophils % 74.0 H Seg Neutrophils # 9.4 H APTT Heparin Anti-Xa Level POC ABG pH 7.551 H POC ABG pCO2 34.0 L POC ABG pO2 74 L Sodium Potassium Chloride Carbon Dioxide BUN Creatinine Glucose POC Glucose 189 H Calcium Phosphorus Iron TIBC Total Creatine Kinase CK-MB (CK-2) Troponin T C-Reactive Protein Total Protein Albumin PTH Intact Crossmatch 01/04/17 01/04/17 01/04/17 04:45 05:59 09:53 WBC RBC Hgb Hct RDW Plt Count Camp % (Auto) Camp # Seg Neutrophils % Seg Neutrophils # APTT Heparin Anti-Xa Level POC ABG pH 7.550 H POC ABG pCO2 32.9 L POC ABG pO2 64 L Sodium 136 L Potassium Chloride 91.2 L Carbon Dioxide BUN 71 H Creatinine 6.4 H Glucose 167 H POC Glucose 203 H Calcium 7.8 L Phosphorus 6.50 H Iron TIBC Total Creatine Kinase 547 H CK-MB (CK-2) Troponin T C-Reactive Protein Total Protein 5.6 L Albumin 2.7 L PTH Intact Crossmatch 01/04/17 01/04/17 01/04/17 12:15 17:37 23:41 WBC RBC Hgb Hct RDW Plt Count Camp % (Auto) Camp # Seg Neutrophils % Seg Neutrophils # APTT Heparin Anti-Xa Level POC ABG pH POC ABG pCO2 POC ABG pO2 Sodium Potassium Chloride Carbon Dioxide BUN Creatinine Glucose POC Glucose 228 H 225 H 231 H Calcium Phosphorus Iron TIBC Total Creatine Kinase CK-MB (CK-2) Troponin T C-Reactive Protein Total Protein Albumin PTH Intact Crossmatch 01/05/17 01/05/17 01/05/17 04:40 04:40 05:24 WBC 11.3 H RBC 2.41 L Hgb 7.1 L Hct 21.6 L RDW 15.7 H Plt Count 138 L Camp % (Auto) 7.7 H Camp # 0.9 H Seg Neutrophils % 71.2 H Seg Neutrophils # 8.0 H APTT Heparin Anti-Xa Level POC ABG pH POC ABG pCO2 POC ABG pO2 Sodium 133 L Potassium 3.5 L Chloride 88.7 L Carbon Dioxide BUN 82 H Creatinine 6.5 H Glucose 137 H POC Glucose 175 H Calcium 7.8 L Phosphorus Iron 22 L TIBC 183 L Total Creatine Kinase 312 H CK-MB (CK-2) Troponin T C-Reactive Protein Total Protein Albumin PTH Intact Crossmatch 01/05/17 01/05/17 01/05/17 09:34 11:12 17:33 WBC RBC Hgb Hct RDW Plt Count Camp % (Auto) Camp # Seg Neutrophils % Seg Neutrophils # APTT Heparin Anti-Xa Level POC ABG pH 7.531 H POC ABG pCO2 34.4 L POC ABG pO2 57 L Sodium Potassium Chloride Carbon Dioxide BUN Creatinine Glucose POC Glucose 188 H 222 H Calcium Phosphorus Iron TIBC Total Creatine Kinase CK-MB (CK-2) Troponin T C-Reactive Protein Total Protein Albumin PTH Intact Crossmatch 01/05/17 01/06/17 01/06/17 23:24 03:15 05:20 WBC 11.2 H RBC 2.28 L Hgb 6.9 L Hct 20.7 L RDW 15.6 H Plt Count Camp % (Auto) 7.7 H Camp # 0.9 H Seg Neutrophils % 78.2 H Seg Neutrophils # 8.7 H APTT Heparin Anti-Xa Level POC ABG pH 7.566 H POC ABG pCO2 31.9 L POC ABG pO2 60 L Sodium Potassium Chloride Carbon Dioxide BUN Creatinine Glucose POC Glucose 223 H Calcium Phosphorus Iron TIBC Total Creatine Kinase CK-MB (CK-2) Troponin T C-Reactive Protein Total Protein Albumin PTH Intact Crossmatch 01/06/17 01/06/17 01/06/17 05:20 05:27 11:54 WBC RBC Hgb Hct RDW Plt Count Camp % (Auto) Camp # Seg Neutrophils % Seg Neutrophils # APTT Heparin Anti-Xa Level POC ABG pH POC ABG pCO2 POC ABG pO2 Sodium Potassium Chloride 93.7 L Carbon Dioxide BUN 40 H Creatinine 3.6 H Glucose 191 H POC Glucose 244 H 184 H Calcium Phosphorus Iron TIBC Total Creatine Kinase CK-MB (CK-2) Troponin T C-Reactive Protein Total Protein Albumin PTH Intact Crossmatch 01/06/17 01/06/17 01/06/17 17:39 19:00 23:57 WBC RBC Hgb Hct RDW Plt Count Camp % (Auto) Camp # Seg Neutrophils % Seg Neutrophils # APTT Heparin Anti-Xa Level POC ABG pH POC ABG pCO2 POC ABG pO2 Sodium Potassium Chloride Carbon Dioxide BUN Creatinine Glucose POC Glucose 167 H 191 H Calcium Phosphorus Iron TIBC Total Creatine Kinase CK-MB (CK-2) Troponin T C-Reactive Protein Total Protein Albumin PTH Intact Crossmatch See Detail 01/07/17 01/07/17 01/07/17 04:05 05:32 08:14 WBC 11.5 H RBC 2.98 L Hgb 8.8 L Hct 26.5 L RDW 16.3 H Plt Count Camp % (Auto) 8.8 H Camp # 1.0 H Seg Neutrophils % 70.4 H Seg Neutrophils # 8.1 H APTT Heparin Anti-Xa Level POC ABG pH 7.538 H POC ABG pCO2 34.7 L POC ABG pO2 60 L Sodium Potassium Chloride Carbon Dioxide BUN Creatinine Glucose POC Glucose 139 H Calcium Phosphorus Iron TIBC Total Creatine Kinase CK-MB (CK-2) Troponin T C-Reactive Protein Total Protein Albumin PTH Intact Crossmatch 01/07/17 01/07/17 01/07/17 08:14 11:52 18:19 WBC RBC Hgb Hct RDW Plt Count Camp % (Auto) Camp # Seg Neutrophils % Seg Neutrophils # APTT Heparin Anti-Xa Level POC ABG pH POC ABG pCO2 POC ABG pO2 Sodium Potassium Chloride 93.8 L Carbon Dioxide BUN 55 H Creatinine 4.7 H Glucose 161 H POC Glucose 205 H 178 H Calcium Phosphorus 5.00 H Iron TIBC Total Creatine Kinase CK-MB (CK-2) Troponin T C-Reactive Protein Total Protein Albumin PTH Intact Crossmatch 01/07/17 01/08/17 01/08/17 23:43 05:30 05:30 WBC 13.0 H RBC 2.90 L Hgb 8.8 L Hct 26.0 L RDW 16.5 H Plt Count 133 L Camp % (Auto) Camp # Seg Neutrophils % Seg Neutrophils # APTT Heparin Anti-Xa Level POC ABG pH POC ABG pCO2 POC ABG pO2 Sodium Potassium Chloride 96.8 L Carbon Dioxide BUN 65 H Creatinine 5.1 H Glucose 136 H POC Glucose 153 H Calcium 7.9 L Phosphorus Iron TIBC Total Creatine Kinase CK-MB (CK-2) Troponin T C-Reactive Protein Total Protein Albumin PTH Intact Crossmatch 01/08/17 01/08/17 01/08/17 05:57 11:40 18:11 WBC RBC Hgb Hct RDW Plt Count Camp % (Auto) Camp # Seg Neutrophils % Seg Neutrophils # APTT Heparin Anti-Xa Level POC ABG pH POC ABG pCO2 POC ABG pO2 Sodium Potassium Chloride Carbon Dioxide BUN Creatinine Glucose POC Glucose 165 H 152 H 167 H Calcium Phosphorus Iron TIBC Total Creatine Kinase CK-MB (CK-2) Troponin T C-Reactive Protein Total Protein Albumin PTH Intact Crossmatch 01/08/17 01/08/17 01/08/17 19:10 19:10 23:50 WBC RBC Hgb 8.6 L Hct 26.4 L RDW Plt Count Camp % (Auto) Camp # Seg Neutrophils % Seg Neutrophils # APTT < 20.0 L Heparin Anti-Xa Level POC ABG pH POC ABG pCO2 POC ABG pO2 Sodium Potassium Chloride Carbon Dioxide BUN Creatinine Glucose POC Glucose 136 H Calcium Phosphorus Iron TIBC Total Creatine Kinase CK-MB (CK-2) Troponin T C-Reactive Protein Total Protein Albumin PTH Intact Crossmatch 01/09/17 01/09/17 01/09/17 04:00 04:00 04:00 WBC 12.3 H RBC 2.87 L Hgb 8.3 L Hct 26.3 L RDW 16.6 H Plt Count Camp % (Auto) 8.7 H Camp # 1.1 H Seg Neutrophils % Seg Neutrophils # 8.4 H APTT Heparin Anti-Xa Level 0.15 L POC ABG pH POC ABG pCO2 POC ABG pO2 Sodium 135 L Potassium Chloride 93.9 L Carbon Dioxide BUN 38 H Creatinine 3.4 H Glucose 158 H POC Glucose Calcium 8.2 L Phosphorus Iron TIBC Total Creatine Kinase CK-MB (CK-2) Troponin T C-Reactive Protein Total Protein Albumin PTH Intact Crossmatch 01/09/17 01/09/17 01/09/17 05:21 11:35 17:43 WBC RBC Hgb Hct RDW Plt Count Camp % (Auto) Camp # Seg Neutrophils % Seg Neutrophils # APTT Heparin Anti-Xa Level POC ABG pH POC ABG pCO2 POC ABG pO2 Sodium Potassium Chloride Carbon Dioxide BUN Creatinine Glucose POC Glucose 190 H 182 H 157 H Calcium Phosphorus Iron TIBC Total Creatine Kinase CK-MB (CK-2) Troponin T C-Reactive Protein Total Protein Albumin PTH Intact Crossmatch 01/09/17 01/10/17 01/10/17 23:38 04:00 04:00 WBC RBC Hgb 8.3 L Hct 25.9 L RDW Plt Count Camp % (Auto) Camp # Seg Neutrophils % Seg Neutrophils # APTT Heparin Anti-Xa Level POC ABG pH POC ABG pCO2 POC ABG pO2 Sodium 136 L Potassium Chloride 91.2 L Carbon Dioxide BUN 51 H Creatinine 4.4 H Glucose 181 H POC Glucose 165 H Calcium Phosphorus Iron TIBC Total Creatine Kinase CK-MB (CK-2) Troponin T C-Reactive Protein Total Protein Albumin PTH Intact Crossmatch 01/10/17 01/10/17 01/10/17 05:02 12:14 12:15 WBC RBC Hgb Hct RDW Plt Count Camp % (Auto) Camp # Seg Neutrophils % Seg Neutrophils # APTT Heparin Anti-Xa Level 0.14 L POC ABG pH POC ABG pCO2 POC ABG pO2 Sodium Potassium Chloride Carbon Dioxide BUN Creatinine Glucose POC Glucose 211 H 158 H Calcium Phosphorus Iron TIBC Total Creatine Kinase CK-MB (CK-2) Troponin T C-Reactive Protein Total Protein Albumin PTH Intact Crossmatch 01/10/17 01/10/17 01/11/17 17:43 23:34 02:00 WBC RBC Hgb Hct RDW Plt Count Camp % (Auto) Camp # Seg Neutrophils % Seg Neutrophils # APTT Heparin Anti-Xa Level POC ABG pH POC ABG pCO2 POC ABG pO2 Sodium Potassium Chloride Carbon Dioxide BUN Creatinine Glucose POC Glucose 178 H 164 H 166 H Calcium Phosphorus Iron TIBC Total Creatine Kinase CK-MB (CK-2) Troponin T C-Reactive Protein Total Protein Albumin PTH Intact Crossmatch 01/11/17 01/11/17 01/11/17 04:13 04:47 05:33 WBC RBC Hgb Hct RDW Plt Count Camp % (Auto) Camp # Seg Neutrophils % Seg Neutrophils # APTT Heparin Anti-Xa Level POC ABG pH 7.595 H POC ABG pCO2 29.4 L POC ABG pO2 139 H Sodium 133 L Potassium Chloride 91.0 L Carbon Dioxide BUN 63 H Creatinine 5.1 H Glucose 147 H POC Glucose 166 H Calcium Phosphorus Iron TIBC Total Creatine Kinase CK-MB (CK-2) Troponin T C-Reactive Protein Total Protein Albumin PTH Intact Crossmatch 01/11/17 01/11/17 01/12/17 11:45 17:40 00:08 WBC RBC Hgb Hct RDW Plt Count Camp % (Auto) Camp # Seg Neutrophils % Seg Neutrophils # APTT Heparin Anti-Xa Level POC ABG pH POC ABG pCO2 POC ABG pO2 Sodium Potassium Chloride Carbon Dioxide BUN Creatinine Glucose POC Glucose 173 H 134 H 174 H Calcium Phosphorus Iron TIBC Total Creatine Kinase CK-MB (CK-2) Troponin T C-Reactive Protein Total Protein Albumin PTH Intact Crossmatch 01/12/17 01/12/17 01/12/17 04:00 04:00 05:03 WBC RBC Hgb 7.8 L Hct 24.3 L RDW Plt Count Camp % (Auto) Camp # Seg Neutrophils % Seg Neutrophils # APTT Heparin Anti-Xa Level POC ABG pH POC ABG pCO2 POC ABG pO2 Sodium 133 L Potassium Chloride 92.3 L Carbon Dioxide BUN 37 H Creatinine 3.5 H Glucose 137 H POC Glucose 176 H Calcium Phosphorus Iron TIBC Total Creatine Kinase CK-MB (CK-2) Troponin T C-Reactive Protein Total Protein Albumin PTH Intact Crossmatch 01/12/17 01/12/17 01/12/17 11:53 13:21 17:19 WBC RBC Hgb Hct RDW Plt Count Camp % (Auto) Camp # Seg Neutrophils % Seg Neutrophils # APTT Heparin Anti-Xa Level < 0.10 L POC ABG pH POC ABG pCO2 POC ABG pO2 Sodium Potassium Chloride Carbon Dioxide BUN Creatinine Glucose POC Glucose 152 H 139 H Calcium Phosphorus Iron TIBC Total Creatine Kinase CK-MB (CK-2) Troponin T C-Reactive Protein Total Protein Albumin PTH Intact Crossmatch 01/12/17 01/12/17 01/13/17 20:55 23:38 04:56 WBC RBC Hgb Hct RDW Plt Count Camp % (Auto) Camp # Seg Neutrophils % Seg Neutrophils # APTT Heparin Anti-Xa Level 0.14 L POC ABG pH POC ABG pCO2 POC ABG pO2 Sodium Potassium Chloride Carbon Dioxide BUN Creatinine Glucose POC Glucose 152 H 160 H Calcium Phosphorus Iron TIBC Total Creatine Kinase CK-MB (CK-2) Troponin T C-Reactive Protein Total Protein Albumin PTH Intact Crossmatch 01/13/17 01/13/17 01/13/17 05:00 05:00 12:06 WBC 12.5 H RBC 2.54 L Hgb 7.5 L Hct 23.1 L RDW 16.7 H Plt Count Camp % (Auto) Camp # Seg Neutrophils % Seg Neutrophils # APTT Heparin Anti-Xa Level POC ABG pH POC ABG pCO2 POC ABG pO2 Sodium Potassium 3.5 L Chloride Carbon Dioxide 19 L BUN 44 H Creatinine 3.7 H Glucose 124 H POC Glucose 142 H Calcium 6.6 L D Phosphorus Iron TIBC Total Creatine Kinase CK-MB (CK-2) Troponin T C-Reactive Protein Total Protein Albumin PTH Intact Crossmatch 01/13/17 01/13/17 01/13/17 17:24 20:00 23:44 WBC RBC Hgb Hct RDW Plt Count Camp % (Auto) Camp # Seg Neutrophils % Seg Neutrophils # APTT Heparin Anti-Xa Level 0.19 L POC ABG pH POC ABG pCO2 POC ABG pO2 Sodium Potassium Chloride Carbon Dioxide BUN Creatinine Glucose POC Glucose 193 H 204 H Calcium Phosphorus Iron TIBC Total Creatine Kinase CK-MB (CK-2) Troponin T C-Reactive Protein Total Protein Albumin PTH Intact Crossmatch 01/14/17 01/14/17 01/14/17 05:00 05:00 05:06 WBC 17.0 H RBC 2.58 L Hgb 7.7 L Hct 23.5 L RDW 16.8 H Plt Count Camp % (Auto) Camp # Seg Neutrophils % Seg Neutrophils # APTT Heparin Anti-Xa Level POC ABG pH POC ABG pCO2 POC ABG pO2 Sodium 135 L Potassium Chloride 93.4 L Carbon Dioxide BUN 37 H Creatinine 3.5 H Glucose 180 H POC Glucose 197 H Calcium Phosphorus Iron TIBC Total Creatine Kinase CK-MB (CK-2) Troponin T C-Reactive Protein Total Protein Albumin PTH Intact Crossmatch 01/14/17 01/14/17 01/14/17 09:50 11:23 16:39 WBC RBC Hgb Hct RDW Plt Count Camp % (Auto) Camp # Seg Neutrophils % Seg Neutrophils # APTT Heparin Anti-Xa Level POC ABG pH POC ABG pCO2 POC ABG pO2 Sodium Potassium Chloride Carbon Dioxide BUN Creatinine Glucose POC Glucose 143 H 146 H Calcium Phosphorus Iron TIBC Total Creatine Kinase CK-MB (CK-2) Troponin T C-Reactive Protein 25.60 H Total Protein Albumin PTH Intact Crossmatch 01/14/17 01/14/17 01/14/17 18:09 19:35 23:46 WBC RBC Hgb Hct RDW Plt Count Camp % (Auto) Camp # Seg Neutrophils % Seg Neutrophils # APTT Heparin Anti-Xa Level 0.11 L POC ABG pH POC ABG pCO2 POC ABG pO2 Sodium Potassium Chloride Carbon Dioxide BUN Creatinine Glucose POC Glucose 166 H 148 H Calcium Phosphorus Iron TIBC Total Creatine Kinase CK-MB (CK-2) Troponin T C-Reactive Protein Total Protein Albumin PTH Intact Crossmatch 01/15/17 01/15/17 01/15/17 04:36 04:36 04:36 WBC 12.2 H RBC 2.40 L Hgb 7.0 L Hct 21.9 L RDW 17.1 H Plt Count Camp % (Auto) Camp # Seg Neutrophils % Seg Neutrophils # APTT Heparin Anti-Xa Level < 0.10 L POC ABG pH POC ABG pCO2 POC ABG pO2 Sodium Potassium Chloride 94.6 L Carbon Dioxide BUN 53 H Creatinine 5.2 H Glucose 183 H POC Glucose Calcium Phosphorus Iron TIBC Total Creatine Kinase 233 H CK-MB (CK-2) Troponin T C-Reactive Protein Total Protein Albumin PTH Intact Crossmatch 01/15/17 01/15/17 05:52 08:04 WBC RBC Hgb Hct RDW Plt Count Camp % (Auto) Camp # Seg Neutrophils % Seg Neutrophils # APTT Heparin Anti-Xa Level POC ABG pH POC ABG pCO2 POC ABG pO2 Sodium Potassium Chloride Carbon Dioxide BUN Creatinine Glucose POC Glucose 164 H Calcium Phosphorus Iron TIBC Total Creatine Kinase CK-MB (CK-2) Troponin T C-Reactive Protein Total Protein Albumin PTH Intact Crossmatch See Detail Chest x-ray: image reviewed
[2017-01-15] MEDS: HEPARIN IV PRN (12:27)
[2017-01-15] MEDS: NORMODYNE PO SCH (12:53)
[2017-01-15] MEDS ORDERED: ASPIRIN PO SCH (12:54)
[2017-01-15] MEDS ORDERED: HALFPRIN EC PO SCH (14:00)
[2017-01-15] MEDS ORDERED: APRESOLINE PO SCH (14:00)
[2017-01-15 14:05] LABS: INR 1.32 (0.87-1.13); INR 1.33 (0.87-1.13)
--- NOTE | 2017-01-15 14:08 | Discharge Summary ---
Providers - Providers Date of Admission: 12/30/16 23:56 Date of discharge: 01/15/17 Attending physician: CAMMIE DORSEY 12/31/16 09:50 Speech Therapy Evaluation and Treat [CONS] Routine Reason For Exam: failed swallow 12/31/16 10:05 Consult to Interventional Radiology [CONS] Urgent Consulting Provider: MANUELA MAXWELL Reason For Exam: Hemodialysis catheter placement. Notified:: Marquis Was contact made?: Yes 01/02/17 11:56 Consult to Physician [CONS] Routine Consulting Provider: KAYLA BRIGHT Reason For Exam: JOSE for poss embilic stroke Place consult to:: Dr. Bright Notified:: Daphne Phone number called:: [phone] Was contact made?: Yes If yes, spoke with:: Daphne Time called:: 11:56 01/04/17 12:09 Consult to Physician [CONS] Urgent Consulting Provider: VIOLETA PORRAS Reason For Exam: Acute CVA Place consult to:: Dr Porras Notified:: yes Was contact made?: Yes Comment:: Added to list per protocol 01/04/17 12:10 Consult to Physician [CONS] Urgent Consulting Provider: JACK WOLF Reason For Exam: anemia Place consult to:: Dr Wolf - [facility] Notified:: yes Was contact made?: Yes 01/04/17 14:29 Consult to Physician [CONS] Urgent Consulting Provider: KAYLA BRIGHT Reason For Exam: nstemi Place consult to:: Dr Alejandro Notified:: yes Phone number called:: [phone] Was contact made?: Yes If yes, spoke with:: Answering service Time called:: 18:51 01/11/17 12:10 Consult to Physician [CONS] Urgent Consulting Provider: Nia BLACK Reason For Exam: trach and PEG Place consult to:: Answering service Notified:: yes by answering machine Phone number called:: [phone] Was contact made?: No If yes, spoke with:: left message on answering machine Time called:: 12:19 Primary care physician: JOCELYNE LEE Hospitalization Condition: Fair Disposition: [id number]/[place]-70 ANOTHER TYPE HLTHCARE Core Measure Documentation - Palliative Care Palliative Care/ Comfort Measures: Not Applicable - Core Measures Any of the following diagnoses?: none Exam - Constitutional Vitals: Temp Pulse Resp BP Pulse Ox 98.6 F 71 26 H 139/61 98 01/15/17 12:23 01/15/17 13:00 01/15/17 13:00 01/15/17 13:00 01/15/17 13:00 Plan Activity: advance as tolerated Diet: other (Tube feeding diet) Additional Instructions: 1.Continue Heparin drip until INR 2-3. Follow up with: PRIMARY CARE, [Referring] - 3-5 Days Prescriptions: hydrALAZINE [Apresoline TAB] 100 mg PO TID #90 tab levETIRAcetam [Keppra TAB] 500 mg FEEDTUBE BID #60 tablet Warfarin [Coumadin] 5 mg PO QDAY #30 tablet
--- NOTE | 2017-01-15 15:10 | XRay Report ---
Portable chest: There are congestive changes with a borderline sized heart. There is a right pleural effusion. No pulmonary opacities otherwise identified. Tracheostomy tube in good position. Compared to prior examination of January 14 and considering rotational differences there are no significant changes. Impression: Findings consistent with fluid overload and probable cardiac decompensation.
[2017-01-15 15:26] LABS: ISTAT Base Excess 4; ISTAT HCO3 26.8; ISTAT PCO2 31.5 (35-45); ISTAT PH 7.538 (7.35-7.45); ISTAT PO2 65 (80-105); ISTAT SO2 95; ISTAT TCO2 28
--- NOTE | 2017-01-15 15:47 | Progress Note ---
Assessment and Plan Patient is doing adequate postoperatively. No further surgical intervention is needed at this time. We'll sign off. Continue supportive care. Please call for any questions. Subjective Date of service: 01/15/17 Patient Reports: Positive: other (status post trach and PEG) Objective Vital Signs - 12hr 01/15/17 01/15/17 01/15/17 04:00 04:17 05:00 Temperature 99.3 F Pulse Rate 82 81 82 Respiratory 35 H 29 H Rate Blood Pressure 147/64 147/64 154/67 O2 Sat by Pulse 97 97 97 Oximetry O2 Sat by Pulse Oximetry [ Anterior Bilateral Throughout] 01/15/17 01/15/17 01/15/17 05:57 06:00 07:00 Temperature Pulse Rate 84 82 77 Respiratory 34 H 26 H Rate Blood Pressure 161/71 151/58 148/60 O2 Sat by Pulse 99 99 Oximetry O2 Sat by Pulse Oximetry [ Anterior Bilateral Throughout] 01/15/17 01/15/17 01/15/17 08:00 08:40 08:50 Temperature 99 F 99.6 F Pulse Rate 82 79 79 Respiratory 30 H 28 H Rate Blood Pressure 160/66 166/75 166/75 O2 Sat by Pulse 100 Oximetry O2 Sat by Pulse 98 Oximetry [ Anterior Bilateral Throughout] 01/15/17 01/15/17 01/15/17 09:00 09:15 09:30 Temperature Pulse Rate 78 79 78 Respiratory 30 H Rate Blood Pressure 168/66 166/86 168/71 O2 Sat by Pulse 98 Oximetry O2 Sat by Pulse Oximetry [ Anterior Bilateral Throughout] 01/15/17 01/15/17 01/15/17 09:45 09:50 10:00 Temperature Pulse Rate 79 77 77 Respiratory 31 H 32 H Rate Blood Pressure 162/70 179/71 173/67 O2 Sat by Pulse 98 99 Oximetry O2 Sat by Pulse Oximetry [ Anterior Bilateral Throughout] 01/15/17 01/15/17 01/15/17 10:15 10:20 10:27 Temperature 99.6 F Pulse Rate 78 78 78 Respiratory 28 H Rate Blood Pressure 170/66 179/71 169/65 O2 Sat by Pulse 97 Oximetry O2 Sat by Pulse Oximetry [ Anterior Bilateral Throughout] 01/15/17 01/15/17 01/15/17 10:30 10:35 10:45 Temperature 99.0 F Pulse Rate 80 78 78 Respiratory 30 H Rate Blood Pressure 179/71 178/69 178/69 O2 Sat by Pulse 98 Oximetry O2 Sat by Pulse Oximetry [ Anterior Bilateral Throughout] 01/15/17 01/15/17 01/15/17 11:00 11:03 11:04 Temperature 99.0 F Pulse Rate 79 79 79 Respiratory 28 H 31 H Rate Blood Pressure 181/73 181/73 181/73 O2 Sat by Pulse 98 98 Oximetry O2 Sat by Pulse Oximetry [ Anterior Bilateral Throughout] 01/15/17 01/15/17 01/15/17 11:15 11:30 11:32 Temperature Pulse Rate 78 77 77 Respiratory Rate Blood Pressure 184/69 184/69 172/67 O2 Sat by Pulse Oximetry O2 Sat by Pulse Oximetry [ Anterior Bilateral Throughout] 01/15/17 01/15/17 01/15/17 11:46 11:50 12:00 Temperature 98.6 F Pulse Rate 73 71 71 Respiratory 29 H 31 H Rate Blood Pressure 154/64 139/61 155/64 O2 Sat by Pulse 98 99 Oximetry O2 Sat by Pulse Oximetry [ Anterior Bilateral Throughout] 01/15/17 01/15/17 01/15/17 12:10 12:23 12:53 Temperature 98.6 F Pulse Rate 74 77 Respiratory 29 H 27 H Rate Blood Pressure 154/65 184/69 O2 Sat by Pulse 97 Oximetry O2 Sat by Pulse 96 Oximetry [ Anterior Bilateral Throughout] 01/15/17 13:00 Temperature Pulse Rate 71 Respiratory 26 H Rate Blood Pressure 139/61 O2 Sat by Pulse 98 Oximetry O2 Sat by Pulse Oximetry [ Anterior Bilateral Throughout] - General physical appearance no distress - Respiratory normal respiratory effort - Abdomen soft, not tender, other (2 feet started) - Labs 01/15/17 04:36 01/15/17 04:36 Diabetes panel 01/15/17 Range/Units 04:36 Sodium 138 (137-145) mmol/L Potassium 4.2 (3.6-5.0) mmol/L Chloride 94.6 L (98-107) mmol/L Carbon Dioxide 23 (22-30) mmol/L BUN 53 H (7-17) mg/dL Creatinine 5.2 H (0.7-1.2) mg/dL Glucose 183 H (65-100) mg/dL Calcium 8.9 (8.4-10.2) mg/dL Calcium panel 01/15/17 Range/Units 04:36 Calcium 8.9 (8.4-10.2) mg/dL Pituitary panel 01/15/17 Range/Units 04:36 Sodium 138 (137-145) mmol/L Potassium 4.2 (3.6-5.0) mmol/L Chloride 94.6 L (98-107) mmol/L Carbon Dioxide 23 (22-30) mmol/L BUN 53 H (7-17) mg/dL Creatinine 5.2 H (0.7-1.2) mg/dL Glucose 183 H (65-100) mg/dL Calcium 8.9 (8.4-10.2) mg/dL Adrenal panel 01/15/17 Range/Units 04:36 Sodium 138 (137-145) mmol/L Potassium 4.2 (3.6-5.0) mmol/L Chloride 94.6 L (98-107) mmol/L Carbon Dioxide 23 (22-30) mmol/L BUN 53 H (7-17) mg/dL Creatinine 5.2 H (0.7-1.2) mg/dL Glucose 183 H (65-100) mg/dL Calcium 8.9 (8.4-10.2) mg/dL
[2017-01-15] MEDS ORDERED: COUMADIN PO SCH (17:00)
[2017-01-15 21:43] VITALS: BP 159/67
--- NOTE | 2017-01-16 13:54 | Consultation ---
This EEG shows a background rhythm trauma which consists of low amplitude theta activity. EEG is symmetrical throughout. No spike wave activity is noted. No spike wave foci are present. This EEG is slow, but does not show evidence of epileptiform activity. IMPRESSION: Grade 4 encephalopathic changes related to generalized slowing. JOB# [id number] MEGHAN/NTS
== END 2017-01-15 21:44 | DRG 4 ==
LOC: ED 20:28 → CC1 23:56
PROVIDERS: ADMIT Internal Medicine; ATTEND Internal Medicine
PROC: 5A1955Z Respiratory Ventilation, Greater than 96 Consecutive Hours (ICD-10-PCS; principal; 2016-12-30)
PROC: 30233N1 Transfusion of Nonautologous Red Blood Cells into Peripheral Vein, Percutaneous Approach (ICD-10-PCS; 2016-12-30)
PROC: 0BH17EZ Insertion of Endotracheal Airway into Trachea, Via Natural or Artificial Opening (ICD-10-PCS; 2016-12-30)
PROC: 4A033R1 Measurement of Arterial Saturation, Peripheral, Percutaneous Approach (ICD-10-PCS; 2016-12-30)
PROC: 5A1D60Z (ICD-10-PCS; 2016-12-30)
PROC: 02HV33Z Insertion of Infusion Device into Superior Vena Cava, Percutaneous Approach (ICD-10-PCS; 2016-12-31)
PROC: B548ZZA Ultrasonography of Superior Vena Cava, Guidance (ICD-10-PCS; 2016-12-31)
PROC: 0B113F4 Bypass Trachea to Cutaneous with Tracheostomy Device, Percutaneous Approach (ICD-10-PCS; 2017-01-14)
PROC: 0DH63UZ Insertion of Feeding Device into Stomach, Percutaneous Approach (ICD-10-PCS; 2017-01-14)
DX: I63.10 Cerebral infarction due to embolism of unspecified precerebral artery (principal); G92 Toxic encephalopathy; J96.01 Acute respiratory failure with hypoxia; I21.4 Non-ST elevation (NSTEMI) myocardial infarction; N17.9 Acute kidney failure, unspecified; M62.82 Rhabdomyolysis; G93.1 Anoxic brain damage, not elsewhere classified; E78.5 Hyperlipidemia, unspecified; G43.909 Migraine, unspecified, not intractable, without status migrainosus; E87.5 Hyperkalemia; F17.210 Nicotine dependence, cigarettes, uncomplicated; E11.22 Type 2 diabetes mellitus with diabetic chronic kidney disease; I11.0 Hypertensive heart disease with heart failure; F12.10 Cannabis abuse, uncomplicated; I73.9 Peripheral vascular disease, unspecified; D64.9 Anemia, unspecified; D72.829 Elevated white blood cell count, unspecified; N18.3 Chronic kidney disease, stage 3 (moderate); Z90.710 Acquired absence of both cervix and uterus; Z89.422 Acquired absence of other left toe(s); Z79.899 Other long term (current) drug therapy; Z82.49 Family history of ischemic heart disease and other diseases of the circulatory system
CPT/HCPCS: 36415; 36430; 36600; 70450; 70544; 70551; 71010; 72125; 74000; 76770; 80048; 80053; 80061; 80074; 80307; 80320; 81001; 82140; 82550; 82553; 82728; 82803; 82962; 83550; 83615; 83735; 83970; 84100; 84443; 84484; 85014; 85018; 85025; 85027; 85049; 85520; 85610; 85730; 86140; 86850; 86900; 86901; 86920; 87040; 87070; 87205; 93005; 93010; 93306; 93312; 93320; 93325; 94002; 94003; 94640; 95819; 96365; 96366; 96375; A9270-GY; G0480; J0360; J0610; J0690; J0696; J0885; J1642; J1644; J1815; J1818; J1940; J2060; J2250; J2405; J2704; J2916; J3010; J7030; J7040; J7050; J7070; P9016